=== PATIENT | female | born 1950 | race Caucasian/White ===

== ENCOUNTER → 2017-02-14 | Outpatient (CLI) | payer BC ==
[~2017-02-14] MED LIST: ATOR80TA PO; ENAL1TAB33 PO; INSHI7030 SC; METF500T PO
--- NOTE | 2017-02-14 14:12 | MAMMOGRAPHY REPORT ---
BILATERAL DIGITAL SCREENING MAMMOGRAM WITH CAD: 02/14/2017 TECHNIQUE: Current study was also evaluated with a Computer Aided Detection (CAD) system. Bilateral CC and MLO views were obtained. COMPARISON: Comparison is made to exams dated: 03/20/2012 mammogram, 02/18/2011 mammogram, and 02/13 mammogram - [facility]. BREAST COMPOSITION: The tissue of both breasts is almost entirely fatty. FINDINGS: No suspicious masses, calcifications, or areas of architectural distortion are noted in ei ther breast. There has been no significant interval change compared to prior exams. IMPRESSION: ACR BI-RADS CATEGORY 1: NEGATIVE There is no mammographic evidence of malignancy. A 1 year screening mammogram is recommended. The pa tient will receive written notification of the results. Approximately 10% of breast cancers are not detected with mammography. A negative mammographic report should not delay biopsy if a clinically suggestive mass is present. Tamia Phan M.D. ah/:02/14/2017 13:16:47 Geospatial Image Analyst: Nenita ALFONSO(R)(M), [facility] letter sent: Normal 1/2 BI-RADS Code: ACR BI-RADS Category 1: Negative
== END | disposition home or self-care (01) ==
LOC: C.MAMM 12:33
PROVIDERS: ATTEND Internal Medicine
DX: Z12.31 Encounter for screening mammogram for malignant neoplasm of breast (principal)

== ENCOUNTER 2022-05-30 11:55 | Inpatient (IN) ==
[2022-05-30] MEDS ORDERED: SODIUM CHLORIDE 0.9% 500 ML IV STA (12:23)
[2022-05-30] MEDS ORDERED: ALBUT/IPRATROP 3MG/0.5MG NEB 3 ML VIAL INH STA (12:23)
--- NOTE | 2022-05-30 12:25 | Emergency Department Note ---
Impression & Plan Acute respiratory failure with hypoxia, Pulmonary embolism with acute cor pulmonale, Diabetic ketoacidosis, Demand ischemia ED Provider Note NAME: CHARLES THOMAS AGE: 72 SEX: F : 1950 ARRIVES VIA: Ambulance INFORMANT: Patient, ED PROVIDER(S): Serjio Costa MD CHIEF COMPLAINT: Shortness of breath MEDICAL DECISION MAKING: Patient did present with profound hypoxia. The patient did have blood work completed and the patient was immediately ordered to get a CT scan as I did review the patient's chest x-ray which grossly unremarkable and I was very concerned for a PE. The patient was taken to CT where she had the CAT scan completed. I did review it myself and I was concerned about a PE and did speak with on-call radiology Dr. Patel who noted the findings and was concerned about associated right heart strain. Given this concern and the patient's significant hypoxia and heart rate I did speak with Dr. Temple with the intensive care unit as I thought the patient may need tPA. He is comfortable with this plan of care but would first recommend going over any sort of contraindications and I did discuss them with the patient who would like to proceed with the tPA. The patient did go over the CAT scan and the tPA was ordered. CAT scan was completed. I did speak with Dr. Patel with radiology I did review the CAT scan of the head did not show any obvious ICH. I did speak with pharmacy and the patient was started on the tPA. I did speak with Dr. Temple who did come and evaluate the patient at the bedside. I did speak w/ the the on-call hospitalist Dr. Davey and the patient was a dmitted to the medicine service for submassive PE s/p systemic thrombolysis. Patient was noted to have an elevated troponin of 145 but did believe this is demand related. Patient does have elevated glucose to 500. The patient did receive IV fluids. Additional glucose management deferred to inpatient team. Critical Care: I have personally spent 95 minutes of critical care time in direct management of this patient. This includes bedside care, interpretation of diagnostic studies, and testing, discussion with consultants, patient, and family members, and other require inpatient management activities. This 95 minutes is in excess of all separately billable procedures. Prior /Outside records reviewed: I did review the patient's radiation oncology notes from April 04, 2022. This was done for maintenance and monitoring surveillance Differential diagnosis: Reactive airway disease, pneumonia, pneumothorax, COPD, CHF, infections, cardiac ischemia, pulmonary embolism, musculoskeletal, gastrointestinal, as well as other pathologies. Diagnostics, as interpreted by me: ECG: Sinus tachycardia, rate of 124, normal intervals left axis deviation, no ST elevations, Q waves in lead III. Cardiac monitoring: An order was placed for continuous cardiac monitoring. The monitor shows a rate of 122 with tachycardic and regular rhythm. Patient was placed on pulse oximetry Medical decision rules: None Imaging studies: See below HPI: Patient does present due to concern for acute onset of shortness of breath beginning earlier this morning. The patient was found to be cyanotic and was placed on supplemental oxygen. When the patient presented here the patient was 78% on 3 L. The patient does not wear oxygen at home. Patient denies any chest pains but does have shortness of breath even at rest. The patient does feels that the oxygen is improving. The patient denies any fever and has not had any productive cough. No recent falls or trauma. The patient does follow with oncology but just for maintenance and surveillance as the patient is not receiving any active cancer treatment or chemotherapy. Patient denies any nausea vomiting or diarrhea. No leg swelling or calf pain no history of DVT or PE and the patient does not take any blood thinning medications. The patient states that she would have significant [place]. Patient denies any prior history of heart failure. Patient did receive 2 DuoNeb's en route. PAST MEDICAL HISTORY: See Below PAST SURGICAL HISTORY: See Below SOCIAL HISTORY: See Below HOME MEDICATIONS: See Below ALLERGIES: See Below VITALS: See Below PHYSICAL EXAMINATION: GENERAL: Moderate distress, conversational dyspnea, oxyask in place EYE EXAM: Normal conjunctiva. PERRL, no anisocoria and EOM's grossly intact w/o pain. NECK: Supple, no nuchal rigidity, no adenopathy, non-tender. No signs of meningismus. FROM of the neck with good chin to chest and neck extension. No stridor. LUNGS: Scant expiratory wheezes. Normal chest wall mechanics. HEART: Tachycardic and regular, no MRG. ABDOMEN: Abdomen soft, non-tender, normo-active bowel sounds, no masses, no rebound or guarding. BACK: No CVA TTP. SKIN: No rashes and no bruising. UPPER EXTREMITIES: Upper extremities are grossly normal. LOWER EXTREMITIES: Grossly normal, no edema. Negative Homans' sign bilaterally. NEURO EXAM: A&O x3, cranial nerves II-XII grossly intact, normal speech, moves all 4 extremities. Past Med/Surg History Medical History Acute respiratory failure with hypoxia Adult situational stress disorder Breast cancer Dx 2021 surgical intervention planned Conjunctivitis Demand ischemia Depression Diabetes mellitus type 2, uncontrolled Diabetic ketoacidosis Diabetic nephropathy with proteinuria Hyperlipidemia Hypertension Hypothyroidism Mediastinal lymphadenopathy (01/2012) Noted in 2011. Elevated ADILENE level suspicious for pulmonary sarcoidosis. Biopsy could not be completed. DM was grossly uncontrolled so steroids were avoided. Seems she's been relatively asymptomatic since then. Dr. Chowdhury repeated CT scan 2013, which revealed borderline, similiar appearing hilar LNs. Pulmonary embolism with acute cor pulmonale Solitary thyroid nodule s/p thyroidectomy 2011 Vitamin D deficiency Surgical History History of section History of cholecystectomy History of colonoscopy Diverticulosis noted. No polyps/neoplasia. No biopsies. F/U 5-10 years recommended. History of thyroidectomy (03/04/12) d/t suspicious nodule. 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 No carcinoma noted. History of tubal ligation Family History Mother Uterine cancer Leukemia Aunt Breast cancer Pancreatic cancer Father Heart disease (Reported Family History Of) Myocardial infarction Unknown Acute myocardial infarction Son Atrial fibrillation Myocardial infarction Denies family history of Ovarian cancer Prostate cancer Colorectal cancer Social History Smoking Status: Never smoker Second Hand Exposure: No; Do You Dip or Chew Tobacco: No; Tobacco Cessation Education Requested by Patient: No Hx Alcohol Use: Yes Alcohol type: wine Alcohol Intake Frequency: Monthly or Less Hx Substance Use: No Preferred Language: Pashto Communication Ability: Effective Visual Impairment: Limited Hearing Ability: Normal 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 Beliefs That Will Affect Care: None marital status: / Current Living Situation: Alone Current Living Situation Comment: lives with grandson current occupational status: retired How many Children do You have: 2 Other Information That Helps Us Care for You: No Feels Safe at Home: Yes Safety Concerns: Feels Safe At This Time Childhood Exposure to Second-Hand Smoke: Yes caffeine: Yes (half caf coffee ) during the past year weight has: remained stable Dental Care, Regularly: No Physical Activity Frequency: Does not Exercise Seatbelt Use: always Sunscreen Use: Yes Assistive Devices: None Allergies Allergies Allergy/AdvReac Type Severity Reaction Status Date / Time aloe Allergy Unknown RAISED RASH Verified 05/30/22 14:24 No Known Drug Allergies Allergy Verified 05/30/22 14:24 Home Meds Home Medications Medication Instructions Recorded Confirmed enalapril maleate 10 mg tablet 10 mg PO QAM 08/23/21 05/30/22 aspirin 81 mg tablet,delayed 81 mg PO DAILY 05/30/22 05/30/22 release Previous Rx's Medication Instructions Recorded insulin aspart U-100 100 unit/mL 15 unit (0.15 mL) subcut BID #27 mL 11/12/21 (3 mL) subcutaneous pen (Novolog FlexPen U-100 Insulin aspart) atorvastatin 80 mg tablet 80 mg PO QAM #90 tabs 12/28/21 Results & Data (ED) Vital Signs Vital Signs - 24 hr 05/30/22 12:23 05/30/22 12:23 05/30/22 12:23 Temperature 36.8 C Temperature Source Oral Pulse Rate 120 H Pulse Rate [Radial] Pulse Rate from SpO2 Sensor Pulse Rhythm [Radial] Pulse Strength [Radial] Respiratory Rate 18 Respiratory Effort / Characteristics Non-Labored Spontaneous Labored Respiratory Depth Normal Shallow Respiratory Pattern Regular Tachypnea Blood Pressure 150/73 H Blood Pressure [Left Arm] Blood Pressure Mean 98 Blood Pressure Mean [Left Arm] Blood Pressure Position [Left Arm] Pulse Oximetry 78 L 78 L Oxygen Delivery Method Nasal Cannula Nasal Cannula Nasal Cannula Oxygen Flow Rate 3 3 Sepsis Recent Fever Within 48 Hours No Sepsis New/Unexplained Change in Mental Status No Sepsis Action Taken by Nursing No Action Required Oxygen Flow Rate - Titration 7 Pulse Oximetry Post Tiitration 94 05/30/22 12:39 05/30/22 12:23 05/30/22 12:30 Temperature Temperature Source Pulse Rate 124 H 123 H Pulse Rate [Radial] 112 H Pulse Rate from SpO2 Sensor 124 H 121 H Pulse Rhythm [Radial] Regular Pulse Strength [Radial] Normal Respiratory Rate 26 H 27 H 27 H Respiratory Effort / Characteristics SOB on Exertion Respiratory Depth Shallow Respiratory Pattern Regular Blood Pressure Blood Pressure [Left Arm] 127/59 L Blood Pressure Mean Blood Pressure Mean [Left Arm] 81 Blood Pressure Position [Left Arm] Lying Pulse Oximetry 96 95 94 Oxygen Delivery Method Other Oxygen Flow Rate 7 7 7 Sepsis Recent Fever Within 48 Hours Sepsis New/Unexplained Change in Mental Status Sepsis Action Taken by Nursing Oxygen Flow Rate - Titration Pulse Oximetry Post Tiitration 05/30/22 12:40 05/30/22 13:03 05/30/22 13:04 Temperature Temperature Source Pulse Rate 123 H 122 H Pulse Rate [Radial] Pulse Rate from SpO2 Sensor 123 H Pulse Rhythm [Radial] Pulse Strength [Radial] Respiratory Rate 31 H Respiratory Effort / Characteristics Respiratory Depth Respiratory Pattern Blood Pressure 122/75 Blood Pressure [Left Arm] Blood Pressure Mean 90 Blood Pressure Mean [Left Arm] Blood Pressure Position [Left Arm] Pulse Oximetry 94 Oxygen Delivery Method Oxygen Flow Rate 7 Sepsis Recent Fever Within 48 Hours Sepsis New/Unexplained Change in Mental Status Sepsis Action Taken by Nursing Oxygen Flow Rate - Titration Pulse Oximetry Post Tiitration 05/30/22 13:04 05/30/22 13:10 05/30/22 13:15 Temperature Temperature Source Pulse Rate 120 H 120 H Pulse Rate [Radial] 119 H Pulse Rate from SpO2 Sensor 122 H 121 H Pulse Rhythm [Radial] Pulse Strength [Radial] Respiratory Rate 26 H 23 24 Respiratory Effort / Characteristics Spontaneous Respiratory Depth Respiratory Pattern Blood Pressure Blood Pressure [Left Arm] Blood Pressure Mean Blood Pressure Mean [Left Arm] Blood Pressure Position [Left Arm] Pulse Oximetry 95 93 96 Oxygen Delivery Method Oxymask Oxymask Oxygen Flow Rate 7 7 7 Sepsis Recent Fever Within 48 Hours Sepsis New/Unexplained Change in Mental Status Sepsis Action Taken by Nursing Oxygen Flow Rate - Titration Pulse Oximetry Post Tiitration 05/30/22 13:48 05/30/22 14:03 05/30/22 13:20 Temperature Temperature Source Pulse Rate 121 H Pulse Rate [Radial] 122 H 123 H Pulse Rate from SpO2 Sensor 123 H Pulse Rhythm [Radial] Pulse Strength [Radial] Respiratory Rate 18 18 31 H Respiratory Effort / Characteristics Non-Labored Spontaneous Respiratory Depth Normal Respiratory Pattern Regular Blood Pressure Blood Pressure [Left Arm] 166/84 H 156/91 H Blood Pressure Mean Blood Pressure Mean [Left Arm] 111 112 Blood Pressure Position [Left Arm] Pulse Oximetry 98 95 98 Oxygen Delivery Method Oxymask Oxymask Oxygen Flow Rate 5 5 Sepsis Recent Fever Within 48 Hours Sepsis New/Unexplained Change in Mental Status Sepsis Action Taken by Nursing Oxygen Flow Rate - Titration Pulse Oximetry Post Tiitration 05/30/22 13:34 05/30/22 13:38 05/30/22 13:38 Temperature Temperature Source Pulse Rate 125 H 127 H Pulse Rate [Radial] Pulse Rate from SpO2 Sensor Pulse Rhythm [Radial] Pulse Strength [Radial] Respiratory Rate 30 H 26 H Respiratory Effort / Characteristics Respiratory Depth Respiratory Pattern Blood Pressure 165/96 H Blood Pressure [Left Arm] Blood Pressure Mean 119 Blood Pressure Mean [Left Arm] Blood Pressure Position [Left Arm] Pulse Oximetry Oxygen Delivery Method Oxygen Flow Rate Sepsis Recent Fever Within 48 Hours Sepsis New/Unexplained Change in Mental Status Sepsis Action Taken by Nursing Oxygen Flow Rate - Titration Pulse Oximetry Post Tiitration 05/30/22 13:40 05/30/22 13:45 05/30/22 13:45 Temperature Temperature Source Pulse Rate 123 H 123 H Pulse Rate [Radial] Pulse Rate from SpO2 Sensor 123 H 123 H Pulse Rhythm [Radial] Pulse Strength [Radial] Respiratory Rate 22 31 H Respiratory Effort / Characteristics Respiratory Depth Respiratory Pattern Blood Pressure 166/84 H Blood Pressure [Left Arm] Blood Pressure Mean 111 Blood Pressure Mean [Left Arm] Blood Pressure Position [Left Arm] Pulse Oximetry 96 97 Oxygen Delivery Method Oxygen Flow Rate Sepsis Recent Fever Within 48 Hours Sepsis New/Unexplained Change in Mental Status Sepsis Action Taken by Nursing Oxygen Flow Rate - Titration Pulse Oximetry Post Tiitration 05/30/22 13:50 05/30/22 14:00 05/30/22 14:18 Temperature Temperature Source Pulse Rate 121 H 125 H Pulse Rate [Radial] 121 H Pulse Rate from SpO2 Sensor 121 H 126 H Pulse Rhythm [Radial] Pulse Strength [Radial] Respiratory Rate 34 H 28 H 18 Respiratory Effort / Characteristics Respiratory Depth Respiratory Pattern Blood Pressure 156/91 H Blood Pressure [Left Arm] 154/100 H Blood Pressure Mean 112 Blood Pressure Mean [Left Arm] 118 Blood Pressure Position [Left Arm] Pulse Oximetry 98 94 94 Oxygen Delivery Method Oxymask Oxygen Flow Rate 5 5 5 Sepsis Recent Fever Within 48 Hours Sepsis New/Unexplained Change in Mental Status Sepsis Action Taken by Nursing Oxygen Flow Rate - Titration Pulse Oximetry Post Tiitration Home Medications Current Medication List: was personally reviewed by me Laboratory Data Attestation: I reviewed the patient's lab results. 05/31/22 05:59 05/31/22 08:08 Lab Results 05/30/22 05/30/22 05/30/22 Range/Units 12:16 12:16 12:16 WBC 13.18 H (4.8-10.8) K/ul RBC 4.99 (4.20-5.40) M/uL Hgb 14.8 (12.0-16.0) g/dl Hct 45.6 (37.0-47.0) % MCV 91.4 (80.0-100.0) fL MCH 29.7 (25.0-34.0) pg MCHC 32.5 (32.0-36.0) g/dL RDW Std Deviation 42.2 (36.4-46.3) fL RDW Coeff of Millicent 12.7 (11.5-14.5) % Plt Count 208 (130-400) K/uL MPV 9.8 (9.4-12.4) fL Immature Gran % (Auto) 0.6 % Neut % (Auto) 81.9 % Lymph % (Auto) 12.2 % Charlton % (Auto) 4.7 % Eos % (Auto) 0.2 % Baso % (Auto) 0.4 % Neut # (Auto) 10.80 H (1.40-6.50) K/uL Lymph # (Auto) 1.61 (1.2-3.4) K/uL Charlton # (Auto) 0.62 H (0.11-0.59) K/uL Eos # (Auto) 0.02 (0-0.50) K/uL Baso # (Auto) 0.05 (0-0.2) K/uL Immature Gran # (Auto) 0.08 (0.01-0.20) K/uL PT 10.6 (9.0-12.0) Seconds INR 1.0 (0.9-1.1) APTT 24.7 (21.0-31.0) Seconds PTT Ratio 0.9 Sodium 138 (136-145) mmol/L Potassium 4.5 (3.5-5.1) mmol/L Chloride 105 (98-107) mmol/L Carbon Dioxide 19 L (21-32) mmol/L Anion Gap 14 H (3-11) BUN 17 (6-23) mg/dl Creatinine 1.10 (0.6-1.2) mg/dl Est Cr Clr Drug Dosing 48.0 ml/min Est GFR ( Amer) 57.7 ml/min Est GFR (Non-Af Amer) 49.8 ml/min BUN/Creatinine Ratio 15.5 (10-20) Glucose 513 H* (70-99(Fasting)) mg/dl Calcium 8.8 (8.5-10.1) mg/dl Magnesium 1.9 (1.7-2.4) mg/dl Total Bilirubin 0.5 (0.2-1.0) mg/dl AST 77 H (13-39) U/L ALT 62 H (7-52) U/L Alkaline Phosphatase 116 H (34-104) U/L Troponin I High Sens 145.9 H* (0-14) pg/ml Total Protein 6.7 (6.0-8.3) gm/dl Albumin 3.7 (3.4-5.0) gm/dl Globulin 3.0 (2.5-4.0) gm/dl Albumin/Globulin Ratio 1.2 (0.9-2) Procalcitonin (0-0.5) ng/ml Adenovirus (PCR) (NotDetected) B. pertussis DNA (PCR) (NotDetected) B.parapertussis DNA PCR (NotDetected) C. pneumoniae DNA (PCR) (NotDetected) Coronavirus OC43 (PCR) (NotDetected) Coronavirus HKU1 (PCR) (NotDetected) Coronavirus 229E (PCR) (NotDetected) SARS-CoV-2 (PCR) (NotDetected) Coronavirus NL63 (PCR) (NotDetected) Human Metapneumovir PCR (NotDetected) Influenza Type A (PCR) (NotDetected) Influenza Type B (PCR) (NotDetected) M. pneumoniae (PCR) (NotDetected) Parainfluenza 1 (PCR) (NotDetected) Parainfluenza 2 (PCR) (NotDetected) Parainfluenza 3 (PCR) (NotDetected) Parainfluenza 4 (PCR) (NotDetected) RSV (PCR) (NotDetected) Entero/Rhino (PCR) (NotDetected) 05/30/22 05/30/22 Range/Units 12:16 12:16 WBC (4.8-10.8) K/ul RBC (4.20-5.40) M/uL Hgb (12.0-16.0) g/dl Hct (37.0-47.0) % MCV (80.0-100.0) fL MCH (25.0-34.0) pg MCHC (32.0-36.0) g/dL RDW Std Deviation (36.4-46.3) fL RDW Coeff of Millicent (11.5-14.5) % Plt Count (130-400) K/uL MPV (9.4-12.4) fL Immature Gran % (Auto) % Neut % (Auto) % Lymph % (Auto) % Charlton % (Auto) % Eos % (Auto) % Baso % (Auto) % Neut # (Auto) (1.40-6.50) K/uL Lymph # (Auto) (1.2-3.4) K/uL Charlton # (Auto) (0.11-0.59) K/uL Eos # (Auto) (0-0.50) K/uL Baso # (Auto) (0-0.2) K/uL Immature Gran # (Auto) (0.01-0.20) K/uL PT (9.0-12.0) Seconds INR (0.9-1.1) APTT (21.0-31.0) Seconds PTT Ratio Sodium (136-145) mmol/L Potassium (3.5-5.1) mmol/L Chloride (98-107) mmol/L Carbon Dioxide (21-32) mmol/L Anion Gap (3-11) BUN (6-23) mg/dl Creatinine (0.6-1.2) mg/dl Est Cr Clr Drug Dosing ml/min Est GFR ( Amer) ml/min Est GFR (Non-Af Amer) ml/min BUN/Creatinine Ratio (10-20) Glucose (70-99(Fasting)) mg/dl Calcium (8.5-10.1) mg/dl Magnesium (1.7-2.4) mg/dl Total Bilirubin (0.2-1.0) mg/dl AST (13-39) U/L ALT (7-52) U/L Alkaline Phosphatase (34-104) U/L Troponin I High Sens (0-14) pg/ml Total Protein (6.0-8.3) gm/dl Albumin (3.4-5.0) gm/dl Globulin (2.5-4.0) gm/dl Albumin/Globulin Ratio (0.9-2) Procalcitonin < 0.05 (0-0.5) ng/ml Adenovirus (PCR) Not Detected (NotDetected) B. pertussis DNA (PCR) Not Detected (NotDetected) B.parapertussis DNA PCR Not Detected (NotDetected) C. pneumoniae DNA (PCR) Not Detected (NotDetected) Coronavirus OC43 (PCR) Not Detected (NotDetected) Coronavirus HKU1 (PCR) Not Detected (NotDetected) Coronavirus 229E (PCR) Not Detected (NotDetected) SARS-CoV-2 (PCR) Not Detected (NotDetected) Coronavirus NL63 (PCR) Not Detected (NotDetected) Human Metapneumovir PCR Not Detected (NotDetected) Influenza Type A (PCR) Not Detected (NotDetected) Influenza Type B (PCR) Not Detected (NotDetected) M. pneumoniae (PCR) Not Detected (NotDetected) Parainfluenza 1 (PCR) Not Detected (NotDetected) Parainfluenza 2 (PCR) Not Detected (NotDetected) Parainfluenza 3 (PCR) Not Detected (NotDetected) Parainfluenza 4 (PCR) Not Detected (NotDetected) RSV (PCR) Not Detected (NotDetected) Entero/Rhino (PCR) DETECTED A* (NotDetected) Administered Medications Heparin Sodium/Dextrose (Heparin Sodium/Dextrose) 25,000 units in 500 mls @ 19 mls/hr IV .Q24H [facility]; Protocol Stop: 06/29/22 17:59 Last Titration: 05/31/22 07:14 Dose: 950 units/hr, 19 mls/hr Documented By: LILY Co-signed By: KANDI Titration: 05/31/22 01:21 Dose: 950 units/hr, 19 mls/hr Documented By: KANDI Co-signed By: CHARLES Titration: 05/30/22 18:55 Dose: 800 units/hr, 16 mls/hr Documented By: RODGER Co-signed By: KANDI Admin: 05/30/22 18:11 Dose: 800 units/hr, 16 mls/hr Documented By: RODGER Co-signed By: KYLE Insulin Aspart (Insulin Aspart Per Unit) 0 units SC ACHS [facility]I Stop: 06/30/22 09:59 Last Admin: 05/31/22 12:20 Dose: 5 units Documented By: LILY Co-signed By: DIOR Admin: 05/31/22 10:28 Dose: 1 units Documented By: LILY Co-signed By: PDAMINI Discontinued Medications Albuterol (Albut/Ipratrop 3mg/0.5mg Neb 3 Ml Vial) 3 ml INH NOW STA Stop: 05/30/22 12:24 Last Admin: 05/30/22 13:15 Dose: 3 ml Documented By: MONET Heparin Sodium (Porcine) (Heparin Sod (Porcine) 1000 Unit/Ml) 3,000 units IV NOW ONE Stop: 05/31/22 01:16 Last Admin: 05/31/22 01:20 Dose: 3,000 units Documented By: KANDI Co-signed By: CHARLES Heparin Sodium/Dextrose (Heparin Iv Adult Wt-Based Low-Dose *No* Bolus Protocol) 1 each IV ONE ONE; Protocol Stop: 05/30/22 13:23 Last Admin: 05/31/22 14:31 Dose: Not Given Documented By: MIKE Heparin Sodium/Dextrose (Heparin Iv Adult Wt-Based Low-Dose *No* Bolus Protocol) 1 each IV Q30M [facility]; Protocol Stop: 05/30/22 17:36 Last Admin: 05/30/22 18:32 Dose: 1 each Documented By: Admin: 05/30/22 18:31 Dose: 1 each Documented By: Admin: 05/30/22 18:31 Dose: 1 each Documented By: Admin: 05/30/22 18:12 Dose: 1 each Documented By: RODGER Sodium Chloride (Nss) 500 mls @ 999 mls/hr IV .Q31M STA Stop: 05/30/22 12:53 Last Infusion: 05/30/22 13:51 Dose: 0 mls/hr Documented By: Admin: 05/30/22 13:17 Dose: 999 mls/hr Documented By: MADISON Alteplase, Recombinant 50 mg/ (EMPTY BAG) 50 mls @ 25 mls/hr IV NOW STA; Protocol Stop: 05/30/22 15:21 Last Infusion: 05/30/22 16:14 Dose: 0 mls/hr Documented By: Admin: 05/30/22 13:47 Dose: 25 mls/hr Documented By: HIRA Heparin Sodium/Dextrose (Heparin Sodium/Dextrose) 25,000 units in 500 mls @ 0.02 mls/hr IV .Q24H [facility]; Protocol Stop: 06/29/22 13:44 Last Admin: 05/31/22 14:32 Dose: Not Given Documented By: MIKE Insulin Human Regular 250 (units/ Sodium Chloride) 250 mls @ 3.2 mls/hr IV .Q24H [facility]; Protocol Stop: 06/29/22 16:14 Last Titration: 05/31/22 12:20 Dose: 0 units/hr, 0 mls/hr Documented By: CAM Co-signed By: PADMINI Titration: 05/31/22 05:05 Dose: 0 units/hr, 0 mls/hr Documented By: BPY Co-signed By: SG Titration: 05/31/22 04:10 Dose: 0 units/hr, 0 mls/hr Documented By: BPY Co-signed By: SG Titration: 05/31/22 03:07 Dose: 3.2 units/hr, 3.2 mls/hr Documented By: TG Co-signed By: ELS Titration: 05/31/22 02:27 Dose: 4 units/hr, 4 mls/hr Documented By: BPY Co-signed By: TG Titration: 05/30/22 23:05 Dose: 5 units/hr, 5 mls/hr Documented By: BPY Co-signed By: BRA Titration: 05/30/22 19:42 Dose: 8.3 units/hr, 8.3 mls/hr Documented By: BPY Co-signed By: TG Titration: 05/30/22 18:55 Dose: 8.3 units/hr, 8.3 mls/hr Documented By: RODGER Co-signed By: BPY Titration: 05/30/22 18:32 Dose: 8.3 units/hr, 8.3 mls/hr Documented By: RODGER Co-signed By: KEM Admin: 05/30/22 17:32 Dose: 8.3 units/hr, 8.3 mls/hr Documented By: RODGER Co-signed By: KEM Parenteral Electrolytes (Normosol-R) 1,000 mls @ 100 mls/hr IV .Q10H [facility]I Stop: 06/29/22 16:14 Last Infusion: 05/30/22 18:36 Dose: 0 mls/hr Documented By: Admin: 05/30/22 16:40 Dose: 100 mls/hr Documented By: RODGER Sodium Chloride (Nss 1000ml) 1,000 mls @ 100 mls/hr IV .Q10H [facility]I Stop: 06/29/22 18:14 Last Infusion: 05/31/22 03:47 Dose: 0 mls/hr Documented By: Admin: 05/30/22 18:40 Dose: 100 mls/hr Documented By: RODGER Dextrose/Sodium Chloride (D5w And 1/2nss) 1,000 mls @ 125 mls/hr IV .Q8H J[facility]I Stop: 06/29/22 22:29 Last Infusion: 05/31/22 12:20 Dose: 0 mls/hr Documented By: Admin: 05/31/22 06:10 Dose: 125 mls/hr Documented By: Infusion: 05/31/22 06:10 Dose: 125 mls/hr Documented By: Admin: 05/30/22 22:28 Dose: 125 mls/hr Documented By: KANDI Potassium Chloride (K John / Wtr) 10 meq in 100 mls @ 100 mls/hr IV Q1H [facility] Stop: 05/31/22 04:59 Last Infusion: 05/31/22 05:13 Dose: 0 mls/hr Documented By: Admin: 05/31/22 04:06 Dose: 100 mls/hr Documented By: Infusion: 05/31/22 04:06 Dose: 100 mls/hr Documented By: Admin: 05/31/22 03:18 Dose: 100 mls/hr Documented By: Infusion: 05/31/22 03:11 Dose: 100 mls/hr Documented By: Admin: 05/31/22 02:11 Dose: 100 mls/hr Documented By: BPY Magnesium Sulfate/Dextrose (Magnesium Sulfate / D5w) 1 gm in 100 mls @ 50 mls/hr IV ONE ONE Stop: 05/31/22 03:59 Last Infusion: 05/31/22 04:11 Dose: 0 mls/hr Documented By: Admin: 05/31/22 02:11 Dose: 50 mls/hr Documented By: KANDI Insulin Aspart (Insulin Aspart Per Unit) 0 units SC ACHS JERI Stop: 06/29/22 16:29 Last Admin: 05/31/22 14:30 Dose: Not Given Documented By: Admin: 05/30/22 19:47 Dose: Not Given Documented By: Admin: 05/30/22 17:17 Dose: Not Given Documented By: RODGER Insulin Glargine (Lantus Per Unit Charge) 15 units SQ NOW ONE Stop: 05/31/22 09:01 Last Admin: 05/31/22 09:38 Dose: 15 units Documented By: LILY Co-signed By: DIOR Insulin Human Regular (Novolin-R Bolus From Bag) 8 units IV ONE ONE Stop: 05/30/22 16:31 Last Admin: 05/30/22 17:33 Dose: 8 units Documented By: RODGER Co-signed By: KEM Ioversol (Optiray 320 500ml) 109 ml IV ONCE ONE Stop: 05/30/22 12:56 Last Admin: 05/30/22 12:58 Dose: 109 ml Documented By: MIKE De Jesus (Pending Order) 1 each N/A Q1H JERI Stop: 05/30/22 21:48 Last Admin: 05/31/22 14:32 Dose: Not Given Documented By: MIKE Rosascellaneous Information (Dc All Anticoagulants ) 1 each N/A NOW STA Stop: 05/30/22 13:23 Last Admin: 05/30/22 16:40 Dose: 1 each Documented By: RODGER Sodium Chloride (Sodium Chloride 0.9% 50 Ml Bag) 50 ml IV NOW STA Stop: 05/30/22 13:23 Last Admin: 05/30/22 15:40 Dose: 50 ml Documented By: HIRA Imaging Data Radiologist's Impression: Chest CTA 05/30/22 12:23 CHEST CTA for PULMONARY ARTERIES CT DOSE: 386.18 mGy.cm HISTORY: Dyspnea TECHNIQUE: Multiaxial CT images of the chest were performed following the intravenous administration of contrast to evaluate the pulmonary arteries. Maximal intensity projection images were also obtained. A dose lowering technique was utilized adhering to the principles of ALARA. COMPARISON STUDY: Chest CT 09/20/2013. FINDINGS: The left thyroid lobe is likely surgically absent. A few prominent mediastinal lymph nodes are similar in size to the prior study. Dominant AP window/left paratracheal lymph node on image 74 measures 11 mm in short axis diameter. No significant hilar lymphadenopathy. No pleural or pericardial effusions. The heart is normal in size. Normal esophagus. Moderate coronary artery calcifications are noted. Lumpectomy scar noted within the left breast with mild left breast thickening. This favors posttreatment changes. Limited views of the upper abdomen demonstrate a normal liver and spleen. There is flattening of the interventricular septum with asymmetric enlargement of the right ventricle and mass effect along the left ventricle consistent with right- sided heart strain. Extensive bilateral pulmonary emboli involving the bilateral distal main pulmonary arteries and extending into the majority of the lobar and segmental pulmonary arteries. Normal caliber thoracic aorta with no evidence for dissection. A stable 5 cm sclerotic focus within the T1 vertebral body favors a bone island. Otherwise, no suspicious lytic or blastic osseous lesions. The central airways are patent. No pneumothorax. Linear scarlike density noted wi thin the left upper lobe. Stable 3 mm nodule within the left lower lobe on image 134. Stable 3 mm nodule within the right upper lobe on image 222. A stable 4 mm nodule within the right lower lobe on image 85. These are likely benign given the long-term stability. No new or suspicious pulmonary nodules identified. There is mild bronchial wall thickening. No focal lung consolidations to suggest a pneumonia or pulmonary infarct at this time. IMPRESSION: 1. Extensive bilateral pulmonary emboli resulting in significant right-sided heart strain. 2. Prominent mediastinal lymph nodes remain stable and are likely benign given the long-term stability. 3. A few scattered subcentimeter pulmonary nodules are also stable and are therefore considered to be benign. ACT 112: Negative or not required by law. Electronically signed by: Cordell Rasheed M.D. 05/30/2022 1:14 PM Chest X-Ray 05/30/22 12:23 XR chest 1V portable CLINICAL HISTORY: Dyspnea TECHNIQUE: Single frontal radiograph of the chest was obtained. Comparison: Comparison is made to chest radiograph 12/16/2011 FINDINGS: No lines and tubes are seen. The cardiomediastinal silhouette is normal. The lungs are clear. No evidence of pleural effusion or pneumothorax. IMPRESSION: No acute abnormalities and in particular no evidence of pneumonia. ACT 112: Negative or not required by law. Electronically signed by: Teddy Poep M.D. 05/30/2022 12:[address] 05/30/22 13:[address] DOSE: 537.48 mGy.cm HISTORY: Pulmonary emboli. screener pre tPA to exclude intracranial hemorrhage or mass TECHNIQUE: Multiaxial CT images of the head were performed without the use of intravenous contrast. Automated exposure control was utilized for this study. A dose lowering technique was utilized adhering to the principles of ALARA. Comparison: None. Findings: The paranasal sinuses and mastoid air cells are clear. The calvarium and skull base are intact. Residual contrast within the brain from the recent chest CTA. This results in suboptimal evaluation for intracranial hemorrhage. However, there is no definite mass, hematoma, midline shift, acute infarct. The ventricles and sulci are within normal limits for age. Impression: No definite acute intracranial abnormality as described above. ACT 112: Negative or not required by law. Electronically signed by: Cordell Rasheed M.D. 05/30/2022 1:36 PM Abdomen Ultrasound 05/30/22 14:09 ABDOMINAL ULTRASOUND, RIGHT UPPER QUADRANT HISTORY: transaminitis. COMPARISON: None. FINDINGS: Pancreas: The pancreatic tail is obscured by overlying bowel gas. The remaining portions of the pancreas are within normal limits. An elongated lymph node adjacent to the pancreas measuring 32 x 21 x 7 mm Liver: Unremarkable. Gallbladder: The gallbladder is surgically absent. CBD: 6 mm. Right kidney: No hydronephrosis. IMPRESSION: 1. Prior cholecystectomy. 2. Normal caliber common bile duct. 3. A single mildly enlarged peripancreatic lymph node measuring 32 x 21 x 7 mm. ACT 112: Negative or not required by law. Electronically signed by: Cordell Rasheed M.D. 05/30/2022 9:01 PM Venous Doppler Study 05/30/22 14:09 BILATERAL LOWER EXTREMITY VENOUS DOPPLER HISTORY: Pulmonary emboli. Assess for DVT. COMPARISON STUDY: None. FINDINGS: No DVT within the right lower extremity. There is occlusive thrombus within the left popliteal vein, posterior tibial veins, and peroneal veins. The left anterior tibial veins appear patent. The left superficial femoral and common femoral veins are also patent. IMPRESSION: 1. No DVT within the right lower extremity. 2. Occlusive DVT within the left popliteal, posterior tibial, and peroneal veins. ACT 112: Negative or not required by law. Electronically signed by: Cordell Rasheed M.D. 05/30/2022 8:59 PM Discharge Plan Visit Data Chief Complaint: Shortness of Breath/Dyspnea Stated Complaint: SOB ED Provider: Serjio Costa Discharge Problem: Acute respiratory failure with hypoxia, Pulmonary embolism with acute cor pulm onale, Diabetic ketoacidosis, Demand ischemia Patient Disposition: Admitted As Inpatient Discharge Instructions Interventions: ED Discharge Assessment Last Done: 05/30/22 15:37 : Pulmonary embolism with acute cor pulmonale Qualifiers: Pulmonary embolism type: unspecified Chronicity: acute Qualified Code(s): I26.09 - Other pulmonary embolism with acute cor pulmonale Diabetic ketoacidosis Qualifiers: Diabetes mellitus complication detail: without coma
--- NOTE | 2022-05-30 12:46 | XRay Report ---
XR chest 1V portable CLINICAL HISTORY: Dyspnea TECHNIQUE: Single frontal radiograph of the chest was obtained. Comparison: Comparison is made to chest radiograph 12/16/2011 FINDINGS: No lines and tubes are seen. The cardiomediastinal silhouette is normal. The lungs are clear. No evid ence of pleural effusion or pneumothorax. IMPRESSION: No acute abnormalities and in particular no evidence of pneumonia. ACT 112: Negative or not required by law. Electronically signed by: Teddy Pope M.D. 05/30/2022 12:44 PM
[2022-05-30 12:47] LABS: Basophils # (auto) 0.05 K/uL (0-0.2); Basophils % (auto) 0.4 %; Eosinophils # (auto) 0.02 K/uL (0-0.50); Eosinophils % (auto) 0.2 %; Hematocrit (blood only) 45.6 % (37.0-47.0); Hemoglobin 14.8 g/dl (12.0-16.0); Immature Granulocytes # (auto) 0.08 K/uL (0.01-0.20); Immature Granulocytes % (auto) 0.6 %; Lymphocytes # (auto) 1.61 K/uL (1.2-3.4); Lymphocytes % (auto) 12.2 %; Mean Corpuscular Hemoglobin 29.7 pg (25.0-34.0); Mean Corpuscular Hgb Conc 32.5 g/dL (32.0-36.0); Mean Corpuscular Volume 91.4 fL (80.0-100.0); Mean Platelet Volume 9.8 fL (9.4-12.4); Monocytes # (auto) 0.62 K/uL (0.11-0.59); Monocytes % (auto) 4.7 %; Neutrophils % (auto) 81.9 %; Platelet Count 208 K/uL (130-400); RDW Coefficient of Variation 12.7 % (11.5-14.5); RDW Standard Deviation 42.2 fL (36.4-46.3); Red Blood Count 4.99 M/uL (4.20-5.40); White Blood Count 13.18 K/ul (4.8-10.8)
[2022-05-30] MEDS ORDERED: OPTIRAY 320 500ml IV ONE (12:55)
[2022-05-30 13:06] LABS: Albumin Globulin Ratio 1.2 (0.9-2); Albumin Level 3.7 gm/dl (3.4-5.0); BUN Creatinine Ratio 15.5 (10-20); Bilirubin,Total 0.5 mg/dl (0.2-1.0); Calcium 8.8 mg/dl (8.5-10.1); Est GFR (African American) 57.7 ml/min; Est GFR (Non-African American) 49.8 ml/min; Magnesium 1.9 mg/dl (1.7-2.4); Potassium 4.5 mmol/L (3.5-5.1); Total Protein 6.7 gm/dl (6.0-8.3)
[2022-05-30 13:12] LABS: Troponin I High Sensitivity 145.9 pg/ml (0-14)
--- NOTE | 2022-05-30 13:15 | CT Scan Report ---
CHEST CTA for PULMONARY ARTERIES CT DOSE: 386.18 mGy.cm HISTORY: Dyspnea TECHNIQUE: Multiaxial CT images of the chest were performed following the intravenous administration of contrast to evaluate the pulmonary arteries. Maximal intensity projection images were also obtaine d. A dose lowering technique was utilized adhering to the principles of ALARA. COMPARISON STUDY: Chest CT 09/20/2013. FINDINGS: The left thyroid lobe is likely surgically absent. A few prominent mediastinal lymph nodes are similar in size to the prior study. Dominant AP window/left paratracheal lymph node on image 74 m easures 11 mm in short axis diameter. No significant hilar lymphadenopathy. No pleural or pericardial effusions. The heart is normal in size. Normal esophagus. Moderate coronary artery calcifications ar e noted. Lumpectomy scar noted within the left breast with mild left breast thickening. This favors p osttreatment changes. Limited views of the upper abdomen demonstrate a normal liver and spleen. There is flattening of the interventricular septum with asymmetric enlargement of the right ventricle and mass effect along the left ventricle consistent with right-sided heart strain. Extensive bilateral pu lmonary emboli involving the bilateral distal main pulmonary arteries and extending into the majority of the lobar and segmental pulmonary arteries. Normal caliber thoracic aorta with no evidence for di ssection. A stable 5 cm sclerotic focus within the T1 vertebral body favors a bone island. Otherwise, no suspicious lytic or blastic osseous lesions. The central airways are patent. No pneumothorax. [place] ear scarlike density noted within the left upper lobe. Stable 3 mm nodule within the left lower lobe on image 134. Stable 3 mm nodule within the right upper lobe on image 222. A stable 4 mm nodule withi n the right lower lobe on image 85. These are likely benign given the long-term stability. No new or suspicious pulmonary nodules identified. There is mild bronchial wall thickening. No focal lung conso lidations to suggest a pneumonia or pulmonary infarct at this time. IMPRESSION: 1. Extensive bilateral pulmonary emboli resulting in significant right-sided heart strain. 2. Prominent mediastinal lymph nodes remain stable and are likely benign given the long-term stabilit y. 3. A few scattered subcentimeter pulmonary nodules are also stable and are therefore considered to be benign. ACT 112: Negative or not required by law. Electronically signed by: Cordell Rasheed M.D. 05/30/2022 1:14 PM
[2022-05-30 13:18] LABS: Partial Thromboplastin Ratio 0.9; Partial Thromboplastin Time 24.7 Seconds (21.0-31.0); Prothrombin Time 10.6 Seconds (9.0-12.0)
[2022-05-30] MEDS ORDERED: ALTEPLASE, RECOMBINANT 50 MG in EMPTY BAG 0 ML IV STA (13:22)
[2022-05-30] MEDS ORDERED: Heparin IV Adult Wt-Based Low-Dose *NO* Bolus Protocol IV ONE (13:22)
[2022-05-30] MEDS ORDERED: DC ALL ANTICOAGULANTS STA (13:22)
[2022-05-30] MEDS ORDERED: SODIUM CHLORIDE 0.9% 50 ML BAG IV STA (13:22)
[2022-05-30] MEDS ORDERED: PRIMARY PLUMSET, PE LINED TUBING, 113 IN, NON-DEHP (2260-0500) IV STA (13:22)
--- NOTE | 2022-05-30 13:37 | CT Scan Report ---
HEAD CT NONCONTRAST CT DOSE: 537.48 mGy.cm HISTORY: Pulmonary emboli. screener pre tPA to exclude intracranial hemorrhage or mass TECHNIQUE: Multiaxial CT images of the head were performed without the use of intravenous contrast. A utomated exposure control was utilized for this study. A dose lowering technique was utilized adheri ng to the principles of ALARA. Comparison: None. Findings: The paranasal sinuses and mastoid air cells are clear. The calvarium and skull base are int act. Residual contrast within the brain from the recent chest CTA. This results in suboptimal evaluat ion for intracranial hemorrhage. However, there is no definite mass, hematoma, midline shift, acute i nfarct. The ventricles and sulci are within normal limits for age. Impression: No definite acute intracranial abnormality as described above. ACT 112: Negative or not required by law. Electronically signed by: Cordell Rasheed M.D. 05/30/2022 1:36 PM
[2022-05-30] MEDS ORDERED: HEPARIN SODIUM/DEXTROSE 25,000 UNITS/500 ML BAG IV SCH (13:45)
[2022-05-30 13:49] LABS: Appearance Urine Clear (Clear); Bacteria Urine Automated Negative (Negative); Bilirubin Urine Negative (Negative); Blood Urine 1+ (Negative); Color Urine Yellow; Glucose Urine UA 3+ (Negative); Ketones Urine 2+ (Negative); Leukocyte Esterase Urine Negative (Negative); Nitrite Urine Negative (Negative); Protein Urine 2+ (Negative); RBC Urine Automated 0-4 /hpf (0-4); Specific Gravity Urine > 1.045 (1.000-1.030); Urobilinogen Urine Negative (Negative)
[2022-05-30 14:07] LABS: Adenovirus PCR Not Detected (NotDetected); Bordetella parapertussis PCR Not Detected (NotDetected); Bordetella pertussis PCR Not Detected (NotDetected); Chlamydia pneumoniae PCR Not Detected (NotDetected); Coronavirus 229E PCR Not Detected (NotDetected); Coronavirus CoV-2 (COVID19)PCR Not Detected (NotDetected); Coronavirus HKU1 PCR Not Detected (NotDetected); Coronavirus NL63 PCR Not Detected (NotDetected); Coronavirus OC43PCR Not Detected (NotDetected); Human Metapneumovirus PCR Not Detected (NotDetected); Influenza A PCR Not Detected (NotDetected); Influenza B PCR Not Detected (NotDetected); Mycoplasma pneumoniae PCR Not Detected (NotDetected); Parainfluenza Virus 1 PCR Not Detected (NotDetected); Parainfluenza Virus 2 PCR Not Detected (NotDetected); Parainfluenza Virus 3 PCR Not Detected (NotDetected); Parainfluenza Virus 4 PCR Not Detected (NotDetected); Respiratory Syncytial VirusPCR Not Detected (NotDetected)
[2022-05-30 14:21] LABS: Rhinovirus/Enterovirus PCR DETECTED (NotDetected)
--- NOTE | 2022-05-30 14:23 | History & Physical Report ---
Date of Service May 30, 2022 Assessment & Plan (1) Pulmonary embolism with acute cor pulmonale: Plan: Alteplase given in the ER. Will defer starting IV heparin timing to ICU usually when PTT < twice upper limit of normal. TTE (2) Diabetic ketoacidosis: Plan: Discussed with Dr Temple. NSS 500ml bolus given in ER. Planning on repeating labs prior to initiation of probable insulin IV drip but will defer ongoing management and fluids to ICU team. Recommend q4h labs until anion gap closed (3) Acute respiratory failure with hypoxia: Plan: Secondary to bilateral pulmonary embolism as above. Currently stable on 5LPM O2 oxymask on admission. Aim O2 sats > 94% (4) Demand ischemia: Plan: Serial troponins, TTE (5) Diabetes mellitus type 2, uncontrolled: Plan: Patient not sure what insulin she is taking. When prompted regarding Lantus she thinks she has this at home but not prescribed in the last year. Per last PCP note she should be taking Lantus 30 units HS and Novolog 15 units BID. Will need perinatal educator prior to discharge (6) Hypertension: Plan: Hold enalapril pending serial BP measurements to make sure stability prior to restarting. 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 Plan VTE Prophylaxis - as above Diet - NPO pending resolution of DKA Disposition - admit to ICU Admission and Anticipated Discharge Date Admission Date: May 31, 2022 History of Present Illness Chief Complaint: Shortness of breath Primary Care Provider: Miguelito Chowdhury MD Shari Iglesias is a 72-year-old female who presents to the ER with shortness of breath. Symptoms started overnight but much worse today. No chest pain. She reports feeling a generalized illness with her not feeling right, everything going at 100 mph. Sudden worsening today over a 30 minute period with worsening shortness of breath therefore called EMS. No fever or chills, cough, nasal congestion, sinus pain, headache, chest pain, abdominal pain, nausea, vomiting, diarrhea, dizziness. She denies any history of DVT or PE. She did not take her usual medications this morning. On reviewing her diabetes medications last PCP note suggests she should be taking Lantus 30 units at night but it has not been prescribed in the last year. The patient is very unsure on what she should be taking, when to take it and when she last took it. In the ER given her history of cancer and shortness of breath she underwent CT for PE showing submassive bilateral pulmonary emboli with right heart strain. On discussion with the peoplesoft analyst decision was made to give alteplase. She reports already feeling improved when seen. She was also noted to have mild diabetic ketoacidosis with bicarb 19, anion gap 14 and glucose 513. Care was discussed with the peoplesoft analyst and she will be admitted to the ICU for ongoing care. Allergies Allergy/AdvReac Type Severity Reaction Status Date / Time aloe Allergy Unknown RAISED RASH Verified 05/30/22 14:24 No Known Drug Allergies Allergy Verified 05/30/22 14:24 Home Medications Medication Instructions Recorded Confirmed Type enalapril maleate 10 mg tablet 10 mg PO QAM 08/23/21 05/30/22 History insulin aspart U-100 100 unit/mL 15 unit (0.15 mL) subcut BID #27 mL 11/12/21 05/30/22 Rx (3 mL) subcutaneous pen (Novolog FlexPen U-100 Insulin aspart) atorvastatin 80 mg tablet 80 mg PO QAM #90 tabs 12/28/21 05/30/22 Rx aspirin 81 mg tablet,delayed 81 mg PO DAILY 05/30/22 05/30/22 History release Past Med/Surg History Medical History Acute respiratory failure with hypoxia Adult situational stress disorder Breast cancer Dx 2021 surgical intervention planned Conjunctivitis Demand ischemia Depression Diabetes mellitus type 2, uncontrolled Diabetic ketoacidosis Diabetic nephropathy with proteinuria Hyperlipidemia Hypertension Hypothyroidism Mediastinal lymphadenopathy (01/2012) Noted in 2011. Elevated ADILENE level suspicious for pulmonary sarcoidosis. Biopsy could not be completed. DM was grossly uncontrolled so steroids were avoided. Seems she's been relatively asymptomatic since then. Dr. Chowdhury repeated CT scan 2013, which revealed borderline, similiar appearing hilar LNs. Pulmonary embolism with acute cor pulmonale Solitary thyroid nodule s/p thyroidectomy 2011 Vitamin D deficiency Surgical History History of section History of cholecystectomy History of colonoscopy Diverticulosis noted. No polyps/neoplasia. No biopsies. F/U 5-10 years rec ommended. History of thyroidectomy (03/04/12) d/t suspicious nodule. 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 No carcinoma noted. History of tubal ligation Family History Mother Uterine cancer Leukemia Aunt Breast cancer Pancreatic cancer Father Heart disease (Reported Family History Of) Myocardial infarction Unknown Acute myocardial infarction Son Atrial fibrillation Myocardial infarction Denies family history of Ovarian cancer Prostate cancer Colorectal cancer Social History Smoking Status: Never smoker Second Hand Exposure: No; Do You Dip or Chew Tobacco: No; Tobacco Cessation Education Requested by Patient: No Hx Alcohol Use: Yes Alcohol type: wine Alcohol Intake Frequency: Monthly or Less Hx Substance Use: No Preferred Language: [place] Islander Communication Ability: Effective Visual Impairment: Limited Hearing Ability: Normal Straight Edger Required: No Beliefs That Will Affect Care: None marital status: / Current Living Situation: Alone Current Living Situation Comment: lives with grandson current occupational status: retired How many Children do You have: 2 Other Information That Helps Us Care for You: No Feels Safe at Home: Yes Safety Concerns: Feels Safe At This Time Childhood Exposure to Second-Hand Smoke: Yes caffeine: Yes (half caf coffee ) during the past year weight has: remained stable Dental Care, Regularly: No Physical Activity Frequency: Does not Exercise Seatbelt Use: always Sunscreen Use: Yes Assistive Devices: Glasses Review of Systems Review of Systems: All systems reviewed & are unremarkable except as noted in HPI & below Physical Exam Constitutional: WD/WN, vitals as above Eyes: PERRL, conjunctivae normal, anicteric sclerae ENMT: Mouth: + dry oral mucous membranes Respiratory: normal respiratory effort, lungs clear to auscultation Cardiovascular: Rate/Rhythm: regular rhythm and + tachycardic Extremities: normal capillary refill; no calf tenderness and no pedal edema Gastrointestinal (Abdomen): normal bowel sounds, soft, nontender, no hepatosplenomegaly Musculoskeletal: no cyanosis or clubbing, extremities motor strength 5/5 Skin: no rashes, warm and dry Neurologic: moves all extremities and awake; no focal motor deficits and not confused Psychiatric: A+Ox3, euthymic affect Results & Data Results & Data ([facility]) Vital Signs (Past 12 Hours) Vital Signs Temp Pulse Pulse Resp BP BP Pulse Ox 05/30/22 14:00 125 H 28 H 156/91 H 94 05/30/22 13:50 121 H 34 H 98 05/30/22 13:45 166/84 H 05/30/22 13:45 123 H 31 H 97 05/30/22 13:40 123 H 22 96 05/30/22 13:38 165/96 H 05/30/22 13:38 127 H 26 H 05/30/22 13:34 125 H 30 H 05/30/22 13:20 121 H 31 H 98 05/30/22 14:03 123 H 18 156/91 H 95 05/30/22 13:48 122 H 18 166/84 H 98 05/30/22 13:15 119 H 24 96 05/30/22 13:10 120 H 23 93 05/30/22 13:04 120 H 26 H 95 05/30/22 13:04 122/75 05/30/22 13:03 122 H 05/30/22 12:40 123 H 31 H 94 05/30/22 12:30 123 H 27 H 94 05/30/22 12:23 124 H 27 H 95 05/30/22 12:39 112 H 26 H 127/59 L 96 05/30/22 12:23 78 L 05/30/22 12:23 05/30/22 12:23 36.8 C 120 H 18 150/73 H 78 L O2 Del Method O2 Flow Rate 05/30/22 14:00 5 05/30/22 13:50 5 05/30/22 13:45 05/30/22 13:45 05/30/22 13:40 05/30/22 13:38 05/30/22 13:38 05/30/22 13:34 05/30/22 13:20 05/30/22 14:03 Oxymask 5 05/30/22 13:48 Oxymask 5 05/30/22 13:15 Oxymask 7 05/30/22 13:10 Oxymask 7 05/30/22 13:04 7 05/30/22 13:04 05/30/22 13:03 05/30/22 12:40 7 05/30/22 12:30 7 05/30/22 12:23 7 05/30/22 12:39 Other 7 05/30/22 12:23 Nasal Cannula 3 05/30/22 12:23 Nasal Cannula 05/30/22 12:23 Nasal Cannula 3 Laboratory Results Abnormal lab results 05/30/22 05/30/22 05/30/22 Range/Units 12:16 12:16 12:16 WBC 13.18 H (4.8-10.8) K/ul Neut # (Auto) 10.80 H (1.40-6.50) K/uL [place] # (Auto) 0.62 H (0.11-0.59) K/uL Carbon Dioxide 19 L (21-32) mmol/L Anion Gap 14 H (3-11) Glucose 513 H* (70-99(Fasting)) mg/dl AST 77 H (13-39) U/L ALT 62 H (7-52) U/L Alkaline Phosphatase 116 H (34-104) U/L Troponin I High Sens 145.9 H* (0-14) pg/ml B-Natriuretic Peptide (0-100) pg/ml Ur Specific Anthony (1.000-1.030) Urine Protein (Negative) Urine Glucose (UA) (Negative) Urine Ketones (Negative) Urine Blood (Negative) U Epithel Cells (Auto) (0-5) /lpf Entero/Rhino (PCR) DETECTED A* (NotDetected) 05/30/22 05/30/22 Range/Units Unknown Unknown WBC (4.8-10.8) K/ul Neut # (Auto) (1.40-6.50) K/uL [place] # (Auto) (0.11-0.59) K/uL Carbon Dioxide (21-32) mmol/L Anion Gap (3-11) Glucose (70-99(Fasting)) mg/dl AST (13-39) U/L ALT (7-52) U/L Alkaline Phosphatase (34-104) U/L Troponin I High Sens (0-14) pg/ml B-Natriuretic Peptide 182 H (0-100) pg/ml Ur Specific Anthony > 1.045 H (1.000-1.030) Urine Protein 2+ H (Negative) Urine Glucose (UA) 3+ H (Negative) Urine Ketones 2+ H (Negative) Urine Blood 1+ H (Negative) U Epithel Cells (Auto) 10-20 H (0-5) /lpf Entero/Rhino (PCR) (NotDetected) Diagnostic Findings HEAD CT NONCONTRAST CT DOSE: 537.48 mGy.cm HISTORY: Pulmonary emboli. screener pre tPA to exclude intracranial hemorrhage or mass TECHNIQUE: Multiaxial CT images of the head were performed without the use of intravenous contrast. Automated exposure control was utilized for this study. A dose lowering technique was utilized adhering to the principles of ALARA. Comparison: None. Findings: The paranasal sinuses and mastoid air cells are clear. The calvarium and skull base are intact. Residual contrast within the brain from the recent chest CTA. This results in suboptimal evaluation for intracranial hemorrhage. However, there is no definite mass, hematoma, midline shift, acute infarct. The ventricles and sulci are within normal limits for age. Impression: No definite acute intracranial abnormality as described above. XR chest 1V portable CLINICAL HISTORY: Dyspnea TECHNIQUE: Single frontal radiograph of the chest was obtained. Comparison: Comparison is made to chest radiograph 12/16/2011 FINDINGS: No lines and tubes are seen. The cardiomediastinal silhouette is normal. The lungs are clear. No evidence of pleural effusion or pneumothorax. IMPRESSION: No acute abnormalities and in particular no evidence of pneumonia. CHEST CTA for PULMONARY ARTERIES CT DOSE: 386.18 mGy.cm HISTORY: Dyspnea TECHNIQUE: Multiaxial CT images of the chest were performed following the intravenous administration of contrast to evaluate the pulmonary arteries. Maximal intensity projection images were also obtained. A dose lowering technique was utilized adhering to the principles of ALARA. COMPARISON STUDY: Chest CT 09/20/2013. FINDINGS: The left thyroid lobe is likely surgically absent. A few prominent mediastinal lymph nodes are similar in size to the prior study. Dominant AP window/left paratracheal lymph node on image 74 measures 11 mm in short axis diameter. No significant hilar lymphadenopathy. No pleural or pericardial effusions. The heart is normal in size. Normal esophagus. Moderate coronary artery calcifications are noted. Lumpectomy scar noted within the left breast with mild left breast thickening. This favors posttreatment changes. Limited views of the upper abdomen demonstrate a normal liver and spleen. There is flattening of the interventricular septum with asymmetric enlargement of the right ventricle and mass effect along the left ventricle consistent with right- sided heart strain. Extensive bilateral pulmonary emboli involving the bilateral distal main pulmonary arteries and extending into the majority of the lobar and segmental pulmonary arteries. Normal caliber thoracic aorta with no evidence for dissection. A stable 5 cm sclerotic focus within the T1 vertebral body favors a bone island. Otherwise, no suspicious lytic or blastic osseous lesions. The central airways are patent. No pneumothorax. Linear scarlike density noted within the left upper lobe. Stable 3 mm nodule within the left lower lobe on image 134. Stable 3 mm nodule within the right upper lobe on image 222. A stable 4 mm nodule within the right lower lobe on image 85. These are likely benign given the long-term stability. No new or suspicious pulmonary nodules identified. There is mild bronchial wall thickening. No focal lung consolidation s to suggest a pneumonia or pulmonary infarct at this time. IMPRESSION: 1. Extensive bilateral pulmonary emboli resulting in significant right-sided heart strain. 2. Prominent mediastinal lymph nodes remain stable and are likely benign given the long-term stability. 3. A few scattered subcentimeter pulmonary nodules are also stable and are therefore considered to be benign. Medications Administered ER medications given: NSS 500ml bolus Duoneb 3ml Alteplase 50mg IV ECG Indication: chest pain Rate (beats per minute): 124 Rhythm: sinus tachycardia Findings: + other (Possible left atrial enlargement, possible right ventricular hypertrophy) and + PVC Comparison ECG Date: from (December 16, 2011) Change: the following changes noted (Tachycardia and right ventricular hypertrophy changes are new) Code Status & VTE Plan Code Status Full VTE Prophylaxis Plan VTE Prophylaxis will be ordered: Yes PG Care Time/CCT Total # of Minutes Spent Total Time Spent with Patient: Total time spent is greater than 50% in coordination of care (as documented) at patient's floor/unit and/or counseling patient: Coding Level of Care Code 11661 INT INP/OBS CARE 3/75MIN Diagnoses Pulmonary embolism with acute cor pulmonale I26.09 Diabetic ketoacidosis E11.10 Acute respiratory failure with hypoxia J96.01 Demand ischemia I24.8 Diabetes mellitus type 2, uncontrolled E11.65 Glycemic state: with hyperglycemia Hypertension I10 Hypertension type: essential hypertension Hyperlipidemia E78.2 Hyperlipidemia type: mixed hyperlipidemia Breast cancer C50.919 (1) Hyperlipidemia Hyperlipidemia type: mixed hyperlipidemia Qualified Code(s): E78.2 - Mixed hyperlipidemia (2) Diabetes mellitus type 2, uncontrolled Glycemic state: with hyperglycemia Qualified Code(s): E11.65 - Type 2 diabetes mellitus with hyperglycemia (3) Hypertension Hypertension type: essential hypertension Qualified Code(s): I10 - Essential (primary) hypertension
--- NOTE | 2022-05-30 14:27 | Critical Care Consultation ---
Date of Consultation May 30, 2022 Assessment & Plan (1) Pulmonary embolism with acute cor pulmonale: (2) Diabetic ketoacidosis: (3) Acute respiratory failure with hypoxia: (4) Demand ischemia: (5) Mediastinal lymphadenopathy: (6) Malignant neoplasm of lower-outer quadrant of left breast of female, estrogen receptor positive: Plan 72-year-old female with a history of insulin-dependent diabetes mellitus, stage I breast cancer status postlumpectomy and adjuvant radiation therapy, obesity, hypertension, hyperlipidemia and anxiety presenting to the hospital due to a high risk submassive pulmonary embolism. Neurologic: Alert and oriented. Anxious. Noncontrast CT head prior to systemic thrombolysis was unremarkable. Pulmonary: High risk submassive pulmonary embolism identified on CT chest with significant risk factors for further deterioration without systemic thrombolysis. PESI 163. 50 mg systemic tPA given over 2 hours with transition to heparin infusion since there is no absolute contraindication. Continue to wean O2 to maintain saturations above 95%. Monitor in the ICU closely. CT chest with findings of subcentimeter pulmonary nodules and mediastinal lymphadenopathy. May benefit from an outpatient PET scan given history of breast cancer. Will defer this to her outpatient oncologist. Cardiovascular: CT chest with findings concerning for heart strain. Troponin and BNP also elevated likely due to demand from significant pulmonary embolism. Will obtain formal echocardiogram. Trend troponins. Gastrointestinal: Mild transaminitis likely secondary to congestive hepatopathy in the context of cor pulmonale from pulmonary embolism. We will obtain an abdominal ultrasound for further evaluation. Renal: Monitor urine output closely. Patient with evidence of DKA on admission likely secondary to acute pulmonary embolism. Status post crystalloid bolus in the ER. We will follow-up labs and initiate on insulin drip depending on follow-up lab findings. Infectious disease: No signs of acute bacterial infection. Bio fire positive for rhinov irus/enterovirus. Will initiate droplet precautions. Hematologic: Continue with tPA bolus and then transition to heparin if PTT within normal range. Monitor for signs of bleeding. She has a history of stage I breast cancer which was treated with lumpectomy and radiation in 2021. Pulmonary embolism currently appears to be unprovoked, but would recommend a PET scan as an outpatient to evaluate for a more systemic process such as metastatic malignancy or an inflammatory condition in the context of enlarged mediastinal lymph nodes and a history of breast cancer. Outpatient hypercoagulable work-up could be pursued by her manager field sales/oncologist. Endocrine: Likely DKA secondary to acute stress from pulmonary embolism. Repeat BMP. Lines and tubes: Peripheral IV in place VTE prophylaxis: tPA and heparin infusion CODE STATUS: Full Family at bedside: Not available bedside Disposition: ICU Discussed with the ER physician, ER nurse and informed ICU nursing staff regarding pending admission I have personally spent 51 minutes of critical care time in the direct management of this patient. This is a life/limb threatening event. This includes time spent evaluating patient, direct bedside care, chart review, placing orders, interpretation of diagnostic studies, discussion with consultants, patient, and family members, as well as other required patient management activities. This time is exclusive of all separately billable procedures, and teaching time and separate from and in addition to any other critical care service time. Thank you for allowing us to participate in the care of this patient. History of Present Illness Reason for Consultation: High risk submassive pulmonary embolism History of Present Illness 72-year-old female who has a past medical history of insulin-dependent diabetes mellitus, hyperlipidemia, obesity, hypertension and stage I left-sided breast cancer status post lumpectomy (August 2021), sentinel lymph node biopsy and adjuvant radiation therapy who presented to the hospital via EMS due to shortness of breath and feeling generally unwell. Patient notes that her symptoms started abruptly around 9 AM and she felt unsteady on her feet. She also noticed some subtle shortness of breath. She says that she was feeling well yesterday. 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 She is able to drive. She lives alone. She denies any chest pain, but she does have some tightness in her chest. She denies any fevers, chills or night sweats. No cough. No recent travel in the past 1 to 2 months. She denies any prior history of DVT or PE. Per discussion with nursing, the patient was very cyanotic on arrival and it was difficult to obtain a pulse ox. She was placed on supplemental oxygen and was saturating 78% on 3 L. She is currently on 5 L of oxygen. I was called by the ER physician, Dr. Costa to discuss the case after her CT chest was completed. The CT chest revealed extensive bilateral pulmonary emboli with evidence of right-sided heart strain. She also had a mild troponin elevation and BNP elevation. I recommended the patient urgently get a CT of her head and if negative, then undergo systemic thrombolysis with 50 mg of tPA given over 2 hours as there were no obvious contraindications. She is currently saturating in the mid 90s on 5 L oxygen mask. Heart rate in the 120s. She received 500 cc bolus of crystalloids in the ER. Additionally her labs are significant for an elevated glucose of 513. She had a mild anion gap of 14 and a serum bicarbonate of 19. She also has mild transaminitis. Procalcitonin negative on admission. Allergies Allergy/AdvReac Type Severity Reaction Status Date / Time aloe Allergy Unknown RAISED RASH Verified 05/30/22 14:24 No Known Drug Allergies Allergy Verified 05/30/22 14:24 Home Medications Medication Instructions Recorded Confirmed Type enalapril maleate 10 mg tablet 10 mg PO QAM 08/23/21 04/03/22 History insulin aspart U-100 100 unit/mL 15 unit (0.15 mL) subcut BID #27 mL 11/12/21 04/03/22 Rx (3 mL) subcutaneous pen (Novolog FlexPen U-100 Insulin aspart) atorvastatin 80 mg tablet 80 mg PO QAM #90 tabs 12/28/21 04/03/22 Rx aspirin 81 mg tablet,delayed 81 mg PO DAILY 05/30/22 05/30/22 History release Patient History Medical History (Updated 05/30/22 @ 14:15 by Surinder Temple MD) Acute respiratory failure with hypoxia Adult situational stress disorder Breast cancer Dx 2021 surgical intervention planned Conjunctivitis Demand ischemia Depression Diabetes mellitus type 2, uncontrolled Diabetic ketoacidosis Diabetic nephropathy with proteinuria Hyperlipidemia Hypertension Hypothyroidism Mediastinal lymphadenopathy (01/2012) Noted in 2011. Elevated ADILENE level suspicious for pulmonary sarcoidosis. Biopsy could not be completed. DM was grossly uncontrolled so steroids were avoided. Seems she's been relatively asymptomatic since then. Dr. Chowdhury repeated CT scan 2013, which revealed borderline, similiar appearing hilar LNs. Pulmonary embolism with acute cor pulmonale Solitary thyroid nodule s/p thyroidectomy 2011 Vitamin D deficiency Surgical History History of section History of cholecystectomy History of colonoscopy Diverticulosis noted. No polyps/neoplasia. No biopsies. F/U 5-10 years recommended. History of thyroidectomy (03/04/12) d/t suspicious nodule. 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 No carcinoma noted. History of tubal ligation Family History Mother Uterine cancer Leukemia Aunt Breast cancer Pancreatic cancer Father Heart disease Myocardial infarction Unknown Acute myocardial infarction Son Atrial fibrillation Myocardial infarction Denies family history of Ovarian cancer Prostate cancer Colorectal cancer Social History (Updated 10/18/21 @ 08:17 by Usha Berry RN) Smoking Status: Never smoker Second Hand Exposure: No; Hx Alcohol Use: Yes Alcohol type: wine and hard liquor Alcohol Intake Frequency: Monthly or Less Hx Substance Use: No Preferred Language: Serbian Communication Ability: Effective Visual Impairment: Limited Hearing Ability: Normal Mortgage Underwriter Required: No Beliefs That Will Affect Care: None marital status: / Current Living Situation: Alone Current Living Situation Comment: lives with grandson current occupational status: retired How many Children do You have: 2 Feels Safe at Home: Yes Childhood Exposure to Second-Hand Smoke: Yes caffeine: Yes (half caf coffee ) during the past year weight has: remained stable Dental Care, Regularly: No Physical Activity Frequency: Does not Exercise Seatbelt Use: always Sunscreen Use: Yes Assistive Devices: Glasses Review of Systems Review of Systems: All systems reviewed & are unremarkable except as noted in HPI & below Physical Exam Physical Exam: Constitutional: Anxious appearing female laying in hospital bed. Dyspneic with conversation. Oxygen mask in place. Mildly obese. Eyes: Pupils are equal round and reactive to light. Conjunctivae are normal. Anicteric sclera. Ears nose, mouth and throat: Mallampati class 2. Normal posterior oropharynx. Uvula is midline. Neck: Trachea is midline. Visual inspection is normal. Respiratory: Clear to auscultation bilaterally. Tachypneic. Cardiovascular: Tachycardic. No murmurs. No edema. Gastrointestinal: Normal bowel sounds, soft, nontender and nondistended. No hepatosplenomegaly noted. Musculoskeletal: No cyanosis. Patient is able to move all extremities. Strength is 5 out of 5 in the upper and lower extremities. Skin: No rashes, warm dry and intact. Neurologic: No obvious focal neurological deficits seen. Psychiatric: Alert and oriented x3 with an anxious mood. Results & Data Results & Data ([facility]) Vital Signs (Past 12 Hours) Vital Signs Temp Pulse Pulse Resp BP BP Pulse Ox 05/30/22 13:48 122 H 18 166/84 H 98 05/30/22 13:15 119 H 24 96 05/30/22 13:10 120 H 23 93 05/30/22 13:04 120 H 26 H 95 05/30/22 13:04 122/75 05/30/22 13:03 122 H 05/30/22 12:40 123 H 31 H 94 05/30/22 12:30 123 H 27 H 94 05/30/22 12:23 124 H 27 H 95 05/30/22 12:39 112 H 26 H 127/59 L 96 05/30/22 12:23 78 L 05/30/22 12:23 05/30/22 12:23 36.8 C 120 H 18 150/73 H 78 L O2 Del Method O2 Flow Rate 05/30/22 13:48 Oxymask 5 05/30/22 13:15 Oxymask 7 05/30/22 13:10 Oxymask 7 05/30/22 13:04 7 05/30/22 13:04 05/30/22 13:03 05/30/22 12:40 7 05/30/22 12:30 7 05/30/22 12:23 7 05/30/22 12:39 Other 7 05/30/22 12:23 Nasal Cannula 3 05/30/22 12:23 Nasal Cannula 05/30/22 12:23 Nasal Cannula 3 Coding Level of Care Code Critical Care 1st 30-74 mins Diagnoses Pulmonary embolism with acute cor pulmonale I26.09 Diabetic ketoacidosis E11.10 Acute respiratory failure with hypoxia J96.01 Demand ischemia I24.8 Mediastinal lymphadenopathy R59.0 Malignant neoplasm of lower-outer quadrant of left breast of female, estrogen receptor positive C50.512; Z17.0 Time Spent (min) 51
[2022-05-30] MEDS ORDERED: PHARMACY GLYCEMIC MGMT CONSULT PRN ×3 (15:36→16:05)
[2022-05-30] MEDS ORDERED: GLUCAGON FOR INJ 1 MG VIAL SQ PRN (16:04)
[2022-05-30] MEDS ORDERED: DEXTROSE 50% 50 ML SYRINGE IV PRN (16:04)
[2022-05-30] MEDS ORDERED: GLUCOSE 40% GEL 15 GM TUBE PO PRN (16:04)
[2022-05-30] MEDS ORDERED: CARBOHYDRATES FOR HYPOGLYCEMIA PO PRN (16:04)
[2022-05-30] MEDS ORDERED: GLUCOSE 10 TAB/TUBE PO PRN (16:04)
[2022-05-30] MEDS ORDERED: STAT IV Infusion **Titration per Protocol STA (16:05)
[2022-05-30] MEDS ORDERED: INSULIN REGULAR 250 UNITS in SODIUM CHLORIDE 0.9% 247.5 ML IV SCH (16:15)
[2022-05-30] MEDS ORDERED: NORMOSOL-R 1,000 ML IV SCH (16:15)
[2022-05-30] MEDS ORDERED: INSULIN ASPART PER UNIT SC SCH (16:30)
[2022-05-30] MEDS ORDERED: ICU Protocol for HYPERglycemia SCH (16:30)
[2022-05-30] MEDS ORDERED: NovoLIN-R BOLUS FROM BAG IV ONE (16:30)
[2022-05-30] MEDS: INSULIN ASPART PER UNIT SC SCH ×2 (17:17→19:47)
--- NOTE | 2022-05-30 17:24 | XCELERA ---
[id number]
[2022-05-30 17:30] LABS: Hematocrit (blood only) 43.4 % (37.0-47.0); Hemoglobin 14.3 g/dl (12.0-16.0); Mean Corpuscular Hemoglobin 29.6 pg (25.0-34.0); Mean Corpuscular Hgb Conc 32.9 g/dL (32.0-36.0); Mean Corpuscular Volume 89.9 fL (80.0-100.0); Mean Platelet Volume 9.6 fL (9.4-12.4); Platelet Count 178 K/uL (130-400); RDW Coefficient of Variation 12.8 % (11.5-14.5); Red Blood Count 4.83 M/uL (4.20-5.40); White Blood Count 11.92 K/ul (4.8-10.8)
[2022-05-30 17:31] LABS: Partial Thromboplastin Time 27.3 Seconds (21.0-31.0)
[2022-05-30 17:34] LABS: Calcium 9.2 mg/dl (8.5-10.1); Magnesium 1.9 mg/dl (1.7-2.4); Potassium 5.3 mmol/L (3.5-5.1)
[2022-05-30 17:40] LABS: Fibrinogen 243 mg/dl (184-400)
[2022-05-30] MEDS ORDERED: *Start* Heparin IV Low Dose IV ONE (17:44)
[2022-05-30 17:49] LABS: BUN Creatinine Ratio 16.2 (10-20); Creatinine Clr Calc Pharmacy 49.9 ml/min; Est GFR (Non-African American) 52.6 ml/min; Troponin I High Sensitivity 229.4 pg/ml (0-14)
[2022-05-30] MEDS: HEPARIN SODIUM/DEXTROSE 25,000 UNITS/500 ML BAG IV SCH (18:11)
[2022-05-30] MEDS: Heparin IV Adult Wt-Based Low-Dose *NO* Bolus Protocol IV SCH ×3 (18:12→18:32)
[2022-05-30] MEDS ORDERED: SODIUM CHLORIDE 0.9% 1000ML 1,000 ML IV SCH (18:15)
[2022-05-30] MEDS ORDERED: LANTUS PER UNIT CHARGE SQ SCH (21:00)
--- NOTE | 2022-05-30 21:00 | Ultrasound Report ---
BILATERAL LOWER EXTREMITY VENOUS DOPPLER HISTORY: Pulmonary emboli. Assess for DVT. COMPARISON STUDY: None. FINDINGS: No DVT within the right lower extremity. There is occlusive thrombus within the left poplit eal vein, posterior tibial veins, and peroneal veins. The left anterior tibial veins appear patent. T he left superficial femoral and common femoral veins are also patent. IMPRESSION: 1. No DVT within the right lower extremity. 2. Occlusive DVT within the left popliteal, posterior tibial, and peroneal veins. ACT 112: Negative or not required by law. Electronically signed by: Cordell Rasheed M.D. 05/30/2022 8:59 PM
--- NOTE | 2022-05-30 21:02 | Ultrasound Report ---
ABDOMINAL ULTRASOUND, RIGHT UPPER QUADRANT HISTORY: transaminitis. COMPARISON: None. FINDINGS: Pancreas: The pancreatic tail is obscured by overlying bowel gas. The remaining portions of the pancr eas are within normal limits. An elongated lymph node adjacent to the pancreas measuring 32 x 21 x 7 mm Liver: Unremarkable. Gallbladder: The gallbladder is surgically absent. CBD: 6 mm. Right kidney: No hydronephrosis. IMPRESSION: 1. Prior cholecystectomy. 2. Normal caliber common bile duct. 3. A single mildly enlarged peripancreatic lymph node measuring 32 x 21 x 7 mm. ACT 112: Negative or not required by law. Electronically signed by: Cordell Rasheed M.D. 05/30/2022 9:01 PM
[2022-05-30] MEDS: D5W AND 1/2NSS 1,000 ML IV SCH (22:28)
[2022-05-30] MEDS ORDERED: D5W AND 1/2NSS 1,000 ML IV SCH (22:30)
[2022-05-31 00:58] LABS: Partial Thromboplastin Ratio 1.3; Partial Thromboplastin Time 36.1 Seconds (21.0-31.0)
[2022-05-31] MEDS ORDERED: HEPARIN SOD (PORCINE) 1000 UNIT/ML IV ONE (01:15)
[2022-05-31 01:16] LABS: Calcium 8.9 mg/dl (8.5-10.1); Creatinine Clr Calc Pharmacy 59.5 ml/min; Est GFR (African American) 75.5 ml/min; Est GFR (Non-African American) 65.2 ml/min; Magnesium 1.9 mg/dl (1.7-2.4); Potassium 3.5 mmol/L (3.5-5.1); Troponin I High Sensitivity 187.7 pg/ml (0-14)
[2022-05-31] MEDS ORDERED: MAGNESIUM SULFATE / D5W 1 GM/100 ML BAG IV ONE (02:00)
[2022-05-31] MEDS: POTASSIUM CHLORIDE / WTR 10 MEQ/100 ML PLCT IV SCH ×3 (02:11→04:06)
[2022-05-31] MEDS: D5W AND 1/2NSS 1,000 ML IV SCH (06:10)
[2022-05-31 06:24] LABS: Basophils # (auto) 0.03 K/uL (0-0.2); Basophils % (auto) 0.4 %; Eosinophils # (auto) 0.08 K/uL (0-0.50); Hematocrit (blood only) 40.1 % (37.0-47.0); Hemoglobin 13.4 g/dl (12.0-16.0); Immature Granulocytes # (auto) 0.03 K/uL (0.01-0.20); Immature Granulocytes % (auto) 0.4 %; Lymphocytes # (auto) 1.36 K/uL (1.2-3.4); Lymphocytes % (auto) 17.2 %; Mean Corpuscular Hemoglobin 29.4 pg (25.0-34.0); Mean Corpuscular Hgb Conc 33.4 g/dL (32.0-36.0); Mean Corpuscular Volume 87.9 fL (80.0-100.0); Mean Platelet Volume 9.6 fL (9.4-12.4); Monocytes # (auto) 0.87 K/uL (0.11-0.59); Neutrophils # (auto) 5.52 K/uL (1.40-6.50); Platelet Count 176 K/uL (130-400); RDW Coefficient of Variation 12.9 % (11.5-14.5); RDW Standard Deviation 41.1 fL (36.4-46.3); Red Blood Count 4.56 M/uL (4.20-5.40); White Blood Count 7.89 K/ul (4.8-10.8)
[2022-05-31 06:51] LABS: Albumin Level 3.3 gm/dl (3.4-5.0); Bilirubin,Total 0.4 mg/dl (0.2-1.0); Calcium 8.8 mg/dl (8.5-10.1); Magnesium 2.2 mg/dl (1.7-2.4); Potassium 3.9 mmol/L (3.5-5.1)
[2022-05-31 06:57] LABS: Albumin Globulin Ratio 1.3 (0.9-2); BUN Creatinine Ratio 16.5 (10-20); Creatinine Clr Calc Pharmacy 67.7 ml/min; Est GFR (African American) 86.1 ml/min; Est GFR (Non-African American) 74.3 ml/min; Globulin 2.6 gm/dl (2.5-4.0); Total Protein 5.9 gm/dl (6.0-8.3)
[2022-05-31 07:07] LABS: Estimated Average Glucose 272 mg/dl; Hemoglobin A1C 11.1 % (4.5-5.6)
[2022-05-31 08:46] LABS: Calcium 8.6 mg/dl (8.5-10.1); Magnesium 2.1 mg/dl (1.7-2.4); Potassium 3.9 mmol/L (3.5-5.1)
[2022-05-31 08:52] LABS: BUN Creatinine Ratio 14.3 (10-20); Creatinine Clr Calc Pharmacy 63.6 ml/min; Est GFR (African American) 79.9 ml/min
[2022-05-31] MEDS ORDERED: LANTUS PER UNIT CHARGE SQ ONE (09:00)
[2022-05-31 09:09] LABS: Partial Thromboplastin Ratio 2.1
[2022-05-31 09:26] LABS: Partial Thromboplastin Time 58.7 Seconds (21.0-31.0)
--- NOTE | 2022-05-31 10:16 | Critical Care Progress Note ---
Date of Service May 31, 2022 Assessment & Plan (1) Pulmonary embolism with acute cor pulmonale: (2) Diabetic ketoacidosis: (3) Acute respiratory failure with hypoxia: (4) Demand ischemia: (5) Mediastinal lymphadenopathy: (6) Malignant neoplasm of lower-outer quadrant of left breast of female, estrogen receptor positive: Plan 72-year-old female with a history of insulin-dependent diabetes mellitus, stage I breast cancer status postlumpectomy and adjuvant radiation therapy, obesity, hypertension, hyperlipidemia and anxiety presenting to the hospital due to a high risk submassive pulmonary embolism. Neurologic: Alert and oriented.Noncontrast CT head prior to systemic thrombolysis was unremarkable. Pulmonary: High risk submassive pulmonary embolism status post 50 mg tPA 05/30/2022. Symptoms dramatically improved. Echo with evidence of RV strain. Continue heparin for the next 1 to 2 days and then transition to DOAC. Lower extremity ultrasound with evidence of DVT. CT chest with findings of subcentimeter pulmonary nodules and mediastinal lymphadenopathy. May benefit from an outpatient PET scan given history of breast cancer. Will defer this to her outpatient oncologist. Cardiovascular: Echo confirms finding of right heart strain. Recommend repeat echo in 2 to 3 months. Patient symptoms have dramatically improved. Gastrointestinal: Mild transaminitis likely secondary to congestive hepatopathy in the context of cor pulmonale from pulmonary embolism. Abdominal ultrasound was largely unremarkable aside for an enlarged peripancreatic lymph node. Renal: No issues. Infectious disease: No signs of acute bacterial infection. Bio fire positive for rhinovirus/enterovirus. Continue droplet isolation. Hematologic: Continue heparin for next 1 to 2 days and then switch to DOAC. She has a history of stage I breast cancer which was treated with lumpectomy and radiation in 2021. Pulmonary embolism currently appears to be unprovoked, but would recommend a PET scan as an outpatient to evaluate for a more systemic process such as metastatic malignancy or an inflammatory condition in the context of enlarged mediastinal lymph nodes and a history of breast cancer. Outpatient hypercoagulable work-up could be pursued by her staff development educator/oncologist. Endocrine: DKA resolved. Appreciate ICU pharmacy input. Transition to Lantus. Start diet. Lines and tubes: Peripheral IV in place VTE prophylaxis: Heparin infusion CODE STATUS: Full Family at bedside: Not available bedside Disposition: PCU Discussed on multidisciplinary rounds. Informed the hospitalist of the patient stable for transfer to PCU. Admission and Anticipated Discharge Date Admission Date: May 30, 2022 Subjective Patient feeling much less short of breath. Denies any chest pain or tightness. Currently saturating well on room air. Appetite is good. Review of Systems Review of Systems: All systems reviewed & are unremarkable except as noted in HPI & below Physical Exam Physical Exam: Constitutional: No apparent distress. Well-nourished. Eyes: Pupils are equal round and reactive to light. Conjunctivae are normal. Anicteric sclera. Ears nose, mouth and throat: Mallampati class 2. Normal posterior oropharynx. Uvula is midline. Neck: Trachea is midline. Visual inspection is normal. Respiratory: Clear to auscultation bilaterally. No increased work of breathing. Cardiovascular: Tachycardic. No murmurs. No edema. Gastrointestinal: Normal bowel sounds, soft, nontender and nondistended. No hepatosplenomegaly noted. Musculoskeletal: No cyanosis. Patient is able to move all extremities. Strength is 5 out of 5 in the upper and lower extremities. Skin: No rashes, warm dry and intact. Neurologic: No obvious focal neurological deficits seen. Psychiatric: Alert and oriented x3 with euthymic affect. Results & Data Results & Data ([facility]) Vital Signs (Past 12 Hours) Vital Signs Temp Pulse Resp BP Pulse Ox O2 Del Method O2 Flow Rate 05/31/22 07:00 89 24 96 05/31/22 07:58 36.7 C 05/31/22 00:00 36.7 C 05/31/22 04:28 36.8 C 05/31/22 02:00 82 25 H 97 05/31/22 02:00 101/57 L 05/31/22 01:00 88 22 93 05/31/22 01:00 125/58 L 05/31/22 00:01 100 H 25 H 96 Nasal Cannula 2 05/31/22 00:01 134/66 05/31/22 00:00 98 H 26 H 95 05/30/22 23:00 93 H 21 94 2 05/30/22 23:00 96/59 L Coding Level of Care Code 56040 SUB INP/OBS CARE 3/50MIN Diagnoses Pulmonary embolism with acute cor pulmonale I26.09 Diabetic ketoacidosis E11.10 Acute respiratory failure with hypoxia J96.01 Demand ischemia I24.8 Mediastinal lymphadenopathy R59.0 Malignant neoplasm of lower-outer quadrant of left breast of female, estrogen receptor positive C50.512; Z17.0
[2022-05-31] MEDS: INSULIN ASPART PER UNIT SC SCH ×5 (10:28→20:34)
--- NOTE | 2022-05-31 11:18 | Pharmacy Report ---
Pharmacy Glycemic Short Note 2 - Date of Service May 31, 2022 - Glycemic Short BSG Results (Last 24 hours): 05/30/22 05/30/22 05/30/22 12:16 16:00 16:33 Glucose 513 H* 436 H* POC Glucose 423 H* 05/30/22 05/30/22 05/30/22 18:22 19:40 21:11 Glucose POC Glucose 328 H* 254 H 144 H 05/30/22 05/30/22 05/30/22 22:04 23:03 23:58 Glucose 170 H POC Glucose 125 H 159 H 05/31/22 05/31/22 05/31/22 00:02 01:10 02:24 Glucose POC Glucose 160 H 172 H 143 H 05/31/22 05/31/22 05/31/22 03:11 04:18 04:56 Glucose POC Glucose 138 H 102 H 100 H 05/31/22 05/31/22 05/31/22 05:59 06:07 07:32 Glucose 142 H POC Glucose 139 H 194 H 05/31/22 05/31/22 05/31/22 08:08 08:48 10:03 Glucose 196 H POC Glucose 187 H 203 H OUTPATIENT ANTIDIABETIC REGIMEN: * Novolog 15 units SQ BID HbA1C: 11.1% (05/31/22) ASSESSMENT: * Patient is a 72 year old female with history of type 2 diabetes admitted in the setting of acute submassive PE s/p TPA. Also presented in mild DKA. Initial labs: BSG-423, bicarb-19, AG-14. * Insulin infusion initiated per DKA protocol yesterday ~ 1730. BSGs within goal range this AM and DKA resolved. Diet ordered this morning. * Lantus 15 units X 1 given to assist with transitioning off the drip. Will overlap with infusion at least 2 hours prior to discontinuation. Will plan for HS Lantus scale. Novolog ACHS with overnight checks. PLAN FOR INPATIENT GLYCEMIC CONTROL: * Hold outpatient oral diabetes medications * Basal insulin * Lantus 15 units SQ X1 + HS scale (depending on BSG) * Bolus insulin * NovoLog per scale ACHS or Q6hrs while NPO * Goal Range: Low 110 mg/dL - High 140 mg/dL * Correction Factor: 25 mg/dL/unit * Nutritional / Prandial insulin per carb ratio of 1 unit per 9 grams CHO consumed
[2022-05-31] MEDS ORDERED: INSULIN ASPART PER UNIT SC SCH (11:30)
[2022-05-31 13:23] LABS: Potassium 4.4 mmol/L (3.5-5.1)
[2022-05-31 13:24] LABS: BUN Creatinine Ratio 13.1 (10-20); Calcium 8.4 mg/dl (8.5-10.1); Est GFR (African American) 65.5 ml/min; Est GFR (Non-African American) 56.5 ml/min; Magnesium 1.9 mg/dl (1.7-2.4)
--- NOTE | 2022-05-31 15:03 | Electrocardiogram Report ---
Test Reason : Blood Pressure : / mmHG Vent. Rate : 124 BPM Atrial Rate : 124 BPM P-R Int : 184 ms QRS Dur : 082 ms QT Int : 294 ms P-R-T Axes : 076 254 029 degrees QTc Int : 422 ms Poor data quality, interpretation may be adversely affected Sinus tachycardia with occasional Premature ventricular complexes Possible Left atrial enlargement Possible Right ventricular hypertrophy Incomplete right bundle branch block possible Inferior infarct (cited on or before 11-JAN-2005) Anterolateral infarct , age undetermined Abnormal ECG Confirmed by Arik Caldera ([id number]) on 05/31/2022 3:02:58 PM Referred By: REFERRED SELF Confirmed By:Chad Caldera
--- NOTE | 2022-05-31 16:01 | Hospitalist Progress Note ---
Date of Service May 31, 2022 Assessment & Plan (1) Pulmonary embolism with acute cor pulmonale: Plan: Alteplase given in the ER. Will defer starting IV heparin timing to ICU usually when PTT < twice upper limit of normal. TTE Patient improved after TPA. Patient now on heparin drip. Will transfer out of the ICU. will transition to DOAC. Patient will need to be followed with oncology as an outpatient. (2) Diabetic ketoacidosis: Plan: Discussed with Dr Temple. NSS 500ml bolus given in ER. Planning on repeating labs prior to initiation of probable insulin IV drip but will defer ongoing enriqueta gement and fluids to ICU team. Recommend q4h labs until anion gap closed Gap is closed, will stop insulin drip (3) Acute respiratory failure with hypoxia: Plan: Secondary to bilateral pulmonary embolism as above. Currently stable on 5LPM O2 oxymask on admission. Aim O2 sats > 94% Now on room air (05/31) (4) Demand ischemia: Plan: Serial troponins, TTE (5) Diabetes mellitus type 2, uncontrolled: Plan: Patient not sure what insulin she is taking. When prompted regarding Lantus she thinks she has this at home but not prescribed in the last year. Per last PCP note she should be taking Lantus 30 units HS and Novolog 15 units BID. Will need perioperative educator prior to discharge (6) Hypertension: Plan: Hold enalapril pending serial BP measurements to make sure stability prior to restarting. 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 Plan VTE Prophylaxis - as above Admission and Anticipated Discharge Date Admission Date: May 30, 2022 Subjective 72 yo female reports feeling much better today. Her breathing has improved significantly. Review of Systems Review of Systems: All systems reviewed & are unremarkable except as noted in HPI & below Physical Exam Constitutional: WD/WN, vitals as above Eyes: PERRL, conjunctivae normal, anicteric sclerae ENMT: Mouth: + dry oral mucous membranes Respiratory: normal respiratory effort, lungs clear to auscultation Cardiovascular: Rate/Rhythm: regular rate and regular rhythm Extremities: normal capillary refill; no calf tenderness and no pedal edema Gastrointestinal (Abdomen): normal bowel sounds, soft, nontender, no hepatosplenomegaly Musculoskeletal: no cyanosis or clubbing, extremities motor strength 5/5 Skin: no rashes, warm and dry Neurologic: moves all extremities and awake; no focal motor deficits and not confused Psychiatric: A+Ox3, euthymic affect Results & Data Results & Data ([facility]) Vital Signs (Past 12 Hours) Vital Signs Temp Pulse Pulse Resp BP Pulse Ox O2 Del Method 05/31/22 15:50 36.8 C 88 20 159/86 H 96 Room Air 05/31/22 12:04 87 24 98 05/31/22 11:04 89 22 97 05/31/22 10:02 92 H 21 97 05/31/22 09:02 92 H 21 95 Room Air 05/31/22 08:00 87 19 96 05/31/22 12:44 36.8 C 05/31/22 08:00 136/63 05/31/22 12:00 137/71 05/31/22 07:00 89 24 96 05/31/22 07:58 36.7 C 05/31/22 04:28 36.8 C PG Care Time/CCT Total # of Minutes Spent Total Time Spent with Patient: Total time spent is greater than 50% in coordination of care (as documented) at patient's floor/unit and/or counseling patient: Coding Level of Care Code 62778 SUB INP/OBS CARE 350MIN Diagnoses Pulmonary embolism with acute cor pulmonale I26.09 Chronicity: acute Pulmonary embolism type: unspecified Diabetic ketoacidosis E11.10 Diabetes mellitus complication detail: without coma Acute respiratory failure with hypoxia J96.01 Demand ischemia I24.8 Diabetes mellitus type 2, uncontrolled E11.65 Glycemic state: with hyperglycemia Hypertension I10 Hypertension type: essential hypertension Hyperlipidemia E78.2 Hyperlipidemia type: mixed hyperlipidemia Breast cancer C50.919 (1) Diabetic ketoacidosis Diabetes mellitus complication detail: without coma (2) Hyperlipidemia Hyperlipidemia type: mixed hyperlipidemia Qualified Code(s): E78.2 - Mixed hyperlipidemia (3) Diabetes mellitus type 2, uncontrolled Glycemic state: with hyperglycemia Qualified Code(s): E11.65 - Type 2 diabetes mellitus with hyperglycemia (4) Pulmonary embolism with acute cor pulmonale Chronicity: acute Pulmonary embolism type: unspecified Qualified Code(s): I26.09 - Other pulmonary embolism with acute cor pulmonale (5) Hypertension Hypertension type: essential hypertension Qualified Code(s): I10 - Essential (primary) hypertension
[2022-05-31] MEDS ORDERED: LANTUS PER UNIT CHARGE SQ SCH (21:00)
[2022-05-31] MEDS: HEPARIN SODIUM/DEXTROSE 25,000 UNITS/500 ML BAG IV SCH (21:41)
[2022-06-01] MEDS: INSULIN ASPART PER UNIT SC SCH ×6 (04:28→20:30)
[2022-06-01 06:24] LABS: Hematocrit (blood only) 38.5 % (37.0-47.0); Hemoglobin 12.9 g/dl (12.0-16.0); Mean Corpuscular Hemoglobin 29.5 pg (25.0-34.0); Mean Corpuscular Hgb Conc 33.5 g/dL (32.0-36.0); Mean Corpuscular Volume 88.1 fL (80.0-100.0); Mean Platelet Volume 9.7 fL (9.4-12.4); Platelet Count 193 K/uL (130-400); RDW Coefficient of Variation 12.9 % (11.5-14.5); RDW Standard Deviation 41.1 fL (36.4-46.3); Red Blood Count 4.37 M/uL (4.20-5.40); White Blood Count 5.48 K/ul (4.8-10.8)
[2022-06-01 06:38] LABS: Partial Thromboplastin Ratio 1.5; Partial Thromboplastin Time 40.5 Seconds (21.0-31.0)
[2022-06-01] MEDS: LANTUS PER UNIT CHARGE SQ SCH ×2 (08:10→20:31)
--- NOTE | 2022-06-01 10:37 | Pulmonology Progress Note ---
Date of Service June 01, 2022 Assessment & Plan (1) Pulmonary embolism with acute cor pulmonale: Chronicity: acute Pulmonary embolism type: unspecified Qualified Code(s): I26.09 - Other pulmonary embolism with acute cor pulmonale (2) Diabetic ketoacidosis: Diabetes mellitus complication detail: without coma (3) Acute respiratory failure with hypoxia: (4) Demand ischemia: (5) Mediastinal lymphadenopathy: (6) Malignant neoplasm of lower-outer quadrant of left breast of female, estrogen receptor positive: Plan 72-year-old female with a history of insulin-dependent diabetes mellitus, stage I breast cancer status postlumpectomy and adjuvant radiation therapy, obesity, hypertension, hyperlipidemia and anxiety presenting to the hospital due to a high risk submassive pulmonary embolism. Status post systemic thrombolysis with 50 mg tPA on admission 05/30/2022 due to high risk submassive pulmonary embolism. Hypoxemia has completely resolved along with tachycardia. No complications seen from tPA. Recommend transitioning to NOAC starting tomorrow. Continue heparin drip for today. Will likely need lifelong anticoagulation. Recommend follow-up with her hematology/oncology physician. Recommend outpatient PET scan given her history of breast cancer and now with DVT and PE. Also recommend outpatient hypercoagulable work-up. Recommend repeating an echo in 2 to 3 months to follow-up on cor pulmonale. No further recommendations at this time. Thank you for the consultation. Admission and Anticipated Discharge Date Admission Date: May 30, 2022 Subjective Patient seen and examined. She is doing quite well. She is oxygenating well on room air. She denies any chest pain or shortness of breath. No cough. No evidence of bleeding. Review of Systems Review of Systems: All systems reviewed & are unremarkable except as noted in HPI & below Physical Exam Physical Exam: Constitutional: No apparent distress. Well-nourished. Eyes: Pupils are equal round and reactive to light. Conjunctivae are normal. Anicteric sclera. Ears nose, mouth and throat: Mallampati class 2. Normal posterior oropharynx. Uvula is midline. Neck: Trachea is midline. Visual inspection is normal. Respiratory: Clear to auscultation bilaterally. No increased work of breathing. Cardiovascular: Tachycardic. No murmurs. No edema. Gastrointestinal: Normal bowel sounds, soft, nontender and nondistended. No h epatosplenomegaly noted. Musculoskeletal: No cyanosis. Patient is able to move all extremities. Strength is 5 out of 5 in the upper and lower extremities. Skin: No rashes, warm dry and intact. Neurologic: No obvious focal neurological deficits seen. Psychiatric: Alert and oriented x3 with euthymic affect. Results & Data Results & Data ([facility]) Vital Signs (Past 12 Hours) Vital Signs Temp Pulse Pulse Pulse Resp BP BP 06/01/22 07:31 36.7 C 70 16 129/82 06/01/22 02:47 36.6 C 82 18 136/80 05/31/22 23:58 82 Pulse Ox O2 Del Method 06/01/22 07:31 98 Room Air 06/01/22 02:47 97 Room Air 05/31/22 23:58 PG Care Time/CCT Total # of Minutes Spent Total Time Spent with Patient: Total time spent is greater than 50% in coordination of care (as documented) at patient's floor/unit and/or counseling patient: Coding Level of Care Code 09243 SUB INP/OBS CARE 2/35MIN Diagnoses Pulmonary embolism with acute cor pulmonale I26.09 Chronicity: acute Pulmonary embolism type: unspecified Diabetic ketoacidosis E11.10 Diabetes mellitus complication detail: without coma Acute respiratory failure with hypoxia J96.01 Demand ischemia I24.8 Mediastinal lymphadenopathy R59.0 Malignant neoplasm of lower-outer quadrant of left breast of female, estrogen receptor positive C50.512; Z17.0
[2022-06-01 13:46] LABS: Partial Thromboplastin Ratio 1.4; Partial Thromboplastin Time 38.2 Seconds (21.0-31.0)
[2022-06-01 20:57] LABS: Partial Thromboplastin Ratio 1.4; Partial Thromboplastin Time 37.9 Seconds (21.0-31.0)
[2022-06-01] MEDS ORDERED: HEPARIN SOD (PORCINE) 1000 UNIT/ML IV ONE (21:02)
--- NOTE | 2022-06-01 21:09 | Hospitalist Progress Note ---
Date of Service June 01, 2022 Assessment & Plan (1) Pulmonary embolism with acute cor pulmonale: Plan: Alteplase given in the ER. Will defer starting IV heparin timing to ICU usually when PTT < twice upper limit of normal. TTE Patient improved after TPA. Patient now on heparin drip. willl stop heparin drip over night. and give a DOAC. Patient will need to be followed with oncology as an outpatient. (2) Diabetic ketoacidosis: Plan: Discussed with Dr Temple. NSS 500ml bolus given in ER. Planning on repeating labs prior to initiation of probable insulin IV drip but will defer ongoing management and fluids to ICU team. Recommend q4h labs until anion gap closed Gap is closed, will stop insulin drip (3) Acute respiratory failure with hypoxia: Plan: Secondary to bilateral pulmonary embolism as above. Currently stable on 5LPM O2 oxymask on admission. Aim O2 sats > 94% Now on room air (05/31) (4) Demand ischemia: Plan: Serial troponins, TTE (5) Diabetes mellitus type 2, uncontrolled: Plan: Patient not sure what insulin she is taking. When prompted regarding Lantus she thinks she has this at home but not prescribed in the last year. Per last PCP note she should be taking Lantus 30 units HS and Novolog 15 units BID. Will need wheat buyer prior to discharge (6) Hypertension: Plan: Hold enalapril pending serial BP measurements to make sure stability prior to restarting. 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 Plan VTE Prophylaxis - as above Admission and Anticipated Discharge Date Admission Date: May 30, 2022 Subjective 72 yo female reports feeling well. She has no new complaints. Review of Systems Review of Systems: All systems reviewed & are unremarkable except as noted in HPI & below Physical Exam Constitutional: WD/WN, vitals as above Eyes: PERRL, conjunctivae normal, anicteric sclerae ENMT: Mouth: + dry oral mucous membranes Respiratory: normal respiratory effort, lungs clear to auscultation Cardiovascular: Rate/Rhythm: regular rate and regular rhythm Extremities: normal capillary refill; no calf tenderness and no pedal edema Gastrointestinal (Abdomen): normal bowel sounds, soft, nontender, no hepatosplenomegaly Musculoskeletal: no cyanosis or clubbing, extremities motor strength 5/5 Skin: no rashes, warm and dry Neurologic: moves all extremities and awake; no focal motor deficits and not confused Psychiatric: A+Ox3, euthymic affect Results & Data Results & Data ([place]) Vital Signs (Past 12 Hours) Vital Signs Temp Pulse Resp BP BP Pulse Ox O2 Del Method 06/01/22 19:33 36.7 C 86 18 145/81 H 98 Room Air 06/01/22 15:49 36.8 C 82 16 143/83 H 96 Room Air 06/01/22 11:40 36.8 C 80 16 138/82 97 Room Air PG Care Time/CCT Total # of Minutes Spent Total Time Spent with Patient: Total time spent is greater than 50% in coordination of care (as documented) at patient's floor/unit and/or counseling patient: Coding Level of Care Code 68151 SUB INP/OBS CARE 2/35MIN Diagnoses Pulmonary embolism with acute cor pulmonale I26.09 Chronicity: acute Pulmonary embolism type: unspecified Diabetic ketoacidosis E11.10 Diabetes mellitus complication detail: without coma Acute respiratory failure with hypoxia J96.01 Demand ischemia I24.8 Diabetes mellitus type 2, uncontrolled E11.65 Glycemic state: with hyperglycemia Hypertension I10 Hypertension type: essential hypertension Hyperlipidemia E78.2 Hyperlipidemia type: mixed hyperlipidemia Breast cancer C50.919 (1) Diabetic ketoacidosis Diabetes mellitus complication detail: without coma (2) Hyperlipidemia Hyperlipidemia type: mixed hyperlipidemia Qualified Code(s): E78.2 - Mixed hyperlipidemia (3) Diabetes mellitus type 2, uncontrolled Glycemic state: with hyperglycemia Qualified Code(s): E11.65 - Type 2 diabetes mellitus with hyperglycemia (4) Pulmonary embolism with acute cor pulmonale Chronicity: acute Pulmonary embolism type: unspecified Qualified Code(s): I26.09 - Other pulmonary embolism with acute cor pulmonale (5) Hypertension Hypertension type: essential hypertension Qualified Code(s): I10 - Essential (primary) hypertension
[2022-06-01] MEDS: APIXABAN 5 MG TABLET PO SCH (21:55)
[2022-06-01] MEDS: HEPARIN SODIUM/DEXTROSE 25,000 UNITS/500 ML BAG IV SCH (22:05)
[2022-06-02 06:52] LABS: Calcium 8.8 mg/dl (8.5-10.1); Magnesium 1.8 mg/dl (1.7-2.4); Potassium 4.1 mmol/L (3.5-5.1)
[2022-06-02 06:57] LABS: BUN Creatinine Ratio 20.5 (10-20); Creatinine Clr Calc Pharmacy 68.6 ml/min; Est GFR (African American) 87.4 ml/min; Est GFR (Non-African American) 75.4 ml/min; Phosphorus 3.3 mg/dl (2.5-4.9)
[2022-06-02] MEDS: INSULIN ASPART PER UNIT SC SCH ×2 (08:06→12:21)
[2022-06-02] MEDS: APIXABAN 5 MG TABLET PO SCH (08:11)
[2022-06-02] MEDS ORDERED: LANTUS PER UNIT CHARGE SQ SCH (09:00)
--- NOTE | 2022-06-02 10:40 | Pharmacy Report ---
Pharmacy Glycemic Short Note 2 - Date of Service June 02, 2022 - Glycemic Short BSG Results (Last 24 hours): 06/01/22 06/01/22 06/01/22 11:41 16:20 19:51 Glucose POC Glucose 167 H 169 H 208 H 06/02/22 06/02/22 05:31 07:05 Glucose 120 H POC Glucose 114 H OUTPATIENT ANTIDIABETIC REGIMEN: * Novolog 15 units SQ BID HbA1C: 11.1% (05/31/22) ASSESSMENT: 06/02/22 * BSGs yesterday were [phone] mg/dL. Patient received 50 units of insulin (30 units of basal and 20 units of bolus). * Fasting today is 114 mg/dL. Decrease basal by 20% as fastings trending down. * Continue Novolog as BSGs well controlled. BACKGROUND * Patient is a 72 year old female with history of type 2 diabetes admitted in the setting of acute submassive PE s/p TPA. Also presented in mild DKA. Initial labs: BSG-423, bicarb-19, AG-14. * Insulin infusion initiated per DKA protocol yesterday ~ 1730. BSGs within goal range this AM and DKA resolved. Diet ordered this morning. * Lantus 15 units X 1 given to assist with transitioning off the drip. Will overlap with infusion at least 2 hours prior to discontinuation. Will plan for HS Lantus scale. Novolog ACHS with overnight checks. PLAN FOR INPATIENT GLYCEMIC CONTROL: * Hold outpatient oral diabetes medications * Basal insulin * Lantus 12 units SQ BID * Bolus insulin * NovoLog per scale ACHS or Q6hrs while NPO * Goal Range: Low 110 mg/dL - High 140 mg/dL * Correction Factor: 25 mg/dL/unit * Nutritional / Prandial insulin per carb ratio of 1 unit per 8 grams CHO consumed
[2022-06-02 11:39] VITALS: TEMP 97.7; O2SAT 96
[2022-06-02 14:51] VITALS: BP 143/83; PULSE 82
--- NOTE | 2022-06-04 16:09 | Discharge Summary ---
Date of Service June 02, 2022 Admission HPI Per Admitting Provider Shari Iglesias is a 72-year-old female who presents to the ER with shortness of breath. Symptoms started overnight but much worse today. No chest pain. She reports feeling a generalized illness with her not feeling right, everything going at 100 mph. Sudden worsening today over a 30 minute period with worsening shortness of breath therefore called EMS. No fever or chills, cough, nasal congestion, sinus pain, headache, chest pain, abdominal pain, nausea, vomiting, diarrhea, dizziness. She denies any history of DVT or PE. She did not take her usual medications this morning. On reviewing her diabetes medications last PCP note suggests she should be taking Lantus 30 units at night but it has not been prescribed in the last year. The patient is very unsure on what she should be taking, when to take it and when she last took it. In the ER given her history of cancer and shortness of breath she underwent CT for PE showing submassive bilateral pulmonary emboli with right heart strain. On discussion with the device engineer decision was made to give alteplase. She reports already feeling improved when seen. She was also noted to have mild diabetic ketoacidosis with bicarb 19, anion gap 14 and glucose 513. Care was discussed with the device engineer and she will be admitted to the ICU for ongoing care. Principal Diagnosis Pulmonary embolism with cor pulmonale Discharge Exam Constitutional: WD/WN, vitals as above Eyes: PERRL, conjunctivae normal, anicteric sclerae ENMT: Mouth: + dry oral mucous membranes Respiratory: normal respiratory effort, lungs clear to auscultation Cardiovascular: Rate/Rhythm: regular rate and regular rhythm Extremities: normal capillary refill; no calf tenderness and no pedal edema Gastrointestinal (Abdomen): normal bowel sounds, soft, nontender, no hepatosplenomegaly Musculoskeletal: no cyanosis or clubbing, extremities motor strength 5/5 Skin: no rashes, warm and dry Neurologic: moves all extremities and awake; no focal motor deficits and not confused Psychiatric: A+Ox3, euthymic affect Discharge Data Allergies Allergy/AdvReac Type Severity Reaction Status Date / Time aloe Allergy Unknown RAISED RASH Verified 06/03/22 11:23 No Known Drug Allergies Allergy Verified 06/03/22 11:23 Consultations 05/30/22 16:04 Consult Grid Maker Routine Ordered Studies 05/30/22 12:23 CT angio chest PE protocol Stat 05/30/22 13:18 CT head/brain wo con Stat 05/30/22 14:09 US abdomen limited Stat US leg [US venous doppler LE BI] Stat Hospital Course (1) Pulmonary embolism with acute cor pulmonale: Alteplase given in the ER. Will defer starting IV heparin timing to ICU usually when PTT < twice upper limit of normal. TTE Patient improved after TPA. Patient now on heparin drip. willl stop heparin drip over night. and give a DOAC. Patient will need to be followed with oncology as an outpatient. Patient will be discharged on a DOAC. Discharge instructions noted below (2) Diabetic ketoacidosis: Discussed with Dr Temple. NSS 500ml bolus given in ER. Planning on repeating labs prior to initiation of probable insulin IV drip but will defer ongoing management and fluids to ICU team. Recommend q4h labs until anion gap closed Gap is closed, will stop insulin drip (3) Acute respiratory failure with hypoxia: Secondary to bilateral pulmonary embolism as above. Currently stable on 5LPM O2 oxymask on admission. Aim O2 sats > 94% Now on room air (05/31) (4) Demand ischemia: Serial troponins, TTE (5) Diabetes mellitus type 2, uncontrolled: Patient not sure what insulin she is taking. When prompted regarding Lantus she thinks she has this at home but not prescribed in the last year. Per last PCP note she should be taking Lantus 30 units HS and Novolog 15 units BID. Patient will need to followup with PCP after discharge. (6) Hypertension: Hold enalapril pending serial BP measurements to make sure stability prior to restarting. Reportedly did not take her medications this morning (7) Hyperlipidemia: Continue atorvastatin (8) Breast cancer: Infiltrative ductal carcinoma, grade 2 s/p mastectomy 08/2021 and radiation. Plan VTE Prophylaxis - as above Total Time Total Time Spent Total Time Spent (In Minutes): 32 Discharge Plan Discharge Items Patient Disposition: Home - Self-Care Reason For Visit: BILATERAL EXTENSIVE PULMONARY EMBOLISM Discharge Diagnosis: lateral extensive pulmonary embolism Activity: Resume your previous activity Non-emergency contact: Primary Care Provider Call non-emergency contact if: you have any medication questions Follow-up/Referrals: Miguelito Chowdhury MD [Primary Care Provider] - 06/07/22 3:00 pm (will see BREEZY Knapp) Brianna Power MD [Outside Practitioners] - 06/10/22 10:15 am Diet: Carb Count or DM1 and Heart Healthy Addtl Attending Provider Instructions: Recommend starting Eliquis.For next 6 days please take 10 mg twice a day. Then continue to 5 mg twice a day. You will likely need lifelong anticoagulation. Recommend follow-up with her hematology/oncology physician. Pending Studies at Discharge: No Stand-Alone Forms: My [facility], Smoking Cessation Medications and DC Order Prescriptions: New Eliquis 5 mg Tablet See Rx Instructions .ROUTE .COMPLEX Qty: 60 0RF Rx Instructions: Take 2 tabs by mouth twice a day for 6 days. Friday would be your last 10 mg dose. Then go to 1 tab twice a day. Continued Novolog FlexPen U-100 Insulin 100 unit/mL (3 mL) insulin pen 15 unit SQ BID MDD 40 units Qty: 27 3RF Rx Instructions: per sliding scale atorvastatin 80 mg tablet 80 mg PO QAM Qty: 90 3RF Rx Instructions: for cholesterol enalapril maleate 10 mg tablet 10 mg PO QAM aspirin 81 mg Tablet,Delayed Release (Dr/Ec) 81 mg PO DAILY Discharge Orders: Discharge Order (Routine); Ordered 06/02/22 Ordered By: Rambo Michelle/Other Patient Handouts: Managing Type 2 Diabetes, Diabetes: Sick-Day Plan Admission Data Admit Date/Time: 05/30/22 14:19 Attending Provider: Rambo Mccoy Admit Provider: Davi Davey Primary Care Provider: Miguelito Chowdhury Other Providers: Surinder Temple Other Interventions: Discharge Summary Assessment (RN) Last Done: 06/02/22 14:49 Coding Level of Care Code HOSP INP/OBS DISCH >30 MIN Diagnoses Pulmonary embolism with acute cor pulmonale I26.09 Chronicity: acute Pulmonary embolism type: unspecified Diabetic ketoacidosis E11.10 Diabetes mellitus complication detail: without coma Acute respiratory failure with hypoxia J96.01 Demand ischemia I24.8 Diabetes mellitus type 2, uncontrolled E11.65 Glycemic state: with hyperglycemia Hypertension I10 Hypertension type: essential hypertension Hyperlipidemia E78.2 Hyperlipidemia type: mixed hyperlipidemia Breast cancer C50.919
== END 2022-06-02 15:50 | disposition home or self-care (01) | DRG 175 ==
LOC: ED 11:55 → 1E 14:19 → SUATTDRO 14:19 → 1E 15:37 → 2S 05-31 14:29

== ENCOUNTER 2024-02-14 10:46 | Inpatient (IN) ==
--- OUTSIDE RECORDS SUMMARY | 2024-02-14 10:51 | External Medical Summary | Summary of Care ---
Author Name Unknown Organization [facility] Address [address] [place] [address] Phone [phone] Care Team Providers Care Ex Assistant/Program Director Name Role Phone Miguelito Chowdhury MD Primary Care Provider [phone] Reason for Visit * Reason Onset Date Comments Appointment 11/11/2023 NO SHOW 11/10 Encounter Details Date Type Department Care Team ([facility] st Contact Info) Description 11/11/2023 Telephone Hematology/Oncology, [address] [address] Janice Drew MD [address] [place] [address] Appointment (NO SHOW 11/10) Allergies Active Allergy Reactions Criticality Noted Date Comments Benzocaine Rash Medium 06/12/2021 documented as of this encounter (statuses as of 11/14/2023) Medications Medication Sig Dispensed Refills Start Date End Date Status Enalapril Maleate 10 MG Oral Tablet (Vasotec) Take 1 Tablet by mouth in the morning. Active Atorvastatin Calcium 40 MG Oral Tablet (Lipitor) Take 1 Tablet by mouth in the morning. Active Eliquis 5 MG Oral Tablet Take 1 Tablet by mouth in the morning and 1 Tablet before bedtime. 06/13/2022 Active Trulicity 0.75 MG/0.5ML Subcutaneous Solution Pen-injector INJECT 0.75MG (0.5ML) SUBCUTANEOUSLY ONCE WEEKLY 06/13/2022 Active Aspirin 81 MG Oral Tablet Delayed Release Take 1 Tablet by mouth in the morning. Active Letrozole 2.5 MG Oral Tablet (Femara)Indication s:Breast carcinoma, female, left (HCC) Take 1 Tablet by mouth in the morning. 90 Tablet 3 08/14/2022 Active documented as of this encounter (statuses as of 11/14/2023) Active Problems No known active problems documented as of this encounter (statuses as of 11/14/2023) Social History Tobacco Use Types Packs/Day Years Used Date Smoking Tobacco: Never Smokeless Tobacco: Never Alcohol Use Standard Drinks/Week Comments Yes 2 (1 standard drink = 0.6 oz pur e alcohol) occasional Utilities Answer Date Recorded Do you have trouble paying y our heating, water, or electric bill? (Adult - for ages 18 years and over) Not on file 10/21/2023 Is your family able to pay t he heat, water, or electric bill? (Household - for ages 0-17 years) Not on file 10/21/2023 Does your family have access to good internet? (Household - for ages 0-17 years) Not on file 10/21/2023 Social Connections Answer Date Recorded How often do you feel lonely or isolated from those around you? (Adult - for ages 18 years and over) Not on file 10/21/2023 Sex and Gender Information Value Date Recorded Sex Assigned at Not on file Gender Identity Not on file Sexual Orientation Not on file Job Start Date Occupation Industry Not on file Not on file Not on file documented as of this encounter Miscellaneous Notes * Telephone Encounter - Tamica Woody OSA - 11/14/2023 9:37 AM EDT Lmom X3 Letter sent * Telephone Encounter - Tamica Woody OSA - 11/13/2023 10:37 AM EDT lmom * Telephone Encounter - Tamica Woody OSA - 11/11/2023 2:48 PM EDT Spoke to sister and will tell pt to call us back * Telephone Encounter - Claribel Canela LPN - 11/11/2023 2:37 PM EDT Patient is a NO SHOW 11/[address] Drew appt. Please contact patient to reschedule missed appt documented in this encounter Plan of Treatment Health Maintenance Due Date Last Done Comments DXA Scan 1950 Lipid Panel 1949 Pneumococcal Vaccine: 65+ Ye ars (1 of 2 - PCV) 1955 Depression Screening 1961 Hepatitis C Screening 1967 DTaP,Tdap,and Td Vaccines (1 - Tdap) 1968 Cologuard 1994 Colonoscopy 1994 Colorectal Cancer Screening 1994 Fecal Occult Blood Test 1994 Sigmoidoscopy 1994 Zoster Vaccines (1 of 2) 1999 COVID-19 Vaccine (1 - 2022-2 4 season) 2023 Mammogram 07/25/2023 07/24/2022 Influenza Vaccine (FLU shot) (#1) 2024 HPV (Gardasil) Vaccine Aged Out No lo nger eligible based on patient's age to complete this topic Hepatitis B Vaccine Aged Out No longe r eligible based on patient's age to complete this topic MENINGOCOCCAL (MENACTRA/MENVEO) Aged Out No longer eligible based on patient's age to complete this topic documented as of this encounter Medical Devices Not on filedocumented as of this encounter Care Teams Ex Assistant/Program Director Relationship Specialty Start Date End Date Miguelito Chowdhury MD [address], [place] [address] PCP - General Internal Medicine 08/17/21 documented as of this encounter
--- OUTSIDE RECORDS SUMMARY | 2024-02-14 10:51 | External Medical Summary | Summary of Care ---
Author Name Unknown Organization [facility] Address [address] [place] [address] Phone [phone] Care Team Providers Care Adult Education Professional Name Role Phone Miguelito Chowdhury MD Primary Care Provider [phone] Reason for Visit * Reason Onset Date Comments Appointment 11/11/2023 NO SHOW 11/10 Encounter Details Date Type Department Care Team ([facility] st Contact Info) Description 11/11/2023 Telephone Hematology/Oncology, [address] [address] Janice Drew MD [address] [place] [address] Appointment (NO SHOW 11/10) Allergies Active Allergy Reactions Criticality Noted Date Comments Benzocaine Rash Medium 06/12/2021 documented as of this encounter (statuses as of 11/11/2023) Medications Medication Sig Dispensed Refills Start Date [...] as of this encounter (statuses as of 11/11/2023) Active Problems No known active problems documented as of this encounter (statuses as of 11/11/2023) Social History Tobacco Use Types Packs/Day Years [...] is a NO SHOW 11/[address] Viki mcneal. Please contact patient to reschedule missed appt [...] filedocumented as of this encounter Care Teams Adult Education Professional Relationship Specialty Start Date End Date Miguelito Chowdhury MD [address], [place] [address] PCP - General Internal Medicine 08/17/21 documented as of this encounter
--- OUTSIDE RECORDS SUMMARY | 2024-02-14 10:51 | External Medical Summary | Summary of Care ---
Author Name Unknown Organization [facility] Address [address] [place] [address] Phone [phone] Care Team Providers Care Soap Grinder Name Role Phone Miguelito Chowdhury MD Primary Care Provider [phone] Reason for Visit * Reason Onset Date Comments Appointment 11/11/2023 NO SHOW 11/10 Encounter Details Date Type Department Care Team ([facility] st Contact Info) Description 11/11/2023 Telephone Hematology/Oncology, [address] [address] Janice Drew MD [address] [place] [address] Appointment (NO SHOW 11/10) Allergies Active Allergy Reactions Criticality Noted Date Comments Benzocaine Rash Medium 06/12/2021 documented as of this encounter (statuses as of 11/13/2023) Medications Medication Sig Dispensed Refills Start Date [...] as of this encounter (statuses as of 11/13/2023) Active Problems No known active problems documented as of this encounter (statuses as of 11/13/2023) Social History Tobacco Use Types Packs/Day Years [...] Vaccines (1 of 2) 1999 COVID-19 Vaccine ( - 2022-2 4 season) 2023 Mammogram 07/25/2023 [...] filedocumented as of this encounter Care Teams Soap Grinder Relationship Specialty Start Date End Date Miguelito Chowdhury MD [address] [place] [address] PCP - General Internal Medicine 08/17/21 documented as of this encounter
--- OUTSIDE RECORDS SUMMARY | 2024-02-14 10:51 | External Medical Summary | Summary of Care ---
Author Name Unknown Organization [facility] Address [address] [place] [address] Phone [phone] Care Team Providers Care Web Press Operator Helper Offset Name Role Phone Miguelito Chowdhury MD Primary Care Provider Reason for Visit * Reason Onset Date Comments Appointment 11/11/2023 NO SHOW 11/10 Encounter Details Date Type Department Care Team ([facility] st Contact Info) Description 11/11/2023 Telephone Hematology/Oncology, [address] [address] Janice Drew MD [address] [place] [address] Appointment (NO SHOW 11/10) Allergies Active Allergy [...] filedocumented as of this encounter Care Teams Web Press Operator Helper Offset Relationship Specialty Start Date End Date Miguelito Chowdhury MD [address], [place] [address] PCP - General Internal Medicine 08/17/21 documented as of this encounter
--- NOTE | 2024-02-14 10:55 | Emergency Department Note ---
Impression & Plan DKA (diabetic ketoacidosis), Pulmonary embolism, Acute alteration in mental status, Hypoxia, Noncompliance with medication regimen ED Provider Note NAME: CHARLES THOMAS AGE: 73 SEX: F : 1950 ARRIVES VIA: Ambulance INFORMANT: Patient, EMS ED PROVIDER(S): Jose Stephens DO CHIEF COMPLAINT: Shortness of breath HPI: The patient is a 73-year-old female that arrived via ambulance for an evaluation of difficulty breathing. Reportedly the patient did have a fall yesterday. She states that she fell from a standing position. She did not get hurt and was able to get up on her own. She called the ambulance today not because of the fall but because she was having difficulty breathing. The patient was noted to have oxygen saturation in the 70s prior to arrival. She was placed on CPAP but did not tolerate this modality. She was also placed on a nonrebreather mask but did not tolerate this modality. The patient was placed on nasal cannula and eventually did feel better and had an oxygen saturation was acceptable. The patient denies having any chest pain or leg swelling. She denies having any back pain or neck pain. There is no reported head injury. The patient reportedly takes apixaban but it is unclear because the prehospital personnel stated that her medication bottles did not appear to be taken or where she could take these medications. Additional history was taken from the family. ROS: See above HPI for pertinent positives & negatives. A total of 10 systems reviewed and were otherwise negative. PAST MEDICAL HISTORY: See Below PAST SURGICAL HISTORY: See Below FAMILY HISTORY: See Below SOCIAL HISTORY: See Below HOME MEDICATIONS: See Below ALLERGIES: See Below VITALS: See Below PHYSICAL EXAMINATION: GENERAL: The is awake and alert. She is somewhat anxious appearing. EYES: The conjunctivae are clear. The pupils are round and reactive. EARS, NOSE, MOUTH AND THROAT: The nose is without any evidence of any deformity. Mucous membranes are. NECK: The neck is nontender and supple. RESPIRATORY: Tachypnea was noted. There was conversational dyspnea. There is no specific rales noted throughout. There was faint wheezing in the upper lung moya. CARDIOVASCULAR: Regular rate and rhythm noted there no murmurs rubs or gallops normal S1 normal S2. GASTROINTESTINAL: The abdomen is soft. Abdomen is nontender. SKIN: The skin was cool and dry. There is no significant pedal edema. NEUROLOGIC: Patient is awake and oriented to person and place. She was not oriented to time. Strength was symmetric. MEDICAL DECISION MAKING: The patient is a 73-year-old female who presented to the emergency department by ambulance for an evaluation of difficulty breathing. The patient reportedly had a fall yesterday. It is unclear if she actually hurt herself but she was experiencing difficulty breathing today. 911 was called and the patient arrived at the emergency department via ALS. The patient was tachypneic. She was also hypoxic. She was placed on supplemental oxygen. She was improved on supplemental oxygen. I discussed the patient's laboratory and radiographic studies with her and her son. Getting further history the patient appears to have had some episodes of noncompliance with her outpatient medication. I doubt she has been taking her diabetes medication or her anticoagulation. She was started on IV insulin for DKA. She was also started on IV heparin. I discussed the patient's condition with the on-call [facility] hospitalist. At their request I also discussed the case with pulmonary critical care. The patient responded well to IV fluids. She does not appear to have any specific infectious process at this time. If this changes antibiotics will be ordered. Triage Nursing notes reviewed. Prior medical records reviewed Vital Signs: reviewed and remarkable for hypoxia and hypotension. Differential diagnosis: Reactive airway disease, pneumonia, pneumothorax, COPD, CHF, infections, cardiac ischemia, pulmonary embolism, musculoskeletal, gastrointestinal, as well as other pathologies. ER treatment provided: See below Diagnostics interpreted by me: ECG: EKG was obtained in the emergency department. My interpretation is sinus tachycardia at 117 bpm. There is no acute ST segment abnormalities noted. PVCs were noted. Inferior Q waves were noted throughout. This was compared to a tracing from May 30, 2022. No changes were noted. A second EKG was obtained in the emergency department once the patient's baseline artifact improved. My interpretation is sinus tachycardia at 114 bpm. There were no PVCs noted. Nonspecific ST segment abnormalities were noted with inferior Q waves. This compares similar to the initial EKG obtained. Cardiac Monitoring: An order was placed for continuous cardiac monitoring. The monitor shows a rate of 110 bpm with sinus tachycardia. Laboratory studies: As stated above and show below. Imaging studies: See below. Radiographic imaging was reviewed by myself Consultation(s): Discussed this case with Dr. Orozco who is on-call for the [place] hospitalist group. He asked that I discussed the case with pulmonary to determine if a higher level of care would be indicated for the patient's venous thromboembolic disease. I discussed this case with Dr. Olivas who is on-call for pulmonary and critical care medicine. ED COURSE: Procedures: none Critical Care: I have personally spent greater than 40 minutes of critical care time in the direct management of this patient. This includes bedside care, interpretation of diagnostic studies, and testing, discussion with consultants, patient, and family members, and other required patient management activities. This 40 minutes is in excess of all separately billable procedures. Past Med/Surg History Problem List (Updated 02/14/24 @ 13:06 by Jose Stephens DO) Noncompliance with medication regimen (Acute) Hypoxia (Acute) Acute alteration in mental status (Acute) Pulmonary embolism (Acute) DKA (diabetic ketoacidosis) (Acute) Demand ischemia (Acute) Acute respiratory failure with hypoxia (Acute) Diabetic ketoacidosis (Acute) Pulmonary embolism with acute cor pulmonale (Acute) Malignant neoplasm of lower-outer quadrant of left breast of female, estrogen receptor positive (Chronic 08/02/21) Encounter for pre-operative examination Breast cancer Dx 2021 surgical intervention planned 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 Elevated ADILENE level suspicious for pulmonary sarcoidosis. Biopsy could not be completed. DM was grossly uncontrolled so steroids were avoided. Seems she's been relatively asymptomatic since then. Dr. Chowdhury repeated CT scan 2013, which revealed borderline, similiar appearing hilar LNs. Adult situational stress disorder (Chronic) Diabetic nephropathy with proteinuria (Chronic) Solitary thyroid nodule (Chronic) s/p thyroidectomy 2011 Vitamin D deficiency (Chronic) Diabetes mellitus type 2, uncontrolled (Chronic) Hypertension (Chronic) Hyperlipidemia (Chronic) Depression (Chronic) CKD (chronic kidney disease) stage 3, GFR 30-59 ml/min Medical History Conjunctivitis Hypothyroidism Surgical History History of tubal ligation History of cholecystectomy History of section History of thyroidectomy (03/04/12) d/t suspicious nodule. 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 No carcinoma noted. History of colonoscopy Diverticulosis noted. No polyps/neoplasia. No biopsies. F/U 5-10 years recommended. Family History Mother Uterine cancer Leukemia Aunt Breast cancer Pancreatic cancer Father Heart disease (Reported Family History Of) Myocardial infarction Unknown Acute myocardial infarction Son Atrial fibrillation Myocardial infarction Denies family history of Ovarian cancer Prostate cancer Colorectal cancer Social History Smoking Status: Never smoker Second Hand Exposure: No; Do You Dip or Chew Tobacco: No; Hx Alcohol Use: Yes Alcohol type: wine Alcohol Intake Frequency: Monthly or Less Hx Substance Use: No Preferred Language: Citizen Of [place] Communication Ability: Effective Visual Impairment: Limited Hearing Ability: Normal Panel Edge Painter Required: No Beliefs That Will Affect Care: None marital status: / Current Living Situation: Alone Current Living Situation Comment: lives with grandson current occupational status: retired How many Children do You have: 2 Feels Safe at Home: Yes Childhood Exposure to Second-Hand Smoke: Yes caffeine: Yes (half caf coffee ) during the past year weight has: remained stable Dental Care, Regularly: No Physical Activity Frequency: Does not Exercise Seatbelt Use: always Sunscreen Use: Yes Assistive Devices: None Allergies Allergies Allergy/AdvReac Type Severity Reaction Status Date / Time aloe Allergy Unknown RAISED RASH Verified 09/04/22 14:32 No Known Drug Allergies Allergy Verified 09/04/22 14:32 Home Meds Home Medications Medication Instructions Recorded Confirmed aspirin 81 mg tablet,delayed 81 mg PO DAILY 05/30/22 10/02/22 release letrozole 2.5 mg tablet 2.5 mg PO DAILY 10/02/22 10/02/22 Previous Rx's Medication Instructions Recorded apixaban 5 mg tablet (Eliquis) 5 mg PO BID #60 tabs 06/12/22 enalapril maleate 10 mg tablet 10 mg PO QAM #90 tabs 06/13/22 atorvastatin 80 mg tablet 80 mg PO QAM #90 tabs 11/21/22 Results & Data (ED) Vital Signs Vital Signs - 24 hr 02/14/24 11:03 02/14/24 11:03 02/14/24 11:11 Temperature 36.6 C Temperature Source Axillary Pulse Rate 110 H Pulse Rate [Apical] Pulse Strength [Apical] Respiratory Rate 25 H Respiratory Effort / Characteristics Spontaneous Labored Spontaneous Labored Respiratory Depth Deep Deep Respiratory Pattern Tachypnea Blood Pressure 121/77 Blood Pressure [Right Arm] Blood Pressure Mean 91 Blood Pressure Mean [Right Arm] Blood Pressure Position Sitting Blood Pressure Position [Right Arm] Pulse Oximetry 79 L 79 L Oxygen Delivery Method Room Air Room Air Room Air Oxygen Flow Rate Sepsis Recent Fever Within 48 Hours No Sepsis New/Unexplained Change in Mental Status No Sepsis Action Taken by Nursing Physician Notified Oxygen Flow Rate - Titration 5 Pulse Oximetry Post Tiitration 95 02/14/24 12:10 02/14/24 12:48 02/14/24 13:00 Temperature Temperature Source Pulse Rate 11 L Pulse Rate [Apical] 115 H 112 H Pulse Strength [Apical] Respiratory Rate 30 H 30 H Respiratory Effort / Characteristics Non-Labored Spontaneous Non-Labored Spontaneous Respiratory Depth Normal Normal Respiratory Pattern Blood Pressure Blood Pressure [Right Arm] 93/70 L 121/70 Blood Pressure Mean Blood Pressure Mean [Right Arm] 77 87 Blood Pressure Position Blood Pressure Position [Right Arm] Sitting Sitting Pulse Oximetry 98 98 Oxygen Delivery Method Nasal Cannula Nasal Cannula Oxygen Flow Rate 5 5 Sepsis Recent Fever Within 48 Hours Sepsis New/Unexplained Change in Mental Status Sepsis Action Taken by Nursing Oxygen Flow Rate - Titration Pulse Oximetry Post Tiitration 02/14/24 13:28 Temperature Temperature Source Pulse Rate Pulse Rate [Apical] 105 H Pulse Strength [Apical] Normal Respiratory Rate 25 H Respiratory Effort / Characteristics Spontaneous Respiratory Depth Normal Respiratory Pattern Regular Blood Pressure Blood Pressure [Right Arm] 144/77 H Blood Pressure Mean Blood Pressure Mean [Right Arm] 99 Blood Pressure Position Blood Pressure Position [Right Arm] Pulse Oximetry 4 L Oxygen Delivery Method Nasal Cannula Oxygen Flow Rate Sepsis Recent Fever Within 48 Hours Sepsis New/Unexplained Change in Mental Status Sepsis Action Taken by Nursing Oxygen Flow Rate - Titration Pulse Oximetry Post Tiitration Home Medications Current Medication List: was personally reviewed by me Laboratory Data Attestation: I reviewed the patient's lab results. 02/14/24 11:10 02/14/24 11:10 Lab Results 02/14/24 02/14/24 02/14/24 Range/Units 11:02 11:10 11:15 WBC 15.00 H (4.8-10.8) K/ul RBC 5.97 H (4.20-5.40) M/uL Hgb 17.2 H (12.0-16.0) g/dl POC Hgb 18.4 H (12.0-16.0) g/dl Hct 52.8 H (37.0-47.0) % POC Hct 54 H (37-47) % MCV 88.4 (80.0-100.0) fL MCH 28.8 (25.0-34.0) pg MCHC 32.6 (32.0-36.0) g/dL RDW Std Deviation 42.9 (36.4-46.3) fL RDW Coeff of Millicent 13.5 (11.5-14.5) % Plt Count 353 (130-400) K/uL MPV 9.8 (9.4-12.4) fL Immature Gran % (Auto) 0.8 % Neut % (Auto) 83.2 % Lymph % (Auto) 10.1 % [place] % (Auto) 5.4 % Eos % (Auto) 0.0 % Baso % (Auto) 0.5 % Neut # (Auto) 12.49 H (1.40-6.50) K/uL Lymph # (Auto) 1.51 (1.20-3.40) K/uL [place] # (Auto) 0.81 H (0.11-0.59) K/uL Eos # (Auto) 0.00 (0.00-0.50) K/uL Baso # (Auto) 0.07 (0.00-0.20) K/uL Immature Gran # (Auto) 0.12 (0.01-0.20) K/uL PT 10.8 (9.0-12.0) Seconds INR 1.0 (0.9-1.1) APTT 26 (21-31) Seconds PTT Ratio 1.0 D-Dimer 17013 H* (0-500) ug/L FEU VBG pH 7.07 L (7.36-7.41) VBG pCO2 39 (38-50) mmHg VBG pO2 47 mmHg VBG HCO3 11 mmol/L VBG O2 Saturation 72.9 % VBG Base Excess -18.4 mEq/L POC Sodium 139 (135-144) mmol/L Sodium 139 (136-145) mmol/L POC Potassium 4.6 (3.3-5.0) mmol/L Potassium 4.5 (3.5-5.1) mmol/L POC Chloride 107 (101-112) mmol/L Chloride 100 (98-107) mmol/L Carbon Dioxide 12 L (21-32) mmol/L POC Total CO2 12 L (24-31) mmol/L Anion Gap 27 H (3-11) POC Anion Gap 26.0 H (16-25) mmol/L POC BUN 34 H (7-18) mg/dl BUN 34 H (6-23) mg/dl Creatinine 1.33 H (0.6-1.2) mg/dl POC Creatinine 1.1 (0.6-1.3) mg/dl Est Cr Clr Drug Dosing 33.5 ml/min eGFR 41.98 BUN/Creatinine Ratio 25.6 H (10-20) Glucose 461 H* (70-99(Fasting)) mg/dl POC Glucose 381 H* (70-99) mg/dl POC Glucose (other) 443 H* (70-99) mg/dl Estimat Average Glucose mg/dl Hemoglobin A1c (4.5-5.6) % Calcium 10.1 (8.6-10.3) mg/dl POC Ioniz Calcium Sumit 1.28 (1.12-1.32) mmol/l Magnesium 1.9 (1.7-2.4) mg/dl Total Bilirubin 0.5 (0.2-1.0) mg/dl AST 15 (13-39) U/L ALT 12 (7-52) U/L Alkaline Phosphatase 111 H (34-104) U/L Troponin I High Sens 13.0 (0-14) pg/ml B-Natriuretic Peptide 45 (0-100) pg/ml Total Protein 7.5 (6.0-8.3) gm/dl Albumin 4.0 (3.4-5.0) gm/dl Globulin 3.5 (2.5-4.0) gm/dl Albumin/Globulin Ratio 1.1 (0.9-2) SARS-CoV-2 (PCR) NEGATIVE (Negative) Influenza Type A (PCR) Negative (Neg) Influenza Type B (PCR) Negative (Neg) RSV (RT-PCR) Negative (Neg) 02/14/24 02/14/24 Range/Units 12:00 13:16 WBC (4.8-10.8) K/ul RBC (4.20-5.40) M/uL Hgb (12.0-16.0) g/dl POC Hgb (12.0-16.0) g/dl Hct (37.0-47.0) % POC Hct (37-47) % MCV (80.0-100.0) fL MCH (25.0-34.0) pg MCHC (32.0-36.0) g/dL RDW Std Deviation (36.4-46.3) fL RDW Coeff of Millicent (11.5-14.5) % Plt Count (130-400) K/uL MPV (9.4-12.4) fL Immature Gran % (Auto) % Neut % (Auto) % Lymph % (Auto) % [place] % (Auto) % Eos % (Auto) % Baso % (Auto) % Neut # (Auto) (1.40-6.50) K/uL Lymph # (Auto) (1.20-3.40) K/uL [place] # (Auto) (0.11-0.59) K/uL Eos # (Auto) (0.00-0.50) K/uL Baso # (Auto) (0.00-0.20) K/uL Immature Gran # (Auto) (0.01-0.20) K/uL PT (9.0-12.0) Seconds INR (0.9-1.1) APTT (21-31) Seconds PTT Ratio D-Dimer (0-500) ug/L FEU VBG pH (7.36-7.41) VBG pCO2 (38-50) mmHg VBG pO2 mmHg VBG HCO3 mmol/L VBG O2 Saturation % VBG Base Excess mEq/L POC Sodium (135-144) mmol/L Sodium (136-145) mmol/L POC Potassium (3.3-5.0) mmol/L Potassium (3.5-5.1) mmol/L POC Chloride (101-112) mmol/L Chloride (98-107) mmol/L Carbon Dioxide (21-32) mmol/L POC Total CO2 (24-31) mmol/L Anion Gap (3-11) POC Anion Gap (16-25) mmol/L POC BUN (7-18) mg/dl BUN (6-23) mg/dl Creatinine (0.6-1.2) mg/dl POC Creatinine (0.6-1.3) mg/dl Est Cr Clr Drug Dosing ml/min eGFR BUN/Creatinine Ratio (10-20) Glucose (70-99(Fasting)) mg/dl POC Glucose 315 H* (70-99) mg/dl POC Glucose (other) (70-99) mg/dl Estimat Average Glucose 361 mg/dl Hemoglobin A1c 14.2 H (4.5-5.6) % Calcium (8.6-10.3) mg/dl POC Ioniz Calcium Sumit (1.12-1.32) mmol/l Magnesium (1.7-2.4) mg/dl Total Bilirubin (0.2-1.0) mg/dl AST (13-39) U/L ALT (7-52) U/L Alkaline Phosphatase (34-104) U/L Troponin I High Sens (0-14) pg/ml B-Natriuretic Peptide (0-100) pg/ml Total Protein (6.0-8.3) gm/dl Albumin (3.4-5.0) gm/dl Globulin (2.5-4.0) gm/dl Albumin/Globulin Ratio (0.9-2) SARS-CoV-2 (PCR) (Negative) Influenza Type A (PCR) (Neg) Influenza Type B (PCR) (Neg) RSV (RT-PCR) (Neg) Administered Medications Insulin Human Regular 250 (units/ Sodium Chloride) 250 mls @ 6.4 mls/hr IV .Q24H JERI; Protocol Stop: 03/15/24 11:44 Last Titration: 02/14/24 13:18 Dose: 6.4 unit/hr, 6.4 mls/hr Documented By: BELKYS Co-signed By: ROBERT Admin: 02/14/24 12:13 Dose: 6.4 unit/hr, 6.4 mls/hr Documented By: BELKYS Co-signed By: ROBERT Heparin Sodium/Dextrose (Heparin Sodium/Dextrose) 25,000 units in 500 mls @ 20 mls/hr IV .Q24H JERI; Protocol Stop: 03/15/24 13:14 Last Admin: 02/14/24 13:54 Dose: 1,000 units/hr, 20 mls/hr Documented By: ROBERT Co-signed By: BELKYS Discontinued Medications Heparin Sodium (Porcine) (Heparin Sod (Porcine) 1000 Unit/Ml) 5,000 units IV NOW ONE Stop: 02/14/24 13:46 Last Admin: 02/14/24 13:55 Dose: 5,000 units Documented By: ROBERT Co-signed By: BELKYS Sodium Chloride (Nss) 1,000 mls @ 999 mls/hr IV .Q1H1M ONE Stop: 02/14/24 12:37 Last Infusion: 02/14/24 13:24 Dose: Infused Documented By: Admin: 02/14/24 11:46 Dose: 999 mls/hr Documented By: BELKYS Sodium Chloride (Nss) 1,000 mls @ 999 mls/hr IV .Q1H1M ONE Stop: 02/14/24 13:57 Last Admin: 02/14/24 13:26 Dose: 999 mls/hr Documented By: BELKYS Ioversol (Optiray 320 125ml) 120 ml IV ONCE ONE Stop: 02/14/24 12:39 Last Admin: 02/14/24 12:39 Dose: 120 ml Documented By: YNES Miscellaneous (Dka Goal Range 150-250 Mg/Dl) 1 each N/A ONE ONE Stop: 02/14/24 11:37 Last Admin: 02/14/24 13:23 Dose: Not Given Documented By: BELKYS Imaging Data Attestation: I personally reviewed and interpreted this imaging study as follows: My Impression: CT the brain was obtained in the emergency department. My interpretation is no intracranial hemorrhage or mass effect, final report pending. CT of the chest was obtained in the emergency department. My interpretation is bilateral pulmonary emboli, no free air, final report pending. 1 view chest x-ray was obtained in the emergency department. My interpretation is no free air or definite infiltrate, final report below. Radiologist's Impression: Chest X-Ray 02/14/24 10:49 XR chest 1V portable HISTORY: 73 years-old Female Dyspnea COMPARISON: 05/30/2022 TECHNIQUE: AP view of the chest FINDINGS: Cardiomediastinal and hilar silhouettes are within normal limits. No pneumothorax, pleural effusion, airspace consolidation or pulmonary edema. Mild mid thoracic dextroscoliosis. Bones appear grossly intact. IMPRESSION: No acute process. ACT 112: Negative or not required by law. The above report was generated using voice recognition software. It may contain grammatical, syntax or spelling errors. Electronically signed by: Tejinder Cruz M.D. 02/14/2024 11:20 AM Abdomen/Pelvis CT 02/14/24 12:06 CT angio chest PE protocol, CT abd pelvis IV con only CT DOSE: 2478. mGy.cm HISTORY: 73 years-old Female with PE. Acute shortness of breath TECHNIQUE: Multiple CTA images of the chest were obtained after the intravenous administration of 120 ml Optiray. Coronal and sagittal MIPS were obtained from the axial data set and were submitted for review. CT abdomen and pelvis with IV contrast also obtained. All measurements were obtained according to NASCET criteria. A dose lowering technique was utilized adhering to the principles of ALARA. COMPARISON: 05/30/2022 FINDINGS: CTA: Heart is upper limits of normal in size. Moderate coronary artery calcifications. No thoracic aortic aneurysm or dissection. Large amount of bilateral pulmonary emboli, right greater than left which are most pronounced in the lower lobes with straightening of the intraventricular septum involving the lobar, segmental and subsegmental branches. CT CHEST: The left lobe of the thyroid is either atrophic or surgically absent. Portal enlarged mediastinal and hilar lymph nodes. No pneumothorax, pleural effusion or overt pulmonary edema. Tiny pulmonary nodules measuring up to approximately 4 mm which are most pronounced in the upper lung zones are likely benign. Areas of mild linear subsegmental atelectasis versus scarring. Central airways are patent. Unremarkable soft tissues. No acute fracture. Asymmetric skin thickening of the left breast with linear 2.3 cm left breast lesion on image 30 series 4, likely posttreatment related findings. CT ABDOMEN AND PELVIS: No free air. Unremarkable spleen, pancreas and adrenal glands. Cholecystectomy. Unremarkable liver with mild fatty infiltration adjacent to the falciform ligament. Patent portal vein. There are a few scattered left-sided renal sinus cysts. No hydronephrosis. Unremarkable urinary bladder. Thickening of the postmenopausal endometrium measures up to 9 mm at the fundus. 4 cm cystic lesion of the right adnexa. No bowel obstruction or bowel wall thickening. Normal appendix. Probable internal hemorrhoids. No acute fracture. IMPRESSION: 1. Extensive right greater than left age-indeterminate pulmonary emboli with evidence of right heart strain. 2. No pleural effusion or pulmonary infarct. 3. No bowel obstruction or bowel wall thickening. 4. Nonspecific thickening of the postmenopausal endometrium. Follow-up with gynecology recommended. 5. Incidental findings as above. ACT 112: Negative or not required by law. The above report was generated using voice recognition software. It may contain grammatical, syntax or spelling errors. Electronically signed by: Tejinder Cruz M.D. 02/14/2024 1:56 PM Chest CTA 02/14/24 12:06 CT angio chest PE protocol, CT abd pelvis IV con only CT DOSE: 2478. mGy.cm HISTORY: 73 years-old Female with PE. Acute shortness of breath TECHNIQUE: Multiple CTA images of the chest were obtained after the intravenous administration of 120 ml Optiray. Coronal and sagittal MIPS were obtained from the axial data set and were submitted for review. CT abdomen and pelvis with IV contrast also obtained. All measurements were obtained according to NASCET criteria. A dose lowering technique was utilized adhering to the principles of ALARA. COMPARISON: 05/30/2022 FINDINGS: CTA: Heart is upper limits of normal in size. Moderate coronary artery calcifications. No thoracic aortic aneurysm or dissection. Large amount of bilateral pulmonary emboli, right greater than left which are most pronounced in the lower lobes with straightening of the intraventricular septum involving the lobar, segmental and subsegmental branches. CT CHEST: The left lobe of the thyroid is either atrophic or surgically absent. Portal enlarged mediastinal and hilar lymph nodes. No pneumothorax, pleural effusion or overt pulmonary edema. Tiny pulmonary nodules measuring up to approximately 4 mm which are most pronounced in the upper lung zones are likely benign. Areas of mild linear subsegmental atelectasis versus scarring. Central airways are patent. Unremarkable soft tissues. No acute fracture. Asymmetric skin thickening of the left breast with linear 2.3 cm left breast lesion on image 30 series 4, likely posttreatment related findings. CT ABDOMEN AND PELVIS: No free air. Unremarkable spleen, pancreas and adrenal glands. Cholecystectomy. Unremarkable liver with mild fatty infiltration adjacent to the falciform ligament. Patent portal vein. There are a few scattered left-sided renal sinus cysts. No hydronephrosis. Unremarkable urinary bladder. Thickening of the postmenopausal endometrium measures up to 9 mm at the fundus. 4 cm cystic lesion of the right adnexa. No bowel obstruction or bowel wall thickening. Normal appendix. Probable internal hemorrhoids. No acute fracture. IMPRESSION: 1. Extensive right greater than left age-indeterminate pulmonary emboli with evidence of right heart strain. 2. No pleural effusion or pulmonary infarct. 3. No bowel obstruction or bowel wall thickening. 4. Nonspecific thickening of the postmenopausal endometrium. Follow-up with gynecology recommended. 5. Incidental findings as above. ACT 112: Negative or not required by law. The above report was generated using voice recognition software. It may contain grammatical, syntax or spelling errors. Electronically signed by: Tejinder Cruz M.D. 02/14/2024 1:[address] 02/14/24 12:06 CT head/brain wo con CLINICAL HISTORY: 73 years-old Female with ams. Acutely altered mental status TECHNIQUE: Multiple axial CT images of the head were obtained without contrast. A dose lowering technique was utilized adhering to the principles of ALARA. COMPARISON: 05/30/2022 FINDINGS: No acute intracranial hemorrhage, midline shift, intracranial mass, hydrocephalus, territorial ischemia or abnormal extra-axial collection. Involutional changes with chronic microvascular ischemic disease. The calvarium is intact. Prior bilateral lens repair. The paranasal sinuses, mastoid air cells, and middle ear cavities are clear. IMPRESSION: No acute intracranial abnormality. ACT 112: Negative or not required by law. The above report was generated using voice recognition software. It may contain grammatical, syntax or spelling errors. Electronically signed by: Tejinder Cruz M.D. 02/14/2024 1:38 PM Discharge Plan Visit Data Chief Complaint: Shortness of Breath/Dyspnea Stated Complaint: SOB, ED Provider: Jose Stephens Discharge Problem: DKA (diabetic ketoacidosis), Pulmonary embolism, Acute alteration in mental status, Hypoxia, Noncompliance with medication regimen Patient Disposition: Being Evaluated by Hospitalist Forms Stand Alone Forms: [facility] Prescriptions Prescriptions: No Action letrozole 2.5 mg tablet 2.5 mg PO DAILY enalapril maleate 10 mg tablet 10 mg PO QAM Qty: 90 1RF Rx Instructions: for blood pressure and to protect kidneys atorvastatin 80 mg tablet 80 mg PO QAM Qty: 90 3RF Rx Instructions: for cholesterol Eliquis 5 mg tablet 5 mg PO BID Qty: 60 11RF aspirin 81 mg Tablet,Delayed Release (Dr/Ec) 81 mg PO DAILY Referrals Referrals: PCP,NO [Primary Care Provider] - Discharge Problem: DKA (diabetic ketoacidosis) Qualifiers: Diabetes mellitus type: type 1 Diabetes mellitus complication detail: without coma Qualified Code(s): E10.10 - Type 1 diabetes mellitus with ketoacidosis without coma Pulmonary embolism Qualifiers: Pulmonary embolism type: unspecified Chronicity: acute Acute cor pulmonale presence: unspecified Qualified Code(s): I26.99 - Other pulmonary embolism without acute cor pulmonale
--- NOTE | 2024-02-14 11:21 | XRay Report ---
XR chest 1V portable HISTORY: 73 years-old Female Dyspnea COMPARISON: 05/30/2022 TECHNIQUE: AP view of the chest FINDINGS: Cardiomediastinal and hilar silhouettes are within normal limits. No pneumothorax, pleural effusion, airspace consolidation or pulmonary edema. Mild mid thoracic dextroscoliosis. Bones appear grossly in tact. IMPRESSION: No acute process. ACT 112: Negative or not required by law. The above report was generated using voice recognition software. It may contain grammatical, syntax o r spelling errors. Electronically signed by: Tejinder Cruz M.D. 02/14/2024 11:20 AM
[2024-02-14 11:24] LABS: Base Excess VBG -18.4 mEq/L; Basophils # (auto) 0.07 K/uL (0.00-0.20); Basophils % (auto) 0.5 %; HCO3 VBG 11 mmol/L; Hematocrit (blood only) 52.8 % (37.0-47.0); Hemoglobin 17.2 g/dl (12.0-16.0); Immature Granulocytes # (auto) 0.12 K/uL (0.01-0.20); Immature Granulocytes % (auto) 0.8 %; Lymphocytes # (auto) 1.51 K/uL (1.20-3.40); Lymphocytes % (auto) 10.1 %; Mean Corpuscular Hemoglobin 28.8 pg (25.0-34.0); Mean Corpuscular Hgb Conc 32.6 g/dL (32.0-36.0); Mean Corpuscular Volume 88.4 fL (80.0-100.0); Mean Platelet Volume 9.8 fL (9.4-12.4); Monocytes # (auto) 0.81 K/uL (0.11-0.59); Monocytes % (auto) 5.4 %; Neutrophils # (auto) 12.49 K/uL (1.40-6.50); Neutrophils % (auto) 83.2 %; Oxygen Saturation VBG 72.9 %; PCO2 VBG 39 mmHg (38-50); PO2 VBG 47 mmHg; Platelet Count 353 K/uL (130-400); RDW Coefficient of Variation 13.5 % (11.5-14.5); RDW Standard Deviation 42.9 fL (36.4-46.3); Red Blood Count 5.97 M/uL (4.20-5.40); pH VBG 7.07 (7.36-7.41)
[2024-02-14 11:28] LABS: iSTAT Creatinine 1.1 mg/dl (0.6-1.3); iSTAT Hemoglobin 18.4 g/dl (12.0-16.0); iSTAT Ionized Calcium 1.28 mmol/l (1.12-1.32); iSTAT Potassium 4.6 mmol/L (3.3-5.0)
--- NOTE | 2024-02-14 11:29 | Electrocardiogram Report ---
Test Reason : Blood Pressure : */* mmHG Vent. Rate : 117 BPM Atrial Rate : 117 BPM P-R Int : 192 ms QRS Dur : 74 ms QT Int : 306 ms P-R-T Axes : 66 -57 54 degrees QTcB Int : 426 ms Sinus tachycardia with Fusion complexes Right atrial enlargement Left axis deviation Inferior infarct (cited on or before 11-Jan-2005) When compared with ECG of 30-May-2022 12:35, Fusion complexes are now Present Premature ventricular complexes are no longer Present Questionable change in initial forces of Lateral leads ST no longer depressed in Lateral leads T wave inversion no longer evident in Anterior leads Confirmed by Jose Shea ([id number]) on 02/14/2024 11:29:47 AM Referred By: Confirmed By: Jose Shea
[2024-02-14] MEDS ORDERED: DEXTROSE 50% 50 ML SYRINGE IV PRN (11:36)
[2024-02-14] MEDS ORDERED: GLUCOSE 10 TAB/TUBE PO PRN (11:36)
[2024-02-14] MEDS ORDERED: GLUCOSE 40% GEL 15 GM TUBE PO PRN (11:36)
[2024-02-14] MEDS ORDERED: GLUCAGON FOR INJ 1 MG VIAL SQ PRN (11:36)
[2024-02-14] MEDS ORDERED: CARBOHYDRATES FOR HYPOGLYCEMIA PO PRN (11:36)
[2024-02-14] MEDS ORDERED: STAT IV Infusion **Titration per Protocol STA (11:36)
[2024-02-14] MEDS: SODIUM CHLORIDE 0.9% 1,000 ML IV ONE ×2 (11:46→13:26)
[2024-02-14 11:58] LABS: Albumin Globulin Ratio 1.1 (0.9-2); BUN Creatinine Ratio 25.6 (10-20); Bilirubin,Total 0.5 mg/dl (0.2-1.0); Calcium 10.1 mg/dl (8.6-10.3); Creatinine Clr Calc Pharmacy 33.5 ml/min; Globulin 3.5 gm/dl (2.5-4.0); Magnesium 1.9 mg/dl (1.7-2.4); Potassium 4.5 mmol/L (3.5-5.1); Total Protein 7.5 gm/dl (6.0-8.3)
[2024-02-14 12:03] LABS: Influenza A virus by PCR Negative (Neg); Influenza B virus by PCR Negative (Neg); Partial Thromboplastin Time 26 Seconds (21-31); Prothrombin Time 10.8 Seconds (9.0-12.0); RSV by PCR Negative (Neg); SARS CoV2 RNA(COVID-19) Ceph NEGATIVE (Negative)
[2024-02-14 12:07] LABS: D Dimer 13280 ug/L FEU (0-500)
[2024-02-14] MEDS: INSULIN REGULAR 250 UNITS in SODIUM CHLORIDE 0.9% 247.5 ML IV SCH (12:13)
[2024-02-14] MEDS: OPTIRAY 320 125ml IV ONE (12:39)
--- NOTE | 2024-02-14 12:52 | History & Physical Report ---
Date of Service February 14, 2024 Assessment & Plan (1) Pulmonary embolism: Plan: Acute onset of SOB and hypoxia on the morning of 02/13 D-dimer 13,280 on arrival Chest CTA revealed extensive right> left age-indeterminate pulmonary emboli with evidence of right heart strain Echocardiogram ordered, pending US Doppler lower extremities bilateral ordered, pending Patient is normally on Eliquis, however she reports she has not been taking it for "a while" Suspect secondary to medication noncompliance Given acute hypoxia, episode of hypotension, conversational dyspnea, and extent of clot burden, patient may be a tPA candidate Critical care/pulmonology consult appreciated AM CBC, BMP, Mag, Phos, VBG (2) Acute respiratory failure with hypoxia: Plan: Secondary to #1 VB./// Patient was hypoxic at 79% on RA on arrival Supplemental oxygen as needed to maintain SpO2 >94% Continuous pulse oximetry (3) DKA (diabetic ketoacidosis): Plan: A1c 14.2 on arrival Anion gap elevated at 26 Glucose 443 on arrival Again, suspect this is secondary to medication noncompliance Patient does report that she does not take her diabetic medications every day Insulin drip started in the ED BSG checks q1h while on insulin drip Strict I&O monitoring 1/2 NSS +20mEq K at 125mL/hr x 1 L Potassium supplementation started as K was below 5.1 on arrival Note: Patient's chest CTA does show evidence of right heart strain; will be judicious with fluids; will continue to monitor and avoid excess fluids where possible Follow echocardiogram (as above) Once glucose is less than 250, will switch to D5 1/2 NSS + potassium supplementation Trend BMPs, mag, Phos, and VBG every 4 hours Diabetic dietitian consult appreciated (4) Thickened endometrium: Plan: A/P CT did reveal thickening of the endometrium Given history of breast cancer, recommended gynecology follow-up upon discharge (5) Fall: Plan: PT/OT evaluations appreciated Fall precautions (6) Noncompliance with medication regimen: Plan Disposition: Admit to ICU Full code N.p.o. for now until anion gap closes, then advance to T2DM diet as tolerated VTE PPX: Heparin IV with bolus History of Present Illness Chief Complaint: SOB/dyspnea Primary Care Provider: NO PCP Shari is a pleasant 73-year-old female with PMH of HTN, HLD, T2DM, CKD, breast cancer, mediastinal lymphadenopathy, pulmonary embolism with acute cor pulmonale, and DKA. She presented via EMS on 02/13 due to worsening SOB x 3-4 days, as well as after sustaining a ground-level fall yesterday on 02/12. She denies head strike or LOC with the fall. Patient lives by herself. She reports that that she does not use a walker or cane at baseline, but occasionally uses a cane while outdoors. She did not feel dizzy or lightheaded prior to fall, and reports that her "legs gave out" under her and she fell in her living room. She denies any pain at present. No recent injuries to the legs. She has not noticed any recent leg swelling. However, she woke up this morning and felt she was very short of breath and had trouble breathing. His breathing has been worse over the course of the week. On EMS arrival, she was 76% on RA and placed on BiPAP and nonrebreather en route. On arrival, patient reports that she has not been taking her blood thinner (Eliquis) at home and has not been doing so for "a wild". She also does not take her diabetic medications every day. Patient manages her own medicine at home. She denies smoking, tobacco use, or recent alcohol use. 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 No supplemental oxygen at baseline. No CPAP at night. She reports that the SOB is both at rest and with exertion. No orthopnea. Progressive, intermittent worsening. She did not take her regular morning medication today. She does have a history of a PE with the last 1 being in 2021. Patient is hypertensive at 144/77, tachypneic at 25rpm, and tachycardic at 105bpm at time of admission; SpO2 98% on 4 L NC. ED course: NSS 1000 mL IV Heparin IV Insulin drip ROS: Patient endorses SOB at rest and with exertion, intermittent diarrhea (chronic) Patient denies fever, chills, night sweats, dizziness/lightheadedness when up and walking, headache, chest pain, chest palpitations, pleuritic CP, hemoptysis, cough, abdominal pain, N/V, changes in urinary or bowel habits, or numbness/tingling/swelling/erythema in the legs. Allergies Allergy/AdvReac Type Severity Reaction Status Date / Time aloe Allergy Unknown RAISED RASH Verified 09/04/22 14:32 No Known Drug Allergies Allergy Verified 09/04/22 14:32 Home Medications Medication Instructions Recorded Confirmed Type aspirin 81 mg tablet,delayed 81 mg PO DAILY 05/30/22 10/02/22 History release apixaban 5 mg tablet (Eliquis) 5 mg PO BID #60 tabs 06/12/22 10/02/22 Rx enalapril maleate 10 mg tablet 10 mg PO QAM #90 tabs 06/13/22 10/02/22 Rx letrozole 2.5 mg tablet 2.5 mg PO DAILY 10/02/22 10/02/22 History atorvastatin 80 mg tablet 80 mg PO QAM #90 tabs 11/21/22 Rx Past Med/Surg History Problem List (Updated 02/14/24 @ 14:27 by Cordell Hernandes PA-C) Fall Thickened endometrium Noncompliance with medication regimen (Acute) Hypoxia (Acute) Acute alteration in mental status (Acute) Pulmonary embolism (Acute) DKA (diabetic ketoacidosis) (Acute) Demand ischemia (Acute) Acute respiratory failure with hypoxia (Acute) Diabetic ketoacidosis (Acute) Pulmonary embolism with acute cor pulmonale (Acute) Malignant neoplasm of lower-outer quadrant of left breast of female, estrogen receptor positive (Chronic 08/02/21) Encounter for pre-operative examination Breast cancer Dx 2021 surgical intervention planned 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 Elevated ADILENE level suspicious for pulmonary sarcoidosis. Biopsy could not be completed. DM was grossly uncontrolled so steroids were avoided. Seems she's been relatively asymptomatic since then. Dr. Chowdhury repeated CT scan 2013, which revealed borderline, similiar appearing hilar LNs. Adult situational stress disorder (Chronic) Diabetic nephropathy with proteinuria (Chronic) Solitary thyroid nodule (Chronic) s/p thyroidectomy 2011 Vitamin D deficiency (Chronic) Diabetes mellitus type 2, uncontrolled (Chronic) Hypertension (Chronic) Hyperlipidemia (Chronic) Depression (Chronic) CKD (chronic kidney disease) stage 3, GFR 30-59 ml/min Medical History Conjunctivitis Hypothyroidism Surgical History History of tubal ligation History of cholecystectomy History of section History of thyroidectomy (03/04/12) d/t suspicious nodule. 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 No carcinoma noted. History of colonoscopy Diverticulosis noted. No polyps/neoplasia. No biopsies. F/U 5-10 years recommended. Family History Mother Uterine cancer Leukemia Aunt Breast cancer Pancreatic cancer Father Heart disease (Reported Family History Of) Myocardial infarction Unknown Acute myocardial infarction Son Atrial fibrillation Myocardial infarction Denies family history of Ovarian cancer Prostate cancer Colorectal cancer Social History Smoking Status: Never smoker Second Hand Exposure: No; Do You Dip or Chew Tobacco: No; Hx Alcohol Use: Yes Alcohol type: wine Alcohol Intake Frequency: Monthly or Less Hx Substance Use: No Preferred Language: Kazakh Communication Ability: Effective Visual Impairment: Limited Hearing Ability: Normal Long Term Care Administrator Required: No Beliefs That Will Affect Care: None marital status: / Current Living Situation: Alone Current Living Situation Comment: lives with grandson current occupational status: retired How many Children do You have: 2 Feels Safe at Home: Yes Childhood Exposure to Second-Hand Smoke: Yes caffeine: Yes (half caf coffee ) during the past year weight has: remained stable Dental Care, Regularly: No Physical Activity Frequency: Does not Exercise Seatbelt Use: always Sunscreen Use: Yes Assistive Devices: None Review of Systems Review of Systems: See HPI above Physical Exam Physical Exam: General: Mild respiratory distress; pleasant affect; patient's son at bedside; non-toxic appearing; well-nourished; cooperative; SpO2 98% on 4L NC HEENT: normocephalic, atraumatic; no scleral icterus; PERRLA; vision and hearing intact Neck: supple; no lymphadenopathy; trachea midline Skin: warm, dry without signs of tenting; no cyanosis; no rashes, bruising, lesions, or erythema noted CV: chest wall NTP; RRR; S1/S2 normal; no murmurs/rubs/gallops; pulses intact and symmetric at radial, DP, and PT Lungs: Conversational dyspnea; mild respiratory distress; symmetrical chest wall expansion; clear breath sounds across all lung moya w/o adventitious sounds; no wheezing ABD: Soft, NTP; BS present; no rebound/guarding; no distention MSK: no tics or fasciculations; no edema noted in the LEs b/l, nonerythematous Neuro: A&Ox3; normal mood and affect; fluent speech; no focal deficits; sensation intact and symmetric in the lower extremities bilaterally Results & Data Results & Data Vital Signs (Past 12 Hours) Vital Signs Temp Pulse Resp BP Pulse Ox O2 Del Method 02/14/24 12:10 11 L 02/14/24 11:11 79 L Room Air 02/14/24 11:03 Room Air 02/14/24 11:03 36.6 C 110 H 25 H 121/77 79 L Room Air Laboratory Results Abnormal lab results 02/14/24 02/14/24 02/14/24 Range/Units 11:02 11:10 11:15 WBC 15.00 H (4.8-10.8) K/ul RBC 5.97 H (4.20-5.40) M/uL Hgb 17.2 H (12.0-16.0) g/dl POC Hgb 18.4 H (12.0-16.0) g/dl Hct 52.8 H (37.0-47.0) % POC Hct 54 H (37-47) % Neut # (Auto) 12.49 H (1.40-6.50) K/uL [place] # (Auto) 0.81 H (0.11-0.59) K/uL D-Dimer 18286 H* (0-500) ug/L FEU VBG pH 7.07 L (7.36-7.41) Carbon Dioxide 12 L (21-32) mmol/L POC Total CO2 12 L (24-31) mmol/L Anion Gap 27 H (3-11) POC Anion Gap 26.0 H (16-25) mmol/L POC BUN 34 H (7-18) mg/dl BUN 34 H (6-23) mg/dl Creatinine 1.33 H (0.6-1.2) mg/dl BUN/Creatinine Ratio 25.6 H (10-20) Glucose 461 H* (70-99(Fasting)) mg/dl POC Glucose 381 H* (70-99) mg/dl POC Glucose (other) 443 H* (70-99) mg/dl Alkaline Phosphatase 111 H (34-104) U/L Diagnostic Findings Chest X-Ray 02/14/24 10:49 XR chest 1V portable HISTORY: 73 years-old Female Dyspnea COMPARISON: 05/30/2022 TECHNIQUE: AP view of the chest FINDINGS: Cardiomediastinal and hilar silhouettes are within normal limits. No pneumothorax, pleural effusion, airspace consolidation or pulmonary edema. Mild mid thoracic dextroscoliosis. Bones appear grossly intact. IMPRESSION: No acute process. ACT 112: Negative or not required by law. The above report was generated using voice recognition software. It may contain grammatical, syntax or spelling errors. Electronically signed by: Tejinder Cruz M.D. 02/14/2024 11:20 AM ECG Additional Comments: ECG revealed revealed sinus tachycardia with fusion complexes at 117 bpm; QTc 426 Code Status & VTE Plan Code Status Full code (discussed with both patient's son and attending - Dr. Orozco - at bedside) VTE Prophylaxis Plan VTE Prophylaxis will be ordered: Yes Supervising Physician Co-Signing Physician Notes I have personally seen, evaluated and examined the patient. I have also personally discussed the management of the patient with the resident physician/VON and I agree with the exam findings documented in the history and physical examination and the documented assessment and plan unless otherwise stated below. Brief Exam: In general is a 73-year-old female who is alert and oriented at the time of my examination. She is accompanied by her son, Juanpablo, at the time of my evaluation. Family patient confirms as documented above she is has not been on any home medications for quite a time. Her fall yesterday was from ground-level. She has no complaints of injury from her fall yesterday or today. HEENT: Normocephalic, atraumatic. Oral mucosa is pink and dry. Patient is noted to have conversational dyspnea 3-4 words at a time. Neck: No rigidity no adenopathy no appreciable JVD. Heart: Is regular rhythm but tachycardic in the 110s. No appreciable yanira murmur no yanira friction rub or ectopy. Lungs: Clear bilaterally anteriorly and posteriorly. Abdomen: Soft nontender positive bowel sounds no appreciable organomegaly or abdominal bruits. Extremities: Intact no appreciable edema whatsoever. Neurologically: Patient is alert and oriented she understands the need for medications. Is uncertain as to why she really quit all of her medications however this will need to be addressed prior to discharge to be sure she has the means to afford her meds and the beads to deliver her meds for herself she does live at home alone. Assessment/plan: As discussed above. Please refer to orders for further planning. Extensive conversations at the completion to myself and the ER doctor as well as communication between myself and the critical care attending. I do feel this patient has a high risk of decompensation with her current clot burden and her current right heart strain on CTA as well as her hypoxia. Critical care attending does feel the patient is appropriate for here and if she would cont inue to decompensate tPA may be recommended this will be at their discretion. We will obtain an echocardiogram to assess right heart strain further. DKA protocol. Frequent electrolytes. Please refer to orders for further planning. Condition critical. Prognosis guarded at this time. Additional assessments: Acute kidney injury. Hydrate and monitor. Will use IV fluids judiciously given her current IV fluid shortage nationally. Will reassess her electrolytes and renal function frequently use fluids ongoing as needed. PG Care Time/CCT Total # of Minutes Spent Total Time Spent with Patient: Total time spent is greater than 50% in coordination of care (as documented) at patient's floor/unit and/or counseling patient: Coding [place] [address] INT INP/OBS CARE MIN Patient Type Established History Comprehensive Exam Comprehensive Medical Decision Making High Complexity Diagnoses Pulmonary embolism I26.99 Acute cor pulmonale presence: unspecified Chronicity: acute Pulmonary embolism type: unspecified Acute respiratory failure with hypoxia J96.01 DKA (diabetic ketoacidosis) E10.10 Diabetes mellitus complication detail: without coma Diabetes mellitus type: type 1 Thickened endometrium R93.89 Fall [id number].XXXA Noncompliance with medication regimen Z91.148 (1) Pulmonary embolism Acute cor pulmonale presence: unspecified Chronicity: acute Pulmonary embolism type: unspecified Qualified Code(s): I26.99 - Other pulmonary embolism without acute cor pulmonale (3) DKA (diabetic ketoacidosis) Diabetes mellitus complication detail: without coma Diabetes mellitus type: type 1 Qualified Code(s): E10.10 - Type 1 diabetes mellitus with ketoacidosis without coma
[2024-02-14] MEDS ORDERED: HEPARIN SOD (PORCINE) 1000 UNIT/ML IV ONE (13:02)
[2024-02-14 13:04] LABS: Estimated Average Glucose 361 mg/dl; Hemoglobin A1C 14.2 % (4.5-5.6)
[2024-02-14] MEDS: DKA GOAL RANGE 150-250 mg/dl ONE (13:23)
--- NOTE | 2024-02-14 13:40 | CT Scan Report ---
CT head/brain wo con CLINICAL HISTORY: 73 years-old Female with ams. Acutely altered mental status TECHNIQUE: Multiple axial CT images of the head were obtained without contrast. A dose lowering tech nique was utilized adhering to the principles of ALARA. COMPARISON: 05/30/2022 FINDINGS: No acute intracranial hemorrhage, midline shift, intracranial mass, hydrocephalus, territorial ischem ia or abnormal extra-axial collection. Involutional changes with chronic microvascular ischemic disea se. The calvarium is intact. Prior bilateral lens repair. The paranasal sinuses, mastoid air cells, and m iddle ear cavities are clear. IMPRESSION: No acute intracranial abnormality. ACT 112: Negative or not required by law. The above report was generated using voice recognition software. It may contain grammatical, syntax o r spelling errors. Electronically signed by: Tejinder Cruz M.D. 02/14/2024 1:38 PM
--- NOTE | 2024-02-14 13:45 | Critical Care Consultation ---
Date of Consultation February 14, 2024 Assessment & Plan (1) High anion gap metabolic acidosis: (2) Noncompliance with medication regimen: (3) Pulmonary embolism: (4) DKA (diabetic ketoacidosis): (5) Acute respiratory failure with hypoxia: (6) Malignant neoplasm of lower-outer quadrant of left breast of female, estrogen receptor positive: (7) Diabetes mellitus type 2, uncontrolled: (8) Depression: (9) CKD (chronic kidney disease) stage 3, GFR 30-59 ml/min: Plan Reason Critically Ill: 73-year-old female presented to the hospital with complaints of shortness of breath Past medical history: Hypertension, dyslipidemia, breast cancer, history of pulmonary emboli in 2021, CKD, diabetes type 2 Patient was transferred to the ICU for DKA as well as pulmonary emboli. Neuro - [facility]: Negative --Forgetfulness as per the son Could be age-related Rule out dementia Patient needs stays alone, I think it would be safe for the patient to stay with somebody or at her fpc Cardiac - -- Tachycardia Multifactorial DKA with acidosis along with pulmonary emboli and hypoxia EKG 02/14/2024, 12:55 PM: Motion artifacts, sinus tachycardia, P pulmonale, left anterior fascicular block, no ST-T wave changes appreciated --Hypertension On enalapril at home --Dyslipidemia On statin Respiratory - CTA chest 02/14/2024 personally reviewed: Bilateral pulmonary emboli appreciated in the segmental and subsegmental pulmonary arteries bilateral lower lobes No right heart strain No significant mediastinal adenopathy -- Acute pulmonary emboli Patient is likely noncompliant with Eliquis, she is also on letrozole which puts her at risk for clots No right heart strain on the CTA chest Troponin negative, BNP negative Will follow into mild to intermediate low risk Did have an episode of hypotension which can be related to hypovolemia and DKA as well --Acute hypoxic respiratory failure Secondary to above Continue with O2 supplementation to keep oxygen saturation between 90-92% GI - -- Mild elevation of alk phos Continue to trend RENAL/LYTES - --Anion gap metabolic acidosis Secondary to DKA Continue with insulin drip until anion gap closes Decreasing blood glucose no more than 100 in an hour Replace potassium IV when potassium level between 3.3-5.3 BMP every 4 hours Continue with IV fluids pH 7.07 on VBG, no indication for bicarb HbA1c 14.2 -- DANA Likely secondary to dehydration from DKA Follow-up urine lites Monitor BUN/creatinine Avoid nephrotoxic medications Strict ins and outs ENDO - -- Diabetes type 2 Noncompliant HbA1c 14.2 HEME - --History of breast cancer ER positive On letrozole ID - -- Leukocytosis Likely reactive to DKA No clear source of infection looking at the CT chest as well as abdomen UA negative for bacteria and leukocyte esterase --Prophylaxis VTE: Heparin drip GI: None Lines: Peripheral Diet: N.p.o. Plan: Continue with heparin drip Trope negative, BNP negative, no right heart strain on the CTA. I do not think there is an indication for tPA right now. If the patient gets hypotensive then could be thought of Recommend 2D echo. I looked at the images when the hazardous material technician was doing the echo, does not seem to be RV strain or even on the echo Doppler bilateral lower extremities Continue management of DKA I have personally spent 53 minutes of critical care time in the direct management of this patient. This is a life/limb threatening event. This includes time spent evaluating patient, direct bedside care, chart review, placing orders, interpretation of diagnostic studies, discussion with consultants, patient, and family members, as well as other required patient management activities. This time is exclusive of all separately billable procedures, and teaching time and separate from and in addition to any other critical care service time. Please note the above document was generated using voice recognition software. It may contain grammatical, syntax or spelling errors. History of Present Illness History of Present Illness 73-year-old female presented to the hospital with complaints of shortness of breath Past medical history: Hypertension, dyslipidemia, breast cancer, history of pulmonary emboli in 2021, CKD, diabetes type 2 Patient was transferred to the ICU for DKA as well as pulmonary emboli. At the time of examination patient was saturating 98% on 4 L, I went down to 2 L. Respiratory it was high teens to low 20s She stated that she is feeling better compared to when she came to the hospital Her systolic blood pressure was in the 140s with heart rate in the high 90s to low 100s. She denied any chest pain No headache, no blurry vision No fever or chills. Patient is a poor historian I spoke with the son as well who was at bedside who stated that patient lately has been forgetting a lot of stuff and it seems that she is not compliant with medications Social history: Lifetime non-smoker Allergies Allergy/AdvReac Type Severity Reaction Status Date / Time aloe Allergy Unknown RAISED RASH Verified 09/04/22 14:32 No Known Drug Allergies Allergy Verified 09/04/22 14:32 Home Medications Medication Instructions Recorded Confirmed Type aspirin 81 mg tablet,delayed 81 mg PO DAILY 05/30/22 02/14/24 History release apixaban 5 mg tablet (Eliquis) 5 mg PO BID #60 tabs 06/12/22 02/14/24 Rx enalapril maleate 10 mg tablet 10 mg PO QAM #90 tabs 06/13/22 02/14/24 Rx letrozole 2.5 mg tablet 2.5 mg PO DAILY 10/02/22 02/14/24 History atorvastatin 80 mg tablet 80 mg PO QAM #90 tabs 11/21/22 02/14/24 Rx dulaglutide 0.75 mg/0.5 mL 0.75 mg subcut WK 02/14/24 02/14/24 History subcutaneous pen injector (Trulicity) Patient History Medical History Conjunctivitis Hypothyroidism Surgical History History of tubal ligation History of cholecystectomy History of section History of thyroidectomy (03/04/12) d/t suspicious nodule. 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 No carcinoma noted. History of colonoscopy Diverticulosis noted. No polyps/neoplasia. No biopsies. F/U 5-10 years recommended. Family History Mother Uterine cancer Leukemia Aunt Breast cancer Pancreatic cancer Father Heart disease (Reported Family History Of) Myocardial infarction Unknown Acute myocardial infarction Son Atrial fibrillation Myocardial infarction Denies family history of Ovarian cancer Prostate cancer Colorectal cancer Social History Smoking Status: Never smoker Second Hand Exposure: No; Do You Dip or Chew Tobacco: No; Hx Alcohol Use: Yes Alcohol type: wine Alcohol Intake Frequency: Monthly or Less Hx Substance Use: No Preferred Language: Martiniquais Communication Ability: Effective Visual Impairment: Limited Hearing Ability: Normal 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 Beliefs That Will Affect Care: None marital status: / Current Living Situation: Alone Current Living Situation Comment: lives with grandson current occupational status: retired How many Children do You have: 2 Feels Safe at Home: Yes Childhood Exposure to Second-Hand Smoke: Yes caffeine: Yes (half caf coffee ) during the past year weight has: remained stable Dental Care, Regularly: No Physical Activity Frequency: Does not Exercise Seatbelt Use: always Sunscreen Use: Yes Assistive Devices: None Review of Systems 2 Review of Systems: All systems reviewed & are unremarkable except as noted in HPI & below Physical Exam 2 Physical Exam: Constitutional: No acute distress HEENT: EOMI, PERRLA Respiratory system: Good air entry bilaterally, no wheeze, no rhonchi, no crackles CVS: S1-S2 positive, no murmurs or gallops Abdomen: Soft, nontender, nondistended, positive bowel sounds x4 Extremities: +2 pulses bilaterally radialis/ dorsalis pedis, no cyanosis, minimal pitting edema bilateral lower extremity Neuro: Awake alert oriented x3 Psych: Normal mood and affect G/U: No Darden Skin: no rashes, warm and dry Lymphatic: no cervical or axillary lymphadenopathy Results & Data Results & Data Vital Signs (Past 12 Hours) Vital Signs Temp Pulse Pulse Resp BP BP Pulse Ox 02/14/24 13:28 105 H 25 H 144/77 H 4 L 02/14/24 13:00 112 H 30 H 121/70 98 02/14/24 12:48 115 H 30 H 93/70 L 98 02/14/24 12:10 11 L 02/14/24 11:11 79 L 02/14/24 11:03 02/14/24 11:03 36.6 C 110 H 25 H 121/77 79 L O2 Del Method O2 Flow Rate 02/14/24 13:28 Nasal Cannula 02/14/24 13:00 Nasal Cannula 5 02/14/24 12:48 Nasal Cannula 5 02/14/24 12:10 02/14/24 11:11 Room Air 02/14/24 11:03 Room Air 02/14/24 11:03 Room Air Laboratory Results 02/14/24 11:10 02/14/24 11:10 Coding Level of Care Code 30450 CRITICAL CARE 1ST 30-74M Diagnoses High anion gap metabolic acidosis E87.29 Noncompliance with medication regimen Z91.148 Pulmonary embolism I26.99 Acute cor pulmonale presence: unspecified Chronicity: acute Pulmonary embolism type: unspecified DKA (diabetic ketoacidosis) E10.10 Diabetes mellitus complication detail: without coma Diabetes mellitus type: type 1 Acute respiratory failure with hypoxia J96.01 Malignant neoplasm of lower-outer quadrant of left breast of female, estrogen receptor positive C50.512; Z17.0 Uncontrolled type 2 diabetes mellitus with hyperglycemia E11.65 Glycemic state: with hyperglycemia Reactive depression F32.9 Depression Type: reactive depression CKD (chronic kidney disease) stage 3, GFR 30-59 ml/min N18.30 (3) Pulmonary embolism Acute cor pulmonale presence: unspecified Chronicity: acute Pulmonary embolism type: unspecified Qualified Code(s): I26.99 - Other pulmonary embolism without acute cor pulmonale (4) DKA (diabetic ketoacidosis) Diabetes mellitus complication detail: without coma Diabetes mellitus type: t ype 1 Qualified Code(s): E10.10 - Type 1 diabetes mellitus with ketoacidosis without coma (7) Diabetes mellitus type 2, uncontrolled Glycemic state: with hyperglycemia Qualified Code(s): E11.65 - Type 2 diabetes mellitus with hyperglycemia (8) Depression Depression Type: reactive depression Qualified Code(s): F32.9 - Major depressive disorder, single episode, unspecified
[2024-02-14] MEDS: HEPARIN SODIUM/DEXTROSE 25,000 UNITS/500 ML BAG IV SCH (13:54)
[2024-02-14] MEDS: HEPARIN SOD (PORCINE) 1000 UNIT/ML IV ONE (13:55)
--- NOTE | 2024-02-14 13:58 | CT Scan Report ---
CT angio chest PE protocol, CT abd pelvis IV con only CT DOSE: 2478. mGy.cm HISTORY: 73 years-old Female with PE. Acute shortness of breath TECHNIQUE: Multiple CTA images of the chest were obtained after the intravenous administration of 120 ml Optiray. Coronal and sagittal MIPS were obtained from the axial data set and were submitted for review. CT abdomen and pelvis with IV contrast also obtained. All measurements were obtained accordi ng to NASCET criteria. A dose lowering technique was utilized adhering to the principles of ALARA. COMPARISON: 05/30/2022 FINDINGS: CTA: Heart is upper limits of normal in size. Moderate coronary artery calcifications. No thoracic aortic aneurysm or dissection. Large amount of bilateral pulmonary emboli, right greater than left which are most pronounced in the lower lobes with straightening of the intraventricular septum involving the l obar, segmental and subsegmental branches. CT CHEST: The left lobe of the thyroid is either atrophic or surgically absent. Portal enlarged mediastinal and hilar lymph nodes. No pneumothorax, pleural effusion or overt pulmonary edema. Tiny pulmonary nodule s measuring up to approximately 4 mm which are most pronounced in the upper lung zones are likely jayde ign. Areas of mild linear subsegmental atelectasis versus scarring. Central airways are patent. Unrem arkable soft tissues. No acute fracture. Asymmetric skin thickening of the left breast with linear 2. 3 cm left breast lesion on image 30 series 4, likely posttreatment related findings. CT ABDOMEN AND PELVIS: No free air. Unremarkable spleen, pancreas and adrenal glands. Cholecystectomy . Unremarkable liver with mild fatty infiltration adjacent to the falciform ligament. Patent portal v ein. There are a few scattered left-sided renal sinus cysts. No hydronephrosis. Unremarkable urinary bladder. Thickening of the postmenopausal endometrium measures up to 9 mm at the fundus. 4 cm cystic lesion of the right adnexa. No bowel obstruction or bowel wall thickening. Normal appendix. Probable internal hemorrhoids. No acute fracture. IMPRESSION: 1. Extensive right greater than left age-indeterminate pulmonary emboli with evidence of right heart strain. 2. No pleural effusion or pulmonary infarct. 3. No bowel obstruction or bowel wall thickening. 4. Nonspecific thickening of the postmenopausal endometrium. Follow-up with gynecology recommended. 5. Incidental findings as above. ACT 112: Negative or not required by law. The above report was generated using voice recognition software. It may contain grammatical, syntax o r spelling errors. Electronically signed by: Tejinder Cruz M.D. 02/14/2024 1:56 PM
[2024-02-14] MEDS: INSULIN ASPART PER UNIT CHARGE SC SCH (14:01)
[2024-02-14] MEDS ORDERED: PHARMACY GLYCEMIC MGMT CONSULT PRN (14:01)
[2024-02-14] MEDS: PENDING D5 1/2NS+20mEq KCL IVF SCH (15:37)
[2024-02-14] MEDS: SODIUM CHLOR 0.45% + 20MEQ KCL 20 MEQ/1,000 ML BAG IV SCH (15:38)
[2024-02-14] MEDS: Heparin IV Adult Wt-Based Standard w/ INITIAL Bolus Protocol IV STA (15:54)
[2024-02-14] MEDS: D5W AND 1/2NSS + 20MEQ KCL 20 MEQ/1,000 ML BAG IV SCH (15:58)
[2024-02-14 16:17] LABS: BUN Creatinine Ratio 31.1 (10-20); Creatinine Clr Calc Pharmacy 43.8 ml/min; Magnesium 1.6 mg/dl (1.7-2.4); Phosphorus 2.8 mg/dl (2.5-4.9); Potassium 3.8 mmol/L (3.5-5.1)
[2024-02-14] MEDS: ICU Protocol for HYPERglycemia SCH (16:32)
--- NOTE | 2024-02-14 17:03 | Ultrasound Report ---
ULTRASOUND BILATERAL LOWER EXTREMITY VENOUS CLINICAL HISTORY: Deep venous thrombosis COMPARISON STUDY: Bilateral lower extremity venous ultrasound dated 05/30/2022. TECHNIQUE: Portable real-time, grayscale, and color Doppler sonography of the deep veins of the right and left lower extremity was performed from the inguinal crease to the calf. Compression and augment ation were utilized. FINDINGS: Right lower extremity: There is occlusive deep venous thrombosis seen in the popliteal vein. The comm on femoral and superficial femoral veins are patent and normally compressible. The greater saphenous vein and the profunda femoris vein at the junction with the common femoral vein are clear. The visual ized calf veins are patent. Left lower extremity: There is a small amount of nonocclusive chronic appearing deep venous thrombosi s identified in the mid superficial femoral vein. There is more acute appearing and occlusive deep ve nous thrombosis within the distal aspect of the superficial femoral vein extending into the popliteal vein. There is thrombus in the calf within the posterior tibial veins. The common femoral and the pr oximal superficial femoral vein are patent and normally compressible. The greater saphenous vein and the profunda femoris vein at the junction with the common femoral vein are clear. The peroneal and an terior tibial veins appear patent. IMPRESSION: 1. There is occlusive deep venous thrombosis in the right popliteal vein. 2. There is a small amount of chronic appearing thrombus within the mid to distal portions of the lef t superficial femoral vein. 3. More acute appearing and occlusive deep venous thrombosis is seen within the distal left superfici al femoral vein extending into the popliteal vein. This extends in the calf within the posterior tibi al veins. ACT 112: Negative or not required by law. Electronically signed by: Leonidas Ashraf M.D. 02/14/2024 5:00 PM
[2024-02-14] MEDS: POTASSIUM CHLORIDE 10 MEQ TABCR PO STA (18:08)
[2024-02-14] MEDS: MAGNESIUM SULFATE / D5W 1 GM/100 ML BAG IV SCH (18:08)
[2024-02-14 20:07] LABS: Appearance Urine Turbid (Clear); Bacteria Urine Automated 4+ (None Seen); Bilirubin Urine Negative (Negative); Blood Urine 1+ (Negative); Color Urine Yellow; Epithelial Cell Urine Auto >20 /hpf (0-2); Glucose Urine UA 3+ (Negative); Ketones Urine 3+ (Negative); Leukocyte Esterase Urine Negative (Negative); Nitrite Urine Negative (Negative); Protein Urine 2+ (Negative); Specific Gravity Urine > 1.045 (1.000-1.030); Urobilinogen Urine Negative (Negative); WBC Urine Automated 0-5 /hpf (0-5); pH Urine 5.5 (4.5-7.5)
[2024-02-14 20:41] LABS: Potassium Random Urine 34.1 mmol/L
[2024-02-14 20:49] LABS: Creatinine Urine Random 63.9 mg/dl
[2024-02-14 20:55] LABS: Calcium 8.7 mg/dl (8.6-10.3); Magnesium 1.8 mg/dl (1.7-2.4); Potassium 3.6 mmol/L (3.5-5.1)
[2024-02-14 21:01] LABS: BUN Creatinine Ratio 31.1 (10-20); Creatinine Clr Calc Pharmacy 50.1 ml/min; Phosphorus 1.9 mg/dl (2.5-4.9)
[2024-02-14 21:04] LABS: ANTI-Xa, UFH(UnfractionatedHep > 1.50 IU/ml (0.3-0.7)
[2024-02-15 00:04] LABS: Partial Thromboplastin Ratio 3.2
[2024-02-15 00:06] LABS: ANTI-Xa, UFH(UnfractionatedHep 1.14 IU/ml (0.3-0.7); Partial Thromboplastin Time 86 Seconds (21-31)
[2024-02-15 00:21] LABS: BUN Creatinine Ratio 33.3 (10-20); Calcium 8.5 mg/dl (8.6-10.3); Creatinine Clr Calc Pharmacy 57.8 ml/min; Magnesium 2.4 mg/dl (1.7-2.4); Phosphorus 1.6 mg/dl (2.5-4.9); Potassium 3.9 mmol/L (3.5-5.1)
[2024-02-15] MEDS ORDERED: POTASSIUM PHOS 3 MMOL/1 ML INFUSION IV STA (00:44)
[2024-02-15] MEDS: POTASSIUM PHOSPHATE 18 MMOL in SODIUM CHLORIDE 0.9% 500 ML IV ONE (01:11)
[2024-02-15 01:23] LABS: ANTI-Xa, UFH(UnfractionatedHep 0.84 IU/ml (0.3-0.7)
[2024-02-15 03:22] LABS: BUN Creatinine Ratio 30.7 (10-20); Calcium 8.4 mg/dl (8.6-10.3); Creatinine Clr Calc Pharmacy 60.1 ml/min; Magnesium 2.2 mg/dl (1.7-2.4); Phosphorus 2.4 mg/dl (2.5-4.9); Potassium 4.2 mmol/L (3.5-5.1)
[2024-02-15 03:27] LABS: ANTI-Xa, UFH(UnfractionatedHep 0.17 IU/ml (0.3-0.7)
[2024-02-15] MEDS: ONDANSETRON INJ 2 MG/ML 2 ML VIAL IV PRN (03:42)
[2024-02-15 07:38] LABS: Basophils # (auto) 0.03 K/uL (0.00-0.20); Basophils % (auto) 0.4 %; Eosinophils # (auto) 0.07 K/uL (0.00-0.50); Eosinophils % (auto) 0.8 %; Hemoglobin 13.7 g/dl (12.0-16.0); Immature Granulocytes # (auto) 0.02 K/uL (0.01-0.20); Immature Granulocytes % (auto) 0.2 %; Lymphocytes % (auto) 17.6 %; Mean Corpuscular Hemoglobin 28.5 pg (25.0-34.0); Mean Corpuscular Hgb Conc 33.4 g/dL (32.0-36.0); Mean Corpuscular Volume 85.2 fL (80.0-100.0); Mean Platelet Volume 9.6 fL (9.4-12.4); Monocytes # (auto) 0.68 K/uL (0.11-0.59); Neutrophils # (auto) 6.24 K/uL (1.40-6.50); Platelet Count 247 K/uL (130-400); RDW Coefficient of Variation 13.4 % (11.5-14.5); RDW Standard Deviation 41.6 fL (36.4-46.3); Red Blood Count 4.81 M/uL (4.20-5.40); White Blood Count 8.54 K/ul (4.8-10.8)
[2024-02-15 07:43] LABS: ANTI-Xa, UFH(UnfractionatedHep 0.42 IU/ml (0.3-0.7)
--- NOTE | 2024-02-15 07:43 | Critical Care Progress Note ---
Date of Service February 15, 2024 Assessment & Plan (1) High anion gap metabolic acidosis: (2) Noncompliance with medication regimen: (3) Pulmonary embolism: (4) DKA (diabetic ketoacidosis): (5) Acute respiratory failure with hypoxia: (6) Malignant neoplasm of lower-outer quadrant of left breast of female, estrogen receptor positive: (7) Diabetes mellitus type 2, uncontrolled: (8) Depression: (9) CKD (chronic kidney disease) stage 3, GFR 30-59 ml/min: Plan Reason Critically Ill: 73-year-old female presented to the hospital with complaints of shortness of breath Past medical history: Hypertension, dyslipidemia, breast cancer, history of pulmonary emboli in 2021, CKD, diabetes type 2 Patient was transferred to the ICU for DKA as well as pulmonary emboli. Neuro - [facility]: Negative --Forgetfulness as per the son Could be age-related Rule out dementia Patient needs stays alone, I think it would be safe for the patient to stay with somebody or at [facility] Cardiac - --S/p tachycardia Multifactorial DKA with acidosis along with pulmonary emboli and hypoxia EKG 02/14/2024, 12:55 PM: Motion artifacts, sinus tachycardia, P pulmonale, left anterior fascicular block, no ST-T wave changes appreciated --Hypertension On enalapril at home --Dyslipidemia On statin Respiratory - CTA chest 02/14/2024 personally reviewed: Bilateral pulmonary emboli appreciated in the segmental and subsegmental pulmonary arteries bilateral lower lobes No right heart strain No significant mediastinal adenopathy -- Acute pulmonary emboli Patient is likely noncompliant with Eliquis, she is also on letrozole which puts her at risk for clots No right heart strain on the CTA chest Troponin negative, BNP negative Will fall into mild to intermediate low risk Did have an episode of hypotension which can be related to hypovolemia and DKA as well --Acute hypoxic respiratory failure Secondary to above Continue with O2 supplementation to keep oxygen saturation between 90-92% --Acute DVT Bilateral lower extremity/popliteal GI - -- Mild elevation of alk phos Continue to trend RENAL/LYTES - -- S/p anion gap metabolic acidosis Secondary to DKA Continue with insulin drip until anion gap closes Decreasing blood glucose no more than 100 in an hour Replace potassium IV when potassium level between 3.3-5.3 BMP every 4 hours Continue with IV fluids pH 7.07 on VBG, no indication for bicarb HbA1c 14.2 -- DANA Likely secondary to dehydration from DKA Follow-up urine lites Monitor BUN/creatinine Avoid nephrotoxic medications Strict ins and outs ENDO - -- Diabetes type 2 Noncompliant HbA1c 14.2 HEME - --History of breast cancer ER positive On letrozole ID - -- Leukocytosis Likely reactive to DKA No clear source of infection looking at the CT chest as well as abdomen UA negative for bacteria and leukocyte esterase --Prophylaxis VTE: Heparin drip GI: None Lines: Peripheral Diet: Diabetic Plan: In/out: +3.9 L, urine output 100 mL, unfortunately patient has a pure wick and we do not have strict output Anion gap is closed Will bridge the insulin, start the patient on diabetic diet Hemodynamically stable to be downgraded to a floor Recommend PT OT as well as case management to see if patient can go to rehab. On the long run patient will need some placement as I do not think she is able to Take Care of herself alone. Case discussed with primary team Please note the above document was generated using voice recognition software. It may contain grammatical, syntax or spelling errors.Any formal questions or concerns about the content, text or information contained within the body of this dictation should be directly addressed to the provider for clarification. Admission and Anticipated Discharge Date Admission Date: February 14, 2024 Subjective Patient seen and examined at bedside. No acute distress, no adverse events overnight Her MAP was in the 70s with saturation 96% on room air Denied any chest pain, no abdominal pain. No nausea or vomiting No headache, no blurry vision No dysuria, no diarrhea Review of Systems 2 Review of Systems: All systems reviewed & are unremarkable except as noted in Subjective Physical Exam 2 Physical Exam: Constitutional: No acute distress HEENT: EOMI, PERRLA Respiratory system: Good air entry bilaterally, no wheeze, no rhonchi, no crackles CVS: S1-S2 positive, no murmurs or gallops Abdomen: Soft, nontender, nondistended, positive bowel sounds x4 Extremities: +2 pulses bilaterally radialis/ dorsalis pedis, no cyanosis, minimal pitting edema bilateral lower extremity Neuro: Awake alert oriented x3 Psych: Normal mood and affect G/U: No Darden Skin: no rashes, warm and dry Lymphatic: no cervical or axillary lymphadenopathy Results & Data Results & Data Vital Signs (Past 12 Hours) Vital Signs Temp Pulse Pulse Resp BP Pulse Ox O2 Del Method 02/15/24 01:00 88 17 119/55 L 94 Room Air 02/15/24 00:00 88 02/14/24 23:00 87 18 129/66 93 Room Air 02/14/24 22:00 92 H 22 112/59 L 92 Room Air 02/14/24 22:00 91 H 19 94 Room Air 02/14/24 21:01 89 19 119/64 94 Room Air 02/14/24 21:00 36.6 C 14 95 Room Air 02/14/24 20:00 36.6 C 86 20 92 Room Air Laboratory Results 02/15/24 07:05 Coding Level of Care Code 40717 SUB INP/OBS CARE 3/50MIN Diagnoses High anion gap metabolic acidosis E87.29 Noncompliance with medication regimen Z91.148 Pulmonary embolism I26.99 Acute cor pulmonale presence: unspecified Chronicity: acute Pulmonary embolism type: unspecified DKA (diabetic ketoacidosis) E10.10 Diabetes mellitus complication detail: without coma Diabetes mellitus type: type 1 Acute respiratory failure with hypoxia J96.01 Malignant neoplasm of lower-outer quadrant of left breast of female, estrogen receptor positive C50.512; Z17.0 Uncontrolled type 2 diabetes mellitus with hyperglycemia E11.65 Glycemic state: with hyperglycemia Reactive depression F32.9 Depression Type: reactive depression CKD (chronic kidney disease) stage 3, GFR 30-59 ml/min N18.30 (3) Pulmonary embolism Acute cor pulmonale presence: unspecified Chronicity: acute Pulmonary embolism type: unspecified Qualified Code(s): I26.99 - Other pulmonary embolism without acute cor pulmonale (4) DKA (diabetic ketoacidosis) Diabetes mellitus complication detail: without coma Diabetes mellitus type: t ype 1 Qualified Code(s): E10.10 - Type 1 diabetes mellitus with ketoacidosis without coma (7) Diabetes mellitus type 2, uncontrolled Glycemic state: with hyperglycemia Qualified Code(s): E11.65 - Type 2 diabetes mellitus with hyperglycemia (8) Depression Depression Type: reactive depression Qualified Code(s): F32.9 - Major depressive disorder, single episode, unspecified
[2024-02-15 07:53] LABS: BUN Creatinine Ratio 29.4 (10-20); Calcium 8.2 mg/dl (8.6-10.3); Creatinine Clr Calc Pharmacy 68.2 ml/min; Magnesium 2.1 mg/dl (1.7-2.4); Phosphorus 2.7 mg/dl (2.5-4.9); Potassium 4.4 mmol/L (3.5-5.1)
[2024-02-15 08:04] LABS: Partial Thromboplastin Ratio 1.4; Partial Thromboplastin Time 38 Seconds (21-31)
[2024-02-15] MEDS: ASPIRIN 81 MG ECTAB PO SCH (08:31)
[2024-02-15] MEDS: LANTUS PER UNIT CHARGE SC ONE (08:31)
--- NOTE | 2024-02-15 09:13 | Pharmacy Report ---
Pharmacy Glycemic Short Note 2 - Date of Service February 15, 2024 - Glycemic Short BSG Results (Last 24 hours): 02/14/24 02/14/24 02/14/24 11:02 11:10 11:15 Glucose 461 H* POC Glucose 381 H* POC Glucose (other) 443 H* 02/14/24 02/14/24 02/14/24 13:16 14:25 15:26 Glucose POC Glucose 315 H* 261 H 231 H POC Glucose (other) 02/14/24 02/14/24 02/14/24 15:50 16:27 17:27 Glucose 196 H POC Glucose 166 H 166 H POC Glucose (other) 02/14/24 02/14/24 02/14/24 18:26 20:00 20:30 Glucose 219 H POC Glucose 175 H 203 H POC Glucose (other) 02/14/24 02/14/24 02/15/24 22:29 23:42 00:30 Glucose 207 H POC Glucose 201 H 171 H POC Glucose (other) 02/15/24 02/15/24 02/15/24 02:34 04:33 04:39 Glucose 151 H POC Glucose 115 H 112 H POC Glucose (other) 02/15/24 02/15/24 02/15/24 04:56 05:12 05:26 Glucose POC Glucose 117 H 118 H 125 H POC Glucose (other) 02/15/24 02/15/24 02/15/24 05:45 05:59 06:23 Glucose POC Glucose 139 H 130 H 154 H POC Glucose (other) 02/15/24 02/15/24 02/15/24 07:05 07:06 08:13 Glucose 163 H POC Glucose 148 H 158 H POC Glucose (other) OUTPATIENT ANTIDIABETIC REGIMEN: * Trulicity * Patient reports non-compliance with diabetes regimen HbA1c: 14.2% (02/14/24) ASSESSMENT: * CL is a 73 year old female who was brought to ED on 02/14/24 via EMS for evaluation of difficulty breathing * Subsequently found to be in DKA and with pulmonary embolism * Labs on presentation * Anion gap 27 * Carbon dioxide 12 mmol/L * Blood glucose 461 mg/dL * SCr 1.33 mg/dL * VBG pH 7.07 * Insulin infusion/IV fluids initiated in ED and continue at this time * Anion gap is now closed on 02/14. DANA resolved. Diet is ordered and patient consumed breakfast. * Dextrose-containing IV fluids to be discontinued. * On heparin gtt for PE (containing dextrose) * Will attempt insulin gtt transition today PLAN FOR INPATIENT GLYCEMIC CONTROL: * Basal insulin * Lantus 25 units SC x 1 * Lantus 0-5-10 units SC HS (see EHR for details) * Bolus insulin (once able to transition to SC regimen) * NovoLog per scale ACHS or Q6hrs while NPO * Goal Range: Low 110 mg/dL - High 140 mg/dL * Correction Factor: 25 mg/dL/unit * Nutritional / Prandial insulin per carb ratio of 1 unit per 8 grams CHO consumed * , checks with same parameters
[2024-02-15] MEDS: INSULIN ASPART PER UNIT CHARGE SC SCH (12:05)
--- NOTE | 2024-02-15 12:08 | XCELERA ---
[id number]
--- NOTE | 2024-02-15 12:27 | Electrocardiogram Report ---
Test Reason : Blood Pressure : */* mmHG Vent. 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
[2024-02-15] MEDS ORDERED: DEXTROSE 50% 50 ML SYRINGE IV PRN (14:14)
[2024-02-15] MEDS ORDERED: PHARMACY GLYCEMIC MGMT CONSULT PRN (14:14)
[2024-02-15] MEDS ORDERED: CARBOHYDRATES FOR HYPOGLYCEMIA PO PRN (14:14)
[2024-02-15] MEDS: ALBUMIN 5% 250 ML IV ONE ×2 (14:16→15:17)
[2024-02-15] MEDS: SODIUM CHLORIDE 0.9% 500 ML IV SCH (14:19)
--- NOTE | 2024-02-15 14:24 | Hospitalist Progress Note ---
Date of Service February 15, 2024 Assessment & Plan (1) Pulmonary embolism: Plan: Acute onset of SOB and hypoxia on the morning of 02/13 D-dimer 13,280 on arrival Chest CTA revealed extensive right> left age-indeterminate pulmonary emboli with evidence of right heart strain Echocardiogram did not show any signs of RV strain. RV normal in size and function. Pulmonology on board, not a candidate for tPA US Doppler lower extremities bilateral showed bilateral acute DVT in right popliteal vein and left distal superficial femoral vein Patient is normally on Eliquis, however she reports she has not been taking it for "a while" Suspect secondary to medication noncompliance related to memory issues Continue heparin drip for now. Will switch to Eliquis as this is not Eliquis failure it is related to Eliquis noncompliance (2) DKA (diabetic ketoacidosis): Plan: A1c 14.2 on arrival Anion gap elevated at 26 Glucose 443 on arrival Again, suspect this is secondary to medication noncompliance Patient does report that she does not take her diabetic medications every day Patient was initially treated with insulin drip and IV fluids. DKA has resolved. Anion gap has closed She has been started on subcu insulin 25 units Diabetes education consulted (3) Acute respiratory failure with hypoxia: Plan: Secondary to #1 Patient was hypoxic at 79% on RA on arrival Now 96% on room air (4) Thickened endometrium: Plan: A/P CT did reveal thickening of the endometrium Given history of breast cancer, recommended gynecology follow-up upon discharge (5) Fall: Plan: PT/OT evaluations appreciated Fall precautions (6) Noncompliance with medication regimen: Plan: This is most likely related to memory issues Consult case management as she may need placement or home health Plan Transfer out of ICU Full code VTE PPX: Heparin IV Admission and Anticipated Discharge Date Admission Date: February 14, 2024 Subjective I saw the patient at 11:50 AM. She says she feels better overall. She is not short of breath at this point. She was finishing her meal tray when I walked into the room. She says that she has been missing her medications because of memory issues although she is not very up fourth and admitting that. She lives at home alone. Review of Systems Review of Systems: All systems reviewed & are unremarkable except as noted in Subjective Physical Exam Physical Exam: General: Awake, conversant Heart: S1, S2/regular rate and rhythm, no murmur rubs or gallops Lungs: Clear to auscultation bilaterally. Normal effort Abdomen: Soft/nontender/nondistended. No hepatosplenomegaly Extremities: No clubbing/cyanosis. No edema Behavior: Appropriate, cooperative Results & Data Results & Data Vital Signs (Past 12 Hours) Vital Signs Temp Pulse Resp BP Pulse Ox 02/15/24 12:10 83/51 L 02/15/24 12:09 102 H 22 96 02/15/24 12:08 102/85 02/15/24 12:06 94 H 20 93 02/15/24 12:00 106/63 02/15/24 11:45 95 H 20 94 02/15/24 11:42 101 H 23 94 02/15/24 11:21 91 H 20 92 02/15/24 11:18 90 23 92 02/15/24 11:00 92 H 19 92 02/15/24 11:00 100/52 L 02/15/24 11:00 100/52 L 02/15/24 10:27 96 H 26 H 94 02/15/24 10:00 94 H 19 96 02/15/24 10:00 112/51 L 02/15/24 10:00 112/51 L 02/15/24 10:00 112/51 L 02/15/24 09:24 99 H 22 96 02/15/24 09:12 109 H 19 95 02/15/24 09:03 102 H 25 H 94 02/15/24 09:01 91/65 L 02/15/24 09:01 91/65 L 02/15/24 08:54 104 H 26 H 93 02/15/24 08:47 108/82 02/15/24 08:47 108/82 02/15/24 08:15 90 22 95 02/15/24 08:00 111/62 02/15/24 08:00 111/62 02/15/24 08:00 111/62 02/15/24 08:00 111/62 02/15/24 08:00 89 22 95 02/15/24 08:00 36.6 C 02/15/24 08:00 99 H 02/15/24 07:00 131/72 02/15/24 07:00 94 H 21 94 Laboratory Results Abnormal lab results 1002/14/24 02/14/24 Range/Units 14:25 15:26 15:50 [place] # (Auto) (0.11-0.59) K/uL APTT (21-31) Seconds Heparin Anti-Xa, Unfract (0.3-0.7) IU/ml VBG pH 7.25 L (7.36-7.41) Sodium (136-145) mmol/L Chloride 109 H (98-107) mmol/L Carbon Dioxide 15 L (21-32) mmol/L Anion Gap 16 H (3-11) BUN 32 H (6-23) mg/dl BUN/Creatinine Ratio 31.1 H (10-20) Glucose 196 H (70-99(Fasting)) mg/dl POC Glucose 261 H 231 H (70-99) mg/dl Calcium (8.6-10.3) mg/dl Phosphorus (2.5-4.9) mg/dl Magnesium 1.6 L (1.7-2.4) mg/dl Urine Appearance (Clear) Ur Specific [place] (1.000-1.030) Urine Protein (Negative) Urine Glucose (UA) (Negative) Urine Ketones (Negative) Urine Blood (Negative) Urine RBC (Auto) (0-2) /hpf U Hyaline Cast (Auto) (0-2) /lpf U Epithel Cells (Auto) (0-2) /hpf Urine Bacteria (Auto) (None Seen) 02/14/24 02/14/24 02/14/24 Range/Units 16:27 17:27 18:26 [place] # (Auto) (0.11-0.59) K/uL APTT (21-31) Seconds Heparin Anti-Xa, Unfract (0.3-0.7) IU/ml VBG pH (7.36-7.41) Sodium (136-145) mmol/L Chloride (98-107) mmol/L Carbon Dioxide (21-32) mmol/L Anion Gap (3-11) BUN (6-23) mg/dl BUN/Creatinine Ratio (10-20) Glucose (70-99(Fasting)) mg/dl POC Glucose 166 H 166 H 175 H (70-99) mg/dl Calcium (8.6-10.3) mg/dl Phosphorus (2.5-4.9) mg/dl Magnesium (1.7-2.4) mg/dl Urine Appearance (Clear) Ur Specific [place] (1.000-1.030) Urine Protein (Negative) Urine Glucose (UA) (Negative) Urine Ketones (Negative) Urine Blood (Negative) Urine RBC (Auto) (0-2) /hpf U Hyaline Cast (Auto) (0-2) /lpf U Epithel Cells (Auto) (0-2) /hpf Urine Bacteria (Auto) (None Seen) 02/14/24 02/14/24 02/14/24 Range/Units 19:20 20:00 20:30 [place] # (Auto) (0.11-0.59) K/uL APTT (21-31) Seconds Heparin Anti-Xa, Unfract > 1.50 H* (0.3-0.7) IU/ml VBG pH 7.33 L (7.36-7.41) Sodium (136-145) mmol/L Chloride 108 H (98-107) mmol/L Carbon Dioxide 16 L (21-32) mmol/L Anion Gap 12 H (3-11) BUN 28 H (6-23) mg/dl BUN/Creatinine Ratio 31.1 H (10-20) Glucose 219 H (70-99(Fasting)) mg/dl POC Glucose 203 H (70-99) mg/dl Calcium (8.6-10.3) mg/dl Phosphorus 1.9 L (2.5-4.9) mg/dl Magnesium (1.7-2.4) mg/dl Urine Appearance Turbid A (Clear) Ur Specific [place] > 1.045 H (1.000-1.030) Urine Protein 2+ H (Negative) Urine Glucose (UA) 3+ H (Negative) Urine Ketones 3+ H (Negative) Urine Blood 1+ H (Negative) Urine RBC (Auto) 6-10 H (0-2) /hpf U Hyaline Cast (Auto) 3-5 H (0-2) /lpf U Epithel Cells (Auto) >20 H (0-2) /hpf Urine Bacteria (Auto) 4+ H (None Seen) 02/14/24 02/14/24 02/14/24 Range/Units 22:29 22:30 23:42 [place] # (Auto) (0.11-0.59) K/uL APTT 86 H* (21-31) Seconds Heparin Anti-Xa, Unfract 1.14 H* 0.84 H* (0.3-0.7) IU/ml VBG pH (7.36-7.41) Sodium (136-145) mmol/L Chloride 109 H (98-107) mmol/L Carbon Dioxide 20 L (21-32) mmol/L Anion Gap (3-11) BUN 26 H (6-23) mg/dl BUN/Creatinine Ratio 33.3 H (10-20) Glucose 207 H (70-99(Fasting)) mg/dl POC Glucose 201 H (70-99) mg/dl Calcium 8.5 L (8.6-10.3) mg/dl Phosphorus 1.6 L (2.5-4.9) mg/dl Magnesium (1.7-2.4) mg/dl Urine Appearance (Clear) Ur Specific [place] (1.000-1.030) Urine Protein (Negative) Urine Glucose (UA) (Negative) Urine Ketones (Negative) Urine Blood (Negative) Urine RBC (Auto) (0-2) /hpf U Hyaline Cast (Auto) (0-2) /lpf U Epithel Cells (Auto) (0-2) /hpf Urine Bacteria (Auto) (None Seen) 02/15/24 02/15/24 02/15/24 Range/Units 00:30 02:34 02:36 [place] # (Auto) (0.11-0.59) K/uL APTT (21-31) Seconds Heparin Anti-Xa, Unfract 0.17 L (0.3-0.7) IU/ml VBG pH (7.36-7.41) Sodium 135 L (136-145) mmol/L Chloride 110 H (98-107) mmol/L Carbon Dioxide 19 L (21-32) mmol/L Anion Gap (3-11) BUN (6-23) mg/dl BUN/Creatinine Ratio 30.7 H (10-20) Glucose 151 H (70-99(Fasting)) mg/dl POC Glucose 171 H (70-99) mg/dl Calcium 8.4 L (8.6-10.3) mg/dl Phosphorus 2.4 L (2.5-4.9) mg/dl Magnesium (1.7-2.4) mg/dl Urine Appearance (Clear) Ur Specific [place] (1.000-1.030) Urine Protein (Negative) Urine Glucose (UA) (Negative) Urine Ketones (Negative) Urine Blood (Negative) Urine RBC (Auto) (0-2) /hpf U Hyaline Cast (Auto) (0-2) /lpf U Epithel Cells (Auto) (0-2) /hpf Urine Bacteria (Auto) (None Seen) 02/15/24 02/15/24 02/15/24 Range/Units 02:37 04:33 04:39 [place] # (Auto) (0.11-0.59) K/uL APTT (21-31) Seconds Heparin Anti-Xa, Unfract (0.3-0.7) IU/ml VBG pH 7.33 L (7.36-7.41) Sodium (136-145) mmol/L Chloride (98-107) mmol/L Carbon Dioxide (21-32) mmol/L Anion Gap (3-11) BUN (6-23) mg/dl BUN/Creatinine Ratio (10-20) Glucose (70-99(Fasting)) mg/dl POC Glucose 115 H 112 H (70-99) mg/dl Calcium (8.6-10.3) mg/dl Phosphorus (2.5-4.9) mg/dl Magnesium (1.7-2.4) mg/dl Urine Appearance (Clear) Ur Specific [place] (1.000-1.030) Urine Protein (Negative) Urine Glucose (UA) (Negative) Urine Ketones (Negative) Urine Blood (Negative) Urine RBC (Auto) (0-2) /hpf U Hyaline Cast (Auto) (0-2) /lpf U Epithel Cells (Auto) (0-2) /hpf Urine Bacteria (Auto) (None Seen) 02/15/24 02/15/24 02/15/24 Range/Units 04:56 05:12 05:26 [place] # (Auto) (0.11-0.59) K/uL APTT (21-31) Seconds Heparin Anti-Xa, Unfract (0.3-0.7) IU/ml VBG pH (7.36-7.41) Sodium (136-145) mmol/L Chloride (98-107) mmol/L Carbon Dioxide (21-32) mmol/L Anion Gap (3-11) BUN (6-23) mg/dl BUN/Creatinine Ratio (10-20) Glucose (70-99(Fasting)) mg/dl POC Glucose 117 H 118 H 125 H (70-99) mg/dl Calcium (8.6-10.3) mg/dl Phosphorus (2.5-4.9) mg/dl Magnesium (1.7-2.4) mg/dl Urine Appearance (Clear) Ur Specific [place] (1.000-1.030) Urine Protein (Negative) Urine Glucose (UA) (Negative) Urine Ketones (Negative) Urine Blood (Negative) Urine RBC (Auto) (0-2) /hpf U Hyaline Cast (Auto) (0-2) /lpf U Epithel Cells (Auto) (0-2) /hpf Urine Bacteria (Auto) (None Seen) 02/15/24 02/15/24 02/15/24 Range/Units 05:45 05:59 06:23 [place] # (Auto) (0.11-0.59) K/uL APTT (21-31) Seconds Heparin Anti-Xa, Unfract (0.3-0.7) IU/ml VBG pH (7.36-7.41) Sodium (136-145) mmol/L Chloride (98-107) mmol/L Carbon Dioxide (21-32) mmol/L Anion Gap (3-11) BUN (6-23) mg/dl BUN/Creatinine Ratio (10-20) Glucose (70-99(Fasting)) mg/dl POC Glucose 139 H 130 H 154 H (70-99) mg/dl Calcium (8.6-10.3) mg/dl Phosphorus (2.5-4.9) mg/dl Magnesium (1.7-2.4) mg/dl Urine Appearance (Clear) Ur Specific [place] (1.000-1.030) Urine Protein (Negative) Urine Glucose (UA) (Negative) Urine Ketones (Negative) Urine Blood (Negative) Urine RBC (Auto) (0-2) /hpf U Hyaline Cast (Auto) (0-2) /lpf U Epithel Cells (Auto) (0-2) /hpf Urine Bacteria (Auto) (None Seen) 02/15/24 02/15/24 02/15/24 Range/Units 07:05 07:06 08:13 [place] # (Auto) 0.68 H (0.11-0.59) K/uL APTT 38 H (21-31) Seconds Heparin Anti-Xa, Unfract (0.3-0.7) IU/ml VBG pH 7.33 L (7.36-7.41) Sodium (136-145) mmol/L Chloride 110 H (98-107) mmol/L Carbon Dioxide 19 L (21-32) mmol/L Anion Gap (3-11) BUN (6-23) mg/dl BUN/Creatinine Ratio 29.4 H (10-20) Glucose 163 H (70-99(Fasting)) mg/dl POC Glucose 148 H 158 H (70-99) mg/dl Calcium 8.2 L (8.6-10.3) mg/dl Phosphorus (2.5-4.9) mg/dl Magnesium (1.7-2.4) mg/dl Urine Appearance (Clear) Ur Specific [place] (1.000-1.030) Urine Protein (Negative) Urine Glucose (UA) (Negative) Urine Ketones (Negative) Urine Blood (Negative) Urine RBC (Auto) (0-2) /hpf U Hyaline Cast (Auto) (0-2) /lpf U Epithel Cells (Auto) (0-2) /hpf Urine Bacteria (Auto) (None Seen) 02/15/24 02/15/24 02/15/24 Range/Units 09:33 10:28 11:53 [place] # (Auto) (0.11-0.59) K/uL APTT (21-31) Seconds Heparin Anti-Xa, Unfract (0.3-0.7) IU/ml VBG pH (7.36-7.41) Sodium (136-145) mmol/L Chloride (98-107) mmol/L Carbon Dioxide (21-32) mmol/L Anion Gap (3-11) BUN (6-23) mg/dl BUN/Creatinine Ratio (10-20) Glucose (70-99(Fasting)) mg/dl POC Glucose 146 H 171 H 193 H (70-99) mg/dl Calcium (8.6-10.3) mg/dl Phosphorus (2.5-4.9) mg/dl Magnesium (1.7-2.4) mg/dl Urine Appearance (Clear) Ur Specific [place] (1.000-1.030) Urine Protein (Negative) Urine Glucose (UA) (Negative) Urine Ketones (Negative) Urine Blood (Negative) Urine RBC (Auto) (0-2) /hpf U Hyaline Cast (Auto) (0-2) /lpf U Epithel Cells (Auto) (0-2) /hpf Urine Bacteria (Auto) (None Seen) Diagnostic Findings Venous Doppler Study 02/14/24 13:41 ULTRASOUND BILATERAL LOWER EXTREMITY VENOUS CLINICAL HISTORY: Deep venous thrombosis COMPARISON STUDY: Bilateral lower extremity venous ultrasound dated 05/30/2022. TECHNIQUE: Portable real-time, grayscale, and color Doppler sonography of the deep veins of the right and left lower extremity was performed from the inguinal crease to the calf. Compression and augmentation were utilized. FINDINGS: Right lower extremity: There is occlusive deep venous thrombosis seen in the popliteal vein. The common femoral and superficial femoral veins are patent and normally compressible. The greater saphenous vein and the profunda femoris vein at the junction with the common femoral vein are clear. The visualized calf veins are patent. Left lower extremity: There is a small amount of nonocclusive chronic appearing deep venous thrombosis identified in the mid superficial femoral vein. There is more acute appearing and occlusive deep venous thrombosis within the distal aspect of the superficial femoral vein extending into the popliteal vein. There is thrombus in the calf within the posterior tibial veins. The common femoral and the proximal superficial femoral vein are patent and normally compressible. The greater saphenous vein and the profunda femoris vein at the junction with the common femoral vein are clear. The peroneal and anterior tibial veins appear patent. IMPRESSION: 1. There is occlusive deep venous thrombosis in the right popliteal vein. 2. There is a small amount of chronic appearing thrombus within the mid to distal portions of the left superficial femoral vein. 3. More acute appearing and occlusive deep venous thrombosis is seen within the distal left superficial femoral vein extending into the popliteal vein. This extends in the calf within the posterior tibial veins. ACT 112: Negative or not required by law. Electronically signed by: Leonidas Ashraf M.D. 02/14/2024 5:00 PM PG Care Time/CCT Total # of Minutes Spent Total Time Spent with Patient: Total time spent is greater than 50% in coordination of care (as documented) at patient's floor/unit and/or counseling patient: Coding Level of Care Code 22619 SUB INP/OBS CARE 235MIN Diagnoses Pulmonary embolism I26.99 Acute cor pulmonale presence: unspecified Chronicity: acute Pulmonary embolism type: unspecified DKA (diabetic ketoacidosis) E10.10 Diabetes mellitus complication detail: without coma Diabetes mellitus type: type 1 Acute respiratory failure with hypoxia J96.01 Thickened endometrium R93.89 Fall [id number].XXXA Noncompliance with medication regimen Z91.148 (1) Pulmonary embolism Acute cor pulmonale presence: unspecified Chronicity: acute Pulmonary embolism type: unspecified Qualified Code(s): I26.99 - Other pulmonary embolism without acute cor pulmonale (2) DKA (diabetic ketoacidosis) Diabetes mellitus complication detail: without coma Diabetes mellitus type: type 1 Qualified Code(s): E10.10 - Type 1 diabetes mellitus with ketoacidosis without coma
[2024-02-15] MEDS: LANTUS PER UNIT CHARGE SC SCH (21:04)
[2024-02-16] MEDS: INSULIN ASPART PER UNIT CHARGE SC SCH (00:13)
[2024-02-16 04:33] LABS: Basophils # (auto) 0.03 K/uL (0.00-0.20); Basophils % (auto) 0.5 %; Eosinophils # (auto) 0.08 K/uL (0.00-0.50); Eosinophils % (auto) 1.4 %; Hematocrit (blood only) 35.2 % (37.0-47.0); Immature Granulocytes # (auto) 0.01 K/uL (0.01-0.20); Immature Granulocytes % (auto) 0.2 %; Lymphocytes # (auto) 1.42 K/uL (1.20-3.40); Lymphocytes % (auto) 25.2 %; Mean Corpuscular Hemoglobin 28.4 pg (25.0-34.0); Mean Corpuscular Hgb Conc 34.1 g/dL (32.0-36.0); Mean Corpuscular Volume 83.4 fL (80.0-100.0); Mean Platelet Volume 10.4 fL (9.4-12.4); Monocytes # (auto) 0.54 K/uL (0.11-0.59); Monocytes % (auto) 9.6 %; Neutrophils # (auto) 3.56 K/uL (1.40-6.50); Neutrophils % (auto) 63.1 %; Platelet Count 201 K/uL (130-400); RDW Coefficient of Variation 13.1 % (11.5-14.5); RDW Standard Deviation 39.5 fL (36.4-46.3); Red Blood Count 4.22 M/uL (4.20-5.40); White Blood Count 5.64 K/ul (4.8-10.8)
[2024-02-16 04:48] LABS: ANTI-Xa, UFH(UnfractionatedHep 0.53 IU/ml (0.3-0.7)
[2024-02-16] MEDS: APIXABAN 5 MG TABLET PO SCH (08:00)
[2024-02-16] MEDS: LANTUS PER UNIT CHARGE SC SCH (08:07)
[2024-02-16] MEDS ORDERED: CARBOHYDRATES FOR HYPOGLYCEMIA PO PRN (08:30)
[2024-02-16] MEDS ORDERED: GLUCOSE 40% GEL 15 GM TUBE PO PRN (08:30)
[2024-02-16] MEDS ORDERED: GLUCAGON FOR INJ 1 MG VIAL SQ PRN (08:30)
[2024-02-16] MEDS ORDERED: DEXTROSE 50% 50 ML SYRINGE IV PRN (08:30)
[2024-02-16] MEDS ORDERED: GLUCOSE 10 TAB/TUBE PO PRN (08:30)
[2024-02-16] MEDS: INFLUENZA VACC TS2024-25(65y+)/PF (IIV3) 0.5mL Syr IM ONE (09:03)
--- NOTE | 2024-02-16 12:53 | Pharmacy Report ---
Pharmacy Glycemic Short Note 2 - Date of Service February 16, 2024 - Glycemic Short BSG Results (Last 24 hours): 02/15/24 02/15/24 02/16/24 16:00 20:50 00:01 POC Glucose 144 H 180 H 164 H 02/16/24 02/16/24 02/16/24 04:06 07:09 11:08 POC Glucose 145 H 124 H 129 H OUTPATIENT ANTIDIABETIC REGIMEN: * Trulicity * Patient reports non-compliance with diabetes regimen HbA1c: 14.2% (02/14/24) ASSESSMENT: 02/15: * Shari was transition off the insulin drip yesterday. Received 30 units basal + 18 units bolus. BSGs following drip transition were [phone] mg/dL. * Fasting BSG this AM was 124 mg/dL. Will reduce basal by ~10% today. Switching to once daily basal as well. * Lunchtime BSG was controlled at 129 mg/dL. Continue with Novolog based on weight/stress of 2-3. 02/14: * CL is a 73 year old female who was brought to ED on 02/14/24 via EMS for evaluation of difficulty breathing * Subsequently found to be in DKA and with pulmonary embolism * Labs on presentation * Anion gap 27 * Carbon dioxide 12 mmol/L * Blood glucose 461 mg/dL * SCr 1.33 mg/dL * VBG pH 7.07 * Insulin infusion/IV fluids initiated in ED and continue at this time * Anion gap is now closed on 02/14. DANA resolved. Diet is ordered and patient consumed breakfast. * Dextrose-containing IV fluids to be discontinued. * On heparin gtt for PE (containing dextrose) * Will attempt insulin gtt transition today PLAN FOR INPATIENT GLYCEMIC CONTROL: * Basal insulin * Lantus 28 units SC AM * Bolus insulin * NovoLog per scale ACHS or Q6hrs while NPO * Goal Range: Low 110 mg/dL - High 140 mg/dL * Correction Factor: 25 mg/dL/unit * Nutritional / Prandial insulin per carb ratio of 1 unit per 8 grams CHO consumed
--- NOTE | 2024-02-16 12:56 | Hospitalist Progress Note ---
Date of Service February 16, 2024 Assessment & Plan (1) Pulmonary embolism: Plan: Acute onset of SOB and hypoxia on the morning of 02/13 D-dimer 13,280 on arrival Chest CTA revealed extensive right> left age-indeterminate pulmonary emboli with evidence of right heart strain Echocardiogram did not show any signs of RV strain. RV normal in size and function. Pulmonology on board, not a candidate for tPA US Doppler lower extremities bilateral showed bilateral acute DVT in right popliteal vein and left distal superficial femoral vein Patient is normally on Eliquis, however she reports she has not been taking it for "a while" Suspect secondary to medication noncompliance related to memory issues Discontinue heparin drip Switched to Eliquis as this is not Eliquis failure it is related to Eliquis noncompliance (2) DKA (diabetic ketoacidosis): Plan: A1c 14.2 on arrival Anion gap elevated at 26 Glucose 443 on arrival Again, suspect this is secondary to medication noncompliance Patient does report that she does not take her diabetic medications every day Patient was initially treated with insulin drip and IV fluids. DKA has resolved. Anion gap has closed She has been started on subcu insulin 28 units Diabetes education consulted (3) Acute respiratory failure with hypoxia: Plan: Secondary to #1 Patient was hypoxic at 79% on RA on arrival Now 96% on room air (4) Thickened endometrium: Plan: A/P CT did reveal thickening of the endometrium Given history of breast cancer, recommended gynecology follow-up upon discharge (5) Fall: Plan: PT/OT evaluations appreciated Fall precautions (6) Noncompliance with medication regimen: Plan: This is most likely related to memory issues Consult case management as she may need placement or home health or personal chcf PT/OT consult Plan Full code VTE PPX: Heparin IV Admission and Anticipated Discharge Date Admission Date: February 14, 2024 Subjective I have seen and examined the patient today at 12:20 PM. She says that she feels well today. The nurse did not raise any concerns. It is confirmed that the patient has been very forgetful and has been missing her medications that led to this hospitalization. She lives alone at home. Review of Systems Review of Systems: All systems reviewed & are unremarkable except as noted in Subjective Physical Exam Physical Exam: General: Awake, conversant Heart: S1, S2/regular rate and rhythm, no murmur rubs or gallops Lungs: Clear to auscultation bilaterally. Normal effort Abdomen: Soft/nontender/nondistended. No hepatosplenomegaly Extremities: No clubbing/cyanosis. No edema Behavior: Appropriate, cooperative Results & Data Results & Data Vital Signs (Past 12 Hours) Vital Signs Temp Pulse Pulse Resp BP BP Pulse Ox 02/16/24 09:00 91 H 24 104/57 L 95 02/16/24 07:26 86 02/16/24 07:02 37.2 C 113 H 21 124/55 L 94 02/16/24 07:00 90 20 135/65 95 02/16/24 05:00 89 22 139/69 92 02/16/24 04:00 85 25 H 132/71 94 02/16/24 03:00 77 24 136/77 93 O2 Del Method 02/16/24 09:00 Room Air 02/16/24 07:26 02/16/24 07:02 Room Air 02/16/24 07:00 Room Air 02/16/24 05:00 Room Air 02/16/24 04:00 Room Air 02/16/24 03:00 Room Air Laboratory Results Abnormal lab results 02/15/24 02/15/24 02/16/24 Range/Units 16:00 20:50 00:01 Hct (37.0-47.0) % POC Glucose 144 H 180 H 164 H (70-99) mg/dl 02/16/24 02/16/24 02/16/24 Range/Units 03:49 04:06 07:09 Hct 35.2 L (37.0-47.0) % POC Glucose 145 H 124 H (70-99) mg/dl 02/16/24 Range/Units 11:08 Hct (37.0-47.0) % POC Glucose 129 H (70-99) mg/dl PG Care Time/CCT Total # of Minutes Spent Total Time Spent with Patient: Total time spent is greater than 50% in coordination of care (as documented) at patient's floor/unit and/or counseling patient: Coding Level of Care Code 16307 SUB INP/OBS CARE 2/35MIN Diagnoses Pulmonary embolism I26.99 Acute cor pulmonale presence: unspecified Chronicity: acute Pulmonary embolism type: unspecified DKA (diabetic ketoacidosis) E10.10 Diabetes mellitus complication detail: without coma Diabetes mellitus type: type 1 Acute respiratory failure with hypoxia J96.01 Thickened endometrium R93.89 Fall [id number] Noncompliance with medication regimen Z91.148 (1) Pulmonary embolism Acute cor pulmonale presence: unspecified Chronicity: acute Pulmonary embolism type: unspecified Qualified Code(s): I26.99 - Other pulmonary embolism without acute cor pulmonale (2) DKA (diabetic ketoacidosis) Diabetes mellitus complication detail: without coma Diabetes mellitus type: type 1 Qualified Code(s): E10.10 - Type 1 diabetes mellitus with ketoacidosis without coma
[2024-02-17 04:15] LABS: Basophils # (auto) 0.01 K/uL (0.00-0.20); Basophils % (auto) 0.2 %; Eosinophils # (auto) 0.08 K/uL (0.00-0.50); Eosinophils % (auto) 1.8 %; Hematocrit (blood only) 37.2 % (37.0-47.0); Hemoglobin 12.4 g/dl (12.0-16.0); Immature Granulocytes # (auto) 0.02 K/uL (0.01-0.20); Immature Granulocytes % (auto) 0.4 %; Lymphocytes # (auto) 1.17 K/uL (1.20-3.40); Lymphocytes % (auto) 25.8 %; Mean Corpuscular Hemoglobin 28.2 pg (25.0-34.0); Mean Corpuscular Hgb Conc 33.3 g/dL (32.0-36.0); Mean Corpuscular Volume 84.7 fL (80.0-100.0); Mean Platelet Volume 9.8 fL (9.4-12.4); Monocytes # (auto) 0.45 K/uL (0.11-0.59); Monocytes % (auto) 9.9 %; Neutrophils % (auto) 61.9 %; Platelet Count 209 K/uL (130-400); RDW Coefficient of Variation 13.3 % (11.5-14.5); RDW Standard Deviation 41.1 fL (36.4-46.3); Red Blood Count 4.39 M/uL (4.20-5.40); White Blood Count 4.53 K/ul (4.8-10.8)
[2024-02-17 04:28] LABS: BUN Creatinine Ratio 32.4 (10-20); Calcium 8.2 mg/dl (8.6-10.3); Creatinine Clr Calc Pharmacy 68.1 ml/min; Magnesium 1.8 mg/dl (1.7-2.4); Phosphorus 2.6 mg/dl (2.5-4.9)
[2024-02-17 04:40] LABS: ANTI-Xa, UFH(UnfractionatedHep > 1.50 IU/ml (0.3-0.7)
--- NOTE | 2024-02-17 15:41 | Hospitalist Progress Note ---
Date of Service February 17, 2024 Assessment & Plan (1) Pulmonary embolism: Plan: Acute onset of SOB and hypoxia on the morning of 02/13 D-dimer 13,280 on arrival Chest CTA revealed extensive right> left age-indeterminate pulmonary emboli with evidence of right heart strain Echocardiogram did not show any signs of RV strain. RV normal in size and function. Pulmonology on board, not a candidate for tPA US Doppler lower extremities bilateral showed bilateral acute DVT in right popliteal vein and left distal superficial femoral vein Patient is normally on Eliquis, however she reports she has not been taking it for "a while" Suspect secondary to medication noncompliance related to memory issues Discontinued heparin drip Switched to Eliquis as this is not Eliquis failure, it is related to Eliquis noncompliance (2) DKA (diabetic ketoacidosis): Plan: A1c 14.2 on arrival Anion gap elevated at 26 Glucose 443 on arrival Again, suspect this is secondary to medication noncompliance Patient does report that she does not take her diabetic medications every day Patient was initially treated with insulin drip and IV fluids. DKA has resolved. Anion gap has closed She has been started on subcu insulin 28 units Diabetes education consulted Patient has been forgetting to take her medications (3) Acute respiratory failure with hypoxia: Plan: Secondary to #1 Patient was hypoxic at 79% on RA on arrival Now 96% on room air (4) Thickened endometrium: Plan: A/P CT did reveal thickening of the endometrium Given history of breast cancer, recommended gynecology follow-up upon discharge (5) Fall: Plan: PT/OT evaluations appreciated Fall precautions Disposition plan is to discharge to rehab. Case management on board (6) Noncompliance with medication regimen: Plan: This is most likely related to memory issues PT OT recommends rehab education managers working on it. Plan Full code VTE PPX: Eliquis Admission and Anticipated Discharge Date Admission Date: February 14, 2024 Subjective Patient was seen and examined at 11 AM. She says she feels well overall. She denies chest pain or shortness of breath. Review of Systems Review of Systems: All systems reviewed & are unremarkable except as noted in Subjective Physical Exam Physical Exam: General: Awake, conversant Heart: S1, S2/regular rate and rhythm, no murmur rubs or gallops Lungs: Clear to auscultation bilaterally. Normal effort Abdomen: Soft/nontender/nondistended. No hepatosplenomegaly Extremities: No clubbing/cyanosis. No edema Behavior: Appropriate, cooperative Results & Data Results & Data Vital Signs (Past 12 Hours) Vital Signs Temp Pulse Resp BP Pulse Ox O2 Del Method 02/17/24 09:52 140/70 02/17/24 09:00 87 20 119/74 96 Room Air 02/17/24 09:00 86 02/17/24 08:00 88 23 133/73 96 Room Air 02/17/24 07:00 79 20 130/71 95 Room Air 02/17/24 05:00 125/86 02/17/24 04:48 84 22 95 02/17/24 04:42 85 20 94 02/17/24 04:33 85 19 96 02/17/24 04:30 36.9 C 02/17/24 04:21 80 19 95 02/17/24 04:12 84 20 95 02/17/24 04:03 82 18 96 02/17/24 04:00 134/76 02/17/24 04:00 134/76 02/17/24 04:00 134/76 02/17/24 03:45 86 18 95 Laboratory Results Abnormal lab results 02/16/24 02/16/24 02/17/24 Range/Units 15:52 20:10 03:42 WBC 4.53 L (4.8-10.8) K/ul Lymph # (Auto) 1.17 L (1.20-3.40) K/uL Heparin Anti-Xa, Unfract > 1.50 H* (0.3-0.7) IU/ml Chloride 108 H (98-107) mmol/L BUN/Creatinine Ratio 32.4 H (10-20) Glucose 201 H (70-99(Fasting)) mg/dl POC Glucose 185 H 234 H (70-99) mg/dl Calcium 8.2 L (8.6-10.3) mg/dl 02/17/24 02/17/24 Range/Units 07:27 10:52 WBC (4.8-10.8) K/ul Lymph # (Auto) (1.20-3.40) K/uL Heparin Anti-Xa, Unfract (0.3-0.7) IU/ml Chloride (98-107) mmol/L BUN/Creatinine Ratio (10-20) Glucose (70-99(Fasting)) mg/dl POC Glucose 166 H 138 H (70-99) mg/dl Calcium (8.6-10.3) mg/dl PG Care Time/CCT Total # of Minutes Spent Total Time Spent with Patient: Total time spent is greater than 50% in coordination of care (as documented) at patient's floor/unit and/or counseling patient: Coding Level of Care Code 96208 SUB INP/OBS CARE 2/35MIN Diagnoses Pulmonary embolism I26.99 Acute cor pulmonale presence: unspecified Chronicity: acute Pulmonary embolism type: unspecified DKA (diabetic ketoacidosis) E10.10 Diabetes mellitus complication detail: without coma Diabetes mellitus type: type 1 Acute respiratory failure with hypoxia J96.01 Thickened endometrium R93.89 Fall [id number].XXXA Noncompliance with medication regimen Z91.148 (1) Pulmonary embolism Acute cor pulmonale presence: unspecified Chronicity: acute Pulmonary embolism type: unspecified Qualified Code(s): I26.99 - Other pulmonary embolism without acute cor pulmonale (2) DKA (diabetic ketoacidosis) Diabetes mellitus complication detail: without coma Diabetes mellitus type: type 1 Qualified Code(s): E10.10 - Type 1 diabetes mellitus with ketoacidosis without coma
[2024-02-18 04:52] LABS: BUN Creatinine Ratio 30.3 (10-20); Calcium 8.9 mg/dl (8.6-10.3); Creatinine Clr Calc Pharmacy 60.6 ml/min; Magnesium 1.7 mg/dl (1.7-2.4); Potassium 4.1 mmol/L (3.5-5.1)
--- NOTE | 2024-02-18 07:52 | Hospitalist Progress Note ---
Date of Service February 18, 2024 Assessment & Plan (1) Pulmonary embolism: Plan: Acute onset of SOB and hypoxia on the morning of 02/13 D-dimer 13,280 on arrival Chest CTA revealed extensive right> left age-indeterminate pulmonary emboli with evidence of right heart strain Echocardiogram did not show any signs of RV strain. RV normal in size and function. Pulmonology on board, not a candidate for tPA US Doppler lower extremities bilateral showed bilateral acute DVT in right popliteal vein and left distal superficial femoral vein Patient is normally on Eliquis, however she reports she has not been taking it for "a while" Suspect secondary to medication noncompliance related to memory issues Restarted Eliquis treatment (2) DKA (diabetic ketoacidosis): Plan: A1c 14.2 on arrival -> Anion gap elevated at 26, Glucose 443 on arrival suspect this is secondary to medication noncompliance due to memory issues DKA protocol with resolution of acidosis , controlled glucose and closed an ion gap subcu insulin 28 units glargine q am plus ssi Diabetes education consulted (3) Acute respiratory failure with hypoxia: Plan: Secondary to Pulmonary embolism, resolved Now 96% oxygen saturation on room air (4) Thickened endometrium: Plan: A/P CT did reveal thickening of the endometrium Given history of breast cancer, recommended gynecology follow-up upon discharge (5) Fall: Plan: PT/OT evaluations appreciated Fall precautions Disposition plan is to discharge to rehab. Case management on board (6) Noncompliance with medication regimen: Plan: This is most likely related to memory issues PT OT recommends rehab assistant general manager working on it. Plan Full code VTE PPX: Eliquis Admission and Anticipated Discharge Date Admission Date: February 14, 2024 Subjective Patient looks good has no focal complaints creator how she is going to not forget her medications in the future she says her neighbor who typically comes once a day will be supervising her medications. This is a concerning plan but case management assures me that we are about to try to pursue more supervised living setting while waiting improve her rehabilitative state Physical Exam Physical Exam: He is awake she is oriented she knows she is in the hospital cardiac exam is regular lungs are clear with decreased at the bases abdomen NABS and soft Results & Data Results & Data Vital Signs (Past 12 Hours) Vital Signs Temp Pulse Resp BP Pulse Ox 02/18/24 06:30 80 19 97 02/18/24 06:21 79 17 96 02/18/24 06:12 81 19 97 02/18/24 06:00 80 19 95 02/18/24 05:42 81 16 95 02/18/24 05:30 86 18 98 02/18/24 05:12 81 17 94 02/18/24 04:51 81 17 97 02/18/24 04:45 78 17 91 02/18/24 04:39 81 20 95 02/18/24 04:27 79 18 96 02/18/24 04:12 81 22 97 02/18/24 04:00 82 14 97 02/18/24 04:00 143/99 H 02/18/24 04:00 143/99 H 02/18/24 04:00 143/99 H 02/18/24 03:54 90 21 94 02/18/24 03:45 84 16 97 02/18/24 03:30 79 18 97 02/18/24 03:06 79 18 97 02/18/24 02:57 80 17 97 02/18/24 02:36 81 17 95 02/18/24 02:21 81 17 96 02/18/24 02:15 80 15 97 02/18/24 02:06 81 19 97 02/18/24 01:42 81 17 95 02/18/24 01:36 80 14 94 02/18/24 01:06 80 18 93 02/18/24 00:51 80 18 93 02/18/24 00:42 78 18 93 02/18/24 00:21 83 20 94 02/18/24 00:12 80 22 93 02/18/24 00:03 82 19 93 02/18/24 00:00 122/70 02/18/24 00:00 122/70 02/17/24 23:57 81 20 93 02/17/24 23:54 80 18 94 02/17/24 23:48 80 20 94 02/17/24 23:33 81 18 95 02/17/24 23:24 79 19 95 02/17/24 23:23 98.2 F 02/17/24 23:00 80 22 94 02/17/24 22:57 81 23 94 02/17/24 22:45 81 17 96 02/17/24 22:00 120/69 02/17/24 22:00 120/69 02/17/24 22:00 120/69 02/17/24 21:48 84 26 H 96 02/17/24 21:27 82 18 96 02/17/24 21:15 84 19 97 02/17/24 21:06 84 19 97 02/17/24 20:48 83 22 94 02/17/24 20:21 98.2 F 02/17/24 20:06 90 24 94 02/17/24 20:00 116/69 02/17/24 19:57 85 19 94 02/17/24 19:51 84 20 93 Laboratory Results Reviewed chemistry Reviewed [id number] glucose Reviewed magnesium transfer from pcu status all meds and orders reviewed PG Care Time/CCT Total # of Minutes Spent Total Time Spent with Patient: Total time spent is greater than 50% in coordination of care (as documented) at patient's floor/unit and/or counseling patient: Coding Level of Care Code 87184 SUB INP/OBS CARE 3/50MIN Diagnoses Pulmonary embolism I26.99 Acute cor pulmonale presence: unspecified Chronicity: acute Pulmonary embolism type: unspecified DKA (diabetic ketoacidosis) E10.10 Diabetes mellitus complication detail: without coma Diabetes mellitus type: type 1 Acute respiratory failure with hypoxia J96.01 Thickened endometrium R93.89 Fall [id number] Noncompliance with medication regimen Z91.148 (1) Pulmonary embolism Acute cor pulmonale presence: unspecified Chronicity: acute Pulmonary embolism type: unspecified Qualified Code(s): I26.99 - Other pulmonary embolism without acute cor pulmonale (2) DKA (diabetic ketoacidosis) Diabetes mellitus complication detail: without coma Diabetes mellitus type: type 1 Qualified Code(s): E10.10 - Type 1 diabetes mellitus with ketoacidosis without coma
--- NOTE | 2024-02-19 10:21 | Pharmacy Report ---
Pharmacy Glycemic Short Note 2 - Date of Service February 19, 2024 - Glycemic Short BSG Results (Last 24 hours): 02/18/24 02/18/24 02/18/24 11:13 16:39 20:46 POC Glucose 152 H 188 H 168 H 02/19/24 07:36 POC Glucose 151 H OUTPATIENT ANTIDIABETIC REGIMEN: * Trulicity * Patient reports non-compliance with diabetes regimen HbA1c: 14.2% (02/14/24) ASSESSMENT: 02/18: * Stressors stable. * AM fasting BSG reasonable. Continue same Lantus dose * Trend with elevated BSG slightly >180 mg/dL at dinner, coinciding w heaviest CHO meal for the patient, which seems to usually be lunch (last two days). Will slightly tighten CHO ratio 02/15: * Shari was transition off the insulin drip yesterday. Received 30 units basal + 18 units bolus. BSGs following drip transition were [phone] mg/dL. * Fasting BSG this AM was 124 mg/dL. Will reduce basal by ~10% today. Switching to once daily basal as well. * Lunchtime BSG was controlled at 129 mg/dL. Continue with Novolog based on weight/stress of 2-3. 02/14: * CL is a 73 year old female who was brought to ED on 02/14/24 via EMS for evaluation of difficulty breathing * Subsequently found to be in DKA and with pulmonary embolism * Labs on presentation * Anion gap 27 * Carbon dioxide 12 mmol/L * Blood glucose 461 mg/dL * SCr 1.33 mg/dL * VBG pH 7.07 * Insulin infusion/IV fluids initiated in ED and continue at this time * Anion gap is now closed on 02/14. DANA resolved. Diet is ordered and patient consumed breakfast. * Dextrose-containing IV fluids to be discontinued. * On heparin gtt for PE (containing dextrose) * Will attempt insulin gtt transition today PLAN FOR INPATIENT GLYCEMIC CONTROL: * Basal insulin * Lantus 28 units SC AM * Bolus insulin * NovoLog per scale ACHS or Q6hrs while NPO * Goal Range: Low 110 mg/dL - High 140 mg/dL * Correction Factor: 25 mg/dL/unit * Nutritional / Prandial insulin per carb ratio of 1 unit per 7 grams CHO consumed
--- NOTE | 2024-02-19 14:59 | Hospitalist Progress Note ---
Date of Service February 19, 2024 Assessment & Plan (1) Pulmonary embolism: Plan: Acute onset of SOB and hypoxia on the morning of 02/13 D-dimer 13,280 on arrival Chest CTA revealed extensive right> left age-indeterminate pulmonary emboli with evidence of right heart strain Echocardiogram did not show any signs of RV strain. RV normal in size and function. Pulmonology review, not a candidate for tPA US Doppler lower extremities bilateral showed bilateral acute DVT in right popliteal vein and left distal superficial femoral vein Patient is normally on Eliquis, however she reports she has not been taking it for "a while" Suspect secondary to medication noncompliance related to memory issues Restarted Eliquis treatment 10 bid (2) DKA (diabetic ketoacidosis): Plan: resolved A1c 14.2 on arrival -> Anion gap elevated at 26, Glucose 443 on arrival suspect this is secondary to medication noncompliance due to memory issues DKA protocol with resolution of acidosis , controlled glucose and closed anion gap subcu insulin 28 units glargine q am plus ssi Diabetes education consulted (3) Acute respiratory failure with hypoxia: Plan: Secondary to Pulmonary embolism, resolved Now 96% oxygen saturation on room air (4) Thickened endometrium: Plan: A/P CT did reveal thickening of the endometrium Given history of breast cancer, recommended gynecology follow-up upon discharge (5) Fall: Plan: PT/OT evaluations appreciated Fall precautions Disposition plan is to discharge to rehab. Case management on board (6) Noncompliance with medication regimen: Plan: This is most likely related to memory issues, may benefit from neurology follow up at [facility] PT OT recommends rehab space systems operations manager working on it. Plan Full code VTE PPX: Eliquis Admission and Anticipated Discharge Date Admission Date: February 14, 2024 Subjective Patient looks good has no focal complaints did not remember me from yesterday did eat breakfast tentative acceptance to snf 02/18 Physical Exam Physical Exam: He is awake she is oriented she knows she is in the hospital cardiac exam is regular lungs are clear with decreased at the bases abdomen NABS and soft Results & Data Results & Data Vital Signs (Past 12 Hours) Vital Signs Temp Pulse Resp BP Pulse Ox O2 Del Method 02/19/24 07:06 97.9 F 80 16 131/79 96 Room Air PG Care Time/CCT Total # of Minutes Spent Total Time Spent with Patient: Total time spent is greater than 50% in coordination of care (as documented) at patient's floor/unit and/or counseling patient: Coding Level of Care Code 23163 SUB INP/OBS CARE MIN Diagnoses Pulmonary embolism I26.99 Acute cor pulmonale presence: unspecified Chronicity: acute Pulmonary embolism type: unspecified DKA (diabetic ketoacidosis) E10.10 Diabetes mellitus complication detail: without coma Diabetes mellitus type: type 1 Acute respiratory failure with hypoxia J96.01 Thickened endometrium R93.89 Fall [id number] Noncompliance with medication regimen Z91.148 (1) Pulmonary embolism Acute cor pulmonale presence: unspecified Chronicity: acute Pulmonary embolism type: unspecified Qualified Code(s): I26.99 - Other pulmonary embolism without acute cor pulmonale (2) DKA (diabetic ketoacidosis) Diabetes mellitus complication detail: without coma Diabetes mellitus type: type 1 Qualified Code(s): E10.10 - Type 1 diabetes mellitus with ketoacidosis without coma
[2024-02-20 07:21] VITALS: BP 114/66; PULSE 78; RESP 18; TEMP 98.2; O2SAT 95
--- NOTE | 2024-02-20 12:16 | Discharge Summary ---
Date of Service February 20, 2024 Admission HPI Per Admitting Provider Shari is a pleasant 73-year-old female with PMH of HTN, HLD, T2DM, CKD, breast cancer, mediastinal lymphadenopathy, pulmonary embolism with acute cor pulmonale, and DKA. She presented via EMS on 02/13 due to worsening SOB x 3-4 days, as well as after sustaining a ground-level fall yesterday on 02/12. She denies head strike or LOC with the fall. Patient lives by herself. She reports that that she does not use a walker or cane at baseline, but occasionally uses a cane while outdoors. She did not feel dizzy or lightheaded prior to fall, and reports that her "legs gave out" under her and she fell in her living room. She denies any pain at present. No recent injuries to the legs. She has not noticed any recent leg swelling. However, she woke up this morning and felt she was very short of breath and had trouble breathing. His breathing has been worse over the course of the week. On EMS arrival, she was 76% on RA and placed on BiPAP and nonrebreather en route. On arrival, patient reports that she has not been taking her blood thinner (Eliquis) at home and has not been doing so for "a wild". She also does not take her diabetic medications every day. Patient manages her own medicine at home. She denies smoking, tobacco use, or recent alcohol use. 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 No supplemental oxygen at baseline. No CPAP at night. She reports that the SOB is both at rest and with exertion. No orthopnea. Progressive, intermittent worsening. She did not take her regular morning medication today. She does have a history of a PE with the last 1 being in 2021. Patient is hypertensive at 144/77, tachypneic at 25rpm, and tachycardic at 105bpm at time of admission; SpO2 98% on 4 L NC. ED course: NSS 1000 mL IV Heparin IV Insulin drip ROS: Patient endorses SOB at rest and with exertion, intermittent diarrhea (chronic) Patient denies fever, chills, night sweats, dizziness/lightheadedness when up and walking, headache, chest pain, chest palpitations, pleuritic CP, hemoptysis, cough, abdominal pain, N/V, changes in urinary or bowel habits, or numbness/tingling/swelling/erythema in the legs. Admission Exam Per Admitting Provider General: Mild respiratory distress; pleasant affect; patient's son at bedside; non-toxic appearing; well-nourished; cooperative; SpO2 98% on 4L NC HEENT: normocephalic, atraumatic; no scleral icterus; PERRLA; vision and hearing intact Neck: supple; no lymphadenopathy; trachea midline Skin: warm, dry without signs of tenting; no cyanosis; no rashes, bruising, lesions, or erythema noted CV: chest wall NTP; RRR; S1/S2 normal; no murmurs/rubs/gallops; pulses intact and symmetric at radial, DP, and PT Lungs: Conversational dyspnea; mild respiratory distress; symmetrical chest wall expansion; clear breath sounds across all lung moya w/o adventitious sounds; no wheezing ABD: Soft, NTP; BS present; no rebound/guarding; no distention MSK: no tics or fasciculations; no edema noted in the LEs b/l, nonerythematous Neuro: A&Ox3; normal mood and affect; fluent speech; no focal deficits; sensation intact and symmetric in the lower extremities bilaterally Principal Diagnosis Acute bilateral PE (no right ventricular strain) with acute DVT in right popliteal vein and left distal superficial femoral vein DKA Medication noncompliance due to memory issues. May benefit from neurology follow-up upon discharge. Acute hypoxic respiratory failure due to PE Thickened endometrium: Recommend gynecology follow-up upon discharge Generalized weakness Discharge Exam General: Awake, conversant Heart: S1, S2/regular rate and rhythm, no murmur rubs or gallops Lungs: Clear to auscultation bilaterally. Normal effort Abdomen: Soft/nontender/nondistended. No hepatosplenomegaly Extremities: No clubbing/cyanosis. No edema Behavior: Appropriate, cooperative Discharge Data Allergies Allergy/AdvReac Type Severity Reaction Status Date / Time aloe Allergy Unknown RAISED RASH Verified 09/04/22 14:32 No Known Drug Allergies Allergy Verified 09/04/22 14:32 Consultations 02/14/24 12:53 ED Decision to Admit Stat 02/14/24 15:06 Consult Hotel Services Supervisor Routine Ordered Studies 02/14/24 12:06 CT abd pelvis IV con only Stat CT angio chest PE protocol Stat CT head/brain wo con Stat 02/14/24 13:41 US venous doppler LE BI Routine Diabetes Follow up Diabetes Follow-up Needed for HgbA1c >9% Hospital Course (1) Pulmonary embolism: Acute onset of SOB and hypoxia on the morning of 02/13 D-dimer 13,280 on arrival Chest CTA revealed extensive right> left age-indeterminate pulmonary emboli with evidence of right heart strain Echocardiogram did not show any signs of RV strain. RV normal in size and function. Pulmonology review, not a candidate for tPA US Doppler lower extremities bilateral showed bilateral acute DVT in right popliteal vein and left distal superficial femoral vein Patient is normally on Eliquis, however she reports she has not been taking it for "a while" Suspect secondary to medication noncompliance related to memory issues Restarted Eliquis treatment 10 bid (2) DKA (diabetic ketoacidosis): resolved A1c 14.2 on arrival -> Anion gap elevated at 26, Glucose 443 on arrival suspect this is secondary to medication noncompliance due to memory issues DKA protocol with resolution of acidosis , controlled glucose and closed a nion gap subcu insulin 28 units glargine q am plus ssi Diabetes education consulted Plan to discharge on the current regimen (3) Acute respiratory failure with hypoxia: Secondary to Pulmonary embolism, resolved Now 96% oxygen saturation on room air (4) Thickened endometrium: A/P CT did reveal thickening of the endometrium Given history of breast cancer, recommended gynecology follow-up upon discharge (5) Fall: PT/OT evaluations appreciated Fall precautions Disposition plan is to discharge to rehab. Case management on board (6) Noncompliance with medication regimen: This is most likely related to memory issues, may benefit from neurology follow up at [facility] PT OT recommends rehab airport manager working on it. Plan Full code VTE PPX: Eliquis Total Time Total Time Spent Total Time Spent (In Minutes): 35 Discharge Plan Discharge Items Patient Disposition: Transfer [facility] Reason For Visit: DKA + PE Discharge Diagnosis: Acute bilateral PE (no right ventricular strain) with acute DVT in right popliteal vein and left distal superficial femoral vein DKA Medication noncompliance due to memory issues. May benefit from neurology follow-up upon discharge. Acute hypoxic respiratory failure due to PE Thickened endometrium: Recommend gynecology follow-up upon discharge Generalized weakness Activity: Resume your previous activity Non-emergency contact: Primary Care Provider Call non-emergency contact if: you have any medication questions and your symptoms worsen Follow-up/Referrals: PCP,NO [Primary Care Provider] - Diet: Carb Consistent or DM2 and Heart Healthy Addtl Attending Provider Instructions: Advised to follow-up with PCP in 1 week You may benefit from a neurology outpatient appointment to evaluate your memory issues You were found to have thickened endometrium for which she will need to see gynecology outpatient Pending Studies at Discharge: No Stand-Alone Forms: My [facility] Skilled Items Patient informed of condition?: Yes DNR: No Discharge Level of Care: Skilled Communicable Disease: No Discharge Prognosis: Stable Lines: None Urinary Catheter: No Medications and DC Order Prescriptions: New insulin glargine [Lantus U-100 Insulin] 100 unit/mL Solution 28 unit SC QAM 30 Days Qty: 8.4 0RF Continued letrozole 2.5 mg tablet 2.5 mg PO DAILY Rx Instructions: last picked up 09/05/22 atorvastatin 80 mg tablet 80 mg PO QAM Qty: 90 3RF Rx Instructions: last picked up 04/09/22 aspirin 81 mg Tablet,Delayed Release (Dr/Ec) 81 mg PO DAILY Rx Instructions: OTC unable to verify Eliquis 5 mg tablet 5 mg PO BID Qty: 60 11RF Rx Instructions: Take 2 tablets twice daily till 10/20 p.m., then switch to 1 tablet twice daily Discontinued enalapril maleate 10 mg tablet 10 mg PO QAM Qty: 90 1RF Rx Instructions: last picked up 06/13/22 for blood pressure and to protect kidneys Trulicity 0.75 mg/0.5 mL Pen Injector 0.75 mg SUBCUT WK Rx Instructions: last picked up 09/04/22 Discharge Orders: Discharge Order (Routine); Ordered 02/20/24 Ordered By: Charity Mendoza Admission Data Admit Date/Time: 02/14/24 13:56 Attending Provider: Charity Mendoza Admit Provider: Aryan Orozco Primary Care Provider: PCP,NO Other Providers: [facility]; Aryan Oroczo; Azar Olivas; [place],[facility]
== END 2024-02-20 12:35 | DRG 175 ==
LOC: ED 10:46 → 1E 13:56 → SUATTDRO 13:56 → 1E 14:42 → 3W 02-18 14:08

== ENCOUNTER 2024-12-12 21:47 | Inpatient (IN) ==
--- NOTE | 2024-12-12 22:02 | Emergency Department Note ---
History of Present Illness General Chief complaint: Swelling/Edema to Extremity Stated complaint: Edema in Legs, Weakenss Time Seen by Provider: 12/12/24 21:49 History of Present Illness This 74-year-old female with PMH of HTN, HLD, T2DM, CKD, breast cancer, mediastinal lymphadenopathy, pulmonary embolism with acute cor pulmonale presents to the ER complaining of right greater than left leg swelling with weakness for the past day. No history of heart failure. She has not missed any of her Eliquis. Patient denies chest pain, dyspnea, abdominal pain, vomiting, diarrhea. Home Medications Medication Instructions Recorded Confirmed Type aspirin 81 mg tablet,delayed 81 mg PO DAILY 05/30/22 12/12/24 History release acetaminophen 325 mg tablet 650 mg PO Q6H PRN Fever Or Pain 03/04/24 12/12/24 History (Tylenol) apixaban 5 mg tablet (Eliquis) 5 mg PO BID #60 tabs 03/05/24 12/12/24 Rx blood-glucose,supervisor display fabrication,cont #1 ea 03/05/24 12/12/24 Rx (Dexcom G7 Java Software Developer) atorvastatin 80 mg tablet 80 mg PO QAM #90 tabs 04/15/24 12/12/24 Rx pen needle, diabetic 32 gauge x #100 ea 06/01/24 12/12/24 Rx 1/4" (Comfort EZ [place]) insulin glargine 100 unit/mL (3 50 unit (0.5 mL) subcut QPM 30 10/05/24 12/12/24 Rx mL) subcutaneous pen (Lantus days #15 mL Solostar U-100 Insulin) blood-glucose sensor (Dexcom G7 #3 ea 10/06/24 12/12/24 Rx Sensor device) Allergies Allergy/AdvReac Type Severity Reaction Status Date / Time aloe Allergy Unknown RAISED RASH Verified 08/31/24 13:50 No Known Drug Allergies Allergy Verified 08/31/24 13:50 Past Med/Surg History Problem List (Updated 12/13/24 @ 01:46 by Catia Simms PA-C) Elevated LFTs (Acute) Hypomagnesemia (Acute) Weakness (Acute) DVT (deep venous thrombosis) (Acute) Memory impairment Fall Thickened endometrium Noncompliance with medication regimen (Acute) Hypoxia (Acute) Acute alteration in mental status (Acute) Pulmonary embolism with acute cor pulmonale (Acute) Malignant neoplasm of lower-outer quadrant of left breast of female, estrogen receptor positive (Chronic 08/02/21) 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 Elevated ADILENE level suspicious for pulmonary sarcoidosis. Biopsy could not be completed. DM was grossly uncontrolled so steroids were avoided. Seems she's been relatively asymptomatic since then. Dr. Chowdhury repeated CT scan 2013, which revealed borderline, similiar appearing hilar LNs. Adult situational stress disorder (Chronic) Diabetic nephropathy with proteinuria (Chronic) Solitary thyroid nodule (Chronic) s/p thyroidectomy 2011 Vitamin D deficiency (Chronic) Diabetes mellitus type 2, uncontrolled (Chronic) Hypertension (Chronic) Hyperlipidemia (Chronic) Depression (Chronic) CKD (chronic kidney disease) stage 3, GFR 30-59 ml/min Medical History (Updated 12/13/24 @ 01:46 by Catia Simms PA-C) Demand ischemia Acute respiratory failure with hypoxia High anion gap metabolic acidosis DKA (diabetic ketoacidosis) Encounter for pre-operative examination Breast cancer Dx 2021 surgical intervention planned Conjunctivitis Hypothyroidism Surgical History History of tubal ligation History of cholecystectomy History of section History of thyroidectomy (03/04/12) d/t suspicious nodule. 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 No carcinoma noted. History of colonoscopy Diverticulosis noted. No polyps/neoplasia. No biopsies. F/U 5-10 years recommended. Family History Mother Uterine cancer Leukemia Aunt Breast cancer Pancreatic cancer Father Heart disease Myocardial infarction Unknown Acute myocardial infarction Son Atrial fibrillation Myocardial infarction Denies family history of Ovarian cancer Prostate cancer Colorectal cancer Social History Smoking Status: Never smoker Second Hand Exposure: No; Do You Dip or Chew Tobacco: No; Hx Alcohol Use: Yes Alcohol type: wine and hard liquor Alcohol Intake Frequency: Monthly or Less Hx Substance Use: No Preferred Language: [place] Citizen Communication Ability: Effective Visual Impairment: Limited Hearing Ability: Normal Soccer Coach Required: No Beliefs That Will Affect Care: None marital status: / Current Living Situation: Alone current occupational status: retired How many Children do You have: 2 Feels Safe at Home: Yes Childhood Exposure to Second-Hand Smoke: Yes Diet: regular caffeine: Yes (half caf coffee ) during the past year weight has: remained stable Dental Care, Regularly: No Physical Activity Frequency: Does not Exercise Seatbelt Use: always Sunscreen Use: Yes Assistive Devices: Cane Review of Systems A total of 10 systems reviewed and were otherwise negative Physical Exam Vital Signs Vital Signs - 24 hr 12/12/24 21:49 12/12/24 21:49 12/12/24 22:02 Temperature 36.8 C Temperature Source Oral Oral Pulse Rate 117 H 102 H Pulse Rate [Right Finger] 106 H Pulse Rhythm [Right Finger] Respiratory Rate 16 16 16 Respiratory Effort / Characteristics Non-Labored Respiratory Depth Normal Normal Blood Pressure 141/76 H Blood Pressure [Right Arm] 141/76 H Blood Pressure Mean 97 Blood Pressure Mean [Right Arm] 97 Pulse Oximetry 98 100 Oxygen Delivery Method Room Air Room Air Room Air Sepsis Recent Fever Within 48 Hours No Sepsis New/Unexplained Change in Mental Status No Sepsis Action Taken by Nursing No Action Required 12/12/24 23:38 12/13/24 00:00 Temperature Temperature Source Pulse Rate Pulse Rate [Right Finger] 103 H 94 H Pulse Rhythm [Right Finger] Regular Respiratory Rate 16 16 Respiratory Effort / Characteristics Respiratory Depth Normal Normal Blood Pressure Blood Pressure [Right Arm] 137/72 138/75 Blood Pressure Mean Blood Pressure Mean [Right Arm] 93 96 Pulse Oximetry 96 97 Oxygen Delivery Method Room Air Room Air Sepsis Recent Fever Within 48 Hours Sepsis New/Unexplained Change in Mental Status Sepsis Action Taken by Nursing VITALS: Vitals are noted on the nurse's note and reviewed by myself. Vital signs stable. GENERAL: Pleasant female, in no acute distress, nondiaphoretic, well-developed well-nourished. SKIN: Capillary reflex less than 2 seconds. HEENT: Normocephalic. PERRLA. EOMI. Nares patent. Mucous membranes moist. Neck is supple without nuchal rigidity. HEART: Regular rate and rhythm LUNGS: Clear to auscultation bilaterally without wheezes, rales or rhonchi. No retractions or accessory muscle use. ABDOMEN: Positive bowel sounds x 4. Normal tympanic percussion. Soft, nontender, without masses or organomegaly. Zavala sign negative. No guarding or rebound tenderness. no CVA tenderness MUSCULOSKELETAL: No gross musculoskeletal defects. Right greater than left lower leg edema. Pedal pulses +2 equal and present bilateral NEURO: Patient was alert and oriented to person place and time. No focal neurological deficits. Course Administered Medications Discontinued Medications Magnesium Sulfate/Dextrose (Magnesium Sulfate / D5w) 1 gm in 100 mls @ 200 mls/hr IV Q30M JERI Stop: 12/12/24 23:35 Last Infusion: 12/13/24 01:11 Dose: Infused Documented By: Admin: 12/13/24 00:11 Dose: 200 mls/hr Documented By: Infusion: 12/13/24 00:10 Dose: Infused Documented By: Admin: 12/12/24 23:40 Dose: 200 mls/hr Documented By: MEKHI Ioversol (Optiray 320 125ml) 125 ml IV ONCE ONE Stop: 12/12/24 23:28 Last Admin: 12/12/24 23:27 Dose: 118 ml Documented By: PATRICIA Medical Decision Making Medical Records Attestation: I reviewed the patient's medical records. Home Medications Current Medication List: was personally reviewed by me Laboratory Data Attestation: I reviewed the patient's lab results. 12/12/24 21:58 12/12/24 21:58 Lab Results 12/12/24 Range/Units 21:58 WBC 8.32 (4.8-10.8) K/ul RBC 4.45 (4.20-5.40) M/uL Hgb 13.3 (12.0-16.0) g/dl Hct 39.0 (37.0-47.0) % MCV 87.6 (80.0-100.0) fL MCH 29.9 (25.0-34.0) pg MCHC 34.1 (32.0-36.0) g/dL RDW Std Deviation 41.6 (36.4-46.3) fL RDW Coeff of Millicent 13.0 (11.5-14.5) % Plt Count 298 (130-400) K/uL MPV 10.0 (9.4-12.4) fL Immature Gran % (Auto) 0.2 % Neut % (Auto) 76.9 % Lymph % (Auto) 12.4 % Avery % (Auto) 9.5 % Eos % (Auto) 0.8 % Baso % (Auto) 0.2 % Neut # (Auto) 6.39 (1.40-6.50) K/uL Lymph # (Auto) 1.03 L (1.20-3.40) K/uL Avery # (Auto) 0.79 H (0.11-0.59) K/uL Eos # (Auto) 0.07 (0.00-0.50) K/uL Baso # (Auto) 0.02 (0.00-0.20) K/uL Immature Gran # (Auto) 0.02 (0.01-0.20) K/uL Sodium 137 (136-145) mmol/L Potassium 3.5 (3.5-5.1) mmol/L Chloride 101 (98-107) mmol/L Carbon Dioxide 26 (21-32) mmol/L Anion Gap 10 (3-11) BUN 20 (6-23) mg/dl Creatinine 0.87 (0.6-1.2) mg/dl Est Cr Clr Drug Dosing 52.8 ml/min eGFR 69.44 BUN/Creatinine Ratio 23.0 H (10-20) Glucose 134 H (70-99(Fasting)) mg/dl Calcium 8.9 (8.6-10.3) mg/dl Magnesium 1.6 L (1.7-2.4) mg/dl Total Bilirubin 0.8 (0.2-1.0) mg/dl AST 62 H (13-39) U/L ALT 53 H (7-52) U/L Alkaline Phosphatase 107 H (34-104) U/L Troponin I High Sens 12.1 (0-14) pg/ml Total Protein 6.4 (6.0-8.3) gm/dl Albumin 3.4 (3.4-5.0) gm/dl Globulin 3.0 (2.5-4.0) gm/dl Albumin/Globulin Ratio 1.1 (0.9-2) TSH 1.611 (0.300-4.500) uIu/ml Imaging Data Attestation: I personally reviewed and interpreted this imaging study as follows: Radiologist's Impression: Venous Doppler Study 12/12/24 21:58 EXAM: US venous doppler LE CLINICAL HISTORY: Swelling, DVT. TECHNIQUE: Ultrasound examination of bilateral lower extremity veins was performed in real time and duplex. One or more of the following were performed- spectral analysis, resistive index, waveform analysis, and pulsed Doppler. COMPARISON: None. FINDINGS: The left distal femoral vein and left popliteal vein appear partially compressible on provided images however demonstrate presence of flow within it. Findings suggest nonocclusive thrombosis versus chronic thrombosis with recanalization. Normal phasic, non-pulsatile and spontaneous flow is noted in bilateral common femoral, superficial femoral (except distal left FV) and right popliteal veins. Visualized veins of both lower extremities demonstrate normal compressibility. No sonographic evidence of acute deep vein thrombosis (DVT) is detected in the visualized veins of both lower extremities. Atherosclerotic calcification is noted in bilateral posterior tibial and peroneal veins showing broken flow. Possibility of thrombosis cannot be excluded. Additional Findings: No evidence of intraluminal thrombus. IMPRESSION: 1. The left distal femoral vein and left popliteal vein appear partially compressible on provided images however demonstrate presence of flow within it. Findings suggest nonocclusive thrombosis versus chronic thrombosis with recanalization. 2. Atherosclerotic calcification is noted in bilateral posterior tibial and peroneal veins showing broken flow. Possibility of thrombosis cannot be excluded. 3. No sonographic evidence of acute DVT and the rest of the visualized veins of bilateral lower extremity. 4. Clinical correlation and follow-up is recommended. Disclaimer: DVT could be missed early in the disease when clot burden is minimal. For patients with moderate and high pretest probability of DVT and negative ultrasound, the [employer] clinical guidelines recommend testing with a D-dimer assay or repeat ultrasound in 5-7 days. If symptoms worsen, the Society of radiologists in ultrasound recommends repeating ultrasound even earlier. Electronically signed by Vasquez Alexander 12-13-2024 12:30 AM Chest X-Ray 12/12/24 21:59 Single frontal view of the chest No comparison Impression No acute pulmonary pathology. Electronically signed by Dewey Mendoza 12-12-2024 11:19 PM Abdomen/Pelvis CT 12/12/24 22:36 EXAM: CT abd pelvis IV con only CLINICAL HISTORY: B leg swelling, hx Breast CA,? mass TECHNIQUE: CT of the abdomen and pelvis was performed with and without contrast, with the following protocol: axial images with, and reconstructed coronal and sagittal images. One of the following dose reduction techniques was utilized for this exam: Automated exposure control, adjustment of the mA and/or kV according to patient size, and use of iterative reconstruction. COMPARISON: None. FINDINGS: Abdomen: Liver: Normal in size, shape, and density. No focal lesions, cysts, or masses were identified. Hepatic vasculature and biliary ducts are unremarkable. Gallbladder and Biliary System: Evidence of cholecystectomy. The common bile duct is normal in caliber without dilation. Pancreas: Pancreatic head, body, and tail are visualized and appear normal in size and density. No pancreatic masses or calcifications were noted. The pancreatic duct is not dilated. Spleen: Normal in size, shape, and density. No splenic lesions or masses were identified. Appendix: The appendix is normal in size without hao appendiceal fat stranding, and without an appendicolith. No evidence of appendiceal abscess or perforation. Kidneys and Adrenal Glands: Both kidneys are normal in size, shape, and position. A few tiny cortical cysts in both kidneys. Left renal parapelvic cysts. Mild prominence of both ureters without any calculus in the course. Cortical thickness is within normal limits. No renal calculi or hydronephrosis. Adrenal glands are unremarkable with no evidence of masses or hyperplasia. Pelvis: Urinary Bladder: Normal in contour and wall thickness. No intraluminal lesions identified. Uterus: Normal in size and contour. No masses or abnormal thickening. Ovaries: A well-defined cystic structure is identified in the right ovary measuring 39 x 27 mm. Vagina: Normal in contour and wall thickness. Cervix: No evidence of mass or abnormal thickening. Peritoneal and Retroperitoneal Structures: No free fluid or abnormal fluid collections were identified within the abdomen or pelvis. Multiple subcentimeter-sized yet prominent lymph nodes are seen along the celiac axis and in the mesentery. Atherosclerotic calcification is identified in the abdominal aorta and its branches. Small pelvic phleboliths. Bowel: Mild thickening of the fundal region of the stomach, likely due to inadequate distention. Fecal loading is identified in the colon. A few small colonic diverticula without diverticulitis. The visualized bowel loops are normal in caliber and appearance. No evidence of bowel obstruction or wall thickening. Bones and Soft Tissues: Pelvic bones and soft tissues are unremarkable. No fractures or abnormal masses were identified. Degenerative changes are seen in the visualized spine with grade 1 spondylolisthesis at L4-5, multilevel disc bulges, and reduced disc space at L5-S1. Mild fibro-atelectatic changes are seen in both lower lobes. Linear soft tissue thickening in the inner part of the left breast. IMPRESSION: A few tiny cortical cysts in both kidneys. Left renal parapelvic cysts. Mild prominence of both ureters without any calculus in the course. This could be due to an overdistended urinary bladder. However, needs clinical and lab correlation to rule out mild inflammation/infection. A well-defined cystic structure in the right ovary measuring 39 x 27 mm. No solid component is seen. Ultrasound correlation is advised. Multiple subcentimeter-sized yet prominent lymph nodes along the celiac axis and in the mesentery. Mild thickening of the fundal region of the stomach, likely due to inadequate distention. Needs clinical correlation. Electronically signed by Vasquez Alexander 12-13-2024 01:16 AM Chest CTA 12/12/24 22:36 EXAM: CT angio chest PE protocol CLINICAL HISTORY: PE TECHNIQUE: Contiguous axial images were obtained from the neck base through the upper abdomen following intravenous administration of iodinated contrast material. Angiographic images were processed, 3D MIP images were acquired for interpretation. If IV contrast material had not been administered, the likelihood of detecting abnormalities relevant to the patient's condition would have been substantially decreased. Coronal and sagittal 3-D MIPs were likewise performed and indicated to increase the sensitivity of detectin diffuse clinically relevant pathology. CT scan was performed according to ALARA (as low as reasonable achievable). COMPARISON: None. FINDINGS: Few atelectatic bands are noted involving bilateral lung bases. Adequate contrast bolus without evidence of pulmonary embolism. The central airways are patent. The lungs are clear. No pleural effusion. The heart, aorta, and pulmonary arteries are of normal size and configuration. There are no appreciable coronary artery and aortic atherosclerotic calcifications. No pericardial effusion is identified. The thyroid is unremarkable. No mediastinal, hilar, or axillary lymphadenopathy is noted. No suspicious lytic or sclerotic osseous lesions are identified. IMPRESSION: No evidence of pulmonary embolism or pulmonary disease. Few atelectatic bands are noted involving bilateral lung bases.- likely post inflammatory changes Electronically signed by Kavon Hernandez 12-13-2024 12:54 AM MDM Narrative Prior records reviewed and summarized above. Triage Nursing notes reviewed. Additional history obtained from EMS The patient's history was concerning for swelling and pain in the leg. Differential diagnosis: Etiologies such as DVT, musculoskeletal, infection, joint effusion, trauma, lymphedema, idiopathic, CHF, as well as others were entertained.. Physical examination: The physical examination revealed no signs of infection. Neurovascularly intact. ER treatment provided: An order was placed for continuous cardiac monitoring. The monitor shows a rate of 60-100 with a sinus rhythm per my interpretation. Patient was observed Magnesium was replaced Heparin for DVT On reassessment the patient felt better. Diagnostics interpreted by me: EKG ordered for weakness EKG: Poor baseline, left anterior fascicular block, no acute ST-T changes, rate of 108. Impression sinus tachycardia with a left anterior fascicular block independently interpreted by myself The labs Independently Interpreted by myself revealed no worrisome leukocytosis, elevated LFTs Low magnesium this was replaced Imaging studies: Imaging was reviewed and read by radiology Consultation: A consultation was placed with the hospitalist. The case was discussed and diagnostics were reviewed. The patient was evaluated in the ER for further treatment. This appears to be consistent with possible acute DVT despite being on Eliquis. Medicine was consulted case discussed. She will will be evaluated for admission. Patient is agreeable. By the evaluation outlined above emergent etiologies such as septic joint, trauma, CHF, as well as others were deemed relatively unlikely. The pt informed about the findings as listed above. All questions were answered and pleased with the treatment. The chart was completed utilizing [employer] Speech voice recognition software. Grammatical errors, random word insertions, pronoun errors, and incomplete sentences are an occassional consequence of this system due to software limitations, ambient noise, and hardware issues. Any formal questions or concerns about the content, text, or information contained within the body of this dictation should be directly addressed to the physician assistant quality manager for clarification. Impression & Plan DVT (deep venous thrombosis), Weakness, Hypomagnesemia, Elevated LFTs Discharge Plan Visit Data Chief Complaint: Swelling/Edema to Extremity Stated Complaint: Edema in Legs, Weakenss ED Provider: Vesta Delgadillo ED Midlevel Provider: Catia Simms Discharge Problem: DVT (deep venous thrombosis), Weakness, Hypomagnesemia, Elevated LFTs Patient Disposition: Admitted As Inpatient Condition: Good Forms Stand Alone Forms: My [facility] Prescriptions Prescriptions: No Action atorvastatin 80 mg tablet 80 mg PO QAM Qty: 90 3RF insulin glargine [Lantus Solostar U-100 Insulin] 100 unit/mL (3 mL) insulin pen 50 unit subcut QPM 30 Days Qty: 15 5RF (DME) Dexcom G7 Sensor Device See Rx Instructions .Route Qty: 3 5RF Rx Instructions: As directed, 1 month supply. Change every 10 days. acetaminophen [Tylenol] 325 mg tablet 650 mg PO Q6H PRN (Reason: Fever Or Pain) Eliquis 5 mg tablet 5 mg PO BID Qty: 60 11RF (DME) Dexcom G7 Java Software Developer Misc See Rx Instructions .Route Qty: 1 0RF Rx Instructions: As directed ([facility] pen needle, diabetic [Comfort EZ [place]] 32 gauge x 1/4" needle See Rx Instructions .Route Qty: 100 3RF Rx Instructions: once per day aspirin 81 mg Tablet,Delayed Release (Dr/Ec) 81 mg PO DAILY Referrals Referrals: Jem Farrell DO [Primary Care Provider] - Discharge Problem: DVT (deep venous thrombosis) Qualifiers: DVT location: lower extremity Affected thrombotic vein of extremity: femoral C hronicity: unspecified Laterality: left Qualified Code(s): I82.412 - Acute embolism and thrombosis of left femoral vein
[2024-12-12 22:12] LABS: Hematocrit (blood only) 39.0 % (37.0-47.0); Hemoglobin 13.3 g/dl (12.0-16.0); Immature Granulocytes # (auto) 0.02 K/uL (0.01-0.20); Immature Granulocytes % (auto) 0.2 %; Mean Corpuscular Hemoglobin 29.9 pg (25.0-34.0); Mean Corpuscular Volume 87.6 fL (80.0-100.0); Platelet Count 298 K/uL (130-400); RDW Standard Deviation 41.6 fL (36.4-46.3); Red Blood Count 4.45 M/uL (4.20-5.40); White Blood Count 8.32 K/ul (4.8-10.8)
[2024-12-12 22:32] LABS: Alanine Aminotransferase 53.0 U/L (7-52); Albumin Globulin Ratio 1.1 (0.9-2); Alkaline Phosphatase 107.0 U/L (34-104); Anion Gap 10.0 (3-11); Bilirubin,Total 0.8 mg/dl (0.2-1.0); Blood Urea Nitrogen 20.0 mg/dl (6-23); Calcium 8.9 mg/dl (8.6-10.3); Carbon Dioxide 26.0 mmol/L (21-32); Chloride 101.0 mmol/L (98-107); Creatinine Clr Calc Pharmacy 52.8 ml/min; Globulin 3.0 gm/dl (2.5-4.0); Glucose 134.0 mg/dl (70-99(Fasting)); Magnesium 1.6 mg/dl (1.7-2.4); Potassium 3.5 mmol/L (3.5-5.1); Sodium 137.0 mmol/L (136-145); Total Protein 6.4 gm/dl (6.0-8.3)
[2024-12-12 22:47] LABS: Thyroid Stimulating Hormone 1.611 uIu/ml (0.300-4.500)
--- NOTE | 2024-12-12 23:19 | XRay Report ---
Single frontal view of the chest No comparison Impression No acute pulmonary pathology. Electronically signed by Dewey Mendoza 12-12-2024 11:19 PM
[2024-12-12] MEDS: OPTIRAY 320 125ml IV ONE (23:27)
[2024-12-12] MEDS: MAGNESIUM SULFATE / D5W 1 GM/100 ML BAG IV SCH (23:40)
--- NOTE | 2024-12-13 00:30 | Ultrasound Report ---
EXAM: US venous doppler LE BI CLINICAL HISTORY: Swelling, DVT. TECHNIQUE: Ultrasound examination of bilateral lower extremity veins was performed in real time and duplex. One or more of the following were performed- spectral analysis, resistive index, waveform analysis, and pulsed Doppler. COMPARISON: None. FINDINGS: The left distal femoral vein and left popliteal vein appear partially compressible on provided images however demonstrate presence of flow within it. Findings suggest nonocclusive thrombosis versus chronic thrombosis with recanalization. Normal phasic, non-pulsatile and spontaneous flow is noted in bilateral common femoral, superficial femoral (except distal left FV) and right popliteal veins. Visualized veins of both lower extremities demonstrate normal compressibility. No sonographic evidence of acute deep vein thrombosis (DVT) is detected in the visualized veins of both lower extremities. Atherosclerotic calcification is noted in bilateral posterior tibial and peroneal veins showing broken flow. Possibility of thrombosis cannot be excluded. Additional Findings: No evidence of intraluminal thrombus. IMPRESSION: 1. The left distal femoral vein and left popliteal vein appear partially compressible on provided images however demonstrate presence of flow within it. Findings suggest nonocclusive thrombosis versus chronic thrombosis with recanalization. 2. Atherosclerotic calcification is noted in bilateral posterior tibial and peroneal veins showing broken flow. Possibility of thrombosis cannot be excluded. 3. No sonographic evidence of acute DVT and the rest of the visualized veins of bilateral lower extremity. 4. Clinical correlation and follow-up is recommended. Disclaimer: DVT could be missed early in the disease when clot burden is minimal. For patients with moderate and high pretest probability of DVT and negative ultrasound, the [employer] clinical guidelines recommend testing with a D-dimer assay or repeat ultrasound in 5-7 days. If symptoms worsen, the Society of radiologists in ultrasound recommends repeating ultrasound even earlier. Electronically signed by Vasquez Alexander 12-13-2024 12:30 AM
--- NOTE | 2024-12-13 00:55 | CT Scan Report ---
EXAM: CT angio chest PE protocol CLINICAL HISTORY: PE TECHNIQUE: Contiguous axial images were obtained from the neck base through the upper abdomen following intravenous administration of iodinated contrast material. Angiographic images were processed, 3D MIP images were acquired for interpretation. If IV contrast material had not been administered, the likelihood of detecting abnormalities relevant to the patient's condition would have been substantially decreased. Coronal and sagittal 3-D MIPs were likewise performed and indicated to increase the sensitivity of detectin diffuse clinically relevant pathology. CT scan was performed according to ALARA (as low as reasonable achievable). COMPARISON: None. FINDINGS: Few atelectatic bands are noted involving bilateral lung bases. Adequate contrast bolus without evidence of pulmonary embolism. The central airways are patent. The lungs are clear. No pleural effusion. The heart, aorta, and pulmonary arteries are of normal size and configuration. There are no appreciable coronary artery and aortic atherosclerotic calcifications. No pericardial effusion is identified. The thyroid is unremarkable. No mediastinal, hilar, or axillary lymphadenopathy is noted. No suspicious lytic or sclerotic osseous lesions are identified. IMPRESSION: No evidence of pulmonary embolism or pulmonary disease. Few atelectatic bands are noted involving bilateral lung bases.- likely post inflammatory changes Electronically signed by Kavon Hernandez 12-13-2024 12:54 AM
--- NOTE | 2024-12-13 01:17 | CT Scan Report ---
EXAM: CT abd pelvis IV con only CLINICAL HISTORY: B leg swelling, hx Breast CA,? mass TECHNIQUE: CT of the abdomen and pelvis was performed with and without contrast, with the following protocol: axial images with, and reconstructed coronal and sagittal images. One of the following dose reduction techniques was utilized for this exam: Automated exposure control, adjustment of the mA and/or kV according to patient size, and use of iterative reconstruction. COMPARISON: None. FINDINGS: Abdomen: Liver: Normal in size, shape, and density. No focal lesions, cysts, or masses were identified. Hepatic vasculature and biliary ducts are unremarkable. Gallbladder and Biliary System: Evidence of cholecystectomy. The common bile duct is normal in caliber without dilation. Pancreas: Pancreatic head, body, and tail are visualized and appear normal in size and density. No pancreatic masses or calcifications were noted. The pancreatic duct is not dilated. Spleen: Normal in size, shape, and density. No splenic lesions or masses were identified. Appendix: The appendix is normal in size without hao appendiceal fat stranding, and without an appendicolith. No evidence of appendiceal abscess or perforation. Kidneys and Adrenal Glands: Both kidneys are normal in size, shape, and position. A few tiny cortical cysts in both kidneys. Left renal parapelvic cysts. Mild prominence of both ureters without any calculus in the course. Cortical thickness is within normal limits. No renal calculi or hydronephrosis. Adrenal glands are unremarkable with no evidence of masses or hyperplasia. Pelvis: Urinary Bladder: Normal in contour and wall thickness. No intraluminal lesions identified. Uterus: Normal in size and contour. No masses or abnormal thickening. Ovaries: A well-defined cystic structure is identified in the right ovary measuring 39 x 27 mm. Vagina: Normal in contour and wall thickness. Cervix: No evidence of mass or abnormal thickening. Peritoneal and Retroperitoneal Structures: No free fluid or abnormal fluid collections were identified within the abdomen or pelvis. Multiple subcentimeter-sized yet prominent lymph nodes are seen along the celiac axis and in the mesentery. Atherosclerotic calcification is identified in the abdominal aorta and its branches. Small pelvic phleboliths. Bowel: Mild thickening of the fundal region of the stomach, likely due to inadequate distention. Fecal loading is identified in the colon. A few small colonic diverticula without diverticulitis. The visualized bowel loops are normal in caliber and appearance. No evidence of bowel obstruction or wall thickening. Bones and Soft Tissues: Pelvic bones and soft tissues are unremarkable. No fractures or abnormal masses were identified. Degenerative changes are seen in the visualized spine with grade 1 spondylolisthesis at L4-5, multilevel disc bulges, and reduced disc space at L5-S1. Mild fibro-atelectatic changes are seen in both lower lobes. Linear soft tissue thickening in the inner part of the left breast. IMPRESSION: A few tiny cortical cysts in both kidneys. Left renal parapelvic cysts. Mild prominence of both ureters without any calculus in the course. This could be due to an overdistended urinary bladder. However, needs clinical and lab correlation to rule out mild inflammation/infection. A well-defined cystic structure in the right ovary measuring 39 x 27 mm. No solid component is seen. Ultrasound correlation is advised. Multiple subcentimeter-sized yet prominent lymph nodes along the celiac axis and in the mesentery. Mild thickening of the fundal region of the stomach, likely due to inadequate distention. Needs clinical correlation. Electronically signed by Vasquez Alexander 12-13-2024 01:16 AM
[2024-12-13] MEDS ORDERED: Heparin IV Adult Wt-Based Standard *NO* INITIAL Bolus Protocol IV STA (01:39)
--- NOTE | 2024-12-13 01:45 | Emergency Department Note ---
ED Visit Note I was consulted by the Advanced Practice Provider. I personally made/approved the management plan and take responsibility for the patient management.This includes the aspects of: -History/Physical -MDM -I independently interpreted the following studies: Positive US study .
--- NOTE | 2024-12-13 02:15 | History & Physical Report ---
Date of Service December 13, 2024 Assessment & Plan (1) DVT (deep venous thrombosis): (2) Hypomagnesemia: (3) Ovarian cyst, right: (4) Hypertension: (5) Diabetes mellitus: Plan The patient is a 74-year-old female with past medical history including DVT, memory impairment, pulmonary embolism with acute cor pulmonale, malignant neoplasm of left breast, mediastinal lymphadenopathy, adult situational stress disorder, diabetic nephropathy with proteinuria, hypertension, hyperlipidemia, depression, and CKD stage III. She presents to the emergency department with 4 days of worsening swelling of right greater than left lower extremities. She has been taking Eliquis as directed. She is referred for admission due to concerns regarding failure of Eliquis, with venous Doppler showing left distal femoral vein and left popliteal vein nonocclusive thrombosis versus chronic thrombosis with recannulization. Left distal femoral vein and left popliteal vein nonocclusive thrombus versus chronic thrombus with recannulization- Patient symptomatically with worsening swelling and edema, right greater than left. Stop apixaban Placed on heparin drip per protocol Consult hematology oncology for their recommendations long-term Right ovarian cyst- As noted on CT scan Recommendation for ultrasound of pelvis for further evaluation, which is ordered. Hypomagnesemia- Magnesium 1.6 on admission To receive 2 g magnesium sulfate IV in the ED Recheck laboratories in the a.m. Diabetes mellitus- Change glargine from 50 to 30 units subcu daily Based on sliding scale insulin Hold Dexcom while inpatient Check hemoglobin A1c History of Present Illness Chief Complaint: The patient presents to the emergency department with complaint of right greater than left leg swelling and pain along with generalized weakness for the past 4 days. She reports that she has been taking Eliquis twice daily as directed. She denies recent travel or recent trauma. Primary Care Provider: Jem Farrell DO The patient is a 74-year-old female with past medical history including DVT, memory impairment, pulmonary embolism with acute cor pulmonale, malignant neoplasm of left breast, mediastinal lymphadenopathy, adult situational stress disorder, diabetic nephropathy with proteinuria, hypertension, hyperlipidemia, depression, and CKD stage III. She presents to the emergency department with 4 days of worsening swelling of right greater than left lower extremities. She has been taking Eliquis as directed. She is referred for admission due to concerns regarding failure of Eliquis, with venous Doppler showing left distal femoral vein and left popliteal vein nonocclusive thrombosis versus chronic thrombosis with recannulization. Allergies Allergy/AdvReac Type Severity Reaction Status Date / Time aloe Allergy Unknown RAISED RASH Verified 08/31/24 13:50 No Known Drug Allergies Allergy Verified 08/31/24 13:50 Home Medications Medication Instructions Recorded Confirmed Type aspirin 81 mg tablet,delayed 81 mg PO DAILY 05/30/22 12/12/24 History release acetaminophen 325 mg tablet 650 mg PO Q6H PRN Fever Or Pain 03/04/24 12/12/24 History (Tylenol) apixaban 5 mg tablet (Eliquis) 5 mg PO BID #60 tabs 03/05/24 12/12/24 Rx blood-glucose,pecan grower,cont #1 ea 03/05/24 12/12/24 Rx (Dexcom G7 Dance Teacher) atorvastatin 80 mg tablet 80 mg PO QAM #90 tabs 04/15/24 12/12/24 Rx pen needle, diabetic 32 gauge x #100 ea 06/01/24 12/12/24 Rx 1/4" (Comfort EZ Pen [place]) insulin glargine 100 unit/mL (3 50 unit (0.5 mL) subcut QPM 30 10/05/24 12/12/24 Rx mL) subcutaneous pen (Lantus days #15 mL Solostar U-100 Insulin) blood-glucose sensor (Dexcom G7 #3 ea 10/06/24 12/12/24 Rx Sensor device) Past Med/Surg History Problem List (Updated 12/13/24 @ 02:48 by Noel Cardoso MD) Diabetes mellitus Ovarian cyst, right Elevated LFTs (Acute) Hypomagnesemia (Acute) Weakness (Acute) DVT (deep venous thrombosis) (Acute) Memory impairment Fall Thickened endometrium Noncompliance with medication regimen (Acute) Hypoxia (Acute) Acute alteration in mental status (Acute) Pulmonary embolism with acute cor pulmonale (Acute) Malignant neoplasm of lower-outer quadrant of left breast of female, estrogen receptor positive (Chronic 08/02/21) 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 Elevated ADILENE level suspicious for pulmonary sarcoidosis. Biopsy could not be completed. DM was grossly uncontrolled so steroids were avoided. Seems she's been relatively asymptomatic since then. Dr. Chowdhury repeated CT scan 2013, which revealed borderline, similiar appearing hilar LNs. Adult situational stress disorder (Chronic) Diabetic nephropathy with proteinuria (Chronic) Solitary thyroid nodule (Chronic) s/p thyroidectomy 2011 Vitamin D deficiency (Chronic) Diabetes mellitus type 2, uncontrolled (Chronic) Hypertension (Chronic) Hyperlipidemia (Chronic) Depression (Chronic) CKD (chronic kidney disease) stage 3, GFR 30-59 ml/min Medical History (Updated 12/13/24 @ 02:48 by Noel Cardoso MD) Demand ischemia Acute respiratory failure with hypoxia High anion gap metabolic acidosis DKA (diabetic ketoacidosis) Encounter for pre-operative examination Breast cancer Dx 2021 surgical intervention planned Conjunctivitis Hypothyroidism Surgical History History of tubal ligation History of cholecystectomy History of section History of thyroidectomy (03/04/12) d/t suspicious nodule. 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 No carcinoma noted. History of colonoscopy Diverticulosis noted. No polyps/neoplasia. No biopsies. F/U 5-10 years recommended. Family History Mother Uterine cancer Leukemia Aunt Breast cancer Pancreatic cancer Father Heart disease Myocardial infarction Unknown Acute myocardial infarction Son Atrial fibrillation Myocardial infarction Denies family history of Ovarian cancer Prostate cancer Colorectal cancer Social History Smoking Status: Never smoker Second Hand Exposure: No; Do You Dip or Chew Tobacco: No; Hx Alcohol Use: Yes Alcohol type: wine and hard liquor Alcohol Intake Frequency: Monthly or Less Hx Substance Use: No Preferred Language: Indonesian Communication Ability: Effective Visual Impairment: Limited Hearing Ability: Normal 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 Beliefs That Will Affect Care: None marital status: / Current Living Situation: Alone current occupational status: retired How many Children do You have: 2 Feels Safe at Home: Yes Childhood Exposure to Second-Hand Smoke: Yes Diet: regular caffeine: Yes (half caf coffee ) during the past year weight has: remained stable Dental Care, Regularly: No Physical Activity Frequency: Does not Exercise Seatbelt Use: always Sunscreen Use: Yes Assistive Devices: Cane Review of Systems Review of Systems: The patient denies chest pain, palpitations, cough, sore throat, fevers, chills, sweats, nausea, vomiting, diarrhea , constipation, abdominal pain, pelvic pain, blood in urine or stool, dysuria, urinary frequency or urgency, lightheadedness, dizziness, headache, memory loss, loss of consciousness, rash, abnormal bruising or bleeding, imbalance, focal weakness, numbness or tingling in arms or legs, generalized arthralgias or myalgias, back or neck pain, or night sweats. The review of systems is otherwise negative other than for that already noted above, and at least 10 systems have been reviewed. Physical Exam Physical Exam: The patient is awake, alert and oriented 3, well developed and well nourished, normocephalic and atraumatic, lying in bed and in no acute distress. HEENT--PERRL, EOMI, mucous membranes and oropharynx normal Neck--supple. No JVD. No bruits. Thyroid normal, trachea midline, no adenopathy. Heart--normal S1 and S2. No murmurs, rubs or gallops. Lungs--clear bilaterally, no respiratory distress, no accessory muscle use. Abdomen--normal bowel sounds and soft. Nontender. Nondistended, no hernias or masses, no organomegaly. Extremities--1+ right lower extremity pretibial pitting edema. Trace left lower extremity pretibial pitting edema Dermatologic--normal skin turgor, normal color, no abnormal lymph nodes, no rash. Neurologic--cranial nerves II through XII grossly intact. Rheumatologic--normal range of motion. Psychiatric--normal affect. Results & Data Results & Data Vital Signs (Past 12 Hours) Vital Signs Temp Pulse Pulse Resp BP BP Pulse Ox 12/13/24 02:00 90 16 133/63 99 12/13/24 00:00 94 H 16 138/75 97 12/12/24 23:38 103 H 16 137/72 96 12/12/24 22:02 102 H 16 100 12/12/24 21:49 36.8 C 106 H 16 141/76 H 12/12/24 21:49 117 H 16 141/76 H 98 O2 Del Method 12/13/24 02:00 Room Air 12/13/24 00:00 Room Air 12/12/24 23:38 Room Air 12/12/24 22:02 Room Air 12/12/24 21:49 Room Air 12/12/24 21:49 Room Air Laboratory Results Laboratory Results WBC 8.32 K/ul (4.8-10.8) 12/12/24 21:58 RBC 4.45 M/uL (4.20-5.40) 12/12/24 21:58 Hgb 13.3 g/dl (12.0-16.0) 12/12/24 21:58 Hct 39.0 % (37.0-47.0) 12/12/24 21:58 MCV 87.6 fL (80.0-100.0) 12/12/24 21:58 MCH 29.9 pg (25.0-34.0) 12/12/24 21: MCHC 34.1 g/dL (32.0-36.0) 12/12/24 21:58 RDW Std Deviation 41.6 fL (36.4-46.3) 12/12/24 21:58 RDW Coeff of Millicent 13.0 % (11.5-14.5) 12/12/24 21:58 Plt Count 298 K/uL (130-400) 12/12/24 21:58 MPV 10.0 fL (9.4-12.4) 12/12/24 21:58 Immature Gran % (Auto) 0.2 % 12/12/24 21:58 Neut % (Auto) 76.9 % 12/12/24 21:58 Lymph % (Auto) 12.4 % 12/12/24 21:58 Sumner % (Auto) 9.5 % 12/12/24 21:58 Eos % (Auto) 0.8 % 12/12/24 21:58 Baso % (Auto) 0.2 % 12/12/24 21:58 Neut # (Auto) 6.39 K/uL (1.40-6.50) 12/12/24 21:58 Lymph # (Auto) 1.03 K/uL (1.20-3.40) L 12/12/24 21:58 Sumner # (Auto) 0.79 K/uL (0.11-0.59) H 12/12/24 21:58 Eos # (Auto) 0.07 K/uL (0.00-0.50) 12/12/24 21:58 Baso # (Auto) 0.02 K/uL (0.00-0.20) 12/12/24 21:58 Immature Gran # (Auto) 0.02 K/uL (0.01-0.20) 12/12/24 21:58 Sodium 137 mmol/L (136-145) 12/12/24 21:58 Potassium 3.5 mmol/L (3.5-5.1) 12/12/24 21:58 Chloride 101 mmol/L (98-107) 12/12/24 21:58 Carbon Dioxide 26 mmol/L (21-32) 12/12/24 21:58 Anion Gap 10 (3-11) 12/12/24 21:58 BUN 20 mg/dl (6-23) 12/12/24 21:58 Creatinine 0.87 mg/dl (0.6-1.2) 12/12/24 21:58 Est Cr Clr Drug Dosing 52.8 ml/min 12/12/24 21:58 eGFR 69.44 12/12/24 21:58 BUN/Creatinine Ratio 23.0 (10-20) H 12/12/24 21:58 Glucose 134 mg/dl (70-99(Fasting)) H 12/12/24 21:58 Calcium 8.9 mg/dl (8.6-10.3) 12/12/24 21:58 Magnesium 1.6 mg/dl (1.7-2.4) L 12/12/24 21:58 Total Bilirubin 0.8 mg/dl (0.2-1.0) 12/12/24 21:58 AST 62 U/L (13-39) H 12/12/24 21:58 ALT 53 U/L (7-52) H 12/12/24 21:58 Alkaline Phosphatase 107 U/L (34-104) H 12/12/24 21:58 Troponin I High Sens 12.1 pg/ml (0-14) 12/12/24 21:58 Total Protein 6.4 gm/dl (6.0-8.3) 12/12/24 21:58 Albumin 3.4 gm/dl (3.4-5.0) 12/12/24 21:58 Globulin 3.0 gm/dl (2.5-4.0) 12/12/24 21:58 Albumin/Globulin Ratio 1.1 (0.9-2) 12/12/24 21:58 TSH 1.611 uIu/ml (0.300-4.500) 12/12/24 21:58 Impressions Venous Doppler Study 12/12/24 21:58 EXAM: US venous doppler LE BI CLINICAL HISTORY: Swelling, DVT. TECHNIQUE: Ultrasound examination of bilateral lower extremity veins was performed in real time and duplex. One or more of the following were performed- spectral analysis, resistive index, waveform analysis, and pulsed Doppler. COMPARISON: None. FINDINGS: The left distal femoral vein and left popliteal vein appear partially compressible on provided images however demonstrate presence of flow within it. Findings suggest nonocclusive thrombosis versus chronic thrombosis with recanalization. Normal phasic, non-pulsatile and spontaneous flow is noted in bilateral common femoral, superficial femoral (except distal left FV) and right popliteal veins. Visualized veins of both lower extremities demonstrate normal compressibility. No sonographic evidence of acute deep vein thrombosis (DVT) is detected in the visualized veins of both lower extremities. Atherosclerotic calcification is noted in bilateral posterior tibial and peroneal veins showing broken flow. Possibility of thrombosis cannot be excluded. Additional Findings: No evidence of intraluminal thrombus. IMPRESSION: 1. The left distal femoral vein and left popliteal vein appear partially compressible on provided images however demonstrate presence of flow within it. Findings suggest nonocclusive thrombosis versus chronic thrombosis with recanalization. 2. Atherosclerotic calcification is noted in bilateral posterior tibial and peroneal veins showing broken flow. Possibility of thrombosis cannot be excluded. 3. No sonographic evidence of acute DVT and the rest of the visualized veins of bilateral lower extremity. 4. Clinical correlation and follow-up is recommended. Disclaimer: DVT could be missed early in the disease when clot burden is minimal. For patients with moderate and high pretest probability of DVT and negative ultrasound, the [place] [employer] clinical guidelines recommend testing with a D-dimer assay or repeat ultrasound in 5-7 days. If symptoms worsen, the Society of radiologists in ultrasound recommends repeating ultrasound even earlier. Electronically signed by Vasquez Alexander 12-13-2024 12:30 AM Chest X-Ray 12/12/24 21:59 Single frontal view of the chest No comparison Impression No acute pulmonary pathology. Electronically signed by Dewey Mendoza 12-12-2024 11:19 PM Abdomen/Pelvis CT 12/12/24 22:36 EXAM: CT abd pelvis IV con only CLINICAL HISTORY: B leg swelling, hx Breast CA,? mass TECHNIQUE: CT of the abdomen and pelvis was performed with and without contrast, with the following protocol: axial images with, and reconstructed coronal and sagittal images. One of the following dose reduction techniques was utilized for this exam: Automated exposure control, adjustment of the mA and/or kV according to patient size, and use of iterative reconstruction. COMPARISON: None. FINDINGS: Abdomen: Liver: Normal in size, shape, and density. No focal lesions, cysts, or masses were identified. Hepatic vasculature and biliary ducts are unremarkable. Gallbladder and Biliary System: Evidence of cholecystectomy. The common bile duct is normal in caliber without dilation. Pancreas: Pancreatic head, body, and tail are visualized and appear normal in size and density. No pancreatic masses or calcifications were noted. The pancreatic duct is not dilated. Spleen: Normal in size, shape, and density. No splenic lesions or masses were identified. Appendix: The appendix is normal in size without hao appendiceal fat stranding, and without an appendicolith. No evidence of appendiceal abscess or perforation. Kidneys and Adrenal Glands: Both kidneys are normal in size, shape, and position. A few tiny cortical cysts in both kidneys. Left renal parapelvic cysts. Mild prominence of both ureters without any calculus in the course. Cortical thickness is within normal limits. No renal calculi or hydronephrosis. Adrenal glands are unremarkable with no evidence of masses or hyperplasia. Pelvis: Urinary Bladder: Normal in contour and wall thickness. No intraluminal lesions identified. Uterus: Normal in size and contour. No masses or abnormal thickening. Ovaries: A well-defined cystic structure is identified in the right ovary measuring 39 x 27 mm. Vagina: Normal in contour and wall thickness. Cervix: No evidence of mass or abnormal thickening. Peritoneal and Retroperitoneal Structures: No free fluid or abnormal fluid collections were identified within the abdomen or pelvis. Multiple subcentimeter-sized yet prominent lymph nodes are seen along the celiac axis and in the mesentery. Atherosclerotic calcification is identified in the abdominal aorta and its branches. Small pelvic phleboliths. Bowel: Mild thickening of the fundal region of the stomach, likely due to inadequate distention. Fecal loading is identified in the colon. A few small colonic diverticula without diverticulitis. The visualized bowel loops are normal in caliber and appearance. No evidence of bowel obstruction or wall thickening. Bones and Soft Tissues: Pelvic bones and soft tissues are unremarkable. No fractures or abnormal masses were identified. Degenerative changes are seen in the visualized spine with grade 1 spondylolisthesis at L4-5, multilevel disc bulges, and reduced disc space at L5-S1. Mild fibro-atelectatic changes are seen in both lower lobes. Linear soft tissue thickening in the inner part of the left breast. IMPRESSION: A few tiny cortical cysts in both kidneys. Left renal parapelvic cysts. Mild prominence of both ureters without any calculus in the course. This could be due to an overdistended urinary bladder. However, needs clinical and lab correlation to rule out mild inflammation/infection. A well-defined cystic structure in the right ovary measuring 39 x 27 mm. No solid component is seen. Ultrasound correlation is advised. Multiple subcentimeter-sized yet prominent lymph nodes along the celiac axis and in the mesentery. Mild thickening of the fundal region of the stomach, likely due to inadequate distention. Needs clinical correlation. Electronically signed by Vasquez Alexander 12-13-2024 01:16 AM Chest CTA 12/12/24 22:36 EXAM: CT angio chest PE protocol CLINICAL HISTORY: PE TECHNIQUE: Contiguous axial images were obtained from the neck base through the upper abdomen following intravenous administration of iodinated contrast material. Angiographic images were processed, 3D MIP images were acquired for interpretation. If IV contrast material had not been administered, the likelihood of detecting abnormalities relevant to the patient's condition would have been substantially decreased. Coronal and sagittal 3-D MIPs were likewise performed and indicated to increase the sensitivity of detectin diffuse clinically relevant pathology. CT scan was performed according to ALARA (as low as reasonable achievable). COMPARISON: None. FINDINGS: Few atelectatic bands are noted involving bilateral lung bases. Adequate contrast bolus without evidence of pulmonary embolism. The central airways are patent. The lungs are clear. No pleural effusion. The heart, aorta, and pulmonary arteries are of normal size and configuration. There are no appreciable coronary artery and aortic atherosclerotic calcifications. No pericardial effusion is identified. The thyroid is unremarkable. No mediastinal, hilar, or axillary lymphadenopathy is noted. No suspicious lytic or sclerotic osseous lesions are identified. IMPRESSION: No evidence of pulmonary embolism or pulmonary disease. Few atelectatic bands are noted involving bilateral lung bases.- likely post inflammatory changes Electronically signed by Kavon Hernandez 12-13-2024 12:54 AM Code Status & VTE Plan Code Status Full code VTE Prophylaxis Plan VTE Prophylaxis will be ordered: Yes PG Care Time/CCT Total # of Minutes Spent Total Time Spent with Patient: Total time spent is greater than 50% in coordination of care (as documented) at patient's floor/unit and/or counseling patient: Coding Level of Care Code 65110 INT INP/OBS CARE 3/75MIN Diagnoses DVT (deep venous thrombosis) I82.412 Affected thrombotic vein of extremity: femoral Chronicity: unspecified DVT location: lower extremity Laterality: left Hypomagnesemia E83.42 Ovarian cyst, right N83.201 Essential hypertension I10 Hypertension type: essential hypertension Diabetes mellitus E11.9 (1) DVT (deep venous thrombosis) Affected thrombotic vein of extremity: femoral Chronicity: unspecified DVT location: lower extremity Laterality: left Qualified Code(s): I82.412 - Acute embolism and thrombosis of left femoral vein (4) Hypertension Hypertension type: essential hypertension Qualified Code(s): I10 - Essential (primary) hypertension
[2024-12-13] MEDS ORDERED: GLUCAGON FOR INJ 1 MG VIAL SQ PRN (03:34)
[2024-12-13] MEDS ORDERED: GLUCOSE 40% GEL 15 GM TUBE PO PRN (03:34)
[2024-12-13] MEDS ORDERED: GLUCOSE 10 TAB/TUBE PO PRN (03:34)
[2024-12-13] MEDS ORDERED: DEXTROSE 50% 50 ML SYRINGE IV PRN (03:34)
[2024-12-13] MEDS ORDERED: ONDANSETRON INJ 2 MG/ML 2 ML VIAL IV PRN (03:34)
[2024-12-13] MEDS: HEPARIN 25000 UNIT/500 ML D5W 25,000 UNITS/500 ML BAG IV SCH (04:10)
[2024-12-13 04:35] LABS: INR 1.0 (0.9-1.1); Partial Thromboplastin Time 28 Seconds (21-31); Prothrombin Time 10.9 Seconds (9.0-12.0)
--- NOTE | 2024-12-13 07:32 | Ultrasound Report ---
EXAM: US pelvic complete CLINICAL HISTORY: right ovarian cyst TECHNIQUE: Ultrasound examination of the pelvis was performed in real time and duplex using a trans-abdominal approach. The patient declined the transvaginal exam The vascular flow was evaluated using color flow and with a spectral pattern of the flow waveform. COMPARISON: 12/12/2024. FINDINGS: The uterus is anteverted, measuring 6.6 × 4.3 × 2.3 cm, with no evidence of uterine masses. A small cervical nabothian cyst is identified, measuring 6 × 5 × 4 mm. The endometrial stripe thickness measures 1 cm. The right ovary measures 4.0 × 4.6 × 2.7 cm with normal vascular flow and contains an anechoic cyst measuring 2.3 × 4.3 × 2.9 cm. The left ovary measures 2.6 × 1.8 × 1.1 cm with normal vascular flow and no cysts or solid masses. No adnexal masses or free fluid are seen. The urinary bladder shows no wall thickening, masses, or intraluminal stones. No pelvic free fluid is present. IMPRESSION: 1. Endometrial thickness of 1 cm, considered thickened for age ? correlation with clinical findings and further gynecologic evaluation is advised. 2. Right ovarian clear cyst, measuring 2.3 × 4.3 × 2.9 cm. 3. Small cervical nabothian cyst. 4. No significant interval change. RECOMMENDATIONS: Clinical correlation with symptoms and further evaluation as indicated. Electronically signed by Vasquez Alexander 12-13-2024 07:32 AM
[2024-12-13 07:36] LABS: Hemoglobin A1C 7.8 % (4.5-5.6)
--- NOTE | 2024-12-13 07:43 | Hospitalist Progress Note ---
Date of Service December 13, 2024 Assessment & Plan (1) DVT (deep venous thrombosis): (2) Hypomagnesemia: (3) Ovarian cyst, right: (4) Hypertension: (5) Diabetes mellitus: Plan The patient is a 74-year-old female with past medical history including DVT, memory impairment, pulmonary embolism with acute cor pulmonale, malignant neoplasm of left breast, mediastinal lymphadenopathy, adult situational stress disorder, diabetic nephropathy with proteinuria, hypertension, hyperlipidemia, depression, and CKD stage III. She presents to the emergency department with 4 days of worsening swelling of right greater than left lower extremities. She has been taking Eliquis as directed. She is referred for admission due to concerns regarding failure of Eliquis, with venous Doppler showing left distal femoral vein and left popliteal vein nonocclusive thrombosis versus chronic thrombosis with recannulization. Left distal femoral vein and left popliteal vein nonocclusive thrombus versus chronic thrombus with recannulization- Patient symptomatically with worsening swelling and edema, right greater than left. Stopped apixaban Stop heparin and start enoxaparin 1 mg/kg bid Consult hematology oncology for their recommendations long-term - if change needed could go onto warfarin Right ovarian cyst- As noted on CT scan Pelvic ultrasound reviewed - right ovarian clear cyst and small cervical nabothian cyst, unchanged. Endometrial thickness of 1 cm, thickened for age -follow up with APPOINTMENT SCHEDULER for endometrial thickening Hypomagnesemia- Magnesium 1.6 on admission 2 g magnesium sulfate IV in the ED Recheck laboratories in the a.m. - BMP, mag Diabetes mellitus- Change glargine from 50 to 30 units subcu daily basal-bolus insulin BG labile, averaging at goal A1c 7.8 Admission and Anticipated Discharge Date Admission Date: December 13, 2024 Subjective no chest pain/dyspnea noticed increase in RLE edema/swelling compared to LLE. Doesn't usually have any edema. No RLE pain Physical Exam 2 Physical Exam: Last 24h vitals reviewed GEN: no acute distress, sitting in bed HEENT: pupils equal, sclerae anicteric, moist MM RESP: normal WOB, CTAB CV: reg no mrg ABD: soft/nt/nd +BT : no abdul SKIN: warm and dry, no generalized rashes EXT: RLE is mildly larger than left at ankle, calf. Some mild bilateral woody/nonpitting edema NEURO: AOx person, place, and situation. Face symmetric, speech normal, moves 4 ext spontaneously and equally Results & Data Results & Data Vital Signs (Past 12 Hours) Vital Signs Temp Pulse Pulse Resp BP BP Pulse Ox 12/13/24 07:15 36.4 C L 72 18 126/74 95 12/13/24 06:47 36.5 C 93 H 18 108/65 97 12/13/24 03:17 98 H 12/13/24 02:55 86 16 119/70 97 12/13/24 02:00 90 16 133/63 99 12/13/24 00:00 94 H 16 138/75 97 12/12/24 23:38 103 H 16 137/72 96 12/12/24 22:02 102 H 16 100 12/12/24 21:49 36.8 C 106 H 16 141/76 H 12/12/24 21:49 117 H 16 141/76 H 98 O2 Del Method 12/13/24 07:15 Room Air 12/13/24 06:47 Room Air 12/13/24 03:17 12/13/24 02:55 Room Air 12/13/24 02:00 Room Air 12/13/24 00:00 Room Air 12/12/24 23:38 Room Air 12/12/24 22:02 Room Air 12/12/24 21:49 Room Air 12/12/24 21:49 Room Air Laboratory Results 12/12/24 21:58 12/12/24 21:58 PG Care Time/CCT Total # of Minutes Spent Total Time Spent with Patient: Total time spent is greater than 50% in coordination of care (as documented) at patient's floor/unit and/or counseling patient: Coding Level of Care Code None Diagnoses DVT (deep venous thrombosis) I82.412 Affected thrombotic vein of extremity: femoral Chronicity: unspecified DVT location: lower extremity Laterality: left Hypomagnesemia E83.42 Ovarian cyst, right N83.201 Essential hypertension I10 Hypertension type: essential hypertension Diabetes mellitus E11.9 (1) DVT (deep venous thrombosis) Affected thrombotic vein of extremity: femoral Chronicity: unspecified DVT location: lower extremity Laterality: left Qualified Code(s): I82.412 - Acute embolism and thrombosis of left femoral vein (4) Hypertension Hypertension type: essential hypertension Qualified Code(s): I10 - Essential (primary) hypertension
[2024-12-13] MEDS ORDERED: ENOXAPARIN 1 MG/KG SC SCH (07:45)
--- NOTE | 2024-12-13 08:29 | Electrocardiogram Report ---
Test Reason : Blood Pressure : */* mmHG Vent. 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
[2024-12-13] MEDS: INSULIN ASPART PER UNIT CHARGE SC SCH (08:42)
[2024-12-13] MEDS: ENOXAPARIN 80 MG/0.8 ML SYR SQ SCH (08:57)
[2024-12-13] MEDS: ASPIRIN 81 MG ECTAB PO SCH (08:57)
[2024-12-13] MEDS: ATORVASTATIN 40 MG TAB PO SCH (08:57)
[2024-12-13 14:38] LABS: Appearance Urine Clear (Clear); Bacteria Urine Automated None Seen (None Seen); Epithelial Cell Urine Auto 0-2 /hpf (0-2); Glucose Urine UA Negative (Negative)
--- NOTE | 2024-12-13 15:46 | Oncology Consultation ---
Date of Consultation December 13, 2024 Assessment & Plan (1) DVT (deep venous thrombosis): (2) Pulmonary embolism with acute cor pulmonale: Plan -Patient has Eliquis failure. Recommend transitioning to Coumadin. She can follow-up with Coumadin clinic upon discharge from hospital. History of Present Illness Reason for Consultation: Eliquis failure Attending Physician: Michell Tucker MD History of Present Illness 74-year-old female with medical history significant for PE/DVT on chronic anticoagulation with Eliquis, left breast cancer, CKD stage III who presented with lower extremity swelling. Venous Doppler revealed left distal femoral vein and left popliteal vein nonocclusive thrombosis versus chronic thrombosis with recanalization. She was placed on heparin and subsequently transitioned to Lovenox. She endorses compliance with Eliquis. Allergies Allergy/AdvReac Type Severity Reaction Status Date / Time aloe Allergy Unknown RAISED RASH Verified 08/31/24 13:50 No Known Drug Allergies Allergy Verified 08/31/24 13:50 Home Medications Medication Instructions Recorded Confirmed Type aspirin 81 mg tablet,delayed 81 mg PO DAILY 05/30/22 12/12/24 History release acetaminophen 325 mg tablet 650 mg PO Q6H PRN Fever Or Pain 03/04/24 12/12/24 History (Tylenol) apixaban 5 mg tablet (Eliquis) 5 mg PO BID #60 tabs 03/05/24 12/12/24 Rx blood-glucose,employment educational coord,cont #1 ea 03/05/24 12/12/24 Rx (Dexcom G7 Substation Maintenance Technician) atorvastatin 80 mg tablet 80 mg PO QAM #90 tabs 04/15/24 12/12/24 Rx pen needle, diabetic 32 gauge x #100 ea 06/01/24 12/12/24 Rx 1/4" (Comfort EZ Pen Haslet) insulin glargine 100 unit/mL (3 50 unit (0.5 mL) subcut QPM 30 10/05/24 12/12/24 Rx mL) subcutaneous pen (Lantus days #15 mL Solostar U-100 Insulin) blood-glucose sensor (Dexcom G7 #3 ea 10/06/24 12/12/24 Rx Sensor device) Patient History Medical History (Updated 12/13/24 @ 02:48 by Noel Cardoso MD) Demand ischemia Acute respiratory failure with hypoxia High anion gap metabolic acidosis DKA (diabetic ketoacidosis) Encounter for pre-operative examination Breast cancer Dx 2021 surgical intervention planned Conjunctivitis Hypothyroidism Surgical History History of tubal ligation History of cholecystectomy History of section History of thyroidectomy (03/04/12) d/t suspicious nodule. 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 No carcinoma noted. History of colonoscopy Diverticulosis noted. No polyps/neoplasia. No biopsies. F/U 5-10 years recommended. Family History Mother Uterine cancer Leukemia Aunt Breast cancer Pancreatic cancer Father Heart disease Myocardial infarction Unknown Acute myocardial infarction Son Atrial fibrillation Myocardial infarction Denies family history of Ovarian cancer Prostate cancer Colorectal cancer Social History Smoking Status: Never smoker Second Hand Exposure: No; Do You Dip or Chew Tobacco: No; Hx Alcohol Use: No Hx Substance Use: No Preferred Language: Georgian Communication Ability: Effective Visual Impairment: Limited Hearing Ability: Normal Rooter Operator Required: No Beliefs That Will Affect Care: None marital status: / Current Living Situation: Alone Current Living Situation Comment: Alone current occupational status: retired How many Children do You have: 2 Feels Safe at Home: Yes Childhood Exposure to Second-Hand Smoke: Yes Diet: regular caffeine: Yes (half caf coffee ) during the past year weight has: remained stable Dental Care, Regularly: No Physical Activity Frequency: Does not Exercise Seatbelt Use: always Sunscreen Use: Yes Assistive Devices: Cane and Walker Results & Data Vital Signs (Past 12 Hours) Vital Signs Temp Pulse Pulse Resp BP Pulse Ox O2 Del Method 12/13/24 15:44 36.8 C 84 18 110/65 98 Room Air 12/13/24 14:39 89 12/13/24 10:59 36.7 C 90 18 111/68 98 Room Air 12/13/24 07:47 77 12/13/24 07:15 36.4 C L 72 18 126/74 95 Room Air 12/13/24 06:47 36.5 C 93 H 18 108/65 97 Room Air (1) DVT (deep venous thrombosis) Affected thrombotic vein of extremity: femoral Chronicity: unspecified DVT location: lower extremity Laterality: left Qualified Code(s): I82.412 - Acute embolism and thrombosis of left femoral vein (2) Pulmonary embolism with acute cor pulmonale Chronicity: acute Pulmonary embolism type: unspecified Qualified Code(s): I26.09 - Other pulmonary embolism with acute cor pulmonale
[2024-12-13] MEDS: LANTUS PER UNIT CHARGE SC SCH (20:27)
[2024-12-14 06:14] LABS: Hematocrit (blood only) 34.7 % (37.0-47.0); Hemoglobin 11.6 g/dl (12.0-16.0); Mean Corpuscular Hemoglobin 29.4 pg (25.0-34.0); Mean Corpuscular Volume 88.1 fL (80.0-100.0); Platelet Count 316 K/uL (130-400); RDW Standard Deviation 42.6 fL (36.4-46.3); Red Blood Count 3.94 M/uL (4.20-5.40); White Blood Count 11.29 K/ul (4.8-10.8)
[2024-12-14 06:29] LABS: Anion Gap 7.0 (3-11); Blood Urea Nitrogen 25.0 mg/dl (6-23); Calcium 8.5 mg/dl (8.6-10.3); Carbon Dioxide 28.0 mmol/L (21-32); Chloride 105.0 mmol/L (98-107); Creatinine Clr Calc Pharmacy 45.7 ml/min; Glucose 59.0 mg/dl (70-99(Fasting)); Magnesium 2.0 mg/dl (1.7-2.4); Potassium 3.3 mmol/L (3.5-5.1); Sodium 140.0 mmol/L (136-145)
[2024-12-14] MEDS: CARBOHYDRATES FOR HYPOGLYCEMIA PO PRN (07:24)
[2024-12-14] MEDS: POTASSIUM CHLORIDE CRTAB 20 MEQ TABCR PO STA (13:19)
--- NOTE | 2024-12-14 14:13 | Hospitalist Progress Note ---
Date of Service December 14, 2024 Assessment & Plan (1) DVT (deep venous thrombosis): (2) Hypomagnesemia: (3) Ovarian cyst, right: (4) Hypertension: (5) Diabetes mellitus: (6) Hypokalemia: (7) Ambulatory dysfunction: (8) Noncompliance with medication regimen: Plan The patient is a 74-year-old female with past medical history including DVT, memory impairment, pulmonary embolism with acute cor pulmonale, malignant neoplasm of left breast, mediastinal lymphadenopathy, adult situational stress disorder, diabetic nephropathy with proteinuria, hypertension, hyperlipidemia, depression, and CKD stage III. She presents to the emergency department with 4 days of worsening swelling of right greater than left lower extremities. She has been taking Eliquis as directed. She is referred for admission due to concerns regarding failure of Eliquis, with venous Doppler showing left distal femoral vein and left popliteal vein nonocclusive thrombosis versus chronic thrombosis with recannulization. #Left distal femoral vein and left popliteal vein nonocclusive thrombus versus chronic thrombus with recannulization Patient symptomatically with worsening swelling and edema, right greater than left Stopped apixaban Stop heparin and start enoxaparin 1 mg/kg bid Hematology/oncology was consulted for long-term recommendation #Cognitive decline | memory impairment | medication noncompliance Patient's memory has been declining over the past year (per review of February 2024 admission, PCP notes, and neurology visit in August 2024) Brain MRI in September 2024 without acute findings However, suspect that, given patient was alone administering medicine, the main culprit for her DVT is medication noncompliance She is unable to name any of her medications in the room, and when asked if she is on blood thinners, she reports she is "unsure" Do not feel like the patient be able to manage warfarin independently Attempted to call patient's son on 12/14, but was unable to reach CM consult appreciated #Lower extremity weakness | ambulatory dysfunction PT/OT evaluations appreciated Fall precautions #Right ovarian cyst As noted on CT scan Pelvic ultrasound reviewed - right ovarian clear cyst and small cervical nabothian cyst, unchanged. Endometrial thickness of 1 cm, thickened for age Follow up with TRAVELING ELECTRICIAN for endometrial thickening #Diabetes mellitus Change glargine from 50 to 30 units subcu daily basal-bolus insulin BG labile, averaging at goal A1c 7.8 #Hypokalemia Mild; K 3.3 on 12/14 Potassium 20 mill equivalents p.o. x 1 Recheck a.m. K #Hypomagnesemia - resolved Disposition: Continued stay on PCU telemetry Attempted to call patient's son (Wayne) x 2 on the afternoon of 12/14 but was unable to reach; unable to leave voicemail. Admission and Anticipated Discharge Date Admission Date: December 13, 2024 Subjective Mrs. Iglesias is sitting upright in bed this afternoon in no acute distress. She does endorse a "constant" leg pain in her left leg radiating up to approximately the knee. She is unable to characterize the pain. Patient reports she has been eating and drinking well, and slept well last night. Patient reports she lives alone in a mobile home at present. She does manage her own medicine at home, but is "unsure" if she takes any blood thinners. She is also unable to name any of her current medications. Patient does endorse that she misses doses of her medication at home. When asked how many doses she has missed in the last week, she reports maybe 1 or 2, but does not seem sure. She reports that she often "loses track" of her medications. ROS: Patient endorses pain/swelling in the left leg, with intermittent numbness and tingling. Patient denies fever, chills, night sweats, chest pain, chest palpitations, pleuritic CP, SOB, cough, abdominal pain, N/V/D, burning with urination, or blood in the urine or stool. Review of Systems Review of Systems: See HPI above Physical Exam Physical Exam: General: no acute distress; pleasant affect; non-toxic appearing; frail appearing; cooperative; SpO2 97% on RA HEENT: normocephalic, atraumatic; no scleral icterus; PERRLA w/ EOMs intact; vision and hearing appear intact Neck: supple; trachea midline Skin: warm, dry without signs of tenting; no cyanosis; no rashes, bruising, lesions, or erythema noted CV: chest wall NTP; RRR; S1/S2 normal; no murmurs/rubs/gallops; pulses intact and symmetric at radial, DP, and PT Lungs: no acute respiratory distress; symmetrical chest wall expansion; clear breath sounds across all lung moya w/o adventitious sounds; no wheezing ABD: Soft, NTP; BS present; no rebound/guarding; no distention MSK: no tics or fasciculations; no edema noted in the LEs b/l, nonerythematous; patient exhibits 1/5 strength when lifting legs from the bed bilaterally; 5/5 bobj developer strength bilaterally Neuro: Alert and oriented to name, , and location, but somewhat confused on month of the year; believes it is January; normal mood and affect; however, patient has difficulty responding to questions and may be exhibiting memory deficits; fluent speech; patient for sensation is intact and symmetric in lower extremity bilaterally Results & Data Results & Data Vital Signs (Past 12 Hours) Vital Signs Temp Pulse Pulse Resp BP Pulse Ox O2 Del Method 12/14/24 11:22 36.8 C 92 H 18 111/65 97 Room Air 12/14/24 07:27 36.6 C 93 H 18 113/68 97 Room Air 12/14/24 03:44 134 H 12/14/24 03:13 36.6 C 84 18 120/73 97 Room Air PG Care Time/CCT Total # of Minutes Spent Total Time Spent with Patient: Total time spent is greater than 50% in coordination of care (as documented) at patient's floor/unit and/or counseling patient: Coding [place] [address] SUB INP/OBS CARE 3/50MIN Patient Type Established History Comprehensive Exam Comprehensive Medical Decision Making High Complexity Diagnoses DVT (deep venous thrombosis) I82.412 Affected thrombotic vein of extremity: femoral Chronicity: unspecified DVT location: lower extremity Laterality: left Hypomagnesemia E83.42 Ovarian cyst, right N83.201 Essential hypertension I10 Hypertension type: essential hypertension Diabetes mellitus E11.9 Hypokalemia E87.6 Ambulatory dysfunction R26.2 Noncompliance with medication regimen Z91.148 (1) DVT (deep venous thrombosis) Affected thrombotic vein of extremity: femoral Chronicity: unspecified DVT location: lower extremity Laterality: left Qualified Code(s): I82.412 - Acute embolism and thrombosis of left femoral vein (4) Hypertension Hypertension type: essential hypertension Qualified Code(s): I10 - Essential (primary) hypertension
[2024-12-15 06:18] LABS: Hematocrit (blood only) 30.2 % (37.0-47.0); Hemoglobin 10.3 g/dl (12.0-16.0); Immature Granulocytes # (auto) 0.02 K/uL (0.01-0.20); Immature Granulocytes % (auto) 0.3 %; Mean Corpuscular Hemoglobin 30.3 pg (25.0-34.0); Mean Corpuscular Volume 88.8 fL (80.0-100.0); Platelet Count 256 K/uL (130-400); RDW Standard Deviation 42.7 fL (36.4-46.3); Red Blood Count 3.40 M/uL (4.20-5.40); White Blood Count 6.96 K/ul (4.8-10.8)
[2024-12-15 06:31] LABS: Anion Gap 5.0 (3-11); Blood Urea Nitrogen 23.0 mg/dl (6-23); Calcium 8.3 mg/dl (8.6-10.3); Carbon Dioxide 27.0 mmol/L (21-32); Chloride 107.0 mmol/L (98-107); Creatinine Clr Calc Pharmacy 51.4 ml/min; Glucose 153.0 mg/dl (70-99(Fasting)); Potassium 3.9 mmol/L (3.5-5.1); Sodium 139.0 mmol/L (136-145)
--- NOTE | 2024-12-15 11:22 | Hospitalist Progress Note ---
Date of Service December 15, 2024 Assessment & Plan (1) DVT (deep venous thrombosis): (2) Hypomagnesemia: (3) Ovarian cyst, right: (4) Hypertension: (5) Diabetes mellitus: (6) Hypokalemia: (7) Ambulatory dysfunction: (8) Noncompliance with medication regimen: Plan The patient is a 74-year-old female with past medical history including DVT, memory impairment, pulmonary embolism with acute cor pulmonale, malignant neoplasm of left breast, mediastinal lymphadenopathy, adult situational stress disorder, diabetic nephropathy with proteinuria, hypertension, hyperlipidemia, depression, and CKD stage III. She presents to the emergency department with 4 days of worsening swelling of right greater than left lower extremities. She has been taking Eliquis as directed. She is referred for admission due to concerns regarding failure of Eliquis, with venous Doppler showing left distal femoral vein and left popliteal vein nonocclusive thrombosis versus chronic thrombosis with recannulization. #Left distal femoral vein and left popliteal vein nonocclusive thrombus versus chronic thrombus with recannulization Patient symptomatically with worsening swelling and edema, right greater than left Stopped apixaban Stop heparin and start enoxaparin 1 mg/kg bid Hematology/oncology was originally consulted for long-term recommendation, as it was suspected that patient had a failure of Eliquis However, after obtaining further history, it is more suspicious that patient is not currently taking her Eliquis as prescribed Last Eliquis Rx was July 2024 Patient reports she is "unsure" if she takes blood thinners at home, and is unable to name any of her medication As per review of PCP notes + neurology visit in August 2024, gradual cognitive/memory decline over the past year #Cognitive decline | memory impairment | medication noncompliance Suspect main culprit for her DVT is medication noncompliance in the setting of cognitive decline Do not feel like the patient would be able to manage warfarin independently Attempted to call patient's son on 12/14 + 12/15, but was unable to reach CM consult appreciated #Lower extremity weakness | ambulatory dysfunction PT/OT evaluations appreciated Previously independent, but recommending acute rehab upon discharge CM following Fall precautions #Anemia Hgb trend: 13.3 -> 11.6 -> 10.3 Clinically, patient denies melena or BRB in urine/stool No neurologic deficits appreciated exam; patient denies headache, changes in vision, or recent fall/trauma No signs of active bleeding on physical exam Hemoccult stools Trend #Right ovarian cyst As noted on CT scan Pelvic ultrasound reviewed - right ovarian clear cyst and small cervical nabothian cyst, unchanged. Endometrial thickness of 1 cm, thickened for age Follow up with MEDICAL APPARATUS MODEL MAKER for endometrial thickening #Diabetes mellitus Change glargine from 50 to 30 units subcu daily basal-bolus insulin BG labile, averaging at goal A1c 7.8 #Hypokalemia -resolved #Hypomagnesemia - resolved Disposition: Continued stay on PCU telemetry Attempted to call patient's son Lul) x 2 on the afternoon of 12/14 but was unable to reach. Attempted to call patient's son again on 12/15, but was unable to reach; left brief message requesting callback. Admission and Anticipated Discharge Date Admission Date: December 13, 2024 Supervising Physician Co-Signing Physician Notes Attending Attestation - Chart reviewed, care plan d/w ELIEL Hernandes. I agree w/ the erickson components of his documentation. I do not believe patient had Eliquis failure. It appears she had NOT taken Eliquis since August 2024 (pharmacy records show her last refill of Eliquis was 07/24/24). Can utilize lovenox SC for now (1mg/kg BID). Perhaps using Xarelto may be better than Eliquis (once daily dosing vs BID dosing). But, again, I am not suspicious this was Eliquis failure. Mr Hernandes to inquire with pt & her family if it is possible she had her Eliquis f illed somewhere else beyond August 2024. Davi Mccall MD Subjective Mrs. Iglesias reports she feels marginally better today when compared to yesterday. She reports no pain in her legs this morning. No numbness or tingling going down the legs. However, she does report that she had difficulty sleeping last night. When asked how she gets her medications at home, she reports she is unsure. When asked if she picks them up from [facility], she nods and reports that she does believe her son picks them up from [place]. She does not believe she gets any medications to her mail order. Patient denies history of melena, GI bleeds, or stomach ulcers. Today, patient does exhibit to be a poor historian somewhat yesterday. She seems unsure about her answers certain questions. She is unsure if she has pillboxes at home. She is unsure if she takes a blood thinner. Patient does not know what the month is today, and reports that the season is "spring". ROS: Patient denies fever, chills, night sweats, chest pain, chest palpitations, SOB, pleuritic CP, abdominal pain, N/V/D, pain in the legs, melena, or blood in the urine or stool. Review of Systems Review of Systems: See HPI above Physical Exam Physical Exam: General: no acute distress; sitting upright in her chair at bedside; pleasant affect; non-toxic appearing; frail appearing; cooperative; SpO2 97% on RA HEENT: normocephalic, atraumatic; no scleral icterus; PERRLA w/ EOMs intact; vision and hearing appear intact; patient demonstrates ability to smile, frown, and lift eyebrows without unilateral deficits Neck: supple; trachea midline Skin: warm, dry without signs of tenting; no cyanosis; no rashes, bruising, lesions, or erythema noted CV: chest wall NTP; RRR; S1/S2 normal; no murmurs/rubs/gallops; pulses intact and symmetric at radial, DP, and PT Lungs: no acute respiratory distress; symmetrical chest wall expansion; clear breath sounds across all lung moya w/o adventitious sounds; no wheezing ABD: Soft, NTP; BS present; no rebound/guarding; no distention MSK: no tics or fasciculations; no edema noted in the LEs b/l, nonerythematous; patient exhibits 1/5 strength when lifting legs from the bed bilaterally; 5/5 chiropractic doctor strength bilaterally; 5/5 strength when kicking legs up against resistance while sitting in a chair Neuro: Alert and oriented to name, , and location, but somewhat confused regarding the month/season of the year; normal mood and affect; however, patient has difficulty responding to questions and exhibits clear memory deficits; she i s unsure about many, things, such as whether she has a pillbox at home, or whether she takes a blood thinner; fluent speech; patient for sensation is intact and symmetric in lower extremity bilaterally Results & Data Results & Data Vital Signs (Past 12 Hours) Vital Signs Temp Pulse Pulse Resp BP Pulse Ox O2 Del Method 12/15/24 08:15 36.8 C 86 18 106/65 97 Room Air 12/15/24 02:25 37.6 C H 88 18 137/79 97 Room Air 12/14/24 23:37 99 H PG Care Time/CCT Total # of Minutes Spent Total Time Spent with Patient: Total time spent is greater than 50% in coordination of care (as documented) at patient's floor/unit and/or counseling patient: Coding [place] [address] SUB INP/OBS CARE 3/50MIN Patient Type Established Medical Decision Making High Complexity Diagnoses DVT (deep venous thrombosis) I82.412 Affected thrombotic vein of extremity: femoral Chronicity: unspecified DVT location: lower extremity Laterality: left Hypomagnesemia E83.42 Ovarian cyst, right N83.201 Essential hypertension I10 Hypertension type: essential hypertension Diabetes mellitus E11.9 Hypokalemia E87.6 Ambulatory dysfunction R26.2 Noncompliance with medication regimen Z91.148 (1) DVT (deep venous thrombosis) Affected thrombotic vein of extremity: femoral Chronicity: unspecified DVT location: lower extremity Laterality: left Qualified Code(s): I82.412 - Acute embolism and thrombosis of left femoral vein (4) Hypertension Hypertension type: essential hypertension Qualified Code(s): I10 - Essential (primary) hypertension
[2024-12-16] MEDS: ACETAMINOPHEN 325 MG TAB PO PRN (05:48)
[2024-12-16 06:23] LABS: Hematocrit (blood only) 31.3 % (37.0-47.0); Hemoglobin 10.2 g/dl (12.0-16.0); Immature Granulocytes # (auto) 0.04 K/uL (0.01-0.20); Immature Granulocytes % (auto) 0.6 %; Mean Corpuscular Hemoglobin 29.0 pg (25.0-34.0); Mean Corpuscular Volume 88.9 fL (80.0-100.0); Platelet Count 260 K/uL (130-400); RDW Standard Deviation 43.4 fL (36.4-46.3); Red Blood Count 3.52 M/uL (4.20-5.40); White Blood Count 6.79 K/ul (4.8-10.8)
[2024-12-16 06:38] LABS: Anion Gap 4.0 (3-11); Blood Urea Nitrogen 23.0 mg/dl (6-23); Calcium 8.4 mg/dl (8.6-10.3); Carbon Dioxide 27.0 mmol/L (21-32); Chloride 108.0 mmol/L (98-107); Creatinine Clr Calc Pharmacy 59.7 ml/min; Glucose 97.0 mg/dl (70-99(Fasting)); Potassium 4.1 mmol/L (3.5-5.1); Sodium 139.0 mmol/L (136-145)
--- NOTE | 2024-12-16 17:59 | Hospitalist Progress Note ---
Date of Service December 16, 2024 Assessment & Plan (1) DVT (deep venous thrombosis): (2) Hypomagnesemia: (3) Ovarian cyst, right: (4) Hypertension: (5) Diabetes mellitus: (6) Hypokalemia: (7) Ambulatory dysfunction: (8) Noncompliance with medication regimen: Plan The patient is a 74-year-old female with past medical history including DVT, memory impairment, pulmonary embolism with acute cor pulmonale, malignant neoplasm of left breast, mediastinal lymphadenopathy, adult situational stress disorder, diabetic nephropathy with proteinuria, hypertension, hyperlipidemia, depression, and CKD stage III. She presents to the emergency department with 4 days of worsening swelling of right greater than left lower extremities. She has been taking Eliquis as directed. She is referred for admission due to concerns regarding failure of Eliquis, with venous Doppler showing left distal femoral vein and left popliteal vein nonocclusive thrombosis versus chronic thrombosis with recannulization. #Left distal femoral vein and left popliteal vein nonocclusive thrombus versus chronic thrombus with recannulization Patient symptomatically with worsening swelling and edema, right greater than left Stopped apixaban Stop heparin and start enoxaparin 1 mg/kg bid Hematology/oncology was originally consulted for long-term recommendation, as it was suspected that patient had a failure of Eliquis However, after obtaining further history, it is more suspicious that patient is not currently taking her Eliquis as prescribed Last Eliquis Rx was July 2024 Patient reports she is "unsure" if she takes blood thinners at home, and is unable to name any of her medication As per review of PCP notes + neurology visit in August 2024, gradual cognitive/memory decline over the past year #Cognitive decline | memory impairment | medication noncompliance Suspect main culprit for her DVT is medication noncompliance in the setting of cognitive decline Do not feel like the patient would be able to manage warfarin independently Attempted to call patient's son on 12/14 - 12/16, but have been unable to reach CM consult appreciated Per review of CM note on 12/16: "[[facility]] -okay to accept patient as daughter and grandson's contact"; insurance Auth pending #Lower extremity weakness | ambulatory dysfunction PT/OT evaluations appreciated Previously independent, but recommending acute rehab upon discharge CM following Fall precautions #Anemia Hgb trend: 13.3 -> 11.6 -> 10.3 -> 10.2 Clinically, patient denies melena or BRB in urine/stool No neurologic deficits appreciated exam; patient denies headache, changes in vision, or recent fall/trauma No signs of active bleeding on physical exam Hemoccult stools Trend #Right ovarian cyst As noted on CT scan Pelvic ultrasound reviewed - right ovarian clear cyst and small cervical nabothian cyst, unchanged. Endometrial thickness of 1 cm, thickened for age Follow up with HOUSE PAINTER for endometrial thickening #Diabetes mellitus Change glargine from 50 to 30 units subcu daily basal-bolus insulin BG labile, averaging at goal A1c 7.8 #Hypokalemia -resolved #Hypomagnesemia - resolved Disposition: Downgraded from PCU telemetry to MedSurg on 12/16 as patient is medically stable for discharge at this time Attempted to call patient's son (Wayne) x 2 on the afternoon of 12/14 but was unable to reach. Attempted to call patient's son again on 12/15, but was unable to reach; left brief message requesting callback. Attempted to call patient's son on 12/16 using new phone number provided by ([phone]) and was unable to reach; left brief message requesting callback. Admission and Anticipated Discharge Date Admission Date: December 13, 2024 Supervising Physician Co-Signing Physician Notes Attending Attestation - Chart reviewed, care plan d/w ELIEL Hernandes. I agree w/ the erickson components of his documentation. Pt with LLE DVT. I do not believe patient had Eliquis failure. It appears she had NOT taken Eliquis since August 2024 (pharmacy records show her last refill of Eliquis was 07/24/24). Currently on therapeutic lovenox; can switch to Eliquis any time. Davi Mccall MD Subjective Mrs. Iglesias is sitting upright in her chair watching TV this morning. She has no new complaints at this time. She does report that she has an intermittent 4 out of 10 pain in her left leg at times; this is located between the ankle and the knee. Patient reports she slept well, and has been eating and drinking well. She is unsure if she has been seen by physical therapy today. When asked if she has her cell phone present to ask for her son's number, she reports that she is unsure if she has her cell phone with her. She denies any numbness or tingling going down her legs. ROS: Patient endorses intermittent left lower extremity pain. Patient denies fevers, chills, night sweats, headaches, changes in vision, chest pain, chest palpitations, SOB, cough, abdominal pain, N/V/D, changes in urinary/bowel habits, or numbness or tingling going down the legs. Review of Systems Review of Systems: See HPI above Physical Exam Physical Exam: General: no acute distress; sitting upright in her chair at bedside; pleasant affect; non-toxic appearing; frail appearing; cooperative; SpO2 97% on RA HEENT: normocephalic, atraumatic; no scleral icterus; PERRLA w/ EOMs intact; vision and hearing appear intact; patient demonstrates ability to smile, frown, and lift eyebrows without unilateral deficits Neck: supple; trachea midline Skin: warm, dry without signs of tenting; no cyanosis; no rashes, bruising, lesions, or erythema noted CV: chest wall NTP; RRR; S1/S2 normal; no murmurs/rubs/gallops; pulses intact and symmetric at radial, DP, and PT Lungs: no acute respiratory distress; symmetrical chest wall expansion; clear breath sounds across all lung moya w/o adventitious sounds; no wheezing ABD: Soft, NTP; BS present; no rebound/guarding; no distention MSK: no tics or fasciculations; no edema noted in the LEs b/l, nonerythematous; patient exhibits 1/5 strength when lifting legs from the bed bilaterally; 5/5 roll up guider operator strength bilaterally; 5/5 strength when kicking legs up against resistance while sitting in a chair Neuro: Alert and oriented to name, , and location, month or season; today she thinks it is "February"; difficulty responding to questions and exhibits clear memory deficits; fluent speech; patient for sensation is intact and symmetric in lower extremity bilaterally Results & Data Results & Data Vital Signs (Past 12 Hours) Vital Signs Temp Pulse Pulse Resp BP Pulse Ox O2 Del Method 12/16/24 17:33 79 12/16/24 15:43 36.8 C 84 17 129/73 97 Room Air 12/16/24 11:31 36.5 C 89 17 98/65 L 97 Room Air 12/16/24 09:41 Room Air 12/16/24 08:16 36.7 C 83 17 111/67 98 Room Air 12/16/24 07:43 86 PG Care Time/CCT Total # of Minutes Spent Total Time Spent with Patient: Total time spent is greater than 50% in coordination of care (as documented) at patient's floor/unit and/or counseling patient: C[place] [address] SUB INP/OBS CARE 05/29MIN Patient Type Established Medical Decision Making Low Complexity Diagnoses DVT (deep venous thrombosis) I82.412 Affected thrombotic vein of extremity: femoral Chronicity: unspecified DVT location: lower extremity Laterality: left Hypomagnesemia E83.42 Ovarian cyst, right N83.201 Essential hypertension I10 Hypertension type: essential hypertension Diabetes mellitus E11.9 Hypokalemia E87.6 Ambulatory dysfunction R26.2 Noncompliance with medication regimen Z91.148 (1) DVT (deep venous thrombosis) Affected thrombotic vein of extremity: femoral Chronicity: unspecified DVT location: lower extremity Laterality: left Qualified Code(s): I82.412 - Acute embolism and thrombosis of left femoral vein (4) Hypertension Hypertension type: essential hypertension Qualified Code(s): I10 - Essential (primary) hypertension
--- NOTE | 2024-12-16 18:43 | Communication Note ---
Was able to touch base with patient's son (Wayne) on the phone on the evening of 12/16. Provide updates regarding hospitalization. Patient reports that he and his manage the patient's medications at home. The patient does live alone, and even when son asks if she took her medications, the patient reports that she does not remember. Son does admit that she will occasionally miss some of her doses (perhaps once per week). He reports that he gets all of the medications through [employer]; nothing by mail order. Updated son regarding rehab upon discharge, and son is in agreement that she would benefit from rehab upon discharge; he reports that she went to [facility] during her last rehab visit, but is open to [facility]. Date of Service: December 16, 2024
--- NOTE | 2024-12-17 15:15 | Hospitalist Progress Note ---
Date of Service December 17, 2024 Assessment & Plan (1) DVT (deep venous thrombosis): (2) Noncompliance with medication regimen: (3) Ambulatory dysfunction: (4) Ovarian cyst, right: (5) Hypertension: (6) Diabetes mellitus: (7) Pressure ulcer of sacral region, stage 3: Plan The patient is a 74-year-old female with past medical history including DVT, memory impairment, pulmonary embolism with acute cor pulmonale, malignant neoplasm of left breast, mediastinal lymphadenopathy, adult situational stress disorder, diabetic nephropathy with proteinuria, hypertension, hyperlipidemia, depression, and CKD stage III. She presents to the emergency department with 4 days of worsening swelling of right greater than left lower extremities. She has been taking Eliquis as directed. She is referred for admission due to concerns regarding failure of Eliquis, with venous Doppler showing left distal femoral vein and left popliteal vein nonocclusive thrombosis versus chronic thrombosis with recannulization. #Left distal femoral vein and left popliteal vein nonocclusive thrombus versus chronic thrombus with recannulization Patient symptomatically with worsening swelling and edema, right greater than left Stopped apixaban Stop heparin and start enoxaparin 1 mg/kg bid Hematology/oncology was originally consulted for long-term recommendation, as it was suspected that patient had a failure of Eliquis However, after obtaining further history, it is more suspicious that patient is not currently taking her Eliquis as prescribed Last Eliquis Rx was July 2024 Patient reports she is "unsure" if she takes blood thinners at home, and is unable to name any of her medication As per review of PCP notes + neurology visit in August 2024, gradual cognitive/memory decline over the past year #Cognitive decline | memory impairment | medication noncompliance Suspect main culprit for her DVT is medication noncompliance in the setting of cognitive decline Do not feel like the patient would be able to manage warfarin independently CM consult appreciated #Lower extremity weakness | ambulatory dysfunction PT/OT evaluations appreciated Previously independent, but recommending acute rehab upon discharge CM following Fall precautions Peer to peer conducted on 12/17: Patient's insurance denied SNF placement for the following reasons: "requiring a contact-guard" and "living alone" were not required reasons for SNF placement; recommended long-term care facility. Spoke to patient's phone on the evening of 12/17. Provided update regarding insurance denial for SNF. Informed son that, given the fact that patient lives alone, exhibits a shuffling gait, and only able to walk 50 feet, she would be a high fall risk at home. At this point, the most likely situation would be home with home health. Patient send would like to take the night to consider appeal process. Did inform the son that, given there is no medical POA paperwork in place, patient will need to come into the hospital and do the appeal with his mother present. #Anemia Hgb trend: 13.3 -> 11.6 -> 10.3 -> 10.2 Clinically, patient denies melena or BRB in urine/stool No neurologic deficits appreciated exam; patient denies headache, changes in vision, or recent fall/trauma No signs of active bleeding on physical exam Hemoccult stools Trend #Right ovarian cyst As noted on CT scan Pelvic ultrasound reviewed - right ovarian clear cyst and small cervical nabothian cyst, unchanged. Endometrial thickness of 1 cm, thickened for age Follow up with PHOTOGRAPH ENLARGER for endometrial thickening #Diabetes mellitus Change glargine from 50 to 30 units subcu daily basal-bolus insulin BG labile, averaging at goal A1c 7.8 #Stage III pressure ulcer of the sacral region Wound care nurse consult appreciated Daily wound care while inpatient #Hypokalemia -resolved #Hypomagnesemia - resolved Disposition: Continued stay on MedSurg; peer to peer denied for SNF placement on 12/17 for the reasons cited above. Will attempt to touch base with son again on 12/18 to discuss plan moving forward (home with home health versus SNF appeal) Admission and Anticipated Discharge Date Admission Date: December 13, 2024 Supervising Physician Co-Signing Physician Notes Attending Attestation - Chart reviewed, care plan d/w ELIEL Hernandes. I agree w/ the erickson components of his documentation. Davi Mccall MD Subjective Mrs. Iglesias is resting peacefully in bed this morning. She has no new complaints at this time. She reports she has been sleeping throughout most of the day, and feels well. She did have some pain in her left leg when she got up to go to the bathroom, but she has no left lower leg pain at rest. She is eating and drinking well. Overall, she is fairly asymptomatic. ROS: Patient endorses LLE pain with walking. Patient denies fevers, chills, night sweats, chest pain, chest palpitations, SOB, pleuritic CP, cough, abdominal pain, N/V/D, numbness tingling in the legs, or changes in urinary / bowel habits. Review of Systems Review of Systems: See HPI above Physical Exam Physical Exam: General: no acute distress; resting peacefully in bed; pleasant affect; non- toxic appearing; frail appearing; cooperative; SpO2 97% on RA HEENT: normocephalic, atraumatic; no scleral icterus; PERRLA w/ EOMs intact; vision and hearing appear intact; patient demonstrates ability to smile, frown, and lift eyebrows without unilateral deficits Neck: supple; trachea midline Skin: warm, dry without signs of tenting; no cyanosis; no rashes, bruising, lesions, or erythema noted CV: chest wall NTP; RRR; S1/S2 normal; no murmurs/rubs/gallops; pulses intact and symmetric at radial, DP, and PT Lungs: no acute respiratory distress; symmetrical chest wall expansion; clear breath sounds across all lung moya w/o adventitious sounds; no wheezing ABD: Soft, NTP; BS present; no rebound/guarding; no distention MSK: no tics or fasciculations; no edema noted in the LEs b/l, nonerythematous Neuro: Alert and oriented to name, , and location; not month or season; difficulty responding to questions and exhibits clear memory deficits; fluent speech; patient for sensation is intact and symmetric in lower extremity bilaterally Results & Data Results & Data Vital Signs (Past 12 Hours) Vital Signs Temp Pulse Resp BP Pulse Ox O2 Del Method 12/17/24 11:44 36.5 C 84 14 108/65 97 Room Air 12/17/24 07:26 36.7 C 90 14 119/71 97 Room Air PG Care Time/CCT Total # of Minutes Spent Total Time Spent with Patient: Total time spent is greater than 50% in coordination of care (as documented) at patient's floor/unit and/or counseling patient: Coding [place] [id number] SUB INP/OBS CARE 3/50MIN Patient Type Established Medical Decision Making High Complexity Diagnoses DVT (deep venous thrombosis) I82.412 Affected thrombotic vein of extremity: femoral Chronicity: unspecified DVT location: lower extremity Laterality: left Noncompliance with medication regimen Z91.148 Ambulatory dysfunction R26.2 Ovarian cyst, right N83.201 Essential hypertension I10 Hypertension type: essential hypertension Diabetes mellitus E11.9 Pressure ulcer of sacral region, stage 3 L89.153 (1) DVT (deep venous thrombosis) Affected thrombotic vein of extremity: femoral Chronicity: unspecified DVT l ocation: lower extremity Laterality: left Qualified Code(s): I82.412 - Acute embolism and thrombosis of left femoral vein (5) Hypertension Hypertension type: essential hypertension Qualified Code(s): I10 - Essential (primary) hypertension
[2024-12-18 07:47] LABS: Hematocrit (blood only) 31.8 % (37.0-47.0); Hemoglobin 10.3 g/dl (12.0-16.0); Mean Corpuscular Hemoglobin 29.3 pg (25.0-34.0); Mean Corpuscular Volume 90.3 fL (80.0-100.0); Platelet Count 292 K/uL (130-400); RDW Standard Deviation 43.1 fL (36.4-46.3); Red Blood Count 3.52 M/uL (4.20-5.40); White Blood Count 6.13 K/ul (4.8-10.8)
[2024-12-18 08:37] LABS: Anion Gap 4.0 (3-11); Blood Urea Nitrogen 20.0 mg/dl (6-23); Calcium 8.6 mg/dl (8.6-10.3); Carbon Dioxide 29.0 mmol/L (21-32); Chloride 106.0 mmol/L (98-107); Creatinine Clr Calc Pharmacy 59.1 ml/min; Glucose 136.0 mg/dl (70-99(Fasting)); Potassium 4.3 mmol/L (3.5-5.1); Sodium 139.0 mmol/L (136-145)
--- NOTE | 2024-12-18 14:06 | Hospitalist Progress Note ---
Date of Service December 18, 2024 Assessment & Plan (1) DVT (deep venous thrombosis): (2) Noncompliance with medication regimen: (3) Ambulatory dysfunction: (4) Ovarian cyst, right: (5) Hypertension: (6) Diabetes mellitus: (7) Pressure ulcer of sacral region, stage 3: Plan The patient is a 74-year-old female with past medical history including DVT, memory impairment, pulmonary embolism with acute cor pulmonale, malignant neoplasm of left breast, mediastinal lymphadenopathy, adult situational stress disorder, diabetic nephropathy with proteinuria, hypertension, hyperlipidemia, depression, and CKD stage III. She presents to the emergency department with 4 days of worsening swelling of right greater than left lower extremities. She has been taking Eliquis as directed. She is referred for admission due to concerns regarding failure of Eliquis, with venous Doppler showing left distal femoral vein and left popliteal vein nonocclusive thrombosis versus chronic thrombosis with recannulization. #Left distal femoral vein and left popliteal vein nonocclusive thrombus versus chronic thrombus with recannulization Patient symptomatically with worsening swelling and edema, right greater than left Stopped apixaban Continue enoxaparin 1 mg/kg bid Hematology/oncology was originally consulted for long-term recommendation, as it was suspected that patient had a failure of Eliquis However, after obtaining further history, it is more suspicious that patient is not currently taking her Eliquis as prescribed Last Eliquis Rx was July 2024 Patient reports she is "unsure" if she takes blood thinners at home, and is unable to name any of her medication As per review of PCP notes + neurology visit in August 2024, gradual cognitive/memory decline over the past year Will plan to resume patient on Eliquis #Cognitive decline | memory impairment | medication noncompliance Suspect main culprit for her DVT is medication noncompliance in the setting of cognitive decline Do not feel like the patient would be able to manage warfarin independently CM consult appreciated #Lower extremity weakness | ambulatory dysfunction PT/OT evaluations appreciated Previously independent, but recommending acute rehab upon discharge CM following Fall precautions Peer to peer denied on 12/17 Son/primary all source intelligence currently debating appeal #Anemia Hgb trend stable around ~10.3 Clinically, patient denies melena or BRB in urine/stool No neurologic deficits appreciated exam; patient denies headache, changes in vision, or recent fall/trauma No signs of active bleeding on physical exam Hemoccult stools Trend #Right ovarian cyst As noted on CT scan Pelvic ultrasound reviewed - right ovarian clear cyst and small cervical nabothian cyst, unchanged. Endometrial thickness of 1 cm, thickened for age Follow up with BREWING DIRECTOR for endometrial thickening #Diabetes mellitus Change glargine from 50 to 30 units subcu daily basal-bolus insulin BG labile, averaging at goal A1c 7.8 #Stage III pressure ulcer of the sacral region Wound care nurse consult appreciated Daily wound care while inpatient #Hypokalemia -resolved #Hypomagnesemia - resolved Disposition: Continued stay on MedSurg; peer to peer denied for SNF placement on 12/17 for the reasons cited above. Patient's son/primary all source intelligence is currently debating home with home health versus appealing SNF insurance Auth. He has been informed that, given there is no formal paperwork for a medical power of employment attorney, he would need to come into the hospital to p.o. the case with his mother present Admission and Anticipated Discharge Date Admission Date: December 13, 2024 Supervising Physician Co-Signing Physician Notes Attending Attestation - Chart reviewed, care plan d/w ELIEL Hernandes. I agree w/ the erickson components of his documentation. Davi Mccall MD Subjective Mrs. Iglesias is resting peacefully in bed this morning. She has no new complaints. She is pleasantly confused. She has been eating and sleeping well, and reports she is able to get up and walk to the bathroom without feeling off balance. She also reports that her left leg feels better this morning. She is still not oriented to month of the year or season. She still exhibits some confusion when answering questions. ROS: Patient denies fever, chills, night sweats, chest pain, SOB, cough, abdominal pain, N/V/D, changes in urinary or bowel habits, or left leg pain / swelling. VSS Review of Systems Review of Systems: See HPI above Physical Exam Physical Exam: General: no acute distress; resting peacefully in bed; pleasant affect; non- toxic appearing; frail appearing; cooperative; SpO2 96% on RA HEENT: normocephalic, atraumatic; no scleral icterus; PERRLA; vision and hearing intact Neck: supple; trachea midline Skin: warm, dry without signs of tenting; no cyanosis; no rashes, bruising, lesions, or erythema noted CV: chest wall NTP; RRR; S1/S2 normal; no murmurs/rubs/gallops; pulses intact and symmetric at radial, DP, and PT Lungs: no acute respiratory distress; symmetrical chest wall expansion; clear breath sounds across all lung moya w/o adventitious sounds; no wheezing ABD: Soft, NTP; BS present; no rebound/guarding; no distention Back: Upper spine NTP; lower spine NTP; sacral wound dressings in place (last changed on 12/17) MSK: no tics or fasciculations; no edema noted in the LEs b/l, nonerythematous Neuro: Alert and oriented to name, , and location; not month or season; clear memory deficits; fluent speech; sensation intact and symmetric in the lower extremities bilateral assessed via light touch Results & Data Results & Data Vital Signs (Past 12 Hours) Vital Signs Temp Pulse Resp BP Pulse Ox O2 Del Method 12/18/24 07:28 36.6 C 81 16 114/68 96 Room Air PG Care Time/CCT Total # of Minutes Spent Total Time Spent with Patient: Total time spent is greater than 50% in coordination of care (as documented) at patient's floor/unit and/or counseling patient: Coding [place] [id number] SUB INP/OBS CARE 05/29MIN Patient Type Established Medical Decision Making Low Complexity Diagnoses DVT (deep venous thrombosis) I82.412 Affected thrombotic vein of extremity: femoral Chronicity: unspecified DVT location: lower extremity Laterality: left Noncompliance with medication regimen Z91.148 Ambulatory dysfunction R26.2 Ovarian cyst, right N83.201 Essential hypertension I10 Hypertension type: essential hypertension Diabetes mellitus E11.9 Pressure ulcer of sacral region, stage 3 L89.153 (1) DVT (deep venous thrombosis) Affected thrombotic vein of extremity: femoral Chronicity: unspecified DVT location: lower extremity Laterality: left Qualified Code(s): I82.412 - Acute embolism and thrombosis of left femoral vein (5) Hypertension Hypertension type: essential hypertension Qualified Code(s): I10 - Essential (primary) hypertension
--- NOTE | 2024-12-19 13:18 | Hospitalist Progress Note ---
Date of Service December 19, 2024 Assessment & Plan (1) DVT (deep venous thrombosis): (2) Noncompliance with medication regimen: (3) Ambulatory dysfunction: (4) Ovarian cyst, right: (5) Hypertension: (6) Diabetes mellitus: (7) Pressure ulcer of sacral region, stage 3: Plan The patient is a 74-year-old female with past medical history including DVT, memory impairment, pulmonary embolism with acute cor pulmonale, malignant neoplasm of left breast, mediastinal lymphadenopathy, adult situational stress disorder, diabetic nephropathy with proteinuria, hypertension, hyperlipidemia, depression, and CKD stage III. She presents to the emergency department with 4 days of worsening swelling of right greater than left lower extremities. She has been taking Eliquis as directed. She is referred for admission due to concerns regarding failure of Eliquis, with venous Doppler showing left distal femoral vein and left popliteal vein nonocclusive thrombosis versus chronic thrombosis with recannulization. #Left distal femoral vein and left popliteal vein nonocclusive thrombus versus chronic thrombus with recannulization Patient symptomatically with worsening swelling and edema, right greater than left Transition from enoxaparin 1 mg/kg bid -> Eliquis 10mg p.o. BID on 12/19 Hematology/oncology was originally consulted for long-term recommendation, as it was suspected that patient had a failure of Eliquis However, after obtaining further history, it is more suspicious that patient is not currently taking her Eliquis as prescribed Last Eliquis Rx was July 2024 Patient reports she is "unsure" if she takes blood thinners at home, and is unable to name any of her medication As per review of PCP notes + neurology visit in August 2024, gradual cognitive/memory decline over the past year #Cognitive decline | memory impairment | medication noncompliance Suspect main culprit for her DVT is medication noncompliance in the setting of cognitive decline Do not feel like the patient would be able to manage warfarin independently CM consult appreciated #Lower extremity weakness | ambulatory dysfunction PT/OT evaluations appreciated Previously independent, but recommending acute rehab upon discharge CM following Fall precautions Peer to peer denied for SNF on 12/17 Patient lives alone and is currently a high fall risk Son/primary central lab technician currently debating appeal CM called Son on 12/18 requesting callback Attempted to call Son on 12/19, but was unable to reach; left brief voicemail requesting callback #Anemia Hgb trend stable around ~10.3 Clinically, patient denies melena or BRB in urine/stool No neurologic deficits appreciated exam; patient denies headache, changes in vision, or recent fall/trauma No signs of active bleeding on physical exam Hemoccult stools Trend #Right ovarian cyst As noted on CT scan Pelvic ultrasound reviewed - right ovarian clear cyst and small cervical nabothian cyst, unchanged. Endometrial thickness of 1 cm, thickened for age Follow up with COUNSELING DIRECTOR for endometrial thickening #Diabetes mellitus Change glargine from 50 to 30 units subcu daily basal-bolus insulin BG labile, averaging at goal A1c 7.8 #Stage III pressure ulcer of the sacral region Wound care nurse consult appreciated Daily wound care while inpatient #Hypokalemia -resolved #Hypomagnesemia - resolved Disposition: Continued stay on MedSurg; peer to peer denied for SNF placement on 12/17 Patient's son/primary central lab technician (Wayne) is currently debating home with home health versus appealing SNF insurance authorization denial. He has been informed that, given there is no formal paperwork for a medical power of slitting machine feeder, he would need to come into the hospital to p.o. the case with his mother present. Attempted to call son on 12/19, but could not reach. Admission and Anticipated Discharge Date Admission Date: December 13, 2024 Supervising Physician Co-Signing Physician Notes Attending Attestation - Chart reviewed, care plan d/w ELIEL Hernandes. I agree w/ the erickson components of his documentation. Davi Mccall MD Subjective Mrs. Iglesias is sitting upright in her chair watching TV this afternoon. She reports she slept "so-so" last night. She is also having worse pain in her left leg today which she rates a 6 out of 10. She reports it is worse with standing and walking. When asked how she feels on her feet, she reports she "does not feel comfortable by her [herself]". She endorses feeling unsteady/off-balance ROS: Patient endorses feeling unsteady on her feet, and left lower extremity pain. Patient denies fever, chills, night sweats, chest pain, SOB, cough, abdominal pain, N/V/D, or changes in urinary bowel habits. Review of Systems Review of Systems: See HPI above Physical Exam Physical Exam: General: no acute distress; resting peacefully in bed; pleasant affect; non- toxic appearing; frail appearing; cooperative; SpO2 96% on RA HEENT: normocephalic, atraumatic; no scleral icterus; PERRLA; vision and hearing intact Neck: supple; trachea midline Skin: warm, dry without signs of tenting; no cyanosis; no rashes, bruising, lesions, or erythema noted CV: chest wall NTP; RRR; S1/S2 normal; no murmurs/rubs/gallops; pulses intact and symmetric at radial, DP, and PT Lungs: no acute respiratory distress; symmetrical chest wall expansion; clear breath sounds across all lung moya w/o adventitious sounds; no wheezing ABD: Soft, NTP; BS present; no rebound/guarding; no distention Back: Upper spine NTP; lower spine NTP; sacral wound dressings in place (last changed on 12/17) MSK: no tics or fasciculations; no edema noted in the LEs b/l, nonerythematous Neuro: Alert and oriented to name, , and location; not month or season; clear memory deficits; fluent speech; sensation intact and symmetric in the lower extremities bilateral assessed via light touch Results & Data Results & Data Vital Signs (Past 12 Hours) Vital Signs Temp Pulse Resp BP Pulse Ox O2 Del Method 12/19/24 09:19 Room Air 12/19/24 07:30 36.4 C L 87 16 119/59 L 98 Room Air PG Care Time/CCT Total # of Minutes Spent Total Time Spent with Patient: Total time spent is greater than 50% in coordination of care (as documented) at patient's floor/unit and/or counseling patient: Coding [place] [address] SUB INP/OBS CARE 05/29MIN Patient Type Established Medical Decision Making Low Complexity Diagnoses DVT (deep venous thrombosis) I82.412 Affected thrombotic vein of extremity: femoral Chronicity: unspecified DVT location: lower extremity Laterality: left Noncompliance with medication regimen Z91.148 Ambulatory dysfunction R26.2 Ovarian cyst, right N83.201 Essential hypertension I10 Hypertension type: essential hypertension Diabetes mellitus E11.9 Pressure ulcer of sacral region, stage 3 L89.153 (1) DVT (deep venous thrombosis) Affected thrombotic vein of extremity: femoral Chronicity: unspecified DVT location: lower extremity Laterality: left Qualified Code(s): I82.412 - Acute embolism and thrombosis of left femoral vein (5) Hypertension Hypertension type: essential hypertension Qualified Code(s): I10 - Essential (primary) hypertension
[2024-12-19] MEDS: APIXABAN 5 MG TABLET PO SCH (20:22)
[2024-12-20 07:37] LABS: Hematocrit (blood only) 32.6 % (37.0-47.0); Hemoglobin 10.5 g/dl (12.0-16.0); Mean Corpuscular Hemoglobin 29.0 pg (25.0-34.0); Mean Corpuscular Volume 90.1 fL (80.0-100.0); Platelet Count 298 K/uL (130-400); RDW Standard Deviation 43.2 fL (36.4-46.3); Red Blood Count 3.62 M/uL (4.20-5.40); White Blood Count 7.59 K/ul (4.8-10.8)
--- NOTE | 2024-12-20 14:27 | Hospitalist Progress Note ---
"Date of Service December 20, 2024 Assessment & Plan (1) DVT (deep venous thrombosis): (2) Noncompliance with medication regimen: (3) Ambulatory dysfunction: (4) Ovarian cyst, right: (5) Hypertension: (6) Diabetes mellitus: (7) Pressure ulcer of sacral region, stage 3: Plan The patient is a 74-year-old female with past medical history including DVT, memory impairment, pulmonary embolism with acute cor pulmonale, malignant neoplasm of left breast, mediastinal lymphadenopathy, adult situational stress disorder, diabetic nephropathy with proteinuria, hypertension, hyperlipidemia, depression, and CKD stage III. She presents to the emergency department with 4 days of worsening swelling of right greater than left lower extremities. She is referred for admission due to concerns regarding failure of Eliquis, with venous Doppler showing left distal femoral vein and left popliteal vein nonocclusive thrombosis versus chronic thrombosis with recannulization. #Left distal femoral vein and left popliteal vein nonocclusive thrombus versus chronic thrombus with recannulization Patient symptomatically with worsening swelling and edema, right greater than left Hematology/oncology was originally consulted for long-term recommendation, as it was suspected that patient had a failure of Eliquis, However, after obtaining further history, patient is not taking her Eliquis as prescribed - Last Eliquis Rx was July 2024 Transition from enoxaparin 1 mg/kg bid -> Eliquis 10mg p.o. BID on 12/19 #Cognitive decline | memory impairment | medication noncompliance Suspect main culprit for her DVT is medication noncompliance in the setting of cognitive decline Recommend ambulatory CM consult at discharge #Lower extremity weakness | ambulatory dysfunction PT/OT rec rehab, SNF initally declined, but had further functional decline. Resubmitting for auth 12/20 high fall risk #Anemia Hgb trend stable around ~10.3 - No signs of active bleeding on physical exam TSH WNL check b12, folate and iron studies #Right ovarian cyst As noted on CT scan. Pelvic ultrasound - right ovarian clear cyst and small cervical nabothian cyst, unchanged. Endometrial thickness of 1 cm, thickened for age Follow up with DRAW OFF WORKER for endometrial thickening #Diabetes mellitus Change glargine from 50 to 30 units subcu daily basal-bolus insulin A1c 7.8 #Stage III pressure ulcer of the sacral region Pressure ulcer of right sacral region, stage 3, POA Pressure ulcer of left sacral region, stage 3, POA Pressure ulcer of left ischium stage 3, POA Wound care nurse consult appreciated Daily wound care while inpatient #Hypokalemia -resolved #Hypomagnesemia - resolved Disposition: Continued stay on MedSurg;awaiting safe discharge plan DVT proh: ELiquis Follow ups at discharge: DRAW OFF WORKER, Ambulatory CM Attempted to call son on 12/19, but could not reach. Admission and Anticipated Discharge Date Admission Date: December 13, 2024 Supervising Physician Co-Signing Physician Notes Attending Attestation - Chart reviewed, care plan d/w ELIEL Jensen. I agree w/ the erickson components of her documentation. Davi Mccall MD Subjective patient seen lying in bed - does not recall talking to her son about where she is going to go after hospital discharge pain is controlled Review of Systems Review of Systems: All systems reviewed & are unremarkable except as noted in Subjective Physical Exam Physical Exam: General: NAD, VS as above Resp: normal respiratory effort, lungs clear to auscultation CV: RRR, no murmur, Abd: normal bowel sounds, non tender, no hepatosplenomegaly Extremities: Moves all extremities, no calf tenderness Results & Data Results & Data Vital Signs (Past 12 Hours) Vital Signs Temp Pulse Resp BP Pulse Ox O2 Del Method 12/20/24 07:06 97.7 F 81 16 136/76 97 Room Air Laboratory Results cbc reviewed PG Care Time/CCT Total # of Minutes Spent Total Time Spent with Patient: Total time spent is greater than 50% in coordination of care (as documented) at patient's floor/unit and/or counseling patient: Coding Level of Care Code 71472 SUB INP/OBS CARE 2/35MIN Diagnoses DVT (deep venous thrombosis) I82.412 Affected thrombotic vein of extremity: femoral Chronicity: unspecified DVT location: lower extremity Laterality: left Noncompliance with medication regimen Z91.148 Ambulatory dysfunction R26.2 Ovarian cyst, right N83.201 Essential hypertension I10 Hypertension type: essential hypertension Diabetes mellitus E11.9 Pressure ulcer of sacral region, stage 3 L89.153 (1) DVT (deep venous thrombosis) Affected thrombotic vein of extremity: femoral Chronicity: unspecified DVT location: lower extremity Laterality: left Qualified Code(s): I82.412 - Acute embolism and thrombosis of left femoral vein (5) Hypertension Hypertension type: essential hypertension Qualified Code(s): I10 - Essential (primary) hypertension"
[2024-12-21 07:44] LABS: Iron 25.0 mcg/dl (35-150); Total Iron Binding Cap Calc 272.0 mcg/dl (250-450); Transferrin 194.0 mg/dl (200-360); Transferrin (FE) Percent Satur 9.0 % (15-50)
[2024-12-21 07:57] LABS: Folate (Folic Acid),Ser orPlas 9.81 ng/ml (>5.38)
[2024-12-21 07:58] LABS: Vitamin B12 443.0 pg/ml (180-914)
[2024-12-21 08:27] LABS: Ferritin 492.2 ng/ml (8-388)
--- NOTE | 2024-12-21 12:22 | Hospitalist Progress Note ---
"Date of Service December 21, 2024 Assessment & Plan (1) DVT (deep venous thrombosis): (2) Noncompliance with medication regimen: (3) Ambulatory dysfunction: (4) Ovarian cyst, right: (5) Hypertension: (6) Diabetes mellitus: (7) Pressure ulcer of sacral region, stage 3: Plan The patient is a 74-year-old female with past medical history including DVT, memory impairment, pulmonary embolism with acute cor pulmonale, malignant neoplasm of left breast, mediastinal lymphadenopathy, adult situational stress disorder, diabetic nephropathy with proteinuria, hypertension, hyperlipidemia, depression, and CKD stage III. She presents to the emergency department with 4 days of worsening swelling of right greater than left lower extremities. She is referred for admission due to concerns regarding failure of Eliquis, with venous Doppler showing left distal femoral vein and left popliteal vein nonocclusive thrombosis versus chronic thrombosis with recannulization. #Left distal femoral vein and left popliteal vein nonocclusive thrombus versus chronic thrombus with recannulization Patient symptomatically with worsening swelling and edema, right greater than left Hematology/oncology was originally consulted for long-term recommendation, as it was suspected that patient had a failure of Eliquis, However, after obtaining further history, patient is not taking her Eliquis as prescribed - Last Eliquis Rx was July 2024 Transition from enoxaparin 1 mg/kg bid -> Eliquis 10mg p.o. BID on 12/19 #Cognitive decline | memory impairment | medication noncompliance Suspect main culprit for her DVT is medication noncompliance in the setting of cognitive decline Recommend ambulatory CM consult at discharge #Lower extremity weakness | ambulatory dysfunction PT/OT rec rehab, SNF initally declined, but had further functional decline. Resubmitting for auth 12/21 #Anemia Hgb trend stable around ~10.3 - No signs of active bleeding on physical exam TSH WNL B12 and folate WNL. iron studies consistent with iron deficiency anemia, elevated ferritin is likely an acute phase reactant for DVTwill give 1 dose of IV Venofer #Right ovarian cyst As noted on CT scan. Pelvic ultrasound - right ovarian clear cyst and small cervical nabothian cyst, unchanged. Endometrial thickness of 1 cm, thickened for age Follow up with DOUGH BRAKE MACHINE OPERATOR for endometrial thickening #Diabetes mellitus mild elevations in BSG's, increase glargine from 30 to 35 units daily basal-bolus insulin A1c 7.8 #Stage III pressure ulcer of the sacral region Pressure ulcer of right sacral region, stage 3, POA Pressure ulcer of left sacral region, stage 3, POA Pressure ulcer of left ischium stage 3, POA Wound care nurse consult appreciated Daily wound care while inpatient #Hypokalemia -resolved #Hypomagnesemia - resolved Disposition: Continued stay on MedSurg;awaiting safe discharge plan DVT proh: Eliquis Follow ups at discharge: DOUGH BRAKE MACHINE OPERATOR, Ambulatory CM Attempted to call son on 12/19, but could not reach. Admission and Anticipated Discharge Date Admission Date: December 13, 2024 Supervising Physician Co-Signing Physician Notes Attending Attestation - Chart reviewed, care plan d/w ELIEL Jensen. I agree w/ the erickson components of her documentation. Davi Mccall MD Subjective patient seen sitting up in the chair. No acute complaints. Denies pain. Review of Systems Review of Systems: All systems reviewed & are unremarkable except as noted in Subjective Physical Exam Physical Exam: General: NAD, vitals as above, sitting Up in the chair Pulm: breathing unlabored CV: well perfused extremities: moves all extremities Results & Data Results & Data Vital Signs (Past 12 Hours) Vital Signs Temp Pulse Resp BP Pulse Ox O2 Del Method 12/21/24 07:45 Room Air 12/21/24 07:26 98.4 F 84 20 118/68 97 Room Air Laboratory Results ferritin and iron studies reveiwed b12 and folate reviewed PG Care Time/CCT Total # of Minutes Spent Total Time Spent with Patient: Total time spent is greater than 50% in coordination of care (as documented) at patient's floor/unit and/or counseling patient: Coding Level of Care Code 28419 SUB INP/OBS CARE 2MIN Diagnoses DVT (deep venous thrombosis) I82.412 Affected thrombotic vein of extremity: femoral Chronicity: unspecified DVT location: lower extremity Laterality: left Noncompliance with medication regimen Z91.148 Ambulatory dysfunction R26.2 Ovarian cyst, right N83.201 Essential hypertension I10 Hypertension type: essential hypertension Diabetes mellitus E11.9 Pressure ulcer of sacral region, stage 3 L89.153 (1) DVT (deep venous thrombosis) Affected thrombotic vein of extremity: femoral Chronicity: unspecified DVT location: lower extremity Laterality: left Qualified Code(s): I82.412 - Acute embolism and thrombosis of left femoral vein (5) Hypertension Hypertension type: essential hypertension Qualified Code(s): I10 - Essential (primary) hypertension"
[2024-12-21] MEDS: IRON SUCROSE 300 MG in SODIUM CHLORIDE 0.9% 250 ML IV ONE (13:07)
[2024-12-21] MEDS: LANTUS PER UNIT CHARGE SC SCH (21:05)
[2024-12-21 23:49] VITALS: RESP 16
--- NOTE | 2024-12-22 09:17 | Discharge Summary ---
Discharge Summary Date of Service December 22, 2024 Principal Dx & Hospital Course #1 = Principal Diagnosis (1) DVT (deep venous thrombosis): (2) Noncompliance with medication regimen: (3) Ambulatory dysfunction: (4) Ovarian cyst, right: (5) Hypertension: (6) Diabetes mellitus: (7) Pressure ulcer of sacral region, stage 3: Plan #Left distal femoral vein and left popliteal vein nonocclusive thrombus versus chronic thrombus with recannulization The patient is a 74-year-old female with past medical history including DVT, memory impairment, pulmonary embolism with acute cor pulmonale, malignant neoplasm of left breast, mediastinal lymphadenopathy, adult situational stress disorder, diabetic nephropathy with proteinuria, hypertension, hyperlipidemia, depression, and CKD stage III. She presents to the emergency department with 4 days of worsening swelling of right greater than left lower extremities. Venous Doppler showing left distal femoral vein and left popliteal vein nonocclusive thrombosis versus chronic thrombosis with recannulization. Initally there was a concern that this was an Eliquis failure, however she was not taking Eliquis as prescribed, last picked up from the pharmacy 07/2024. Was on lovenox, but transition to Eliquis 10mg BID 12/19 x 7 days, then transition to 5mg BID indefinitely. Ambulatory case management referral placed - consider pill packs, or HH to help fill pill box #Cognitive decline | memory impairment | medication noncompliance Suspect main culprit for her DVT is medication noncompliance in the setting of cognitive decline #Lower extremity weakness | ambulatory dysfunction - to [facility] for SNF today #Anemia- Hgb trend stable around ~10.3 - No signs of active bleeding. TSH/B12/folate WNL. iron studies consistent with iron deficiency anemia, elevated ferritin is likely an acute phase reactant for DVTgiven 1 dose of IV Venofer #Right ovarian cyst As noted on CT scan. Pelvic ultrasound - right ovarian clear cyst and small cervical nabothian cyst, unchanged. Endometrial thickness of 1 cm, thickened for age Follow up with ROUTE DELIVERY MANAGER for endometrial thickening #Diabetes mellitus- A1c 7.8, lantus 50 units home dose, was receiving 35 units here #Stage III pressure ulcer of the sacral region Pressure ulcer of right sacral region, stage 3, POA Pressure ulcer of left sacral region, stage 3, POA Pressure ulcer of left ischium stage 3, POA Daily wound care #Hypokalemia -resolved #Hypomagnesemia - resolved Disposition: discharge to SNF today Follow ups at discharge: ROUTE DELIVERY MANAGER, Ambulatory CM Notes For Next Care Provider need master technician follow up eliquis compliance is important! Admission HPI Per Admitting Provider The patient is a 74-year-old female with past medical history including DVT, memory impairment, pulmonary embolism with acute cor pulmonale, malignant neoplasm of left breast, mediastinal lymphadenopathy, adult situational stress disorder, diabetic nephropathy with proteinuria, hypertension, hyperlipidemia, depression, and CKD stage III. She presents to the emergency department with 4 days of worsening swelling of right greater than left lower extremities. She has been taking Eliquis as directed. She is referred for admission due to concerns regarding failure of Eliquis, with venous Doppler showing left distal femoral vein and left popliteal vein nonocclusive thrombosis versus chronic thrombosis with recannulization. Discharge Exam General: NAD, vitals as above, lying in bed, expresses no needs Pulm: breathing unlabored CV: well perfused extremities: moves all extremities Discharge Plan Discharge Items Patient Disposition: [facility] Reason For Visit: DVT, FAILURE OF APIXABAN Discharge Diagnosis: DVT Condition on Discharge: Good Activity: As commented below Activity Comment: Work with therapy to get stronger Bathing: No limitations Non-emergency contact: Primary Care Provider Call non-emergency contact if: you have any medication questions, your symptoms worsen and your temperature is above 101 Follow-up/Referrals: Jem Farrell DO [Primary Care Provider] - ( follow-up after discharge from rehab) Diet: Carb Consistent or DM2 and Heart Healthy Addtl Attending Provider Instructions: Ms. Iglesias, You were hospitalized after having swelling of your leg - found to be a blood clot. This likely happened from not taking your Eliquis consistently. It is very important that you take this every day to prevent further clot - untreated blood clots can lead to stroke. Your hemoglobin count (blood count) was found to be low, called anemia. This is likely from iron deficiency - you were given one dose of IV iron. Continue daily wound care. Your CT scan and pelvic US showed a cyst and endometrial thickening - recommend follow up with gynecology. You will be going to [facility] for rehab, after that it is very important you have help to make sure you are taking your pills correctly. For [facility]: 10mg BID eliquis x6 more doses then transiton back to 5mg BID need master technician follow up Pending Studies at Discharge: No Stand-Alone Forms: My [facility] Skilled Items Patient informed of condition?: Yes DNR: No Discharge Level of Care: Skilled Communicable Disease: No Discharge Prognosis: Stable Lines: None Urinary Catheter: No Medications and DC Order Prescriptions: New Eliquis 5 mg Tablet 10 mg PO BID 3 Days Qty: 12 0RF Continued atorvastatin 80 mg tablet 80 mg PO QAM Qty: 90 3RF insulin glargine [Lantus Solostar U-100 Insulin] 100 unit/mL (3 mL) insulin pen 50 unit subcut QPM 30 Days Qty: 15 5RF (DME) Dexcom G7 Sensor Device See Rx Instructions .Route Qty: 3 5RF Rx Instructions: As directed, 1 month supply. Change every 10 days. acetaminophen [Tylenol] 325 mg tablet 650 mg PO Q6H PRN (Reason: Fever Or Pain) (DME) Dexcom G7 Hvac Service Tech Misc See Rx Instructions .Route Qty: 1 0RF Rx Instructions: As directed (DME) pen needle, diabetic [Comfort EZ Pen Colby] 32 gauge x 1/4" needle See Rx Instructions .Route Qty: 100 3RF Rx Instructions: once per day aspirin 81 mg Tablet,Delayed Release (Dr/Ec) 81 mg PO DAILY Held Eliquis 5 mg tablet 5 mg PO BID Qty: 60 11RF Hold Instructions: Provider's Order - hold until completing 10mg dose Discharge Orders: Discharge Order (Routine); Ordered 12/22/24 Ordered By: Mckenna Michelle/Other Patient Handouts: Managing Type 2 Diabetes Admission Data Admit Date/Time: 12/13/24 02:13 Attending Provider: Michell Tucker Admit Provider: Noel Cardoso Primary Care Provider: Jem Farrell Other Providers: Dominick Mayberry [facility]; Noel Cardoso; Trev Landry; [facility] Stay Data Consultations 12/13/24 01:31 ED Decision to Admit Stat 12/13/24 03:34 Consult Hematology Routine 12/22/24 09:15 Consult Case Management Ambulatory ONCE Diagnostic Imagining Performed Venous Doppler Study 12/12/24 21:58 EXAM: US venous doppler LE BI CLINICAL HISTORY: Swelling, DVT. TECHNIQUE: Ultrasound examination of bilateral lower extremity veins was performed in real time and duplex. One or more of the following were performed- spectral analysis, resistive index, waveform analysis, and pulsed Doppler. COMPARISON: None. FINDINGS: The left distal femoral vein and left popliteal vein appear partially compressible on provided images however demonstrate presence of flow within it. Findings suggest nonocclusive thrombosis versus chronic thrombosis with recanalization. Normal phasic, non-pulsatile and spontaneous flow is noted in bilateral common femoral, superficial femoral (except distal left FV) and right popliteal veins. Visualized veins of both lower extremities demonstrate normal compressibility. No sonographic evidence of acute deep vein thrombosis (DVT) is detected in the visualized veins of both lower extremities. Atherosclerotic calcification is noted in bilateral posterior tibial and peroneal veins showing broken flow. Possibility of thrombosis cannot be excluded. Additional Findings: No evidence of intraluminal thrombus. IMPRESSION: 1. The left distal femoral vein and left popliteal vein appear partially compressible on provided images however demonstrate presence of flow within it. Findings suggest nonocclusive thrombosis versus chronic thrombosis with recanalization. 2. Atherosclerotic calcification is noted in bilateral posterior tibial and peroneal veins showing broken flow. Possibility of thrombosis cannot be excluded. 3. No sonographic evidence of acute DVT and the rest of the visualized veins of bilateral lower extremity. 4. Clinical correlation and follow-up is recommended. Disclaimer: DVT could be missed early in the disease when clot burden is minimal. For patients with moderate and high pretest probability of DVT and negative ultrasound, the [employer] clinical guidelines recommend testing with a D-dimer assay or repeat ultrasound in 5-7 days. If symptoms worsen, the Society of radiologists in ultrasound recommends repeating ultrasound even earlier. Electronically signed by Vasquez Alexander 12-13-2024 12:30 AM Chest X-Ray 12/12/24 21:59 Single frontal view of the chest No comparison Impression No acute pulmonary pathology. Electronically signed by Dewey Mendoza 12-12-2024 11:19 PM Abdomen/Pelvis CT 12/12/24 22:36 EXAM: CT abd pelvis IV con only CLINICAL HISTORY: B leg swelling, hx Breast CA,? mass TECHNIQUE: CT of the abdomen and pelvis was performed with and without contrast, with the following protocol: axial images with, and reconstructed coronal and sagittal images. One of the following dose reduction techniques was utilized for this exam: Automated exposure control, adjustment of the mA and/or kV according to patient size, and use of iterative reconstruction. COMPARISON: None. FINDINGS: Abdomen: Liver: Normal in size, shape, and density. No focal lesions, cysts, or masses were identified. Hepatic vasculature and biliary ducts are unremarkable. Gallbladder and Biliary System: Evidence of cholecystectomy. The common bile duct is normal in caliber without dilation. Pancreas: Pancreatic head, body, and tail are visualized and appear normal in size and density. No pancreatic masses or calcifications were noted. The pancreatic duct is not dilated. Spleen: Normal in size, shape, and density. No splenic lesions or masses were identified. Appendix: The appendix is normal in size without hao appendiceal fat stranding, and without an appendicolith. No evidence of appendiceal abscess or perforation. Kidneys and Adrenal Glands: Both kidneys are normal in size, shape, and position. A few tiny cortical cysts in both kidneys. Left renal parapelvic cysts. Mild prominence of both ureters without any calculus in the course. Cortical thickness is within normal limits. No renal calculi or hydronephrosis. Adrenal glands are unremarkable with no evidence of masses or hyperplasia. Pelvis: Urinary Bladder: Normal in contour and wall thickness. No intraluminal lesions identified. Uterus: Normal in size and contour. No masses or abnormal thickening. Ovaries: A well-defined cystic structure is identified in the right ovary measuring 39 x 27 mm. Vagina: Normal in contour and wall thickness. Cervix: No evidence of mass or abnormal thickening. Peritoneal and Retroperitoneal Structures: No free fluid or abnormal fluid collections were identified within the abdomen or pelvis. Multiple subcentimeter-sized yet prominent lymph nodes are seen along the celiac axis and in the mesentery. Atherosclerotic calcification is identified in the abdominal aorta and its branches. Small pelvic phleboliths. Bowel: Mild thickening of the fundal region of the stomach, likely due to inadequate distention. Fecal loading is identified in the colon. A few small colonic diverticula without diverticulitis. The visualized bowel loops are normal in caliber and appearance. No evidence of bowel obstruction or wall thickening. Bones and Soft Tissues: Pelvic bones and soft tissues are unremarkable. No fractures or abnormal masses were identified. Degenerative changes are seen in the visualized spine with grade 1 spondylolisthesis at L4-5, multilevel disc bulges, and reduced disc space at L5-S1. Mild fibro-atelectatic changes are seen in both lower lobes. Linear soft tissue thickening in the inner part of the left breast. IMPRESSION: A few tiny cortical cysts in both kidneys. Left renal parapelvic cysts. Mild prominence of both ureters without any calculus in the course. This could be due to an overdistended urinary bladder. However, needs clinical and lab correlation to rule out mild inflammation/infection. A well-defined cystic structure in the right ovary measuring 39 x 27 mm. No solid component is seen. Ultrasound correlation is advised. Multiple subcentimeter-sized yet prominent lymph nodes along the celiac axis and in the mesentery. Mild thickening of the fundal region of the stomach, likely due to inadequate distention. Needs clinical correlation. Electronically signed by Vasquez Alexander 12-13-2024 01:16 AM Chest CTA 12/12/24 22:36 EXAM: CT angio chest PE protocol CLINICAL HISTORY: PE TECHNIQUE: Contiguous axial images were obtained from the neck base through the upper abdomen following intravenous administration of iodinated contrast material. Angiographic images were processed, 3D MIP images were acquired for interpretation. If IV contrast material had not been administered, the likelihood of detecting abnormalities relevant to the patient's condition would have been substantially decreased. Coronal and sagittal 3-D MIPs were likewise performed and indicated to increase the sensitivity of detectin diffuse clinically relevant pathology. CT scan was performed according to ALARA (as low as reasonable achievable). COMPARISON: None. FINDINGS: Few atelectatic bands are noted involving bilateral lung bases. Adequate contrast bolus without evidence of pulmonary embolism. The central airways are patent. The lungs are clear. No pleural effusion. The heart, aorta, and pulmonary arteries are of normal size and configuration. There are no appreciable coronary artery and aortic atherosclerotic calcifications. No pericardial effusion is identified. The thyroid is unremarkable. No mediastinal, hilar, or axillary lymphadenopathy is noted. No suspicious lytic or sclerotic osseous lesions are identified. IMPRESSION: No evidence of pulmonary embolism or pulmonary disease. Few atelectatic bands are noted involving bilateral lung bases.- likely post inflammatory changes Electronically signed by Kavon Hernandez 12-13-2024 12:54 AM Pelvis Ultrasound 12/13/24 03:34 EXAM: US pelvic complete CLINICAL HISTORY: right ovarian cyst TECHNIQUE: Ultrasound examination of the pelvis was performed in real time and duplex using a trans-abdominal approach. The patient declined the transvaginal exam The vascular flow was evaluated using color flow and with a spectral pattern of the flow waveform. COMPARISON: 12/12/2024. FINDINGS: The uterus is anteverted, measuring 6.6 × 4.3 × 2.3 cm, with no evidence of uterine masses. A small cervical nabothian cyst is identified, measuring 6 × 5 × 4 mm. The endometrial stripe thickness measures 1 cm. The right ovary measures 4.0 × 4.6 × 2.7 cm with normal vascular flow and contains an anechoic cyst measuring 2.3 × 4.3 × 2.9 cm. The left ovary measures 2.6 × 1.8 × 1.1 cm with normal vascular flow and no cysts or solid masses. No adnexal masses or free fluid are seen. The urinary bladder shows no wall thickening, masses, or intraluminal stones. No pelvic free fluid is present. IMPRESSION: 1. Endometrial thickness of 1 cm, considered thickened for age ? correlation with clinical findings and further gynecologic evaluation is advised. 2. Right ovarian clear cyst, measuring 2.3 × 4.3 × 2.9 cm. 3. Small cervical nabothian cyst. 4. No significant interval change. RECOMMENDATIONS: Clinical correlation with symptoms and further evaluation as indicated. Electronically signed by Vasquez Alexander 12-13-2024 07:32 AM Pending Results Patient Have Any Pending Studies at Discharge: No Discharge Instructions Given to Patient (Per Discharging Provider) Ms. Iglesias, Heath were hospitalized after having swelling of your leg - found to be a blood clot. This likely happened from not taking your Eliquis consistently. It is very important that you take this every day to prevent further clot - untreated blood clots can lead to stroke. Your hemoglobin count (blood count) was found to be low, called anemia. This is likely from iron deficiency - you were given one dose of IV iron. Continue daily wound care. Your CT scan and pelvic US showed a cyst and endometrial thickening - recommend follow up with gynecology. You will be going to [facility] for rehab, after that it is very important you have help to make sure you are taking your pills correctly. For [facility]: 10mg BID eliquis x6 more doses then transiton back to 5mg BID need master technician follow up Total Time Total Time Spent Total Time Spent (In Minutes): Time spent day of discharge 33 minutes including direct patient care, medication reconciliation, documentation, review of labs and images, and coordination of care. Coding Level of Care Code 57988 INP/OBS DISCH >30 MIN Diagnoses DVT (deep venous thrombosis) I82.412 Affected thrombotic vein of extremity: femoral Chronicity: unspecified DVT location: lower extremity Laterality: left Noncompliance with medication regimen Z91.148 Ambulatory dysfunction R26.2 Ovarian cyst, right N83.201 Essential hypertension I10 Hypertension type: essential hypertension Diabetes mellitus E11.9 Pressure ulcer of sacral region, stage 3 L89.153
[2024-12-22 11:08] VITALS: BP 110/63; PULSE 99; TEMP 97.9; O2SAT 97
== END 2024-12-22 11:28 | DRG 299 ==
LOC: ED 21:47 → SUATTDRO 12-13 02:13 → 4W 12-13 02:13 → 3N 12-16 21:39
DX: L89.323 Pressure ulcer of left buttock, stage 3; E78.5 Hyperlipidemia, unspecified; E11.22 Type 2 diabetes mellitus with diabetic chronic kidney disease; F32.A Depression, unspecified; I12.9 Hypertensive chronic kidney disease with stage 1 through stage 4 chronic kidney disease, or unspecified chronic kidney disease; L89.153 Pressure ulcer of sacral region, stage 3; Z86.711 Personal history of pulmonary embolism; T45.7X6A Underdosing of anticoagulant antagonist, vitamin K and other coagulants, initial encounter; N18.30 Chronic kidney disease, stage 3 unspecified; E83.42 Hypomagnesemia; Z85.3 Personal history of malignant neoplasm of breast; N83.201 Unspecified ovarian cyst, right side; Z91.048 Other nonmedicinal substance allergy status; Z79.01 Long term (current) use of anticoagulants; E87.6 Hypokalemia; I82.412 Acute embolism and thrombosis of left femoral vein; Z79.4 Long term (current) use of insulin; G31.84 Mild cognitive impairment of uncertain or unknown etiology; Z91.148 Patient's other noncompliance with medication regimen for other reason; Z79.82 Long term (current) use of aspirin; Z79.899 Other long term (current) drug therapy; I82.432 Acute embolism and thrombosis of left popliteal vein; D64.9 Anemia, unspecified

== ENCOUNTER 2025-04-08 16:24 | Inpatient (IN) ==
--- NOTE | 2025-04-08 16:32 | Emergency Department Note ---
Impression & Plan DANA (acute kidney injury), Leukocytosis, Anemia, Hyperglycemia ED Provider Note NAME: CHARLES THOMAS AGE: 75 SEX: F : 1950 ARRIVES VIA: Ambulance INFORMANT: Patient ED PROVIDER(S): Dewey Miller DO CHIEF COMPLAINT: Swelling of the legs, nausea vomiting HPI: Patient is a 75-year-old female with a past medical history of altered mental status, low mag, diabetes and CKD who presents to the ER for increased swelling in her bilateral lower extremities from [facility]. They also note that she has been having some nausea and intermittent vomiting. Patient denies any headache or change in vision. No chest pain but notes that she has had some shortness of breath off and on for some time. Denies any belly pain, nausea, vomiting, or diarrhea. No dysuria, urgency, or frequency. No other exacerbating or remitting factors. Per EMS who provides additional history she has had significant increase in swelling in her bilateral lower extremities. ADDITIONAL HISTORY OBTAINED: Per HPI Chronic Medical/Social Conditions Affecting Care: Per HPI PAST MEDICAL HISTORY:See Below PAST SURGICAL HISTORY:See Below FAMILY HISTORY:See Below SOCIAL HISTORY:See Below HOME MEDICATIONS:See Below ALLERGIES:See Below VITALS:See Below PHYSICAL EXAMINATION: GENERAL: Sitting up in bed, alert, well appearing, well nourished, no distress, non-toxic EYE EXAM: normal conjunctiva. OROPHARYNX: no exudate, no erythema, lips, buccal mucosa, and tongue normal and mucous membranes are moist NECK: supple, no nuchal rigidity, no adenopathy, non-tender LUNGS: Clear to auscultation. Normal chest wall mechanics HEART: no murmurs, S1 normal and S2 normal ABDOMEN: abdomen soft, non-tender, normo-active bowel sounds, no masses, no rebound or guarding. RECTAL: hem neg brown stool UPPER EXTREMITIES: upper extremities are grossly normal. LOWER EXTREMITIES: Pitting edema to the bilateral lower extremities left greater than right NEURO EXAM: Oriented to person place but not year, cranial nerves II-XII grossly intact, normal speech, no gross weakness of arms, no gross weakness of legs. MEDICAL DECISION MAKING: Patient is a 75-year-old female who presents ER for above-stated complaint. IV was established blood work was obtained. Labs show leukocytosis of 18,000. Anemia at 9 down from nearly 11 or 12. BMP with a creatinine of 1.9 slightly up from baseline of 0.6. Glucose was mildly up at 340. No gap to suggest DKA. Troponin was normal. Lipase was normal. Legs have pitting edema bilaterally. Gave judicious fluids. Patient was covered with IV Rocephin for broad-spectrum coverage due to leukocytosis. Patient is demented and gives no history. CT abdomen pelvis was negative. Chest x-ray clean. Discussed case with the hospitalist for further evaluation management treatment. Did perform a rectal which was heme-negative brown stool. Consults/Care Managements Discussions: Per [facility] Triage Nursing notes reviewed. Limited review of prior medical records performed Vital Signs: reviewed and remarkable for no significant abnormalities Differential diagnosis: Differential diagnoses includes but is not limited to pneumonia, bronchitis, COPD/Asthma exacerbation, pneumothorax, pulmonary embolism, congestive heart failure, acute coronary syndrome ER treatment provided: See below Diagnostics interpreted by me include EKG and cardiac monitoring as listed below: -Cardiac Monitoring: An order was placed for continuous cardiac monitoring. The monitor shows a rate of 100 with sinus rhythm. -ECG: Sinus tachycardia rate of 111 Left axis No PVCs QTc 481 -Laboratory studies:Interpreted by me as stated above in MDM and shown below. Imaging studies: Xrays: As interpreted by me: Portable AP upright 1 view of the chest shows no focal infiltrate CTs show: CT abdomen pelvis shows no acute pathology Ultrasound shows no DVT Procedures:none Critical Care: None Past Med/Surg History Problem List (Updated 04/08/25 @ 19:49 by Dewey Miller DO) Hyperglycemia (Acute) Anemia (Acute) Leukocytosis (Acute) DANA (acute kidney injury) (Acute) Nausea & vomiting SIRS (systemic inflammatory response syndrome) Anemia DANA (acute kidney injury) Abnormal urinalysis Lower extremity cellulitis Lower extremity edema Pedal edema (Acute) Hyperglycemia (Acute) Ambulatory dysfunction (Acute) Weakness (Acute) Ovarian cyst, right Elevated LFTs (Acute) Hypomagnesemia (Acute) Weakness (Acute) Memory impairment Fall Thickened endometrium Hypoxia (Acute) Acute alteration in mental status (Acute) Pulmonary embolism with acute cor pulmonale (Acute) Malignant neoplasm of lower-outer quadrant of left breast of female, estrogen receptor positive (Chronic 08/02/21) 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 Elevated ADILENE level suspicious for pulmonary sarcoidosis. Biopsy could not be completed. DM was grossly uncontrolled so steroids were avoided. Seems she's been relatively asymptomatic since then. Dr. Chowdhury repeated CT scan 2013, which revealed borderline, similiar appearing hilar LNs. Adult situational stress disorder (Chronic) Diabetic nephropathy with proteinuria (Chronic) Solitary thyroid nodule (Chronic) s/p thyroidectomy 2011 Vitamin D deficiency (Chronic) Diabetes mellitus type 2, uncontrolled (Chronic) Hyperlipidemia (Chronic) Depression (Chronic) CKD (chronic kidney disease) stage 3, GFR 30-59 ml/min Medical History Pressure ulcer of sacral region, stage 3 Diabetes mellitus DVT (deep venous thrombosis) Noncompliance with medication regimen Hypertension Demand ischemia Acute respiratory failure with hypoxia High anion gap metabolic acidosis DKA (diabetic ketoacidosis) Encounter for pre-operative examination Breast cancer Dx 2021 surgical intervention planned Conjunctivitis Hypothyroidism Surgical History History of tubal ligation History of cholecystectomy History of section History of thyroidectomy (03/04/12) d/t suspicious nodule. 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 No carcinoma noted. History of colonoscopy Diverticulosis noted. No polyps/neoplasia. No biopsies. F/U 5-10 years recommended. Family History Mother Uterine cancer Leukemia Aunt Breast cancer Pancreatic cancer Father Heart disease (Reported Family History Of) Myocardial infarction Unknown Acute myocardial infarction Son Atrial fibrillation Myocardial infarction Denies family history of Ovarian cancer Prostate cancer Colorectal cancer Social History Smoking Status: Never smoker Second Hand Exposure: No; Do You Dip or Chew Tobacco: No; Hx Alcohol Use: Yes Alcohol type: hard liquor Alcohol Intake Frequency: Monthly or Less Hx Substance Use: No Preferred Language: Danish Communication Ability: Impaired Visual Impairment: Limited Hearing Ability: Normal 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 Beliefs That Will Affect Care: None marital status: / Current Living Situation: Alone Current Living Situation Comment: Alone current occupational status: retired How many Children do You have: 2 Feels Safe at Home: Yes Childhood Exposure to Second-Hand Smoke: Yes Diet: regular caffeine: Yes (half caf coffee ) during the past year weight has: remained stable Dental Care, Regularly: No Physical Activity Frequency: Does not Exercise Seatbelt Use: always Sunscreen Use: Yes Assistive Devices: Walker and Wheelchair Allergies Allergies Allergy/AdvReac Type Severity Reaction Status Date / Time aloe Allergy Unknown RAISED RASH Verified 08/31/24 13:50 No Known Drug Allergies Allergy Verified 08/31/24 13:50 Home Meds Home Medications Medication Instructions Recorded Confirmed aspirin 81 mg tablet,delayed 81 mg PO DAILY 05/30/22 04/08/25 release acetaminophen 325 mg tablet 650 mg PO Q6H PRN Fever Or Pain 03/04/24 04/08/25 (Tylenol) bisacodyl 10 mg rectal suppository 10 mg VA DAILY PRN Constipation 03/10/25 04/08/25 docusate sodium 100 mg capsule 100 mg PO DAILY PRN Constipation 03/10/25 04/08/25 insulin glargine 100 unit/mL (3 10 unit subcut QAM 03/10/25 04/08/25 mL) subcutaneous pen (Lantus Solostar U-100 Insulin) insulin glargine 100 unit/mL (3 35 unit subcut HS 03/10/25 04/08/25 mL) subcutaneous pen (Lantus Solostar U-100 Insulin) polyethylene glycol 3350 17 17 g PO DAILY PRN Constipation 03/10/25 04/08/25 gram/dose oral powder (Miralax) Head And Shoulders 1 applic topical .FRI & Friday04/08/25 04/08/25 menthol 0.44 %-zinc oxide 20.6 % 1 applic topical BID 04/08/25 04/08/25 topical ointment (Calmoseptine) Previous Rx's Medication Instructions Recorded apixaban 5 mg tablet (Eliquis) 5 mg PO BID #60 tabs 03/05/24 blood-glucose,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 consultant,cont #1 ea 03/05/24 (Dexcom G7 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 Plant Operator) atorvastatin 80 mg tablet 80 mg PO QAM #90 tabs 04/15/24 pen needle, diabetic 32 gauge x #100 ea 06/01/24 1/" (Comfort EZ Pen Beverly) blood-glucose sensor (Dexcom G7 #3 ea 10/06/24 Sensor device) furosemide 20 mg tablet 40 mg (2 x 20 mg) PO DAILY #60 tabs 03/12/25 Results & Data (ED) Vital Signs Vital Signs - 24 hr 04/08/25 16:40 04/08/25 16:44 04/08/25 18:00 Temperature 36.5 C Temperature Source Oral Pulse Rate 107 H Pulse Rate from SpO2 Sensor Respiratory Rate 22 Respiratory Effort / Characteristics Non-Labored Spontaneous Respiratory Depth Normal Blood Pressure 130/77 127/67 Blood Pressure Mean 94 103 Blood Pressure Position Lying Pulse Oximetry 95 97 Oxygen Delivery Method Room Air Room Air Sepsis Recent Fever Within 48 Hours No Sepsis New/Unexplained Change in Mental Status N/A Sepsis Action Taken by Nursing Physician Notified 04/08/25 18:03 04/08/25 18:03 04/08/25 18:30 Temperature Temperature Source Pulse Rate 106 H 104 H Pulse Rate from SpO2 Sensor 106 H Respiratory Rate 19 Respiratory Effort / Characteristics Respiratory Depth Blood Pressure 125/64 Blood Pressure Mean 101 Blood Pressure Position Pulse Oximetry 97 Oxygen Delivery Method Room Air Sepsis Recent Fever Within 48 Hours Sepsis New/Unexplained Change in Mental Status Sepsis Action Taken by Nursing 04/08/25 18:30 Temperature Temperature Source Pulse Rate 108 H Pulse Rate from SpO2 Sensor 108 H Respiratory Rate 18 Respiratory Effort / Characteristics Respiratory Depth Blood Pressure Blood Pressure Mean Blood Pressure Position Pulse Oximetry 97 Oxygen Delivery Method Sepsis Recent Fever Within 48 Hours Sepsis New/Unexplained Change in Mental Status Sepsis Action Taken by Nursing Laboratory Data 04/08/25 16:38 04/08/25 16:38 Lab Results 04/08/25 04/08/25 04/08/25 Range/Units 16:38 17:00 17:05 WBC 18.83 H (4.8-10.8) K/ul RBC 2.94 L (4.20-5.40) M/uL Hgb 8.8 L (12.0-16.0) g/dL POC Hgb 7.8 L (12.0-16.0) g/dl Hct 25.3 L (37.0-47.0) % POC Hct 23 L (37-47) % MCV 86.1 (80.0-100.0) fL MCH 29.9 (25.0-34.0) pg MCHC 34.8 (32.0-36.0) g/dL RDW Std Deviation 39.1 (36.4-46.3) fL RDW Coeff of Millicent 12.6 (11.5-14.5) % Plt Count 429 H (130-400) K/uL MPV 9.7 (9.4-12.4) fL Immature Gran % (Auto) 0.8 % Neut % (Auto) 84.9 % Lymph % (Auto) 5.3 % [place] % (Auto) 8.9 % Eos % (Auto) 0.0 % Baso % (Auto) 0.1 % Neut # (Auto) 15.99 H (1.40-6.50) K/uL Lymph # (Auto) 0.99 L (1.20-3.40) K/uL [place] # (Auto) 1.68 H (0.11-0.59) K/uL Eos # (Auto) 0.00 (0.00-0.50) K/uL Baso # (Auto) 0.02 (0.00-0.20) K/uL Immature Gran # (Auto) 0.15 (0.01-0.20) K/uL POC Sodium 134 L (135-144) mmol/L Sodium 135 L (136-145) mmol/L POC Potassium 4.6 (3.3-5.0) mmol/L Potassium 4.7 (3.5-5.1) mmol/L POC Chloride 98 L (101-112) mmol/L Chloride 98 (98-107) mmol/L Carbon Dioxide 22 (21-32) mmol/L POC Total CO2 21 L (24-31) mmol/L Anion Gap 15 H (3-11) POC Anion Gap 20.0 (16-25) mmol/L POC BUN 49 H (7-18) mg/dl BUN 52 H (6-23) mg/dl Creatinine 1.94 H (0.6-1.2) mg/dl POC Creatinine 2.2 H (0.6-1.3) mg/dl Est Cr Clr Drug Dosing 26.6 ml/min eGFR 26.36 BUN/Creatinine Ratio 26.8 H (10-20) Glucose 352 H* (70-99(Fasting)) mg/dl POC Glucose (70-99) mg/dl POC Glucose (other) 305 H (70-99) mg/dl Calcium 8.8 (8.6-10.3) mg/dl POC Ioniz Calcium Sumit 1.11 L (1.12-1.32) mmol/l Total Bilirubin 1.0 (0.2-1.0) mg/dl AST 18 (13-39) U/L ALT 19 (7-52) U/L Alkaline Phosphatase 92 (34-104) U/L Troponin I High Sens 8.8 (0-14) pg/ml B-Natriuretic Peptide 23 (0-100) pg/ml Total Protein 6.8 (6.0-8.3) gm/dl Albumin 3.6 (3.4-5.0) gm/dl Globulin 3.2 (2.5-4.0) gm/dl Albumin/Globulin Ratio 1.1 (0.9-2) Lipase 24 (11-82) U/L Urine Color Yellow Urine Appearance Clear (Clear) Urine pH 5.5 (4.5-7.5) Ur Specific [place] 1.015 (1.000-1.030) Urine Protein 1+ H (Negative) Urine Glucose (UA) 1+ H (Negative) Urine Ketones Negative (Negative) Urine Blood Negative (Negative) Urine Nitrite Negative (Negative) Urine Bilirubin Negative (Negative) Urine Urobilinogen Negative (Negative) Ur Leukocyte Esterase Negative (Negative) Urine RBC 0-2 (0-2) /hpf Urine WBC 0-5 (0-5) /hpf Ur Epithelial Cells 0-2 (0-2) /hpf Urine Bacteria None Seen (None Seen) Urine Comment 04/08/25 Range/Units 19:12 WBC (4.8-10.8) K/ul RBC (4.20-5.40) M/uL Hgb (12.0-16.0) g/dL POC Hgb (12.0-16.0) g/dl Hct (37.0-47.0) % POC Hct (37-47) % MCV (80.0-100.0) fL MCH (25.0-34.0) pg MCHC (32.0-36.0) g/dL RDW Std Deviation (36.4-46.3) fL RDW Coeff of Millicent (11.5-14.5) % Plt Count (130-400) K/uL MPV (9.4-12.4) fL Immature Gran % (Auto) % Neut % (Auto) % Lymph % (Auto) % [place] % (Auto) % Eos % (Auto) % Baso % (Auto) % Neut # (Auto) (1.40-6.50) K/uL Lymph # (Auto) (1.20-3.40) K/uL [place] # (Auto) (0.11-0.59) K/uL Eos # (Auto) (0.00-0.50) K/uL Baso # (Auto) (0.00-0.20) K/uL Immature Gran # (Auto) (0.01-0.20) K/uL POC Sodium (135-144) mmol/L Sodium (136-145) mmol/L POC Potassium (3.3-5.0) mmol/L Potassium (3.5-5.1) mmol/L POC Chloride (101-112) mmol/L Chloride (98-107) mmol/L Carbon Dioxide (21-32) mmol/L POC Total CO2 (24-31) mmol/L Anion Gap (3-11) POC Anion Gap (16-25) mmol/L POC BUN (7-18) mg/dl BUN (6-23) mg/dl Creatinine (0.6-1.2) mg/dl POC Creatinine (0.6-1.3) mg/dl Est Cr Clr Drug Dosing ml/min eGFR BUN/Creatinine Ratio (10-20) Glucose (70-99(Fasting)) mg/dl POC Glucose 342 H* (70-99) mg/dl POC Glucose (other) (70-99) mg/dl Calcium (8.6-10.3) mg/dl POC Ioniz Calcium Sumit (1.12-1.32) mmol/l Total Bilirubin (0.2-1.0) mg/dl AST (13-39) U/L ALT (7-52) U/L Alkaline Phosphatase (34-104) U/L Troponin I High Sens (0-14) pg/ml B-Natriuretic Peptide (0-100) pg/ml Total Protein (6.0-8.3) gm/dl Albumin (3.4-5.0) gm/dl Globulin (2.5-4.0) gm/dl Albumin/Globulin Ratio (0.9-2) Lipase (11-82) U/L Urine Color Urine Appearance (Clear) Urine pH (4.5-7.5) Ur Specific [place] (1.000-1.030) Urine Protein (Negative) Urine Glucose (UA) (Negative) Urine Ketones (Negative) Urine Blood (Negative) Urine Nitrite (Negative) Urine Bilirubin (Negative) Urine Urobilinogen (Negative) Ur Leukocyte Esterase (Negative) Urine RBC (0-2) /hpf Urine WBC (0-5) /hpf Ur Epithelial Cells (0-2) /hpf Urine Bacteria (None Seen) Urine Comment Administered Medications Discontinued Medications Ceftriaxone Sodium (Rocephin) 2,000 mg in 50 mls @ 100 mls/hr IV NOW STA Stop: 04/08/25 18:52 Last Infusion: 04/08/25 19:03 Dose: Infused Documented By: abl Admin: 04/08/25 18:32 Dose: 100 mls/hr Documented By: TNK Sodium Chloride (Nss) 500 mls @ 999 mls/hr IV .Q31M ONE Stop: 04/08/25 19:16 Last Admin: 04/08/25 19:05 Dose: 999 mls/hr Documented By: abl Imaging Data Radiologist's Impression: Chest X-Ray 04/08/25 16:29 Chest radiograph, one view History: Chest pain Comparison: None Findings: Single AP view of the chest performed. No focal consolidation or pleural effusion. No pneumothorax. The cardiomediastinal silhouette is within normal limits. Normal pulmonary vascularity. No evidence for lymphadenopathy. No visualized bony or soft tissue abnormality. Impression: Normal chest radiograph Electronically signed by Arik Canela 04-08-2025 5:17 PM Venous Doppler Study 04/08/25 16:30 Clinical History: Pain and swelling Technique: Venous ultrasound evaluation was performed utilizing grayscale, color Doppler and wave form evaluation. Images were also obtained with and without compression Findings: The right common femoral, superficial femoral, popliteal, and visualized calf veins demonstrate normal anechoic lumens with full compressibility. Normal flow is seen on color Doppler images. Expected waveforms were produced with augmentation maneuvers Impression: No evidence of right leg deep venous thrombosis Electronically signed by Matt Rosado 04-08-2025 6:13 PM Abdomen/Pelvis CT 04/08/25 17:11 Technique: Axial computed tomography images were obtained of the abdomen and pelvis without intravenous contrast. Comparison is made to the prior CT dated 12/12/2024 Findings: The liver is overall of normal size, attenuation, and contour with no sign of cirrhosis or significant fatty infiltration. No definite liver mass lesion is seen on this noncontrast study. The gallbladder has been removed. No bile duct dilatation is noted. The spleen is of normal size. No focal splenic lesion is evident. The pancreas appears normal with no sign of acute or chronic pancreatitis and no mass lesion noted. The pancreatic duct is of normal caliber. The adrenal glands appear unremarkable. There is a 2 mm left renal calculus. No right renal or proximal ureteral calculi are seen. There is no hydronephrosis or perinephric stranding. No definite renal mass lesion is identified. There is a 1.4 cm left renal peripelvic cyst The aorta is of normal caliber. No abdominal adenopathy is seen. The stomach appears normal. There is no sign of small bowel obstruction. There is constipation. There is mild diverticulosis without evidence of diverticulitis. There is no sign of appendicitis. No free intraperitoneal fluid or air is identified. No distal ureteral or bladder calculi are seen. No obvious bladder mass lesion is evident. The iliac arteries are of normal caliber. No pelvic adenopathy is noted. There is a 4 cm right ovarian cyst The lungs bases appear clear. Lumbar degenerative disc disease is seen. No fracture is identified. No focal osseous lesion is seen Impression: 1. 4 cm right ovarian cyst, indeterminate in nature in this postmenopausal patient. A pelvic ultrasound is recommended for further evaluation 2. Small left renal calculus and left renal peripelvic cyst 3. Mild diverticulosis without evidence of diverticulitis ACT 112: Positive. There are findings on this exam that require communication between the performing entity and the patient following Patient Test Result Information Act ([place] ACT 112) guidelines. Electronically signed by Matt Rosado 04-08-2025 5:41 PM Discharge Plan Visit Data Chief Complaint: Edema To Extremity Stated Complaint: LEG EDEMA ED Provider: Dewey Miller Discharge Problem: DANA (acute kidney injury), Leukocytosis, Anemia, Hyperglycemia Condition: Fair Forms Stand Alone Forms: My [employer] Prescriptions Prescriptions: No Action atorvastatin 80 mg tablet 80 mg PO QAM Qty: 90 3RF (DME) Dexcom G7 Sensor Device See Rx Instructions .Route Qty: 3 5RF Rx Instructions: As directed, 1 month supply. Change every 10 days. 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 [facility] See Rx Instructions .Route Qty: 1 0RF Rx Instructions: As directed (DME) pen needle, diabetic [Comfort EZ Pen Beverly] 32 gauge x 1/4" needle See Rx Instructions .Route Qty: 100 3RF Rx Instructions: once per day aspirin 81 mg Tablet,Delayed Release (Dr/Ec) 81 mg PO DAILY bisacodyl 10 mg Suppository 10 mg VA DAILY PRN (Reason: Constipation) docusate sodium 100 mg Capsule 100 mg PO DAILY PRN (Reason: Constipation) polyethylene glycol 3350 [Miralax] 17 gram/dose Powder 17 g PO DAILY PRN (Reason: Constipation) insulin glargine [Lantus Solostar U-100 Insulin] 100 unit/mL (3 mL) Insulin Pen 35 unit SUBCUT HS insulin glargine [Lantus Solostar U-100 Insulin] 100 unit/mL (3 mL) insulin pen 10 unit subcut QAM furosemide 20 mg Tablet 40 mg PO DAILY Qty: 60 0RF menthol-zinc oxide [Calmoseptine] 0.44-20.6 % Ointment 1 applic TOPICAL BID Rx Instructions: 0800, 2100 Head And Shoulders 1 applic topical .FRI & FRIDAY Referrals Referrals: Cam Murillo [Primary Care Provider] - Discharge Problem: Leukocytosis Qualifiers: Leukocytosis type: unspecified Qualified Code(s): D72.829 - Elevated white blood cell count, unspecified Anemia Qualifiers: Anemia type: unspecified type Qualified Code(s): D64.9 - Anemia, unspecified
[2025-04-08 16:59] LABS: Hematocrit (blood only) 25.3 % (37.0-47.0); Hemoglobin 8.8 g/dL (12.0-16.0); Immature Granulocytes # (auto) 0.15 K/uL (0.01-0.20); Immature Granulocytes % (auto) 0.8 %; Mean Corpuscular Hemoglobin 29.9 pg (25.0-34.0); Mean Corpuscular Volume 86.1 fL (80.0-100.0); Platelet Count 429 K/uL (130-400); RDW Standard Deviation 39.1 fL (36.4-46.3); Red Blood Count 2.94 M/uL (4.20-5.40); White Blood Count 18.83 K/ul (4.8-10.8)
--- NOTE | 2025-04-08 17:17 | XRay Report ---
Chest radiograph, one view History: Chest pain Comparison: None Findings: Single AP view of the chest performed. No focal consolidation or pleural effusion. No pneumothorax. The cardiomediastinal silhouette is within normal limits. Normal pulmonary vascularity. No evidence for lymphadenopathy. No visualized bony or soft tissue abnormality. Impression: Normal chest radiograph Electronically signed by Arik Canela 04-08-2025 5:17 PM
[2025-04-08 17:24] LABS: Alanine Aminotransferase 19.0 U/L (7-52); Albumin Globulin Ratio 1.1 (0.9-2); Albumin Level 3.6 gm/dl (3.4-5.0); Alkaline Phosphatase 92.0 U/L (34-104); Anion Gap 15.0 (3-11); Bilirubin,Total 1.0 mg/dl (0.2-1.0); Blood Urea Nitrogen 52.0 mg/dl (6-23); Calcium 8.8 mg/dl (8.6-10.3); Carbon Dioxide 22.0 mmol/L (21-32); Chloride 98.0 mmol/L (98-107); Creatinine Clr Calc Pharmacy 26.6 ml/min; Globulin 3.2 gm/dl (2.5-4.0); Glucose 352.0 mg/dl (70-99(Fasting)); Lipase 24.0 U/L (11-82); Potassium 4.7 mmol/L (3.5-5.1); Sodium 135.0 mmol/L (136-145); Total Protein 6.8 gm/dl (6.0-8.3)
--- NOTE | 2025-04-08 17:41 | CT Scan Report ---
Technique: Axial computed tomography images were obtained of the abdomen and pelvis without intravenous contrast. Comparison is made to the prior CT dated 12/12/2024 Findings: The liver is overall of normal size, attenuation, and contour with no sign of cirrhosis or significant fatty infiltration. No definite liver mass lesion is seen on this noncontrast study. The gallbladder has been removed. No bile duct dilatation is noted. The spleen is of normal size. No focal splenic lesion is evident. The pancreas appears normal with no sign of acute or chronic pancreatitis and no mass lesion noted. The pancreatic duct is of normal caliber. The adrenal glands appear unremarkable. There is a 2 mm left renal calculus. No right renal or proximal ureteral calculi are seen. There is no hydronephrosis or perinephric stranding. No definite renal mass lesion is identified. There is a 1.4 cm left renal peripelvic cyst The aorta is of normal caliber. No abdominal adenopathy is seen. The stomach appears normal. There is no sign of small bowel obstruction. There is constipation. There is mild diverticulosis without evidence of diverticulitis. There is no sign of appendicitis. No free intraperitoneal fluid or air is identified. No distal ureteral or bladder calculi are seen. No obvious bladder mass lesion is evident. The iliac arteries are of normal caliber. No pelvic adenopathy is noted. There is a 4 cm right ovarian cyst The lungs bases appear clear. Lumbar degenerative disc disease is seen. No fracture is identified. No focal osseous lesion is seen Impression: 1. 4 cm right ovarian cyst, indeterminate in nature in this postmenopausal patient. A pelvic ultrasound is recommended for further evaluation 2. Small left renal calculus and left renal peripelvic cyst 3. Mild diverticulosis without evidence of diverticulitis ACT 112: Positive. There are findings on this exam that require communication between the performing entity and the patient following Patient Test Result Information Act ([place] ACT 112) guidelines. Electronically signed by Matt Rosado 04-08-2025 5:41 PM
[2025-04-08 17:46] LABS: Appearance Urine Clear (Clear); Glucose Urine UA 1+ (Negative)
[2025-04-08 17:54] LABS: Epithelial Cell Urine 0-2 /hpf (0-2)
--- NOTE | 2025-04-08 18:13 | Ultrasound Report ---
Clinical History: Pain and swelling Technique: Venous ultrasound evaluation was performed utilizing grayscale, color Doppler and wave form evaluation. Images were also obtained with and without compression Findings: The right common femoral, superficial femoral, popliteal, and visualized calf veins demonstrate normal anechoic lumens with full compressibility. Normal flow is seen on color Doppler images. Expected waveforms were produced with augmentation maneuvers Impression: No evidence of right leg deep venous thrombosis Electronically signed by Matt Rosado 04-08-2025 6:13 PM
[2025-04-08] MEDS: cefTRIAXone SODIUM 2,000 MG/50 ML BAG IV STA (18:32)
--- NOTE | 2025-04-08 18:55 | History & Physical Report ---
Date of Service April 08, 2025 Assessment & Plan (1) Nausea & vomiting: (2) DANA (acute kidney injury): (3) Anemia: (4) Diabetes mellitus type 2, uncontrolled: (5) SIRS (systemic inflammatory response syndrome): Plan Pt is a 75y/o female with a PMHx significant for DVT/PE on Eliquis, T2DM w/ nephropathy CKD stage 3, HLD, Hypothyroidism, Vitamin D deficiency, Memory impairment, Depression, and Hx of breast CA who presented to the ED via EMS from her [facility] living with reports of nausea and dry heaving, increased swelling in her legs with pain in the ankles, elevated blood sugars in the 300s for the last week, suspected recurrent UTI, and dyspnea on exertion. The karine ent has cognitive impairment and is unable to give much of the history. She does deny abdominal pain and does not think that she has had any bloody stools but she does not know for sure. Denies headache or chest pains or shortness of breath. I called her son and he was unaware that she was even in the hospital or had been having any problems. On arrival, she was tachycardic in the low 100s with a normal blood pressure, normal pulse ox, and she was afebrile. She had a significant leukocytosis at 18 and her platelets were elevated in the 400s, her hemoglobin was down to 8.8 from twelve 1 month prior, and she had an DANA with creatinine of 1.9 up from baseline of 0.6 her blood sugar was 352 on arrival. There was no report of GI bleeding from anywhere. Her UA was negative for infection. A CT abdomen/pelvis only showed a 4 cm right ovarian cyst but nothing acute. RLE venous Doppler negative, and CXR negative. She will be admitted for nausea/vomiting, hyperglycemia with dehydration and DANA, new onset anemia and SIRS without source of infection. #Nausea/vomiting-unclear cause of her nausea and vomiting. CT abdomen/pelvis without obstruction or acute issues. Could be viral gastroenteritis. - Admit to medical unit with telemetry - Antiemetics and IV fluids to be given - Clear liquids diet only for now and advance as tolerated - Check respiratory nasal BioFire - Follow CBC, BMP, magnesium and keep electrolytes replete #Leukocytosis/anemia-WBC count elevated 18, hemoglobin at 8.9 which is a drop from last month when it was 12.0. Normocytic. Previously with history of iron deficiency anemia. She is on Eliquis. There is no obvious bleeding from anywhere. Leukocytosis could be reactive to nausea/vomiting. No obvious source of infection. Stool was brown and Hemoccult negative on rectal exam as per ED physician - Hemoccult stools - Check iron studies, B12, folate in the a.m. - Hold home Eliquis and aspirin until bleeding ruled out - Follow CBC in the a.m. - Check procalcitonin, CRP, BioFire - Monitor for fevers or signs of infection otherwise #DANA on CKD stage 3 -creatinine elevated at 1.9 on admission up from baseline of 0.6. She has been having nausea and dry heaves and is hyperglycemic in the 300s for the last week likely causing dehydration. Her Lasix dose was increased on discharge 1 month prior to 40 mg daily for increased leg swelling. - Giving IV fluids - Follow BMP in the a.m. - Treating hyperglycemia - Hold home Lasix #T2DM with hyperglycemia-blood sugar on arrival elevated in the 350 range. Recent HgbA1c was 8.1% last admission. Received IV fluids - Give regular IV insulin 8 units x 1 now and follow glucose - Continue Lantus 35 units at night and 10 units in the morning - Add NovoLog supplemental insulin with meals - Clear liquids diet only for now until nausea improves #Lower extremity edema-likely venous insufficiency - Hold home Lasix for DANA #HLD - no acute concerns - Holding home ASA for anemia -Continue Atorvastatin # History of DVT/PE on Eliquis-with acute DVT noted in 12/2024 and was noted to be noncompliant with Eliquis at that time. Doppler of the right lower extremity negative on admission here. With new anemia in the last month, concern for occult bleeding - Hold home Eliquis for now - SCDs for DVT prevention #Memory Impairment/Depression - no acute concerns - Continue supportive care, lives in personal-senior living #Ovarian cyst-has been seen in the past and does not seem to be growing - Follow-up with [facility] as an outpatient if desired for pelvic ultrasound DVT prophylaxis-SCDs given possible bleeding Disposition-admit to medical floor with telemetry. Discussed her care with her son on the phone on the day of admission. History of Present Illness Chief Complaint: Nausea/vomiting Primary Care Provider: Cam Marie Pt is a 75y/o female with a PMHx significant for DVT/PE on Eliquis, T2DM w/ nephropathy CKD stage 3, HLD, Hypothyroidism, Vitamin D deficiency, Memory impairment, Depression, and Hx of breast CA who presented to the ED via EMS from her personal[facility]senior living with reports of nausea and dry heaving, increased swelling in her legs with pain in the ankles, elevated blood sugars in the 300s for the last week, suspected recurrent UTI, and dyspnea on exertion. The patient has cognitive impairment and is unable to give much of the history. She does deny abdominal pain and does not think that she has had any bloody stools but she does not know for sure. Denies headache or chest pains or shortness of breath. I called her son and he was unaware that she was even in the hospital or had been having any problems. On arrival, she was tachycardic in the low 100s with a normal blood pressure, normal pulse ox, and she was afebrile. She had a significant leukocytosis at 18 and her platelets were elevated in the 400s, her hemoglobin was down to 8.8 from twelve 1 month prior, and she had an DANA with creatinine of 1.9 up from baseline of 0.6 her blood sugar was 352 on arrival. There was no report of GI bleeding from anywhere. Her UA was negative for infection. A CT abdomen/pelvis only showed a 4 cm right ovarian cyst but nothing acute. RLE venous Doppler negative, and CXR negative. She will be admitted for nausea/vomiting, hyperglycemia with dehydration and DANA, new onset anemia and SIRS without source of infection. Allergies Allergy/AdvReac Type Severity Reaction Status Date / Time aloe Allergy Unknown RAISED RASH Verified 08/31/24 13:50 No Known Drug Allergies Allergy Verified 08/31/24 13:50 Home Medications Medication Instructions Recorded Confirmed Type aspirin 81 mg tablet,delayed 81 mg PO DAILY 05/30/22 04/08/25 History release acetaminophen 325 mg tablet 650 mg PO Q6H PRN Fever Or Pain 03/04/24 04/08/25 History (Tylenol) apixaban 5 mg tablet (Eliquis) 5 mg PO BID #60 tabs 03/05/24 04/08/25 Rx blood-glucose,crew attendant,cont #1 ea 03/05/24 12/12/24 Rx (Dexcom G7 Product Builder) atorvastatin 80 mg tablet 80 mg PO QAM #90 tabs 04/15/24 04/08/25 Rx pen needle, diabetic 32 gauge x #100 ea 06/01/24 12/12/24 Rx 1/4" (Comfort EZ [employer]) blood-glucose sensor (Dexcom G7 #3 ea 10/06/24 12/12/24 Rx Sensor device) bisacodyl 10 mg rectal suppository 10 mg TN DAILY PRN Constipation 03/10/25 04/08/25 History docusate sodium 100 mg capsule 100 mg PO DAILY PRN Constipation 03/10/25 04/08/25 History insulin glargine 100 unit/mL (3 10 unit subcut QAM 03/10/25 04/08/25 History mL) subcutaneous pen (Lantus Solostar U-100 Insulin) insulin glargine 100 unit/mL (3 35 unit subcut HS 03/10/25 04/08/25 History mL) subcutaneous pen (Lantus Solostar U-100 Insulin) polyethylene glycol 3350 17 17 g PO DAILY PRN Constipation 03/10/25 04/08/25 History gram/dose oral powder (Miralax) furosemide 20 mg tablet 40 mg (2 x 20 mg) PO DAILY #60 tabs 03/12/25 04/08/25 Rx Head And Shoulders 1 applic topical .FRI & Friday04/08/25 04/08/25 History menthol 0.44 %-zinc oxide 20.6 % 1 applic topical BID 04/08/25 04/08/25 History topical ointment (Calmoseptine) Past Med/Surg History Problem List (Updated 04/08/25 @ 19:49 by Dewey Miller DO) Hyperglycemia (Acute) Anemia (Acute) Leukocytosis (Acute) DANA (acute kidney injury) (Acute) Nausea & vomiting SIRS (systemic inflammatory response syndrome) Anemia DANA (acute kidney injury) Abnormal urinalysis Lower extremity cellulitis Lower extremity edema Pedal edema (Acute) Hyperglycemia (Acute) Ambulatory dysfunction (Acute) Weakness (Acute) Ovarian cyst, right Elevated LFTs (Acute) Hypomagnesemia (Acute) Weakness (Acute) Memory impairment Fall Thickened endometrium Hypoxia (Acute) Acute alteration in mental status (Acute) Pulmonary embolism with acute cor pulmonale (Acute) Malignant neoplasm of lower-outer quadrant of left breast of female, estrogen receptor positive (Chronic 08/02/21) 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 Elevated ADILENE level suspicious for pulmonary sarcoidosis. Biopsy could not be completed. DM was grossly uncontrolled so steroids were avoided. Seems she's been relatively asymptomatic since then. Dr. Chowdhury repeated CT scan 2013, which revealed borderline, similiar appearing hilar LNs. Adult situational stress disorder (Chronic) Diabetic nephropathy with proteinuria (Chronic) Solitary thyroid nodule (Chronic) s/p thyroidectomy 2011 Vitamin D deficiency (Chronic) Diabetes mellitus type 2, uncontrolled (Chronic) Hyperlipidemia (Chronic) Depression (Chronic) CKD (chronic kidney disease) stage 3, GFR 30-59 ml/min Medical History Pressure ulcer of sacral region, stage 3 Diabetes mellitus DVT (deep venous thrombosis) Noncompliance with medication regimen Hypertension Demand ischemia Acute respiratory failure with hypoxia High anion gap metabolic acidosis DKA (diabetic ketoacidosis) Encounter for pre-operative examination Breast cancer Dx 2021 surgical intervention planned Conjunctivitis Hypothyroidism Surgical History History of tubal ligation History of cholecystectomy History of section History of thyroidectomy (03/04/12) d/t suspicious nodule. 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 No carcinoma noted. History of colonoscopy Diverticulosis noted. No polyps/neoplasia. No biopsies. F/U 5-10 years recommended. Family History Mother Uterine cancer Leukemia Aunt Breast cancer Pancreatic cancer Father Heart disease (Reported Family History Of) Myocardial infarction Unknown Acute myocardial infarction Son Atrial fibrillation Myocardial infarction Denies family history of Ovarian cancer Prostate cancer Colorectal cancer Social History Smoking Status: Never smoker Second Hand Exposure: No; Do You Dip or Chew Tobacco: No; Hx Alcohol Use: Yes Alcohol type: hard liquor Alcohol Intake Frequency: Monthly or Less Hx Substance Use: No Preferred Language: Belarusian Communication Ability: Impaired Visual Impairment: Limited Hearing Ability: Normal Director Of Infection Control Required: No Beliefs That Will Affect Care: None marital status: / Current Living Situation: Alone Current Living Situation Comment: Alone current occupational status: retired How many Children do You have: 2 Feels Safe at Home: Yes Childhood Exposure to Second-Hand Smoke: Yes Diet: regular caffeine: Yes (half caf coffee ) during the past year weight has: remained stable Dental Care, Regularly: No Physical Activity Frequency: Does not Exercise Seatbelt Use: always Sunscreen Use: Yes Assistive Devices: Walker and Wheelchair Review of Systems Review of Systems: All systems reviewed & are unremarkable except as noted in HPI & below Physical Exam Constitutional: WD/WN, vitals as above Eyes: PERRL, conjunctivae normal, anicteric sclerae ENMT: Mouth: + dry oral mucous membranes Neck: trachea midline, no thyromegaly Respiratory: normal respiratory effort, lungs clear to auscultation Cardiovascular: Rate/Rhythm: regular rate and regular rhythm Extremities: + edema (2+ pitting edema of the legs to the thighs bilaterally) Chest (Breasts): Chest: normal inspection of chest Gastrointestinal (Abdomen): normal bowel sounds, soft, nontender, no hepatosplenomegaly Musculoskeletal: Extremities: extremities normal to inspection; no cyanosis and no clubbing Skin: Chronic venous stasis changes of legs bilaterally with mild erythema bilaterally, dry skin Neurologic: moves all extremities and awake; no focal motor deficits Psychiatric: Orientation: alert, oriented to person and oriented to place ("Hospital") Results & Data Results & Data Vital Signs (Past 12 Hours) Vital Signs Temp Pulse Resp BP Pulse Ox O2 Del Method 04/08/25 18:30 108 H 18 97 04/08/25 18:30 125/64 04/08/25 18:03 104 H 19 97 Room Air 04/08/25 18:03 106 H 04/08/25 18:00 127/67 04/08/25 16:44 97 Room Air 04/08/25 16:40 36.5 C 107 H 22 130/77 95 Room Air Laboratory Results As per HPI Diagnostic Findings Chest X-Ray 04/08/25 16:29 Chest radiograph, one view History: Chest pain Comparison: None Findings: Single AP view of the chest performed. No focal consolidation or pleural effusion. No pneumothorax. The cardiomediastinal silhouette is within normal limits. Normal pulmonary vascularity. No evidence for lymphadenopathy. No visualized bony or soft tissue abnormality. Impression: Normal chest radiograph Electronically signed by Arik Canela 04-08-2025 5:17 PM Venous Doppler Study 04/08/25 16:30 Clinical History: Pain and swelling Technique: Venous ultrasound evaluation was performed utilizing grayscale, color Doppler and wave form evaluation. Images were also obtained with and without compression Findings: The right common femoral, superficial femoral, popliteal, and visualized calf veins demonstrate normal anechoic lumens with full compressibility. Normal flow is seen on color Doppler images. Expected waveforms were produced with augmentation maneuvers Impression: No evidence of right leg deep venous thrombosis Electronically signed by Matt Rosado 04-08-2025 6:13 PM Abdomen/Pelvis CT 04/08/25 17:11 Technique: Axial computed tomography images were obtained of the abdomen and pelvis without intravenous contrast. Comparison is made to the prior CT dated 12/12/2024 Findings: The liver is overall of normal size, attenuation, and contour with no sign of cirrhosis or significant fatty infiltration. No definite liver mass lesion is seen on this noncontrast study. The gallbladder has been removed. No bile duct dilatation is noted. The spleen is of normal size. No focal splenic lesion is evident. The pancreas appears normal with no sign of acute or chronic pancreatitis and no mass lesion noted. The pancreatic duct is of normal caliber. The adrenal glands appear unremarkable. There is a 2 mm left renal calculus. No right renal or proximal ureteral calculi are seen. There is no hydronephrosis or perinephric stranding. No definite renal mass lesion is identified. There is a 1.4 cm left renal peripelvic cyst The aorta is of normal caliber. No abdominal adenopathy is seen. The stomach appears normal. There is no sign of small bowel obstruction. There is constipation. There is mild diverticulosis without evidence of diverticulitis. There is no sign of appendicitis. No free intraperitoneal fluid or air is identified. No distal ureteral or bladder calculi are seen. No obvious bladder mass lesion is evident. The iliac arteries are of normal caliber. No pelvic adenopathy is noted. There is a 4 cm right ovarian cyst The lungs bases appear clear. Lumbar degenerative disc disease is seen. No fracture is identified. No focal osseous lesion is seen Impression: 1. 4 cm right ovarian cyst, indeterminate in nature in this postmenopausal patient. A pelvic ultrasound is recommended for further evaluation 2. Small left renal calculus and left renal peripelvic cyst 3. Mild diverticulosis without evidence of diverticulitis ACT 112: Positive. There are findings on this exam that require communication between the performing entity and the patient following Patient Test Result Information Act ([place] ACT 112) guidelines. Electronically signed by Matt Rosado 04-08-2025 5:41 PM Code Status & VTE Plan Code Status Full code VTE Prophylaxis Plan VTE Prophylaxis will be ordered: Yes PG Care Time/CCT Total # of Minutes Spent Total Time Spent with Patient: Total time spent is greater than 50% in coordination of care (as documented) at patient's floor/unit and/or counseling patient: Coding Level of Care Code 36575 INT INP/OBS CARE 3/75MIN Diagnoses Nausea & vomiting R11.2 DANA (acute kidney injury) N17.9 Anemia D64.9 Uncontrolled type 2 diabetes mellitus with hyperglycemia E11.65 Glycemic state: with hyperglycemia SIRS (systemic inflammatory response syndrome) R65.10 (4) Diabetes mellitus type 2, uncontrolled Glycemic state: with hyperglycemia Qualified Code(s): E11.65 - Type 2 diabetes mellitus with hyperglycemia
[2025-04-08] MEDS: SODIUM CHLORIDE 0.9% 500 ML IV ONE (19:05)
[2025-04-08] MEDS: NovoLIN-R INSULIN PER UNIT CHARGE IV STA (20:01)
[2025-04-08 21:09] LABS: Chlamydia pneumoniae PCR Not Detected (NotDetected); Coronavirus 229E PCR Not Detected (NotDetected); Coronavirus CoV-2 (COVID19)PCR Not Detected (NotDetected); Coronavirus HKU1 PCR Not Detected (NotDetected); Coronavirus NL63 PCR Not Detected (NotDetected); Coronavirus OC43PCR Not Detected (NotDetected); Human Metapneumovirus PCR Not Detected (NotDetected); Parainfluenza Virus 1 PCR Not Detected (NotDetected); Parainfluenza Virus 2 PCR Not Detected (NotDetected); Parainfluenza Virus 3 PCR Not Detected (NotDetected); Parainfluenza Virus 4 PCR Not Detected (NotDetected); Respiratory Syncytial VirusPCR Not Detected (NotDetected); Rhinovirus/Enterovirus PCR Not Detected (NotDetected)
[2025-04-08] MEDS: LACTATED RINGER'S 1,000 ML IV ONE (22:59)
[2025-04-09] MEDS ORDERED: DEXTROSE 50% 50 ML SYRINGE IV PRN (01:06)
[2025-04-09] MEDS ORDERED: GLUCOSE 40% GEL 15 GM TUBE PO PRN (01:06)
[2025-04-09] MEDS ORDERED: GLUCOSE 10 TAB/TUBE PO PRN (01:06)
[2025-04-09] MEDS ORDERED: GLUCAGON FOR INJ 1 MG VIAL SQ PRN (01:06)
[2025-04-09] MEDS ORDERED: CARBOHYDRATES FOR HYPOGLYCEMIA PO PRN (01:06)
[2025-04-09] MEDS: LANTUS PER UNIT CHARGE SQ SCH ×2 (01:48→09:24)
[2025-04-09] MEDS: INSULIN ASPART PER UNIT CHARGE SC SCH ×2 (01:48→11:54)
[2025-04-09] MEDS: LACTATED RINGER'S 1,000 ML IV SCH (01:49)
--- NOTE | 2025-04-09 07:49 | Hospitalist Progress Note ---
Date of Service April 09, 2025 Assessment & Plan (1) Acute blood loss anemia: (2) Hypotension: (3) Nausea & vomiting: (4) DANA (acute kidney injury): (5) Diabetes mellitus type 2, uncontrolled: (6) SIRS (systemic inflammatory response syndrome): Plan Pt is a 75y/o female with a PMHx significant for DVT/PE on Eliquis, T2DM w/ nephropathy CKD stage 3, HLD, Hypothyroidism, Vitamin D deficiency, Memory impairment, Depression, and Hx of breast CA who presented to the ED via EMS from her personal-nursing home with reports of nausea and dry heaving, increased swelling in her legs with pain in the ankles, elevated blood sugars in the 300s for the last week, suspected recurrent UTI, and dyspnea on exertion. The patient has cognitive impairment and is unable to give much of the history. She does deny abdominal pain and does not think that she has had any bloody stools but she does not know for sure. Denies headache or chest pains or shortness of breath. I called her son and he was unaware that she was even in the hospital or had been having any problems. On arrival, she was tachycardic in the low 100s with a normal blood pressure, normal pulse ox, and she was afebrile. She had a significant leukocytosis at 18 and her platelets were elevated in the 400s, her hemoglobin was down to 8.8 from twelve 1 month prior, and she had an DANA with creatinine of 1.9 up from baseline of 0.6 her blood sugar was 352 on arrival. There was no report of GI bleeding from anywhere. Her UA was negative for infection. A CT abdomen/pelvis only showed a 4 cm right ovarian cyst but nothing acute. RLE venous Doppler negative, and CXR negative. #Acute blood loss anemia Hgb was 12.0 one month [employer] On arrival it was 8.8, then dropped to 6.6 ~12 hours later Patient became hypotensive at 86/46 overnight as well as tachycardic around 110 bpm Patient assessed first in the morning and appeared pale/lethargic on clinical exam 2 large-bore IV needles ordered 2 units PBC transfused Transferred to PCU While there may be a component of IVF dilution (from 500 mL NSS bolus + 80 mL an hour LR overnight), I do not suspect that would cause a 2.2 drop over a 12-hour period Stool was brown and Hemoccult negative on rectal exam as per ED physician However, at this time, it is unclear where specifically she is losing blood from; no significant hematomas, bruising, or active bleed appreciated on clinical exam A/P CTA ordered to assess for retroperitoneal bleed ? Esophageal bleed from vomiting GI consult appreciated Hemoccult all stools Eliquis and aspirin remain on hold #Nausea/vomiting-unclear cause of her nausea and vomiting. Suspected viral gastroenteritis IV antiemetics and fluids PRN Respiratory BioFire WNL Replete electrolytes as needed #Leukocytosis WBC count elevated at 18 arrival, but downtrending to 13. Leukocytosis could be reactive to nausea/vomiting. No obvious source of infection. Given patient's worsening symptoms, hypotension, and tachycardia we will cover empirically with Zosyn 4.5 g IV q8h x 48h Elevated procalcitonin, downtrending Elevated CRP, downtrending Monitor for fevers or signs of infection otherwise #DANA on CKD stage 3 (improving) Creatinine elevated at 1.9 on admission (baseline 0.6) She has been having nausea and dry heaves and is hyperglycemic in the 300s for the last week likely causing dehydration. Her Lasix dose was increased on discharge 1 month prior to 40 mg daily for increased leg swelling. Treating hyperglycemia Hold home Lasix #T2DM with hyperglycemia-Recent HgbA1c was 8.1% last admission. Received IV fluids Continue Lantus 35 units at night and 10 units in the morning Add NovoLog supplemental insulin with meals #Lower extremity edema-likely venous insufficiency Hold home Lasix for DANA #HLD - no acute concerns Holding home ASA for anemia Continue Atorvastatin # History of DVT/PE on Eliquis-with acute DVT noted in 12/2024 and was noted to be noncompliant with Eliquis at that time. Doppler of the right lower extremity negative on admission here. With new anemia in the last month, concern for occult bleeding Hold home Eliquis for now SCDs for DVT prevention #Memory Impairment/Depression - no acute concerns Continue supportive care, lives in personal-nursing home #Ovarian cyst-has been seen in the past and does not seem to be growing Follow-up with [facility] as an outpatient if desired for pelvic ultrasound Disposition - Upgraded from [facility] telemetry to PCU Attempted to call patient's son (Wayne) on 04/09, but was unable to reach. Left brief voicemail requesting callback. Admission and Anticipated Discharge Date Admission Date: April 08, 2025 Supervising Physician Co-Signing Physician Notes Attending Attestation - Chart reviewed, care plan d/w ELIEL Hernandes. I agree w/ the erickson components of his documentation. Davi Mccall MD Subjective Mrs. Iglesias is not doing well this morning. She is a poor historian at baseline due to cognitive decline/memory impairment; however, she reports she feels incredibly weak and "unwell" at this time. Her nausea has improved since arrival, but she was having nausea and vomiting when she first got here. No sick contacts to her knowledge. She is unsure of her last BM. She is unsure if she has had any blood in her stool or melena. She does not believe she has ever had a blood transfusion in the past. Additionally she does not believe she has ever had a history of gastric ulcers or GI bleeds. ROS: Patient endorses nausea, generalized fatigue, and feeling "unwell" Patient is unsure of melena. Patient denies fever, chills, night sweats, chest pain, chest palpitations, SOB, abdominal pain at rest, vomiting, or bright red blood in stool. Review of Systems Review of Systems: See HPI above Physical Exam Physical Exam: General: no acute distress; non-toxic appearing; cooperative; frail-appearing; SpO2 99% on RA HEENT: normocephalic, atraumatic; PERRLA; vision and hearing intact Neck: supple; trachea midline Skin: Pallor appreciated; dry without signs of tenting; no cyanosis; no rashes, lesions or erythema noted; superficial bruising/hematoma noted on the left forearm CV: chest wall NTP; RRR; S1/S2 normal; no murmurs/rubs/gallops; pulses intact and symmetric at radial, DP, and PT Lungs: no acute respiratory distress; however, patient exhibits conversational dyspnea; symmetrical chest wall expansion; clear breath sounds across all lung moya w/o adventitious sounds; no wheezing ABD: Soft, RLQ is TTP; no rashes or bruising appreciated the abdomen flanks bilaterally; BS present; no rebound/guarding; no distention MSK: no tics or fasciculations; no edema noted in the LEs b/l, nonerythematous Neuro: A&Ox3; normal mood and affect; fluent speech; sensation intact and symmetric in the LEs b/l Results & Data Results & Data Vital Signs (Past 12 Hours) Vital Signs Temp Pulse Pulse Pulse Resp BP Pulse Ox 04/09/25 07:17 108 H 04/09/25 05:46 106 H 16 99/56 L 99 04/09/25 04:40 37.1 C 108 H 20 86/48 L 96 04/09/25 03:25 04/09/25 03:17 36.6 C 109 H 18 106/62 97 04/09/25 00:23 109 H 04/08/25 23:53 112/54 L 04/08/25 22:16 112/63 04/08/25 22:04 102/56 L 04/08/25 22:04 81/47 L 04/08/25 22:00 79/41 L 04/08/25 21:54 107 H 04/08/25 20:11 107 H 18 130/75 96 O2 Del Method 04/09/25 07:17 04/09/25 05:46 Room Air 04/09/25 04:40 Room Air 04/09/25 03:25 Room Air 04/09/25 03:17 Room Air 04/09/25 00:23 04/08/25 23:53 04/08/25 22:16 04/08/25 22:04 04/08/25 22:04 04/08/25 22:00 04/08/25 21:54 04/08/25 20:11 Room Air PG Care Time/CCT Total # of Minutes Spent Total Time Spent with Patient: Total time spent is greater than 50% in coordination of care (as documented) at patient's floor/unit and/or counseling patient: Coding [place] [address] SUB INP/OBS CARE 3/50MIN Patient Type Established Medical Decision Making High Complexity Diagnoses Acute blood loss anemia D62 Hypotension I95.9 Nausea & vomiting R11.2 DANA (acute kidney injury) N17.9 Uncontrolled type 2 diabetes mellitus with hyperglycemia E11.65 Glycemic state: with hyperglycemia SIRS (systemic inflammatory response syndrome) R65.10 (5) Diabetes mellitus type 2, uncontrolled Glycemic state: with hyperglycemia Qualified Code(s): E11.65 - Type 2 diabetes mellitus with hyperglycemia
[2025-04-09 08:03] LABS: Hematocrit (blood only) 19.1 % (37.0-47.0); Hemoglobin 6.6 g/dL (12.0-16.0); Mean Corpuscular Hemoglobin 29.9 pg (25.0-34.0); Mean Corpuscular Volume 86.4 fL (80.0-100.0); Platelet Count 330 K/uL (130-400); RDW Standard Deviation 39.2 fL (36.4-46.3); Red Blood Count 2.21 M/uL (4.20-5.40); White Blood Count 13.74 K/ul (4.8-10.8)
[2025-04-09 08:21] LABS: Immature Granulocytes # (auto) 0.08 K/uL (0.01-0.20); Immature Granulocytes % (auto) 0.6 %; RBC Morphology Unremarkable
[2025-04-09 08:23] LABS: Anion Gap 8.0 (3-11); Blood Urea Nitrogen 55.0 mg/dl (6-23); Calcium 8.0 mg/dl (8.6-10.3); Carbon Dioxide 26.0 mmol/L (21-32); Chloride 102.0 mmol/L (98-107); Creatinine Clr Calc Pharmacy 33.1 ml/min; Glucose 98.0 mg/dl (70-99(Fasting)); Iron 59.0 mcg/dl (35-150); Magnesium 1.8 mg/dl (1.7-2.4); Potassium 3.4 mmol/L (3.5-5.1); Sodium 136.0 mmol/L (136-145); Total Iron Binding Cap Calc 193.0 mcg/dl (250-450); Transferrin 138.0 mg/dl (200-360); Transferrin (FE) Percent Satur 31.0 % (15-50)
[2025-04-09 08:34] LABS: Folate (Folic Acid),Ser orPlas 12.49 ng/ml (>5.38)
[2025-04-09 08:35] LABS: Vitamin B12 433.0 pg/ml (180-914)
[2025-04-09] MEDS ORDERED: SODIUM CHLORIDE 0.9% 100 ML IV PRN ×2 (08:44→09:20)
[2025-04-09 08:50] LABS: Ferritin 587.4 ng/ml (8-388)
[2025-04-09] MEDS: PANTOprazole 40 MG/10 ML SYR IV ONE (09:09)
[2025-04-09] MEDS: ATORVASTATIN 40 MG TAB PO SCH (09:10)
[2025-04-09] MEDS: ONDANSETRON INJ 2 MG/ML 2 ML VIAL IV PRN (09:21)
[2025-04-09] MEDS ORDERED: Nursing to Pharmacy Communication SCH (09:30)
--- NOTE | 2025-04-09 10:31 | Gastrointestinal Consultation ---
Date of Consultation April 09, 2025 Assessment & Plan (1) Anemia: Pleasant lady with more of an acute anemia. She has had a drop in h/h from hgb of 12 in early march to 6.6 today. This is without evidence of visible GI bleeding and occult GI blood loss. She does not show evidence of an iron defic iency type anemia. She is certainly not showing signs of emergent GI blood loss so I don't plan emergent endoscopy. This can change if she starts passing blood visibly. Luminal GI bleeding manifests itself either in stools as melena or hematochezia or with hematemesis or both, especially of this magnitude. Not all anemia is of a GI source so I would consider other causes. She may end up neede d endoscopy and/or colonoscopy but I don't think it needs to be done emergently. Agree with CTA and if it shows evidence of active luminal bleeding within reach of a GI scope then we can proceed with evaluation. History of Present Illness Reason for Consultation: anemia Attending Physician: Davi Mccall MD History of Present Illness 75 year old female admitted to the hospital with nausea (and vomiting) although she tells me she wasn't vomiting but was nauseated. She was found to have hemoglobin of 8.8 which is down from 12 in March. Over night it fell to 6.6. In ER her stool was noted to be brown and hemoccult negative. Nurse reports patient had a bowel movement this morning at 8 (hgb 6.6 collected at 7:19) that was pasty and brown, not dark. Patient denies frequent bowel movements before being in the hospital. She admittedly is unaware if she has had blood in her stools. She has had a colonoscopy in the past but says it was a long time ago and she is not sure who did it. She denies abdominal pain and she states she feels pretty fair now. She is on antiplatelet drugs for DVT and PE. Patient has had some episodes of hypotension while in the hospital. She denies taking NSAIDs. She knows she is in the hospital but doesn't know where for sure. She admits she isn't certain what year it is. Allergies Allergy/AdvReac Type Severity Reaction Status Date / Time aloe Allergy Unknown RAISED RASH Verified 08/31/24 13:50 No Known Drug Allergies Allergy Verified 08/31/24 13:50 Home Medications Medication Instructions Recorded Confirmed Type aspirin 81 mg tablet,delayed 81 mg PO DAILY 05/30/22 04/08/25 History release acetaminophen 325 mg tablet 650 mg PO Q6H PRN Fever Or Pain 03/04/24 04/08/25 History (Tylenol) apixaban 5 mg tablet (Eliquis) 5 mg PO BID #60 tabs 03/05/24 04/08/25 Rx blood-glucose,sea foam kiss maker,cont #1 ea 03/05/24 12/12/24 Rx (Dexcom G7 Mining Manager) atorvastatin 80 mg tablet 80 mg PO QAM #90 tabs 04/15/24 04/08/25 Rx pen needle, diabetic 32 gauge x #100 ea 06/01/24 12/12/24 Rx 1/4" (Comfort EZ Pen [place]) blood-glucose sensor (Dexcom G7 #3 ea 10/06/24 12/12/24 Rx Sensor device) bisacodyl 10 mg rectal suppository 10 mg [place] DAILY PRN Constipation 03/10/25 04/08/25 History docusate sodium 100 mg capsule 100 mg PO DAILY PRN Constipation 03/10/25 04/08/25 History insulin glargine 100 unit/mL (3 10 unit subcut QAM 03/10/25 04/08/25 History mL) subcutaneous pen (Lantus Solostar U-100 Insulin) insulin glargine 100 unit/mL (3 35 unit subcut HS 03/10/25 04/08/25 History mL) subcutaneous pen (Lantus Solostar U-100 Insulin) polyethylene glycol 3350 17 17 g PO DAILY PRN Constipation 03/10/25 04/08/25 History gram/dose oral powder (Miralax) furosemide 20 mg tablet 40 mg (2 x 20 mg) PO DAILY #60 tabs 03/12/25 04/08/25 Rx Head And Shoulders 1 applic topical .FRI & Friday04/08/25 04/08/25 History menthol 0.44 %-zinc oxide 20.6 % 1 applic topical BID 04/08/25 04/08/25 History topical ointment (Calmoseptine) Patient History Medical History Pressure ulcer of sacral region, stage 3 Diabetes mellitus DVT (deep venous thrombosis) Noncompliance with medication regimen Hypertension Demand ischemia Acute respiratory failure with hypoxia High anion gap metabolic acidosis DKA (diabetic ketoacidosis) Encounter for pre-operative examination Breast cancer Dx 2021 surgical intervention planned Conjunctivitis Hypothyroidism Surgical History History of tubal ligation History of cholecystectomy History of section History of thyroidectomy (03/04/12) d/t suspicious nodule. 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 No carcinoma noted. History of colonoscopy Diverticulosis noted. No polyps/neoplasia. No biopsies. F/U 5-10 years recommended. Family History Mother Uterine cancer Leukemia Aunt Breast cancer Pancreatic cancer Father Heart disease (Reported Family History Of) Myocardial infarction Unknown Acute myocardial infarction Son Atrial fibrillation Myocardial infarction Denies family history of Ovarian cancer Prostate cancer Colorectal cancer Social History Smoking Status: Never smoker Second Hand Exposure: No; Do You Dip or Chew Tobacco: No; Hx Alcohol Use: Yes Alcohol type: hard liquor Alcohol Intake Frequency: Monthly or Less Hx Substance Use: No Preferred Language: Estonian Communication Ability: Effective Visual Impairment: Limited Hearing Ability: Normal Counselor Education Professor Required: No Beliefs That Will Affect Care: None marital status: / Current Living Situation: Personal Care Facility Current Living Situation Comment: [facility] current occupational status: retired How many Children do You have: 2 Feels Safe at Home: Yes Safety Concerns: Feels Safe At This Time Childhood Exposure to Second-Hand Smoke: Yes Diet: regular caffeine: Yes (half caf coffee ) during the past year weight has: remained stable Dental Care, Regularly: No Physical Activity Frequency: Does not Exercise Seatbelt Use: always Sunscreen Use: Yes Assistive Devices: Wheelchair Physical Exam Physical Exam: Pleasant, pale female in no distress Constitutional: WD/WN, vitals as above Neck: trachea midline, no thyromegaly Respiratory: normal respiratory effort, lungs clear to auscultation Cardiovascular: RRR, no murmur, no edema Gastrointestinal (Abdomen): normal bowel sounds, soft, nontender, no hepatosplenomegaly Results & Data Vital Signs (Past 12 Hours) Vital Signs Temp Pulse Pulse Pulse Resp BP Pulse Ox 04/09/25 07:50 36.8 C 105 H 17 95/55 L 98 04/09/25 07:17 108 H 04/09/25 05:46 106 H 16 99/56 L 99 04/09/25 04:40 37.1 C 108 H 20 86/48 L 96 04/09/25 03:25 04/09/25 03:17 36.6 C 109 H 18 106/62 97 04/09/25 00:23 109 H 04/08/25 23:53 112/54 L O2 Del Method 04/09/25 07:50 Room Air 04/09/25 07:17 04/09/25 05:46 Room Air 04/09/25 04:40 Room Air 04/09/25 03:25 Room Air 04/09/25 03:17 Room Air 04/09/25 00:23 04/08/25 23:53 Laboratory Results 04/09/25 04/09/25 04/09/25 Range/Units 07:56 07:19 01:31 WBC 13.74 H (4.8-10.8) K/ul RBC 2.21 L (4.20-5.40) M/uL Hgb 6.6 L* (12.0-16.0) g/dL POC Hgb (12.0-16.0) g/dl Hct 19.1 L* (37.0-47.0) % POC Hct (37-47) % MCV 86.4 (80.0-100.0) fL MCH 29.9 (25.0-34.0) pg MCHC 34.6 (32.0-36.0) g/dL RDW Std Deviation 39.2 (36.4-46.3) fL RDW Coeff of Millicent 12.6 (11.5-14.5) % Plt Count 330 (130-400) K/uL MPV 9.4 (9.4-12.4) fL Immature Gran % (Auto) 0.6 % Neut % (Auto) 80.2 % Lymph % (Auto) 8.4 % Door % (Auto) 10.6 % Eos % (Auto) 0.1 % Baso % (Auto) 0.1 % Neut # (Auto) 11.03 H (1.40-6.50) K/uL Lymph # (Auto) 1.16 L (1.20-3.40) K/uL Door # (Auto) 1.45 H (0.11-0.59) K/uL Eos # (Auto) 0.01 (0.00-0.50) K/uL Baso # (Auto) 0.01 (0.00-0.20) K/uL Immature Gran # (Auto) 0.08 (0.01-0.20) K/uL RBC Morphology Unremarkable POC Sodium (135-144) mmol/L Sodium 136 (136-145) mmol/L POC Potassium (3.3-5.0) mmol/L Potassium 3.4 L D (3.5-5.1) mmol/L POC Chloride (101-112) mmol/L Chloride 102 (98-107) mmol/L Carbon Dioxide 26 (21-32) mmol/L POC Total CO2 (24-31) mmol/L Anion Gap 8 (3-11) POC Anion Gap (16-25) mmol/L POC BUN (7-18) mg/dl BUN 55 H (6-23) mg/dl Creatinine 1.56 H D (0.6-1.2) mg/dl POC Creatinine (0.6-1.3) mg/dl Est Cr Clr Drug Dosing 33.1 ml/min eGFR 34.24 BUN/Creatinine Ratio 35.3 H (10-20) Glucose 98 (70-99(Fasting)) mg/dl POC Glucose 113 H 221 H (70-99) mg/dl POC Glucose (other) (70-99) mg/dl Calcium 8.0 L (8.6-10.3) mg/dl POC Ioniz Calcium Sumit (1.12-1.32) mmol/l Magnesium 1.8 (1.7-2.4) mg/dl Iron 59 (35-150) mcg/dl TIBC 193 L (250-450) mcg/dl Transferrin 138 L (200-360) mg/dl Transferrin % Sat 31 (15-50) % Ferritin 587.4 H (8-388) ng/ml Total Bilirubin (0.2-1.0) mg/dl AST (13-39) U/L ALT (7-52) U/L Alkaline Phosphatase (34-104) U/L Troponin I High Sens (0-14) pg/ml C-Reactive Protein 11.05 H (0-0.5) mg/dl B-Natriuretic Peptide (0-100) pg/ml Total Protein (6.0-8.3) gm/dl Albumin (3.4-5.0) gm/dl Globulin (2.5-4.0) gm/dl Albumin/Globulin Ratio (0.9-2) Lipase (11-82) U/L Vitamin B12 433 (180-914) pg/ml Folate 12.49 (>5.38) ng/ml Procalcitonin 0.95 H (0-0.5) ng/ml Urine Color Urine Appearance (Clear) Urine pH (4.5-7.5) Ur Specific [place] (1.000-1.030) Urine Protein (Negative) Urine Glucose (UA) (Negative) Urine Ketones (Negative) Urine Blood (Negative) Urine Nitrite (Negative) Urine Bilirubin (Negative) Urine Urobilinogen (Negative) Ur Leukocyte Esterase (Negative) Urine RBC (0-2) /hpf Urine WBC (0-5) /hpf Ur Epithelial Cells (0-2) /hpf Urine Bacteria (None Seen) Urine Comment Nasal Screen MRSA (PCR) (Negative) Adenovirus (PCR) (NotDetected) B. pertussis DNA (PCR) (NotDetected) B.parapertussis DNA PCR (NotDetected) C. pneumoniae DNA (PCR) (NotDetected) Coronavirus OC43 (PCR) (NotDetected) Coronavirus HKU1 (PCR) (NotDetected) Coronavirus 229E (PCR) (NotDetected) SARS-CoV-2 (PCR) (NotDetected) Coronavirus NL63 (PCR) (NotDetected) Human Metapneumovir PCR (NotDetected) Influenza Type A (PCR) (NotDetected) Influenza Type B (PCR) (NotDetected) M. pneumoniae (PCR) (NotDetected) Parainfluenza 1 (PCR) (NotDetected) Parainfluenza 2 (PCR) (NotDetected) Parainfluenza 3 (PCR) (NotDetected) Parainfluenza 4 (PCR) (NotDetected) RSV (PCR) (NotDetected) Entero/Rhino (PCR) (NotDetected) Blood Type Antibody Screen Crossmatch 04/08/25 04/08/25 04/08/25 Range/Units 21:14 20:28 19:38 WBC (4.8-10.8) K/ul RBC (4.20-5.40) M/uL Hgb (12.0-16.0) g/dL POC Hgb (12.0-16.0) g/dl Hct (37.0-47.0) % POC Hct (37-47) % MCV (80.0-100.0) fL MCH (25.0-34.0) pg MCHC (32.0-36.0) g/dL RDW Std Deviation (36.4-46.3) fL RDW Coeff of Millicent (11.5-14.5) % Plt Count (130-400) K/uL MPV (9.4-12.4) fL Immature Gran % (Auto) % Neut % (Auto) % Lymph % (Auto) % Door % (Auto) % Eos % (Auto) % Baso % (Auto) % Neut # (Auto) (1.40-6.50) K/uL Lymph # (Auto) (1.20-3.40) K/uL Door # (Auto) (0.11-0.59) K/uL Eos # (Auto) (0.00-0.50) K/uL Baso # (Auto) (0.00-0.20) K/uL Immature Gran # (Auto) (0.01-0.20) K/uL RBC Morphology POC Sodium (135-144) mmol/L Sodium (136-145) mmol/L POC Potassium (3.3-5.0) mmol/L Potassium (3.5-5.1) mmol/L POC Chloride (101-112) mmol/L Chloride (98-107) mmol/L Carbon Dioxide (21-32) mmol/L POC Total CO2 (24-31) mmol/L Anion Gap (3-11) POC Anion Gap (16-25) mmol/L POC BUN (7-18) mg/dl BUN (6-23) mg/dl Creatinine (0.6-1.2) mg/dl POC Creatinine (0.6-1.3) mg/dl Est Cr Clr Drug Dosing ml/min eGFR BUN/Creatinine Ratio (10-20) Glucose (70-99(Fasting)) mg/dl POC Glucose 268 H (70-99) mg/dl POC Glucose (other) (70-99) mg/dl Calcium (8.6-10.3) mg/dl POC Ioniz Calcium Sumit (1.12-1.32) mmol/l Magnesium (1.7-2.4) mg/dl Iron (35-150) mcg/dl TIBC (250-450) mcg/dl Transferrin (200-360) mg/dl Transferrin % Sat (15-50) % Ferritin (8-388) ng/ml Total Bilirubin (0.2-1.0) mg/dl AST (13-39) U/L ALT (7-52) U/L Alkaline Phosphatase (34-104) U/L Troponin I High Sens (0-14) pg/ml C-Reactive Protein (0-0.5) mg/dl B-Natriuretic Peptide (0-100) pg/ml Total Protein (6.0-8.3) gm/dl Albumin (3.4-5.0) gm/dl Globulin (2.5-4.0) gm/dl Albumin/Globulin Ratio (0.9-2) Lipase (11-82) U/L Vitamin B12 (180-914) pg/ml Folate (>5.38) ng/ml Procalcitonin (0-0.5) ng/ml Urine Color Urine Appearance (Clear) Urine pH (4.5-7.5) Ur Specific [place] (1.000-1.030) Urine Protein (Negative) Urine Glucose (UA) (Negative) Urine Ketones (Negative) Urine Blood (Negative) Urine Nitrite (Negative) Urine Bilirubin (Negative) Urine Urobilinogen (Negative) Ur Leukocyte Esterase (Negative) Urine RBC (0-2) /hpf Urine WBC (0-5) /hpf Ur Epithelial Cells (0-2) /hpf Urine Bacteria (None Seen) Urine Comment Nasal Screen MRSA (PCR) Positive A (Negative) Adenovirus (PCR) Not Detected (NotDetected) B. pertussis DNA (PCR) Not Detected (NotDetected) B.parapertussis DNA PCR Not Detected (NotDetected) C. pneumoniae DNA (PCR) Not Detected (NotDetected) Coronavirus OC43 (PCR) Not Detected (NotDetected) Coronavirus HKU1 (PCR) Not Detected (NotDetected) Coronavirus 229E (PCR) Not Detected (NotDetected) SARS-CoV-2 (PCR) Not Detected (NotDetected) Coronavirus NL63 (PCR) Not Detected (NotDetected) Human Metapneumovir PCR Not Detected (NotDetected) Influenza Type A (PCR) Not Detected (NotDetected) Influenza Type B (PCR) Not Detected (NotDetected) M. pneumoniae (PCR) Not Detected (NotDetected) Parainfluenza 1 (PCR) Not Detected (NotDetected) Parainfluenza 2 (PCR) Not Detected (NotDetected) Parainfluenza 3 (PCR) Not Detected (NotDetected) Parainfluenza 4 (PCR) Not Detected (NotDetected) RSV (PCR) Not Detected (NotDetected) Entero/Rhino (PCR) Not Detected (NotDetected) Blood Type A Positive Antibody Screen NEGATIVE Crossmatch See Detail 04/08/25 04/08/25 04/08/25 Range/Units 19:12 17:05 17:00 WBC (4.8-10.8) K/ul RBC (4.20-5.40) M/uL Hgb (12.0-16.0) g/dL POC Hgb 7.8 L (12.0-16.0) g/dl Hct (37.0-47.0) % POC Hct 23 L (37-47) % MCV (80.0-100.0) fL MCH (25.0-34.0) pg MCHC (32.0-36.0) g/dL RDW Std Deviation (36.4-46.3) fL RDW Coeff of Millicent (11.5-14.5) % Plt Count (130-400) K/uL MPV (9.4-12.4) fL Immature Gran % (Auto) % Neut % (Auto) % Lymph % (Auto) % Door % (Auto) % Eos % (Auto) % Baso % (Auto) % Neut # (Auto) (1.40-6.50) K/uL Lymph # (Auto) (1.20-3.40) K/uL Door # (Auto) (0.11-0.59) K/uL Eos # (Auto) (0.00-0.50) K/uL Baso # (Auto) (0.00-0.20) K/uL Immature Gran # (Auto) (0.01-0.20) K/uL RBC Morphology POC Sodium 134 L (135-144) mmol/L Sodium (136-145) mmol/L POC Potassium 4.6 (3.3-5.0) mmol/L Potassium (3.5-5.1) mmol/L POC Chloride 98 L (101-112) mmol/L Chloride (98-107) mmol/L Carbon Dioxide (21-32) mmol/L POC Total CO2 21 L (24-31) mmol/L Anion Gap (3-11) POC Anion Gap 20.0 (16-25) mmol/L POC BUN 49 H (7-18) mg/dl BUN (6-23) mg/dl Creatinine (0.6-1.2) mg/dl POC Creatinine 2.2 H (0.6-1.3) mg/dl Est Cr Clr Drug Dosing ml/min eGFR BUN/Creatinine Ratio (10-20) Glucose (70-99(Fasting)) mg/dl POC Glucose 342 H* (70-99) mg/dl POC Glucose (other) 305 H (70-99) mg/dl Calcium (8.6-10.3) mg/dl POC Ioniz Calcium Sumit 1.11 L (1.12-1.32) mmol/l Magnesium (1.7-2.4) mg/dl Iron (35-150) mcg/dl TIBC (250-450) mcg/dl Transferrin (200-360) mg/dl Transferrin % Sat (15-50) % Ferritin (8-388) ng/ml Total Bilirubin (0.2-1.0) mg/dl AST (13-39) U/L ALT (7-52) U/L Alkaline Phosphatase (34-104) U/L Troponin I High Sens (0-14) pg/ml C-Reactive Protein (0-0.5) mg/dl B-Natriuretic Peptide (0-100) pg/ml Total Protein (6.0-8.3) gm/dl Albumin (3.4-5.0) gm/dl Globulin (2.5-4.0) gm/dl Albumin/Globulin Ratio (0.9-2) Lipase (11-82) U/L Vitamin B12 (180-914) pg/ml Folate (>5.38) ng/ml Procalcitonin (0-0.5) ng/ml Urine Color Yellow Urine Appearance Clear (Clear) Urine pH 5.5 (4.5-7.5) Ur Specific [place] 1.015 (1.000-1.030) Urine Protein 1+ H (Negative) Urine Glucose (UA) 1+ H (Negative) Urine Ketones Negative (Negative) Urine Blood Negative (Negative) Urine Nitrite Negative (Negative) Urine Bilirubin Negative (Negative) Urine Urobilinogen Negative (Negative) Ur Leukocyte Esterase Negative (Negative) Urine RBC 0-2 (0-2) /hpf Urine WBC 0-5 (0-5) /hpf Ur Epithelial Cells 0-2 (0-2) /hpf Urine Bacteria None Seen (None Seen) Urine Comment Nasal Screen MRSA (PCR) (Negative) Adenovirus (PCR) (NotDetected) B. pertussis DNA (PCR) (NotDetected) B.parapertussis DNA PCR (NotDetected) C. pneumoniae DNA (PCR) (NotDetected) Coronavirus OC43 (PCR) (NotDetected) Coronavirus HKU1 (PCR) (NotDetected) Coronavirus 229E (PCR) (NotDetected) SARS-CoV-2 (PCR) (NotDetected) Coronavirus NL63 (PCR) (NotDetected) Human Metapneumovir PCR (NotDetected) Influenza Type A (PCR) (NotDetected) Influenza Type B (PCR) (NotDetected) M. pneumoniae (PCR) (NotDetected) Parainfluenza 1 (PCR) (NotDetected) Parainfluenza 2 (PCR) (NotDetected) Parainfluenza 3 (PCR) (NotDetected) Parainfluenza 4 (PCR) (NotDetected) RSV (PCR) (NotDetected) Entero/Rhino (PCR) (NotDetected) Blood Type Antibody Screen Crossmatch 12/05/25 Range/Units 16:38 WBC 18.83 H (4.8-10.8) K/ul RBC 2.94 L (4.20-5.40) M/uL Hgb 8.8 L (12.0-16.0) g/dL POC Hgb (12.0-16.0) g/dl Hct 25.3 L (37.0-47.0) % POC Hct (37-47) % MCV 86.1 (80.0-100.0) fL MCH 29.9 (25.0-34.0) pg MCHC 34.8 (32.0-36.0) g/dL RDW Std Deviation 39.1 (36.4-46.3) fL RDW Coeff of Millicent 12.6 (11.5-14.5) % Plt Count 429 H (130-400) K/uL MPV 9.7 (9.4-12.4) fL Immature Gran % (Auto) 0.8 % Neut % (Auto) 84.9 % Lymph % (Auto) 5.3 % Door % (Auto) 8.9 % Eos % (Auto) 0.0 % Baso % (Auto) 0.1 % Neut # (Auto) 15.99 H (1.40-6.50) K/uL Lymph # (Auto) 0.99 L (1.20-3.40) K/uL Door # (Auto) 1.68 H (0.11-0.59) K/uL Eos # (Auto) 0.00 (0.00-0.50) K/uL Baso # (Auto) 0.02 (0.00-0.20) K/uL Immature Gran # (Auto) 0.15 (0.01-0.20) K/uL RBC Morphology POC Sodium (135-144) mmol/L Sodium 135 L (136-145) mmol/L POC Potassium (3.3-5.0) mmol/L Potassium 4.7 (3.5-5.1) mmol/L POC Chloride (101-112) mmol/L Chloride 98 (98-107) mmol/L Carbon Dioxide 22 (21-32) mmol/L POC Total CO2 (24-31) mmol/L Anion Gap 15 H (3-11) POC Anion Gap (16-25) mmol/L POC BUN (7-18) mg/dl BUN 52 H (6-23) mg/dl Creatinine 1.94 H (0.6-1.2) mg/dl POC Creatinine (0.6-1.3) mg/dl Est Cr Clr Drug Dosing 26.6 ml/min eGFR 26.36 BUN/Creatinine Ratio 26.8 H (10-20) Glucose 352 H* (70-99(Fasting)) mg/dl POC Glucose (70-99) mg/dl POC Glucose (other) (70-99) mg/dl Calcium 8.8 (8.6-10.3) mg/dl POC Ioniz Calcium Sumit (1.12-1.32) mmol/l Magnesium (1.7-2.4) mg/dl Iron (35-150) mcg/dl TIBC (250-450) mcg/dl Transferrin (200-360) mg/dl Transferrin % Sat (15-50) % Ferritin (8-388) ng/ml Total Bilirubin 1.0 (0.2-1.0) mg/dl AST 18 (13-39) U/L ALT 19 (7-52) U/L Alkaline Phosphatase 92 (34-104) U/L Troponin I High Sens 8.8 (0-14) pg/ml C-Reactive Protein 14.46 H (0-0.5) mg/dl B-Natriuretic Peptide 23 (0-100) pg/ml Total Protein 6.8 (6.0-8.3) gm/dl Albumin 3.6 (3.4-5.0) gm/dl Globulin 3.2 (2.5-4.0) gm/dl Albumin/Globulin Ratio 1.1 (0.9-2) Lipase 24 (11-82) U/L Vitamin B12 (180-914) pg/ml Folate (>5.38) ng/ml Procalcitonin 1.20 H (0-0.5) ng/ml Urine Color Urine Appearance (Clear) Urine pH (4.5-7.5) Ur Specific [place] (1.000-1.030) Urine Protein (Negative) Urine Glucose (UA) (Negative) Urine Ketones (Negative) Urine Blood (Negative) Urine Nitrite (Negative) Urine Bilirubin (Negative) Urine Urobilinogen (Negative) Ur Leukocyte Esterase (Negative) Urine RBC (0-2) /hpf Urine WBC (0-5) /hpf Ur Epithelial Cells (0-2) /hpf Urine Bacteria (None Seen) Urine Comment Nasal Screen MRSA (PCR) (Negative) Adenovirus (PCR) (NotDetected) B. pertussis DNA (PCR) (NotDetected) B.parapertussis DNA PCR (NotDetected) C. pneumoniae DNA (PCR) (NotDetected) Coronavirus OC43 (PCR) (NotDetected) Coronavirus HKU1 (PCR) (NotDetected) Coronavirus 229E (PCR) (NotDetected) SARS-CoV-2 (PCR) (NotDetected) Coronavirus NL63 (PCR) (NotDetected) Human Metapneumovir PCR (NotDetected) Influenza Type A (PCR) (NotDetected) Influenza Type B (PCR) (NotDetected) M. pneumoniae (PCR) (NotDetected) Parainfluenza 1 (PCR) (NotDetected) Parainfluenza 2 (PCR) (NotDetected) Parainfluenza 3 (PCR) (NotDetected) Parainfluenza 4 (PCR) (NotDetected) RSV (PCR) (NotDetected) Entero/Rhino (PCR) (NotDetected) Blood Type Antibody Screen Crossmatch Diagnostic Findings Chest X-Ray 04/08/25 16:29 Chest radiograph, one view History: Chest pain Comparison: None Findings: Single AP view of the chest performed. No focal consolidation or pleural effusion. No pneumothorax. The cardiomediastinal silhouette is within normal limits. Normal pulmonary vascularity. No evidence for lymphadenopathy. No visualized bony or soft tissue abnormality. Impression: Normal chest radiograph Electronically signed by Arik Canela 04-08-2025 5:17 PM Venous Doppler Study 04/08/25 16:30 Clinical History: Pain and swelling Technique: Venous ultrasound evaluation was performed utilizing grayscale, color Doppler and wave form evaluation. Images were also obtained with and without compression Findings: The right common femoral, superficial femoral, popliteal, and visualized calf veins demonstrate normal anechoic lumens with full compressibility. Normal flow is seen on color Doppler images. Expected waveforms were produced with augmentation maneuvers Impression: No evidence of right leg deep venous thrombosis Electronically signed by Matt Rosado 04-08-2025 6:13 PM Abdomen/Pelvis CT 04/08/25 17:11 Technique: Axial computed tomography images were obtained of the abdomen and pelvis without intravenous contrast. Comparison is made to the prior CT dated 12/12/2024 Findings: The liver is overall of normal size, attenuation, and contour with no sign of cirrhosis or significant fatty infiltration. No definite liver mass lesion is seen on this noncontrast study. The gallbladder has been removed. No bile duct dilatation is noted. The spleen is of normal size. No focal splenic lesion is evident. The pancreas appears normal with no sign of acute or chronic pancreatitis and no mass lesion noted. The pancreatic duct is of normal caliber. The adrenal glands appear unremarkable. There is a 2 mm left renal calculus. No right renal or proximal ureteral calculi are seen. There is no hydronephrosis or perinephric stranding. No definite renal mass lesion is identified. There is a 1.4 cm left renal peripelvic cyst The aorta is of normal caliber. No abdominal adenopathy is seen. The stomach appears normal. There is no sign of small bowel obstruction. There is constipation. There is mild diverticulosis without evidence of diverticulitis. There is no sign of appendicitis. No free intraperitoneal fluid or air is identified. No distal ureteral or bladder calculi are seen. No obvious bladder mass lesion is evident. The iliac arteries are of normal caliber. No pelvic adenopathy is noted. There is a 4 cm right ovarian cyst The lungs bases appear clear. Lumbar degenerative disc disease is seen. No fracture is identified. No focal osseous lesion is seen Impression: 1. 4 cm right ovarian cyst, indeterminate in nature in this postmenopausal patient. A pelvic ultrasound is recommended for further evaluation 2. Small left renal calculus and left renal peripelvic cyst 3. Mild diverticulosis without evidence of diverticulitis ACT 112: Positive. There are findings on this exam that require communication between the performing entity and the patient following Patient Test Result Information Act ([place] ACT 112) guidelines. Electronically signed by Matt Rosado 04-08-2025 5:41 PM (1) Anemia Anemia type: unspecified type Qualified Code(s): D64.9 - Anemia, unspecified
[2025-04-09] MEDS: OPTIRAY 320 125ml IV ONE (11:07)
--- NOTE | 2025-04-09 12:03 | CT Scan Report ---
CT angio abdomen pelvis w con CLINICAL HISTORY: 75 years-old Female with Active bleed; r/o retroperitoneal bleed acute generaliz ed abdominal pain. COMPARISON STUDY: CT abdomen and pelvis 12 09/26/2004 11:00 PM,, 12/12/2024, 02/14/2024. TECHNIQUE: Following the IV administration of 120 cc of Optiray, CT angiogram of the abdomen and pelv is was performed from the lung bases the proximal femora. Images are reviewed in the axial, sagittal, and coronal planes. 3-D MIPS images are created and assessed. All measurements were obtained accordi ng to NASCET criteria. IV contrast was administered without complication. A dose lowering technique was utilized adhering to the principles of ALARA. CT DOSE: 1258.59 mGy.cm FINDINGS: CTA: Moderate atherosclerosis without abdominal aortic aneurysm or dissection. There is patency of th e iliac and imaged femoral arteries. The celiac trunk, superior and inferior mesenteric arteries are patent. High-grade stenosis within the proximal left renal artery on image 97 series 3 secondary to a therosclerosis. The right renal artery is widely patent. No active extravasation or acute retroperito adelso hematoma identified. CT ABDOMEN/PELVIS: No pneumatosis or pneumoperitoneum. Mild nonspecific distal esophageal wall thicke kel may represent a mild esophagitis. Unremarkable spleen, pancreas, liver and adrenal glands. Kesha cystectomy. There are a few scattered left-sided renal sinus cysts. Punctate nonobstructing left dolores l calculus. No hydronephrosis. Distended urinary bladder. 4 cm cystic lesion of the right adnexum is unchanged from 02/14/2024. No bowel obstruction. Moderate fecal retention in the rectum with mild rec guido wall thickening and trace perirectal stranding/free pelvic fluid. Normal appendix. No acute fract ure identified. Nonspecific asymmetric subcutaneous and deep tissue edema of the upper right thigh wi th mild prominence of the adductor musculature. No intramuscular hematoma identified on this exam. IMPRESSION: 1. No acute retroperitoneal hemorrhage or active extravasation identified on this study. 2. Constipation with findings suggestive of a mild stercoral proctitis. 3. Renal arterial stenosis with high-grade narrowing at the proximal left renal artery secondary to a therosclerosis. 4. Asymmetric subcutaneous and deep tissue edema of the right upper thigh is a nonspecific finding an d should be correlated clinically. No discrete intramural hematoma identified on this exam. 5. Additional findings as above. ACT 112: Negative or not required by law. The above report was generated using voice recognition software. It may contain grammatical, syntax o r spelling errors. Electronically signed by: Tejinder Cruz M.D. 04/09/2025 12:01 PM
--- NOTE | 2025-04-09 14:27 | Electrocardiogram Report ---
Test Reason : Blood Pressure : */* mmHG Vent. Rate : 111 BPM Atrial Rate : 111 BPM P-R Int : 184 ms QRS Dur : 82 ms QT Int : 354 ms P-R-T Axes : 78 -45 63 degrees QTcB Int : 481 ms Sinus tachycardia Left anterior fascicular block Cannot rule out Inferior [place] (cited on or before 11-Jan-2005) Abnormal ECG When compared with ECG of 10-Mar-2025 09:31, CA interval has decreased Confirmed by Caity Barnes (Negro) on 04/09/2025 2:27:27 PM Referred By: [facility] Confirmed By: Caity Barnes
[2025-04-09 18:05] LABS: Base Excess VBG -1.5 mEq/L; HCO3 VBG 24 mmol/L; Oxygen Saturation VBG < 60.0 %; PCO2 VBG 41 mmHg (38-50); PO2 VBG 30 mmHg; pH VBG 7.37 (7.36-7.41)
[2025-04-09] MEDS: 4.5GM X1 IV STA (18:44)
[2025-04-09] MEDS: ACETAMINOPHEN 325 MG TAB PO PRN (20:47)
[2025-04-09] MEDS: PANTOprazole 40 MG/10 ML SYR IV SCH (20:47)
[2025-04-09] MEDS: PIPERACILLIN/TAZOBACTAM 4.5 GM/100 ML BAG IV SCH (23:35)
[2025-04-10 02:38] LABS: Hematocrit (blood only) 24.9 % (37.0-47.0); Hemoglobin 8.8 g/dL (12.0-16.0)
[2025-04-10] MEDS: NYSTATIN POWDER 15GM BTL EXT PRN (05:06)
--- NOTE | 2025-04-10 05:35 | Communication Note ---
Date of Service: April 10, 2025 S/O: Was called to bedside by patient's nurse, who was concerned about some of the bruising and pain the patient was observed to have. Patient was noted to have significant pedal edema bilaterally on exam. But, whereas the right ankle was not noted to have any bony tenderness, the left ankle was noted to have tenderness of the posterior medial and lateral malleolus, in addition to midfoot pain of the l. ankle. Due to uncertainty about the patients ambulatory capability, she was not asked to walk to evaluate whether she could bear weight. A/P: Left ankle X-ray (3 V) was ordered, results still pending.
--- NOTE | 2025-04-10 05:40 | XRay Report ---
EXAM: XR ankle LT min 3V routine CLINICAL HISTORY: posterior malleolar, midfoot tenderness,swelling TECHNIQUE: X-ray images of the left ankle were obtained in anteroposterior (AP), lateral, and mortise projections. COMPARISON: No prior studies available for comparison. FINDINGS: Bone Structure: Subtle cortical elevation of the posterior malleolus. An underlying subtle fracture or lesion cannot be entirely excluded; further evaluation by CT/MRI is suggested as clinically indicated. Joint Spaces: Mild osteoarthritic changes of the ankle are noted, with marginal osteophytes and subchondral sclerosis. Soft Tissues: Soft tissues appear normal and unremarkable. No soft tissue swelling, calcifications, or foreign bodies are noted. IMPRESSION: 1. Subtle cortical elevation of the posterior malleolus. An underlying subtle fracture or lesion cannot be entirely excluded; further evaluation by CT/MRI is suggested as clinically indicated. 2. Left ankle degenerative changes are noted. Disclaimer: A subtle bone abnormality or fracture may not be readily apparent on X-rays, thus clinical correlation and further imaging including follow-up CT, MRI, or follow-up X-rays are advised as needed. Electronically signed by Vasquez Alexander 04-10-2025 05:39 AM
[2025-04-10] MEDS ORDERED: Nursing to Pharmacy Communication SCH (06:00)
[2025-04-10 06:53] LABS: Hematocrit (blood only) 27.0 % (37.0-47.0); Hemoglobin 9.1 g/dL (12.0-16.0); Immature Granulocytes # (auto) 0.06 K/uL (0.01-0.20); Immature Granulocytes % (auto) 0.6 %; Mean Corpuscular Hemoglobin 29.3 pg (25.0-34.0); Mean Corpuscular Volume 86.8 fL (80.0-100.0); Platelet Count 304 K/uL (130-400); RDW Standard Deviation 42.6 fL (36.4-46.3); Red Blood Count 3.11 M/uL (4.20-5.40); White Blood Count 10.90 K/ul (4.8-10.8)
[2025-04-10 07:38] LABS: Anion Gap 8.0 (3-11); Blood Urea Nitrogen 44.0 mg/dl (6-23); Calcium 8.0 mg/dl (8.6-10.3); Carbon Dioxide 26.0 mmol/L (21-32); Chloride 105.0 mmol/L (98-107); Creatinine Clr Calc Pharmacy 42.7 ml/min; Potassium 3.3 mmol/L (3.5-5.1); Sodium 139.0 mmol/L (136-145)
--- NOTE | 2025-04-10 08:38 | Hospitalist Progress Note ---
Date of Service April 10, 2025 Assessment & Plan (1) Acute blood loss anemia: (2) Hypotension: (3) Nausea & vomiting: (4) DANA (acute kidney injury): (5) Diabetes mellitus type 2, uncontrolled: (6) SIRS (systemic inflammatory response syndrome): Plan Pt is a 75y/o female with a PMHx significant for DVT/PE on Eliquis, T2DM w/ nephropathy CKD stage 3, HLD, Hypothyroidism, Vitamin D deficiency, Memory impairment, Depression, and Hx of breast CA who presented to the ED via EMS from her personal-assisted with reports of nausea and dry heaving, increased swelling in her legs with pain in the ankles, elevated blood sugars in the 300s for the last week, suspected recurrent UTI, and dyspnea on exertion. The patient has cognitive impairment and is unable to give much of the history. She does deny abdominal pain and does not think that she has had any bloody stools but she does not know for sure. Denies headache or chest pains or shortness of breath. I called her son and he was unaware that she was even in the hospital or had been having any problems. On arrival, she was tachycardic in the low 100s with a normal blood pressure, normal pulse ox, and she was afebrile. She had a significant leukocytosis at 18 and her platelets were elevated in the 400s, her hemoglobin was down to 8.8 from twelve 1 month prior, and she had an DANA with creatinine of 1.9 up from baseline of 0.6 her blood sugar was 352 on arrival. There was no report of GI bleeding from anywhere. Her UA was negative for infection. A CT abdomen/pelvis only showed a 4 cm right ovarian cyst but nothing acute. RLE venous Doppler negative, and CXR negative. #Acute blood loss anemia (improving) Hgb was 12.0 one month [employer] On arrival it was 8.8, then dropped to 6.6 ~12 hours later Patient became hypotensive at 86/46, as well as tachycardic around 110 bpm Pale/lethargic on clinical exam S/p 2 units PRBCs transfusion Hemoccult stool negative A/P CTA ordered did not reveal evidence of retroperitoneal bleed At this time, it remains unclear where specifically she lost blood from, but she appears to be clinically improving following transfusion; no significant hematomas, bruising, or active bleed appreciated on clinical exam Will continue to closely monitor H&H levels ? Esophageal bleed from vomiting Eliquis and aspirin remain on hold #Nausea/vomiting-unclear cause of her nausea and vomiting. Suspected viral gastroenteritis IV antiemetics and fluids PRN Respiratory BioFire WNL Replete electrolytes as needed #Leukocytosis WBC count elevated at 18 arrival, downtrending. Leukocytosis could be reactive to nausea/vomiting. No obvious source of infection. Given patient's medical frailty and poor vitals on arrival, she was covered empirically with Zosyn 4.5 g IV q8h x 24h BCx resulted with NGTD on 04/10 Zosyn discontinued Monitor for fevers or signs of infection otherwise #DANA on CKD stage 3 (improving) Creatinine elevated at 1.9 on admission (baseline 0.6) She has been having nausea and dry heaves and is hyperglycemic in the 300s for the last week likely causing dehydration. Her Lasix dose was increased on discharge 1 month prior to 40 mg daily for increased leg swelling. Hold home Lasix #T2DM with hyperglycemia-Recent HgbA1c was 8.1% last admission. Received IV fluids Continue Lantus 35 units at night and 10 units in the morning Add NovoLog supplemental insulin with meals #Lower extremity edema-likely venous insufficiency Hold home Lasix for DANA #HLD - no acute concerns Holding home ASA for anemia Continue Atorvastatin # History of DVT/PE on Eliquis-with acute DVT noted in 12/2024 and was noted to be noncompliant with Eliquis at that time. Doppler of the right lower extremity negative on admission here. With new anemia in the last month, concern for occult bleeding Hold home Eliquis for now SCDs for DVT prevention #Memory Impairment/Depression - no acute concerns Continue supportive care, lives in personal-assisted #Ovarian cyst-has been seen in the past and does not seem to be growing Follow-up with [facility] TECHN[facility] as an outpatient if desired for pelvic ultrasound Disposition -continued stay on PCU telemetry Attempted to call patient's son (Wayne) on 04/09, but was unable to reach. Left brief voicemail requesting callback. Admission and Anticipated Discharge Date Admission Date: April 08, 2025 Supervising Physician Co-Signing Physician Notes Attending Attestation - Chart reviewed, care plan d/w ELIEL Hernandes. I agree w/ the erickson components of his documentation. Davi Mccall MD Subjective Mrs. Iglesias is doing somewhat better today. She remains a poor historian. She slept "so-so", and reports she is feeling nauseous this morning, but no vomiting. She denies any pain in her left ankle at this time. She is unsure if she has had any recent falls at home. She is unsure if she is having any stomach pain. Difficult to obtain underlying ROS given patient's baseline cognitive status; however, Patient endorses mild abdominal discomfort and nausea. Patient denies fevers overnight, throat pain, chest pain, SOB, diarrhea, or change in urinary/bowel habits. Review of Systems Review of Systems: See HPI above Physical Exam Physical Exam: General: no acute distress; non-toxic appearing; cooperative; frail-appearing; SpO2 99% on RA HEENT: normocephalic, atraumatic; PERRLA; vision and hearing intact Neck: supple; trachea midline Skin: Warm, dry without signs of tenting; no cyanosis; no rashes, lesions or erythema noted; superficial bruising/hematoma noted on the left forearm CV: chest wall NTP; RRR; S1/S2 normal; no murmurs/rubs/gallops; pulses intact and symmetric at radial, DP, and PT Lungs: no acute respiratory distress; however, patient exhibits conversational dyspnea; symmetrical chest wall expansion; clear breath sounds across all lung moya w/o adventitious sounds; no wheezing ABD: Soft, RLQ is TTP; no rashes or bruising appreciated the abdomen flanks bilaterally; BS present; no rebound/guarding; no distention Back: Upper and lower spine NTP; no signs of active bleeding, bruising, or erythema MSK: no tics or fasciculations; no edema noted in the LEs b/l, nonerythematous Neuro: A&Ox3; normal mood and affect; fluent speech; sensation intact and symmetric in the LEs b/l Results & Data Results & Data Vital Signs (Past 12 Hours) Vital Signs Temp Pulse Resp BP Pulse Ox O2 Del Method 04/10/25 07:37 36.5 C 101 H 18 125/63 93 Room Air PG Care Time/CCT Total # of Minutes Spent Total Time Spent with Patient: Total time spent is greater than 50% in coordination of care (as documented) at patient's floor/unit and/or counseling patient: Coding [place] [address] SUB INP/OBS CARE 3/50MIN Patient Type Established Medical Decision Making High Complexity Diagnoses Acute blood loss anemia D62 Hypotension I95.9 Nausea & vomiting R11.2 DANA (acute kidney injury) N17.9 Uncontrolled type 2 diabetes mellitus with hyperglycemia E11.65 Glycemic state: with hyperglycemia SIRS (systemic inflammatory response syndrome) R65.10 (5) Diabetes mellitus type 2, uncontrolled Glycemic state: with hyperglycemia Qualified Code(s): E11.65 - Type 2 diabetes mellitus with hyperglycemia
[2025-04-10] MEDS: INSULIN ASPART PER UNIT CHARGE SC SCH (08:41)
--- NOTE | 2025-04-10 08:50 | Gastroenterology Progress Note ---
Date of Service April 10, 2025 Assessment & Plan (1) Anemia: Plan: She is not having any evidence of a GI bleed. If we check "all stools" for hemoccult one will be positive statistically and decision will need to be made as to how to deal with that. However at this time she is not having GI bleeding so I plan no evaluation at this time. Please reconsult if conditions change Admission and Anticipated Discharge Date Admission Date: April 08, 2025 Subjective H/H corrected nicely after blood. Feels good. No bleeding, had brown stool this morning. CTA negative for bleeding Physical Exam Physical Exam: She looks well Constitutional: WD/WN, vitals as above Results & Data Vital Signs (Past 12 Hours) Vital Signs Temp Pulse Resp BP Pulse Ox O2 Del Method 04/10/25 07:37 36.5 C 101 H 18 125/63 93 Room Air (1) Anemia Anemia type: unspecified type Qualified Code(s): D64.9 - Anemia, unspecified
[2025-04-10] MEDS: POTASSIUM CHLORIDE / WTR 10 MEQ/100 ML PLCT IV SCH (13:50)
[2025-04-10] MEDS: POTASSIUM CHLORIDE CRTAB 20 MEQ TABCR PO STA (14:16)
[2025-04-11 09:35] LABS: Hematocrit (blood only) 27.2 % (37.0-47.0); Hemoglobin 9.4 g/dL (12.0-16.0); Mean Corpuscular Hemoglobin 29.7 pg (25.0-34.0); Mean Corpuscular Volume 85.8 fL (80.0-100.0); Platelet Count 371 K/uL (130-400); RDW Standard Deviation 41.6 fL (36.4-46.3); Red Blood Count 3.17 M/uL (4.20-5.40); White Blood Count 11.44 K/ul (4.8-10.8)
[2025-04-11 09:51] LABS: Anion Gap 8.0 (3-11); Blood Urea Nitrogen 29.0 mg/dl (6-23); Calcium 8.0 mg/dl (8.6-10.3); Carbon Dioxide 24.0 mmol/L (21-32); Chloride 104.0 mmol/L (98-107); Creatinine Clr Calc Pharmacy 53.5 ml/min; Glucose 145.0 mg/dl (70-99(Fasting)); Potassium 3.5 mmol/L (3.5-5.1); Sodium 136.0 mmol/L (136-145)
--- NOTE | 2025-04-11 12:54 | Hospitalist Progress Note ---
"Date of Service April 11, 2025 Assessment & Plan (1) Acute blood loss anemia: (2) Hypotension: (3) Nausea & vomiting: (4) DANA (acute kidney injury): (5) Diabetes mellitus type 2, uncontrolled: (6) SIRS (systemic inflammatory response syndrome): Plan Pt is a 75y/o female with a PMHx significant for DVT/PE on Eliquis, T2DM w/ nephropathy CKD stage 3, HLD, Hypothyroidism, Vitamin D deficiency, Memory impairment, Depression, and Hx of breast CA who presented to the ED via EMS from her personal-retirement with reports of nausea and dry heaving, increased swelling in her legs with pain in the ankles, elevated blood sugars in the 300s for the last week, and dyspnea on exertion. The patient has cognitive impairment and is unable to give much of the history. Call to son, he was unaware that she was even in the hospital or had been having any problems. On arrival she had a significant leukocytosis at 18 and her platelets were elevated in the 400s, her hemoglobin was down to 8.8 from twelve 1 month prior, and she had an DANA with creatinine of 1.9 up from baseline of 0.6 her blood sugar was 352 on arrival. There was no report of GI bleeding from anywhere. Her UA was negative for infection. A CT abdomen/pelvis only showed a 4 cm right ovarian cyst but nothing acute. RLE venous Doppler negative, and CXR negative. #Acute blood loss anemia - source unclear, Hgb was 12.0 one month [employer] and on arrival 8.8. Dropped to 6.6 and was given 2 units PRBCS. Hemeoccult negative, no large skin bruises, no evidence of retroperitoneal bleeding on CT. GI consulted - do not feel like this is a GI bleed, hemoccult all stools not necessary Eliquis and aspirin remain on hold #Nausea/vomiting | Leukocytosis - unclear cause. Suspected viral gastroenteritis, possible elevation in leukocytosis from nausea vomiting. Respiratory biofire negative. UA negative. Did received empiric Zosyn x 24 hours, since discontinued. Blood cultures: No growth at 48 hours has remained afebrile #DANA on CKD stage 3 - Creatinine elevated at 1.9 on admission (baseline 0.6). likely secondary to nausea/vomiting and increased Lasix dose Cr has normalized. Appetite has improved, continue advancing diet Hold home Lasix #T2DM with hyperglycemia-Recent HgbA1c was 8.1% last admission. Continue Lantus 35 units at night and 10 units in the morning Add NovoLog supplemental insulin with meals BSG well controlled here #Lower extremity edema-likely venous insufficiency With DANA after recent increase to lasix dosage. Given worsening - will give one time dose of IV lasix and see if improves - monitoring kidney function Supportive care - elevation and rhiannon naik #HLD - Continue Atorvastatin # History of DVT/PE on Eliquis-with acute DVT noted in 12/2024 and was noted to be noncompliant with Eliquis at that time. Doppler of the right lower extremity negative on admission here. With new anemia in the last month, concern for occult bleeding Hold home Eliquis for now SCDs for DVT prevention #Memory Impairment/Depression - Continue supportive care, lives in personal-retirement #Ovarian cyst-has been seen in the past and does not seem to be growing Follow-up with [facility] as an outpatient if desired for pelvic ultrasound Disposition -continued stay, trending labs, advancing diet DVT proh: SCDs and rhainnon naik sister updated at bedside 04/11 Admission and Anticipated Discharge Date Admission Date: April 08, 2025 Supervising Physician Co-Signing Physician Notes Attending Attestation - Chart reviewed, care plan d/w ELIEL Jensen. I agree w/ the erickson components of her documentation. Davi Mccall MD Subjective Patient seen sitting up in bed, just finishing lunch. Denies any abdominal pain nausea or vomiting from eating. She is unsure why she is in the hospital, which is her baseline poor historian status from her underlying cognitive issues. She has not noted any bruising. She does not recall if she has fallen at her facility. Telemetry sinus rhythm in the 90 Review of Systems Review of Systems: All systems reviewed & are unremarkable except as noted in Subjective Physical Exam Physical Exam: General: NAD, VS as above Resp: normal respiratory effort, lungs clear to auscultation CV: RRR, no murmur, Abd: normal bowel sounds, non tender, soft Extremities: Moves all extremities, 3+ pitting edema to bilateral lower extremities Neuro: A&O x2, Skin: visualize entirety of patient's skin, no bruising anywhere to explain drop in hemoglobin Results & Data Results & Data Vital Signs (Past 12 Hours) Vital Signs Temp Pulse Resp BP Pulse Ox O2 Del Method 04/11/25 10:49 98.1 F 90 18 125/68 97 Room Air 04/11/25 07:22 98.2 F 92 H 18 137/66 98 Room Air 04/11/25 03:13 98.4 F 91 H 16 133/65 Laboratory Results CBC and chemistry reviewed PG Care Time/CCT Total # of Minutes Spent Total Time Spent with Patient: Total time spent is greater than 50% in coordination of care (as documented) at patient's floor/unit and/or counseling patient: Coding Level of Care Code 39800 SUB INP/OBS CARE 2/35MIN Diagnoses Acute blood loss anemia D62 Hypotension I95.9 Nausea & vomiting R11.2 DANA (acute kidney injury) N17.9 Uncontrolled type 2 diabetes mellitus with hyperglycemia E11.65 Glycemic state: with hyperglycemia SIRS (systemic inflammatory response syndrome) R65.10 (5) Diabetes mellitus type 2, uncontrolled Glycemic state: with hyperglycemia Qualified Code(s): E11.65 - Type 2 diabetes mellitus with hyperglycemia"
[2025-04-11] MEDS: FUROSEMIDE 40 MG/4 ML VIAL IV ONE (16:34)
[2025-04-12 06:26] LABS: Hematocrit (blood only) 25.8 % (37.0-47.0); Hemoglobin 8.8 g/dL (12.0-16.0); Mean Corpuscular Hemoglobin 29.5 pg (25.0-34.0); Mean Corpuscular Volume 86.6 fL (80.0-100.0); Platelet Count 348 K/uL (130-400); RDW Standard Deviation 41.1 fL (36.4-46.3); Red Blood Count 2.98 M/uL (4.20-5.40); White Blood Count 9.11 K/ul (4.8-10.8)
[2025-04-12 07:04] LABS: Anion Gap 6.0 (3-11); Blood Urea Nitrogen 24.0 mg/dl (6-23); Calcium 7.8 mg/dl (8.6-10.3); Carbon Dioxide 29.0 mmol/L (21-32); Chloride 105.0 mmol/L (98-107); Creatinine Clr Calc Pharmacy 54.3 ml/min; Glucose 73.0 mg/dl (70-99(Fasting)); Potassium 3.4 mmol/L (3.5-5.1); Sodium 140.0 mmol/L (136-145)
[2025-04-12] MEDS: POLYETHYLENE (MIRALAX) 17 GM PACK PO PRN (08:21)
--- NOTE | 2025-04-12 09:36 | Hospitalist Progress Note ---
"Date of Service April 12, 2025 Assessment & Plan (1) Acute blood loss anemia: (2) Hypotension: (3) Nausea & vomiting: (4) DANA (acute kidney injury): (5) Diabetes mellitus type 2, uncontrolled: (6) SIRS (systemic inflammatory response syndrome): Plan Pt is a 75y/o female with a PMHx significant for DVT/PE on Eliquis, T2DM w/ nephropathy CKD stage 3, HLD, Hypothyroidism, Vitamin D deficiency, Memory impairment, Depression, and Hx of breast CA who presented to the ED via EMS from her personal-half-way with reports of nausea and dry heaving, increased swelling in her legs with pain in the ankles, elevated blood sugars in the 300s for the last week, and dyspnea on exertion. The patient has cognitive impairment and is unable to give much of the history. Call to son, he was unaware that she was even in the hospital or had been having any problems. On arrival she had a significant leukocytosis at 18 and her platelets were elevated in the 400s, her hemoglobin was down to 8.8 from twelve 1 month prior, and she had an DANA with creatinine of 1.9 up from baseline of 0.6 her blood sugar was 352 on arrival. There was no report of GI bleeding from anywhere. Her UA was negative for infection. A CT abdomen/pelvis only showed a 4 cm right ovarian cyst but nothing acute. RLE venous Doppler negative, and CXR negative. #Acute blood loss anemia - source unclear, but GI losses suspected, eleavated BUN on arrival. 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 Dropped to 6.6 and was given 2 units PRBCS. Hemeoccult negative, no large skin bruises, no evidence of retroperitoneal bleeding on CT. GI consulted - do not feel like this is a GI bleed, hemoccult all stools not necessary Eliquis and aspirin remain on hold slight drop in HGB today 9.4 --> 8.8, all stools documented as brown. Will recheck in AM #Nausea/vomiting | Leukocytosis - unclear cause. Suspected viral gastroenteritis, possible elevation in leukocytosis from nausea vomiting. Respiratory biofire negative. UA negative. Did received empiric Zosyn x 24 hours, since discontinued. Blood cultures: No growth at 48 hours Has remained afebrile #DANA on CKD stage 3 - Creatinine elevated at 1.9 on admission (baseline 0.6). likely secondary to nausea/vomiting and increased Lasix dose Cr has normalized, despite IV lasix, will give additional dose today for leg swelling and then plan to transition back to PO if Cr remains normal AM BMP #T2DM with hyperglycemia-Recent HgbA1c was 8.1% last admission. Continue Lantus 35 units at night and 10 units in the morning Add NovoLog supplemental insulin with meals BSG well controlled here #Lower extremity edema-likely venous insufficiency Lasix given 04/11 with great urine output and legs much improved, will give additional dose today and then plan for transition pack to PO. Potassium replaced PO Supportive care - elevation and rhiannon maddiee #HLD - Continue Atorvastatin # History of DVT/PE on Eliquis-with acute DVT noted in 12/2024 and was noted to be noncompliant with Eliquis at that time. Doppler of the right lower extremity negative on admission here. With new anemia in the last month, concern for occult bleeding Hold home Eliquis for now SCDs for DVT prevention #Memory Impairment/Depression - Continue supportive care, lives in personal-half-way #Ovarian cyst-has been seen in the past and does not seem to be growing Follow-up with ARMORED CABLE MACHINE OPERATOR as an outpatient if desired for pelvic ultrasound Disposition -continued stay, trending labs, IV lasix today, stable for downgrade to medical DVT proh: SCDs and rhiannon perkinse sister updated at bedside 04/11 LM for son 04/12 Admission and Anticipated Discharge Date Admission Date: April 08, 2025 Supervising Physician Co-Signing Physician Notes Attending Attestation - Chart reviewed, care plan d/w ELIEL Jensen. I agree w/ the erickson components of her documentation. Davi Mccall MD Subjective Patient seen sitting up in bed, complaining of the sun being in her eyes. No issues with diet advancement, denies abdominal pain nausea or vomiting. Still reporting leg pain denies CP or SOB Tele SR 80s Review of Systems Review of Systems: All systems reviewed & are unremarkable except as noted in Subjective Physical Exam Physical Exam: General: NAD, VS as above Resp: normal respiratory effort, lungs clear to auscultation CV: RRR, no murmur, Abd: normal bowel sounds, non tender, soft Extremities: Moves all extremities, SCDs and Teds in place to LE - edema much improved from yesterday, 1+ pitting edema to LE now Neuro: A&O x2, Results & Data Results & Data Vital Signs (Past 12 Hours) Vital Signs Temp Pulse Pulse Resp BP Pulse Ox O2 Del Method 04/12/25 07:29 98.1 F 87 18 117/62 97 Room Air 04/12/25 05:19 98.1 F 82 16 107/58 L 97 Room Air 04/11/25 23:37 98.4 F 96 H 18 126/61 96 Room Air 04/11/25 22:00 85 Laboratory Results cbc and chemistry reviewed PG Care Time/CCT Total # of Minutes Spent Total Time Spent with Patient: Total time spent is greater than 50% in coordination of care (as documented) at patient's floor/unit and/or counseling patient: Coding Level of Care Code 62555 SUB INP/OBS CARE 3/50MIN Diagnoses Acute blood loss anemia D62 Hypotension I95.9 Nausea & vomiting R11.2 DANA (acute kidney injury) N17.9 Uncontrolled type 2 diabetes mellitus with hyperglycemia E11.65 Glycemic state: with hyperglycemia SIRS (systemic inflammatory response syndrome) R65.10 (5) Diabetes mellitus type 2, uncontrolled Glycemic state: with hyperglycemia Qualified Code(s): E11.65 - Type 2 diabetes mellitus with hyperglycemia"
[2025-04-12] MEDS: FUROSEMIDE 40 MG/4 ML VIAL IV ONE (09:42)
[2025-04-12] MEDS: POTASSIUM CHLORIDE CRTAB 20 MEQ TABCR PO STA (09:43)
[2025-04-12] MEDS ORDERED: ACETAMINOPHEN 1,000 MG/100 ML VIAL IV PRN (21:43)
[2025-04-12] MEDS: MAGNESIUM SULFATE / D5W 1 GM/100 ML BAG IV SCH (22:25)
[2025-04-12] MEDS: PROCHLORPERAZINE 10 MG in SYRINGE 8 ML IV ONE (22:26)
[2025-04-13 07:12] LABS: Hematocrit (blood only) 25.7 % (37.0-47.0); Hemoglobin 8.8 g/dL (12.0-16.0); Mean Corpuscular Hemoglobin 29.9 pg (25.0-34.0); Mean Corpuscular Volume 87.4 fL (80.0-100.0); Platelet Count 355 K/uL (130-400); RDW Standard Deviation 40.8 fL (36.4-46.3); Red Blood Count 2.94 M/uL (4.20-5.40); White Blood Count 9.36 K/ul (4.8-10.8)
[2025-04-13] MEDS ORDERED: INFLUENZA VACC TS2025-26(65y+)/PF (IIV3) 0.5mL Syr IM ONE (07:49)
[2025-04-13 07:50] LABS: Anion Gap 6.0 (3-11); Blood Urea Nitrogen 28.0 mg/dl (6-23); Calcium 7.7 mg/dl (8.6-10.3); Carbon Dioxide 28.0 mmol/L (21-32); Chloride 103.0 mmol/L (98-107); Creatinine Clr Calc Pharmacy 44.6 ml/min; Glucose 200.0 mg/dl (70-99(Fasting)); Potassium 3.7 mmol/L (3.5-5.1); Sodium 137.0 mmol/L (136-145)
[2025-04-13] MEDS: CALCIUM CARBONATE 1,250 MG/5 ML UDC PO SCH (09:27)
[2025-04-13] MEDS: FUROSEMIDE 20 MG TAB PO SCH (09:27)
--- NOTE | 2025-04-13 11:39 | Hospitalist Progress Note ---
"Date of Service April 13, 2025 Assessment & Plan (1) Acute blood loss anemia: (2) Hypotension: (3) Nausea & vomiting: (4) DANA (acute kidney injury): (5) Diabetes mellitus type 2, uncontrolled: (6) SIRS (systemic inflammatory response syndrome): Plan Pt is a 75y/o female with a PMHx significant for DVT/PE on Eliquis, T2DM w/ nephropathy CKD stage 3, HLD, Hypothyroidism, Vitamin D deficiency, Memory impairment, Depression, and Hx of breast CA who presented to the ED via EMS from her personal-[facility] with reports of nausea and dry heaving, increased swelling in her legs with pain in the ankles, elevated blood sugars in the 300s for the last week, and dyspnea on exertion. The patient has cognitive impairment and is unable to give much of the history. Call to son, he was unaware that she was even in the hospital or had been having any problems. On arrival she had a significant leukocytosis at 18 and her platelets were elevated in the 400s, her hemoglobin was down to 8.8 from twelve 1 month prior, and she had an DANA with creatinine of 1.9 up from baseline of 0.6 her blood sugar was 352 on arrival. There was no report of GI bleeding from anywhere. Her UA was negative for infection. A CT abdomen/pelvis only showed a 4 cm right ovarian cyst but nothing acute. RLE venous Doppler negative, and CXR negative. #Acute blood loss anemia - source unclear, but GI losses suspected, eleavated BUN on arrival. 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 Dropped to 6.6 and was given 2 units PRBCS. Hemoccult negative, no large skin bruises, no evidence of retroperitoneal bleeding on CT. GI consulted - do not feel like this is a GI bleed, hemoccult all stools not necessary Eliquis and aspirin remain on hold - Aspirin seems to be for primary prevention with HLD. Will d/c aspirin. Plan to resume reduce dose Eliquis in 1-2 weeks if h gb remains stable. PT/OT - rec rehab, CM following Hgb remains stable. #Nausea/vomiting | Leukocytosis - unclear cause, now much improved. Suspected viral gastroenteritis, possible elevation in leukocytosis from nausea vomiting. Respiratory biofire negative. UA negative. Did received empiric Zosyn x 24 hours, since discontinued. Blood cultures: No growth at 48 hours Has remained afebrile #DANA on CKD stage 3 - Creatinine elevated at 1.9 on admission (baseline 0.6). likely secondary to nausea/vomiting and increased Lasix dose Cr has normalized - appropriate PO intake Did have retention earlier in the stay with abdul placed, attempt trial of void today AM BMP #T2DM with hyperglycemia-Recent HgbA1c was 8.1% last admission. Continue Lantus 35 units at night and 10 units in the morning BSG elevation with meals, tighten SSI CF 20, CR 12 #Lower extremity edema-likely venous insufficiency IV Lasix given 04/11 & 04/12 with great urine output and legs much improved, will transition back to 20mg PO daily Supportive care - elevation and rhiannon hose #HLD - Continue Atorvastatin # History of DVT/PE on Eliquis-with acute DVT noted in 12/2024 and was noted to be noncompliant with Eliquis at that time. Doppler of the right lower extremity negative on admission here. With new anemia in the last month, concern for occult bleeding Hold home Eliquis for now SCDs for DVT prevention #Memory Impairment/Depression - Continue supportive care, lives in personal-chcf #Ovarian cyst-has been seen in the past and does not seem to be growing Follow-up with HAMMERER HELPER as an outpatient if desired for pelvic ultrasound Disposition -continued stay, awaiting PT/OT DVT proh: SCDs and rhiannon naik sister updated at bedside 04/11 LM for son 04/12 Admission and Anticipated Discharge Date Admission Date: April 08, 2025 Supervising Physician Co-Signing Physician Notes I did not see or examine the patient. I verified all erickson points and agree with Mckenna Jensen PA-C with the following exceptions and/or additions: None Subjective Patient seen lying in bed - reports feeling more fatigued today. No other acute complaints but does report pain with leg palpation Physical Exam Physical Exam: General: NAD, vitals as above, lying in bed, appears tired Pulm: breathing unlabored CV: well perfused Extremities: Moves all extremities, SCDs and Teds in place to LE - edema much improved, 1+ pitting edema to LE mainly in the feet, tender to palpation Results & Data Results & Data Vital Signs (Past 12 Hours) Vital Signs Temp Pulse Resp BP Pulse Ox O2 Del Method 04/13/25 07:24 98.1 F 90 18 130/68 98 Room Air Laboratory Results bmp reviewed PG Care Time/CCT Total # of Minutes Spent Total Time Spent with Patient: Total time spent is greater than 50% in coordination of care (as documented) at patient's floor/unit and/or counseling patient: Coding Level of Care Code 77466 SUB INP/OBS CARE 2/35MIN Diagnoses Acute blood loss anemia D62 Hypotension I95.9 Nausea & vomiting R11.2 DANA (acute kidney injury) N17.9 Uncontrolled type 2 diabetes mellitus with hyperglycemia E11.65 Glycemic state: with hyperglycemia SIRS (systemic inflammatory response syndrome) R65.10 (5) Diabetes mellitus type 2, uncontrolled Glycemic state: with hyperglycemia Qualified Code(s): E11.65 - Type 2 diabetes mellitus with hyperglycemia"
[2025-04-14 08:07] LABS: Anion Gap 6.0 (3-11); Blood Urea Nitrogen 25.0 mg/dl (6-23); Calcium 8.1 mg/dl (8.6-10.3); Carbon Dioxide 29.0 mmol/L (21-32); Chloride 103.0 mmol/L (98-107); Creatinine Clr Calc Pharmacy 56.0 ml/min; Glucose 113.0 mg/dl (70-99(Fasting)); Potassium 3.5 mmol/L (3.5-5.1); Sodium 138.0 mmol/L (136-145)
--- NOTE | 2025-04-14 11:20 | Hospitalist Progress Note ---
"Date of Service April 14, 2025 Assessment & Plan (1) Acute blood loss anemia: (2) Hypotension: (3) Nausea & vomiting: (4) DANA (acute kidney injury): (5) Diabetes mellitus type 2, uncontrolled: (6) SIRS (systemic inflammatory response syndrome): Plan Pt is a 75y/o female with a PMHx significant for DVT/PE on Eliquis, T2DM w/ nephropathy CKD stage 3, HLD, Hypothyroidism, Vitamin D deficiency, Memory impairment, Depression, and Hx of breast CA who presented to the ED via EMS from her personal-group home with reports of nausea and dry heaving, increased swelling in her legs with pain in the ankles, elevated blood sugars in the 300s for the last week, and dyspnea on exertion. The patient has cognitive impairment and is unable to give much of the history. Call to son, he was unaware that she was even in the hospital or had been having any problems. On arrival she had a significant leukocytosis at 18 and her platelets were elevated in the 400s, her hemoglobin was down to 8.8 from twelve 1 month prior, and she had an DANA with creatinine of 1.9 up from baseline of 0.6 her blood sugar was 352 on arrival. There was no report of GI bleeding from anywhere. Her UA was negative for infection. A CT abdomen/pelvis only showed a 4 cm right ovarian cyst but nothing acute. RLE venous Doppler negative, and CXR negative. #Acute blood loss anemia - source unclear, but GI losses suspected, eleavated BUN on arrival. 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 Dropped to 6.6 and was given 2 units PRBCS. Hemoccult negative, no large skin bruises, no evidence of retroperitoneal bleeding on CT. GI consulted - do not feel like this is a GI bleed, hemoccult all stools not necessary Eliquis and aspirin remain on hold - Aspirin seems to be for primary prevention with HLD. Will d/c aspirin. Plan to resume reduce dose Eliquis in 1-2 weeks if h gb remains stable. PT/OT - rec rehab, CM following #Nausea/vomiting | Leukocytosis - unclear cause, now much improved. Suspected viral gastroenteritis, possible elevation in leukocytosis from nausea vomiting. Respiratory biofire negative. UA negative. Did received empiric Zosyn x 24 hours, since discontinued. Blood cultures: negative, finalized. Has remained afebrile #DANA on CKD stage 3 - Creatinine elevated at 1.9 on admission (baseline 0.6). likely secondary to nausea/vomiting and increased Lasix dose Cr has normalized - appropriate PO intake Did have retention earlier in the stay with abdul placed, attempt trial of void 04/13, requiring straight cath. Abdul replaced 04/14 and flomax initated. Rec urology follow up on discharge #T2DM with hyperglycemia-Recent HgbA1c was 8.1% last admission. Continue Lantus 35 units at night and 10 units in the morning BSG elevation with meals, tighten SSI CF 20, CR 12 Continues to complain of leg pain - described as nerve pain, initate 100mg gabapentin HS #Lower extremity edema-likely venous insufficiency IV Lasix given 04/11 & 04/12 with great urine output and legs much improved, will transition back to 20mg PO daily Supportive care - elevation and rhiannon hose #HLD - Continue Atorvastatin # History of DVT/PE on Eliquis-with acute DVT noted in 12/2024 and was noted to be noncompliant with Eliquis at that time. Doppler of the right lower extremity negative on admission here. With new anemia in the last month, concern for occult bleeding Hold home Eliquis for now SCDs for DVT prevention #Memory Impairment/Depression - Continue supportive care, lives in personal-group home #Ovarian cyst-has been seen in the past and does not seem to be growing Follow-up with TERRITORY SALES MANAGER [employer] as an outpatient if desired for pelvic ultrasound Disposition -continued stay, awaiting safe discharge dispo DVT proh: SCDs and rhiannon hose Follow up on discharge: urology for voiding trial sister updated at bedside 04/11 LM for son 04/12 Admission and Anticipated Discharge Date Admission Date: April 08, 2025 Supervising Physician Co-Signing Physician Notes I did not see or examine the patient. I verified all erickson points and agree with Mckenna Jensen PA-C with the following exceptions and/or additions: None Subjective Continues to complain of leg pain - upon more question describes as nerve pain. She reports is does interrupt her sleep reports appetite is fair Review of Systems Review of Systems: All systems reviewed & are unremarkable except as noted in Subjective Physical Exam Physical Exam: General: NAD, vitals as above, sitting up in bed Pulm: breathing unlabored CV: well perfused Extremities: Moves all extremities,edema much improved, trace edema to LE mainly in the feet, tender to palpation Results & Data Results & Data Vital Signs (Past 12 Hours) Vital Signs Temp Pulse Resp BP Pulse Ox O2 Del Method 04/14/25 07:58 98.4 F 87 20 132/68 96 Room Air 04/13/25 23:20 98.7 F 93 H 19 132/67 97 Room Air Laboratory Results bmp reviewed blood cultures reviewed PG Care Time/CCT Total # of Minutes Spent Total Time Spent with Patient: Total time spent is greater than 50% in coordination of care (as documented) at patient's floor/unit and/or counseling patient: Coding Level of Care Code 75886 SUB INP/OBS CARE 2/35MIN Diagnoses Acute blood loss anemia D62 Hypotension I95.9 Nausea & vomiting R11.2 DANA (acute kidney injury) N17.9 Uncontrolled type 2 diabetes mellitus with hyperglycemia E11.65 Glycemic state: with hyperglycemia SIRS (systemic inflammatory response syndrome) R65.10 (5) Diabetes mellitus type 2, uncontrolled Glycemic state: with hyperglycemia Qualified Code(s): E11.65 - Type 2 diabetes mellitus with hyperglycemia"
[2025-04-14] MEDS: TAMSULOSIN HCL 0.4 MG CAP PO SCH (12:45)
[2025-04-14] MEDS: GABAPENTIN 100 MG CAP PO SCH (20:08)
[2025-04-15] MEDS ORDERED: PHARMACY GLYCEMIC MGMT CONSULT PRN (16:17)
--- NOTE | 2025-04-15 16:26 | Hospitalist Progress Note ---
"Date of Service April 15, 2025 Assessment & Plan (1) Acute blood loss anemia: (2) Hypotension: (3) Nausea & vomiting: (4) DANA (acute kidney injury): (5) Diabetes mellitus type 2, uncontrolled: (6) SIRS (systemic inflammatory response syndrome): (7) Urine retention: Plan Pt is a 75y/o female with a PMHx significant for DVT/PE on Eliquis, T2DM w/ nephropathy CKD stage 3, HLD, Hypothyroidism, Vitamin D deficiency, Memory impairment, Depression, and Hx of breast CA who presented to the ED via EMS from her personal-detention with reports of nausea and dry heaving, increased swelling in her legs with pain in the ankles, elevated blood sugars in the 300s for the last week, and dyspnea on exertion. The patient has cognitive impairment and is unable to give much of the history. Call to son, he was unaware that she was even in the hospital or had been having any problems. On arrival she had a significant leukocytosis at 18 and her platelets were elevated in the 400s, her hemoglobin was down to 8.8 from twelve 1 month prior, and she had an DANA with creatinine of 1.9 up from baseline of 0.6 her blood sugar was 352 on arrival. There was no report of GI bleeding from anywhere. Her UA was negative for infection. A CT abdomen/pelvis only showed a 4 cm right ovarian cyst but nothing acute. RLE venous Doppler negative, and CXR negative. #Acute blood loss anemia - source unclear, but GI losses suspected, eleavated BUN on arrival. 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 Dropped to 6.6 and was given 2 units PRBCS. Hemoccult negative, no large skin bruises, no evidence of retroperitoneal bleeding on CT. GI consulted - do not feel like this is a GI bleed, Hemoccult all stools not necessary Eliquis and aspirin remain on hold - Aspirin seems to be for primary prevention with HLD. Will d/c aspirin. Plan to resume reduce dose Eliquis in 1-2 weeks if hgb remains stable. PT/OT - rec rehab, CM following #Nausea/vomiting | Leukocytosis - unclear cause, now much improved. Suspected viral gastroenteritis, possible elevation in leukocytosis from nausea vomiting. Respiratory biofire negative. UA negative. Did received empiric Zosyn x 24 hours, since discontinued. Blood cultures: negative, finalized. Has remained afebrile #DANA on CKD stage 3 | urine retention - Creatinine elevated at 1.9 on admission (baseline 0.6). likely secondary to nausea/vomiting and increased Lasix dose Cr has normalized - appropriate PO intake Did have retention earlier in the stay with abdul placed, attempt trial of void 04/13, requiring straight cath. Abdul replaced 04/14 and flomax initiated. Rec urology follow up on discharge #T2DM with hyperglycemia-Recent HgbA1c was 8.1% last admission. Hypoglycemic in the morning Consult pharmacy for glycemic control but will try to even our her insulin Continue Lantus 25 units at night and 20 units in the morning BSG elevation with meals, tighten SSI CF 20, CR 8 Continues to complain of leg pain - described as nerve pain, initiate 100mg gabapentin HS #Lower extremity edema-likely venous insufficiency IV Lasix given 04/11 & 04/12 with great urine output and legs much improved, will transition back to 20mg PO daily Supportive care - elevation and rhiannon naik #HLD - Continue Atorvastatin # History of DVT/PE on Eliquis-with acute DVT noted in 12/2024 and was noted to be noncompliant with Eliquis at that time. Doppler of the right lower extremity negative on admission here. With new anemia in the last month, concern for occult bleeding Hold home Eliquis for now SCDs for DVT prevention #Memory Impairment/Depression - Continue supportive care, lives in personal-detention #Ovarian cyst-has been seen in the past and does not seem to be growing Follow-up with TURBINE SUBASSEMBLER as an outpatient if desired for pelvic ultrasound Disposition -continued stay, awaiting safe discharge dispo DVT proh: SCDs and rhiannon naik Follow up on discharge: urology for voiding trial Admission and Anticipated Discharge Date Admission Date: April 08, 2025 Subjective No acute concerns or questions from the patient Physical Exam Respiratory: normal respiratory effort, lungs clear to auscultation Cardiovascular: Rate/Rhythm: regular rate and regular rhythm Heart Sounds: + murmur (2/6 systolic murmur) Extremities: no pedal edema Gastrointestinal (Abdomen): normal bowel sounds, soft, nontender, no hepatosplenomegaly Results & Data Results & Data Vital Signs (Past 12 Hours) Vital Signs Temp Pulse Resp BP Pulse Ox O2 Del Method 04/15/25 14:57 37.0 C 84 16 121/67 97 Room Air 04/15/25 07:01 37.1 C 94 H 17 127/69 96 Room Air PG Care Time/CCT Total # of Minutes Spent Total Time Spent with Patient: Total time spent is greater than 50% in coordination of care (as documented) at patient's floor/unit and/or counseling patient: Coding Level of Care Code 00564 SUB INP/OBS CARE 2/35MIN Diagnoses Acute blood loss anemia D62 Hypotension I95.9 Nausea & vomiting R11.2 DANA (acute kidney injury) N17.9 Uncontrolled type 2 diabetes mellitus with hyperglycemia E11.65 Glycemic state: with hyperglycemia SIRS (systemic inflammatory response syndrome) R65.10 Urine retention R33.9 (5) Diabetes mellitus type 2, uncontrolled Glycemic state: with hyperglycemia Qualified Code(s): E11.65 - Type 2 diabetes mellitus with hyperglycemia"
[2025-04-15] MEDS ORDERED: LANTUS PER UNIT CHARGE SQ SCH (21:00)
[2025-04-15] MEDS: LANTUS PER UNIT CHARGE SQ SCH (21:52)
[2025-04-16] MEDS: LANTUS PER UNIT CHARGE SQ SCH (08:34)
[2025-04-16] MEDS ORDERED: LANTUS PER UNIT CHARGE SQ SCH (09:00)
--- NOTE | 2025-04-16 09:58 | Hospitalist Progress Note ---
Date of Service April 16, 2025 Assessment & Plan (1) Acute blood loss anemia: Plan: source unclear, but GI losses suspected, eleavated BUN on arrival. 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 Dropped to 6.6 and was given 2 units PRBCS. Hemoccult negative, no large skin bruises, no evidence of retroperitoneal bleeding on CT. GI consulted - do not feel like this is a GI bleed, Hemoccult all stools not necessary Eliquis and aspirin remain on hold - Aspirin seems to be for primary prevention with HLD. Will d/c aspirin. Plan to resume reduce dose Eliquis in 1-2 weeks if hgb remains stable. PT/OT - rec rehab, CM following [facility]waiting placement possibly to [facility] (2) Hypotension: (3) Nausea & vomiting: Plan: Unclear cause, now much improved. Suspected viral gastroenteritis, possible elevation in leukocytosis from nausea vomiting. Respiratory biofire negative. UA negative. Did received empiric Zosyn x 24 hours, since discontinued. Blood cultures: negative, finalized. Has remained afebrile (4) DANA (acute kidney injury): Plan: Creatinine elevated at 1.9 on admission (baseline 0.6). likely secondary to nausea/vomiting and increased Lasix dose Cr has normalized - appropriate PO intake Did have retention earlier in the stay with abdul placed, attempt trial of void 04/13, requiring straight cath. Abdul replaced 04/14 and flomax initiated. Rec urology follow up on discharge (5) Diabetes mellitus type 2, uncontrolled: Plan: Consult pharmacy for glycemic control but will try to even our her insulin Continue Lantus 25 units at night and 20 units in the morning BSG elevation with meals, tighten SSI CF 20, CR 8 Plan Pt is a 75y/o female with a PMHx significant for DVT/PE on Eliquis, T2DM w/ nephropathy CKD stage 3, HLD, Hypothyroidism, Vitamin D deficiency, Memory imp airment, Depression, and Hx of breast CA who presented to the ED via EMS from her [facility] with reports of nausea and dry heaving, increased swelling in her legs with pain in the ankles, elevated blood sugars in the 300s for the last week, and dyspnea on exertion. The patient has cognitive impairment and is unable to give much of the history. Call to son, he was unaware that she was even in the hospital or had been having any problems. On arrival she had a significant leukocytosis at 18 and her platelets were elevated in the 400s, her hemoglobin was down to 8.8 from twelve 1 month prior, and she had an DANA with creatinine of 1.9 up from baseline of 0.6 her blood sugar was 352 on arrival. There was no report of GI bleeding from anywhere. Her UA was negative for infection. A CT abdomen/pelvis only showed a 4 cm right ovarian cyst but nothing acute. RLE venous Doppler negative, and CXR negative. Disposition -continued stay, awaiting safe discharge dispo DVT proh: SCDs and rhiannon naik Follow up on discharge: urology for voiding trial Admission and Anticipated Discharge Date Admission Date: April 08, 2025 Subjective No events overnight. Pt resting comfortably in bed. Review of Systems Review of Systems: CONST: Negative for fever, body aches and chills. HENT: Negative for neck pain/stiffness, headache, congestion, sore throat, swelling. EYES: Negative for discharge/pain or vision changes. RESP: Negative for cough/hemoptysis and shortness of breath. CV: Negative chest pain, difficulty breathing, palpitations. ABD: Negative pain, nausea, vomiting. : Negative increase frequency, dysuria, blood in urine or stool. MUSC: Negative for muscle aches, edema. SKIN: Negative rash, lesions/sores. NEURO: Negative headache, dizziness, weakness. Physical Exam Physical Exam: GENERAL APPEARANCE NAD, activity normal for age, well developed/ well nourished, no cyanosis, pallor, or diaphoresis. EYES lids/conjunctiva normal. EARS/NOSE/THROAT Mucous membranes moist, nares normal, lips/teeth normal uvula midline without oral pharyngeal erythema, exudate or swelling TMs normal bilaterally. No lymphangitis/lymphedema. HEAD/NECK normocephalic atraumatic, no facial trauma, neck is supple. RESPIRATORY respiratory effort normal, speaks in full sentences, no tripod position, no accessory muscle use. Lungs clear to auscultation without rhonchi, wheezes, rales CARDIAC Regular rate and rhythm, no edema. ABDOMINAL Soft, ND/NT. No evidence of fluid wave. No pulsatile masses on exam, rebound tenderness, Zavala sign or pain over Mcburney's point. MUSCLES/EXTREMITIES No abnormal range of motion, no swelling. SKIN Warm, pink and dry. No rashes, dermatoses, petechiae or lesions. NEUROLOGICAL Speech is clear and appropriate. Normal level of consciousness. Gait and coordination are normal. 5/5 strength in all extremities. PSYCH Normal mood and affect. Judgement/competence is appropriate Results & Data Results & Data Vital Signs (Past 12 Hours) Vital Signs Temp Pulse Resp BP Pulse Ox O2 Del Method 04/16/25 07:07 36.5 C 88 18 116/61 99 Room Air PG Care Time/CCT Total # of Minutes Spent Total Time Spent with Patient: Total time spent is greater than 50% in coordination of care (as documented) at patient's floor/unit and/or counseling patient: Coding Level of Care Code 35416 SUB INP/OBS CARE 2/35MIN Diagnoses Acute blood loss anemia D62 Hypotension I95.9 Nausea & vomiting R11.2 DANA (acute kidney injury) N17.9 Uncontrolled type 2 diabetes mellitus with hyperglycemia E11.65 Glycemic state: with hyperglycemia (5) Diabetes mellitus type 2, uncontrolled Glycemic state: with hyperglycemia Qualified Code(s): E11.65 - Type 2 diabetes mellitus with hyperglycemia
--- NOTE | 2025-04-16 14:57 | Pharmacy Report ---
Pharmacy Glycemic Short Note 2 - Date of Service April 16, 2025 - Glycemic Short BSG Results (Last 24 hours): 04/15/25 04/15/25 04/16/25 16:06 20:17 08:04 POC Glucose 225 H 234 H 193 H 04/16/25 11:53 POC Glucose 283 H OUTPATIENT ANTIDIABETIC REGIMEN: * Lantus 10 units SQ Q AM and 35 units Q PM HbA1c 8.1% on 03/11/25 ASSESSMENT: * Shari is 75 year old female who was admitted 04/08 with nausea and vomiting, DANA, and BSGs in the 300s x 1 week. Provider was managing insulin until last evening when pharmacy was consulted for glycemic management. * Over the last few days, BSGs have been ranging from 81-306mg/dL. AM Lantus was increased and bolus insulin regimen was tightened today by the provider. Will continue this regimen without change for now. PLAN FOR INPATIENT GLYCEMIC CONTROL: * Basal insulin * Lantus 25 units SQ QAM and 20 units SQ QPM * Bolus insulin * NovoLog per scale ACHS or Q6hrs while NPO * Goal Range: Low 110 mg/dL - High 140 mg/dL * Correction Factor: 20 mg/dL/unit * Nutritional / Prandial insulin per carb ratio of 1 unit per 8 grams CHO consumed
--- NOTE | 2025-04-17 09:58 | Hospitalist Progress Note ---
Date of Service April 17, 2025 Assessment & Plan (1) Acute blood loss anemia: Plan: source unclear, but GI losses suspected, eleavated BUN on arrival. 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 Dropped to 6.6 and was given 2 units PRBCS. Hemoccult negative, no large skin bruises, no evidence of retroperitoneal bleeding on CT. GI consulted - do not feel like this is a GI bleed, Hemoccult all stools not necessary Eliquis and aspirin remain on hold - Aspirin seems to be for primary prevention with HLD. Will d/c aspirin. Plan to resume reduce dose Eliquis in 1-2 weeks if hgb remains stable. PT/OT - rec rehab, CM following Awaiting placement possibly to [facility] (2) Hypotension: (3) Nausea & vomiting: Plan: Unclear cause, now much improved. Suspected viral gastroenteritis, possible elevation in leukocytosis from nausea vomiting. Respiratory biofire negative. UA negative. Did received empiric Zosyn x 24 hours, since discontinued. Blood cultures: negative, finalized. Has remained afebrile (4) DANA (acute kidney injury): Plan: Creatinine elevated at 1.9 on admission (baseline 0.6). likely secondary to nausea/vomiting and increased Lasix dose Cr has normalized - appropriate PO intake Did have retention earlier in the stay with abdul placed, attempt trial of void 04/13, requiring straight cath. Abdul replaced 04/14 and flomax initiated. Rec urology follow up on discharge (5) Diabetes mellitus type 2, uncontrolled: Plan: Consult pharmacy for glycemic control but will try to even our her insulin Continue Lantus 25 units at night and 20 units in the morning BSG elevation with meals, tighten SSI CF 20, CR 8 Plan Pt is a 75y/o female with a PMHx significant for DVT/PE on Eliquis, T2DM w/ nephropathy CKD stage 3, HLD, Hypothyroidism, Vitamin D deficiency, Memory imp airment, Depression, and Hx of breast CA who presented to the ED via EMS from her [facility] with reports of nausea and dry heaving, increased swelling in her legs with pain in the ankles, elevated blood sugars in the 300s for the last week, and dyspnea on exertion. The patient has cognitive impairment and is unable to give much of the history. Call to son, he was unaware that she was even in the hospital or had been having any problems. On arrival she had a significant leukocytosis at 18 and her platelets were elevated in the 400s, her hemoglobin was down to 8.8 from twelve 1 month prior, and she had an DANA with creatinine of 1.9 up from baseline of 0.6 her blood sugar was 352 on arrival. There was no report of GI bleeding from anywhere. Her UA was negative for infection. A CT abdomen/pelvis only showed a 4 cm right ovarian cyst but nothing acute. RLE venous Doppler negative, and CXR negative. Disposition -continued stay, awaiting safe discharge dispo DVT proh: SCDs and rhiannon naik Follow up on discharge: urology for voiding trial Admission and Anticipated Discharge Date Admission Date: April 08, 2025 Subjective No events overnight. Pt resting comfortably in bed. Review of Systems Review of Systems: CONST: Negative for fever, body aches and chills. HENT: Negative for neck pain/stiffness, headache, congestion, sore throat, swelling. EYES: Negative for discharge/pain or vision changes. RESP: Negative for cough/hemoptysis and shortness of breath. CV: Negative chest pain, difficulty breathing, palpitations. ABD: Negative pain, nausea, vomiting. : Negative increase frequency, dysuria, blood in urine or stool. MUSC: Negative for muscle aches, edema. SKIN: Negative rash, lesions/sores. NEURO: Negative headache, dizziness, weakness. Physical Exam Physical Exam: GENERAL APPEARANCE NAD, activity normal for age, well developed/ well nourished, no cyanosis, pallor, or diaphoresis. EYES lids/conjunctiva normal. EARS/NOSE/THROAT Mucous membranes moist, nares normal, lips/teeth normal uvula midline without oral pharyngeal erythema, exudate or swelling TMs normal bilaterally. No lymphangitis/lymphedema. HEAD/NECK normocephalic atraumatic, no facial trauma, neck is supple. RESPIRATORY respiratory effort normal, speaks in full sentences, no tripod position, no accessory muscle use. Lungs clear to auscultation without rhonchi, wheezes, rales CARDIAC Regular rate and rhythm, no edema. ABDOMINAL Soft, ND/NT. No evidence of fluid wave. No pulsatile masses on exam, rebound tenderness, Zavala sign or pain over Mcburney's point. MUSCLES/EXTREMITIES No abnormal range of motion, no swelling. SKIN Warm, pink and dry. No rashes, dermatoses, petechiae or lesions. NEUROLOGICAL Speech is clear and appropriate. Normal level of consciousness. Gait and coordination are normal. 5/5 strength in all extremities. PSYCH Normal mood and affect. Judgement/competence is appropriate Results & Data Results & Data Vital Signs (Past 12 Hours) Vital Signs Temp Pulse Resp BP Pulse Ox O2 Del Method 04/17/25 07:10 37.1 C 87 16 133/70 97 Room Air 04/16/25 22:36 37.3 C 90 16 124/67 95 Room Air PG Care Time/CCT Total # of Minutes Spent Total Time Spent with Patient: Total time spent is greater than 50% in coordination of care (as documented) at patient's floor/unit and/or counseling patient: Coding Level of Care Code 22227 SUB INP/OBS CARE 2/35MIN Diagnoses Acute blood loss anemia D62 Hypotension I95.9 Nausea & vomiting R11.2 DANA (acute kidney injury) N17.9 Uncontrolled type 2 diabetes mellitus with hyperglycemia E11.65 Glycemic state: with hyperglycemia (5) Diabetes mellitus type 2, uncontrolled Glycemic state: with hyperglycemia Qualified Code(s): E11.65 - Type 2 diabetes mellitus with hyperglycemia
[2025-04-17] MEDS: LANTUS PER UNIT CHARGE SQ SCH (21:04)
[2025-04-18 12:16] LABS: Hematocrit (blood only) 26.8 % (37.0-47.0); Hemoglobin 8.8 g/dL (12.0-16.0); Mean Corpuscular Hemoglobin 29.6 pg (25.0-34.0); Mean Corpuscular Volume 90.2 fL (80.0-100.0); Platelet Count 400 K/uL (130-400); RDW Standard Deviation 43.1 fL (36.4-46.3); Red Blood Count 2.97 M/uL (4.20-5.40); White Blood Count 9.06 K/ul (4.8-10.8)
[2025-04-18 12:32] LABS: Anion Gap 6.0 (3-11); Blood Urea Nitrogen 34.0 mg/dl (6-23); Calcium 8.3 mg/dl (8.6-10.3); Carbon Dioxide 27.0 mmol/L (21-32); Chloride 104.0 mmol/L (98-107); Creatinine Clr Calc Pharmacy 61.3 ml/min; Glucose 226.0 mg/dl (70-99(Fasting)); Potassium 4.2 mmol/L (3.5-5.1); Sodium 137.0 mmol/L (136-145)
--- NOTE | 2025-04-18 14:12 | Pharmacy Report ---
Pharmacy Glycemic Short Note 2 - Date of Service April 18, 2025 - Glycemic Short BSG Results (Last 24 hours): 04/17/25 04/17/25 04/18/25 16:54 20:15 07:58 Glucose POC Glucose 169 H 173 H 155 H 04/18/25 04/18/25 11:39 11:44 Glucose 226 H POC Glucose 229 H OUTPATIENT ANTIDIABETIC REGIMEN: * Lantus 10 units SQ Q AM and 35 units Q PM HbA1c 8.1% on 03/11/25 ASSESSMENT: 04/18 * BSGs 261-482-850-173 mg/dL yesterday with 95 total units of insulin, 50 of which were basal * Fasting this AM 155 mg/[id number]-[id number]-ljmbpkhz 25 units BID of lantus * Carb ratio tightened yesterday with improvement in prandial BSGs, will continue same for now. 04/16 * Shari is 75 year old female who was admitted 04/08 with nausea and vomiting, DANA, and BSGs in the 300s x 1 week. Provider was managing insulin until last evening when pharmacy was consulted for glycemic management. * Over the last few days, BSGs have been ranging from 81-306mg/dL. AM Lantus was increased and bolus insulin regimen was tightened today by the provider. Will continue this regimen without change for now. PLAN FOR INPATIENT GLYCEMIC CONTROL: * Basal insulin * Lantus 25 units SQ QAM and 25 units SQ QPM * Bolus insulin * NovoLog per scale ACHS or Q6hrs while NPO * Goal Range: Low 110 mg/dL - High 140 mg/dL * Correction Factor: 20 mg/dL/unit * Nutritional / Prandial insulin per carb ratio of 1 unit per 4grams CHO consumed
--- NOTE | 2025-04-18 19:42 | Hospitalist Progress Note ---
"Date of Service April 18, 2025 Assessment & Plan (1) Acute blood loss anemia: (2) Hypotension: (3) Nausea & vomiting: (4) DANA (acute kidney injury): (5) Diabetes mellitus type 2, uncontrolled: (6) SIRS (systemic inflammatory response syndrome): Plan Pt is a 75y/o female with a PMHx significant for DVT/PE on Eliquis, T2DM w/ nephropathy CKD stage 3, HLD, Hypothyroidism, Vitamin D deficiency, Memory impairment, Depression, and Hx of breast CA who presented to the ED via EMS from her [facility] with reports of nausea and dry heaving, increased swelling in her legs with pain in the ankles, elevated blood sugars in the 300s for the last week, and dyspnea on exertion. The patient has cognitive impairment and is unable to give much of the history. Call to son, he was unaware that she was even in the hospital or had been having any problems. On arrival she had a significant leukocytosis at 18 and her platelets were elevated in the 400s, her hemoglobin was down to 8.8 from twelve 1 month prior, and she had an DANA with creatinine of 1.9 up from baseline of 0.6 her blood sugar was 352 on arrival. There was no report of GI bleeding from anywhere. Her UA was negative for infection. A CT abdomen/pelvis only showed a 4 cm right ovarian cyst but nothing acute. RLE venous Doppler negative, and CXR negative. #Acute blood loss anemia - source unclear, but GI losses suspected, eleavated BUN on arrival. 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 Dropped to 6.6 and was given 2 units PRBCS. Hemoccult negative, no large skin bruises, no evidence of retroperitoneal bleeding on CT. GI consulted - do not feel like this is a GI bleed, Hemoccult all stools not necessary Eliquis and aspirin remain on hold - Aspirin seems to be for primary prevention with HLD. Will d/c aspirin. Plan to resume reduce dose Eliquis in 1-2 weeks if h gb remains stable. PT/OT - rec rehab, CM following #Nausea/vomiting | Leukocytosis - unclear cause, now much improved. Suspected viral gastroenteritis, possible elevation in leukocytosis from nausea vomiting. Respiratory biofire negative. UA negative. Did received empiric Zosyn x 24 hours, since discontinued. Blood cultures: negative, finalized. Has remained afebrile #DANA on CKD stage 3 | urine retention - Creatinine elevated at 1.9 on admission (baseline 0.6). likely secondary to nausea/vomiting and increased Lasix dose Cr has normalized - appropriate PO intake Did have retention earlier in the stay with abdul placed, attempt trial of void 04/13, requiring straight cath. Abdul replaced 04/14 and flomax initiated. Rec urology follow up on discharge #T2DM with hyperglycemia-Recent HgbA1c was 8.1% last admission. Consult pharmacy for glycemic control Continues to complain of leg pain - described as nerve pain, started 100mg gabapentin HS #Lower extremity edema-likely venous insufficiency IV Lasix given 04/11 & 04/12 with great urine output and legs much improved, will transition back to 20mg PO daily Supportive care - elevation and rhiannon hose #HLD - Continue Atorvastatin # History of DVT/PE on Eliquis-with acute DVT noted in 12/2024 and was noted to be noncompliant with Eliquis at that time. Doppler of the right lower extremity negative on admission here. With new anemia in the last month, concern for occult bleeding Hold home Eliquis for now SCDs for DVT prevention #Memory Impairment/Depression - Continue supportive care, lives in personal-[facility] #Ovarian cyst-has been seen in the past and does not seem to be growing Follow-up with [facility] as an outpatient if desired for pelvic ultrasound Disposition -medically stable for discharge DVT proh: SCDs and rhiannon hose Follow up on discharge: urology for voiding trial Admission and Anticipated Discharge Date Admission Date: April 08, 2025 Subjective No acute concerns or complaints from patient. No melena, nausea,, vomiting or ab dominal pain Physical Exam Respiratory: normal respiratory effort, lungs clear to auscultation Cardiovascular: Rate/Rhythm: regular rate and regular rhythm Heart Sounds: + murmur (2/6 systolic murmur) Extremities: no pedal edema Gastrointestinal (Abdomen): normal bowel sounds, soft, nontender, no hepatosplenomegaly Results & Data Results & Data Vital Signs (Past 12 Hours) Vital Signs Temp Pulse Resp BP Pulse Ox O2 Del Method 04/18/25 15:01 36.2 C L 84 16 124/67 98 Room Air 04/18/25 07:50 Room Air PG Care Time/CCT Total # of Minutes Spent Total Time Spent with Patient: Total time spent is greater than 50% in coordination of care (as documented) at patient's floor/unit and/or counseling patient: Coding Level of Care Code 58411 SUB INP/OBS CARE 05/29MIN Diagnoses Acute blood loss anemia D62 Hypotension I95.9 Nausea & vomiting R11.2 DANA (acute kidney injury) N17.9 Uncontrolled type 2 diabetes mellitus with hyperglycemia E11.65 Glycemic state: with hyperglycemia SIRS (systemic inflammatory response syndrome) R65.10 (5) Diabetes mellitus type 2, uncontrolled Glycemic state: with hyperglycemia Qualified Code(s): E11.65 - Type 2 diabetes mellitus with hyperglycemia"
--- NOTE | 2025-04-19 11:40 | Ultrasound Report ---
LEFT LOWER EXTREMITY VENOUS DOPPLER HISTORY: Acute pain and swelling of the left lower leg left leg swelling and pain COMPARISON STUDY: Ultrasound study 03/10/2025 and 12/12/2024. FINDINGS: Nonocclusive thrombus in the popliteal, posterior tibial, peroneal and anterior tibial vein s again noted compatible with chronic thrombi. These findings are similar to prior studies. No defini te acute occlusive deep or superficial venous thrombosis identified. IMPRESSION: 1. No definite acute occlusive DVT identified. 2. Chronic nonocclusive DVT redemonstrated. ACT 112: Negative or not required by law. Electronically signed by: Tejinder Cruz M.D. 04/19/2025 11:37 AM
--- NOTE | 2025-04-19 20:32 | Hospitalist Progress Note ---
"Date of Service April 19, 2025 Assessment & Plan (1) Acute blood loss anemia: (2) Hypotension: (3) Nausea & vomiting: (4) DANA (acute kidney injury): (5) Diabetes mellitus type 2, uncontrolled: (6) SIRS (systemic inflammatory response syndrome): Plan Pt is a 75y/o female with a PMHx significant for DVT/PE on Eliquis, T2DM w/ nephropathy CKD stage 3, HLD, Hypothyroidism, Vitamin D deficiency, Memory impairment, Depression, and Hx of breast CA who presented to the ED via EMS from her personal-long-term with reports of nausea and dry heaving, increased swelling in her legs with pain in the ankles, elevated blood sugars in the 300s for the last week, and dyspnea on exertion. The patient has cognitive impairment and is unable to give much of the history. Call to son, he was unaware that she was even in the hospital or had been having any problems. On arrival she had a significant leukocytosis at 18 and her platelets were elevated in the 400s, her hemoglobin was down to 8.8 from twelve 1 month prior, and she had an DANA with creatinine of 1.9 up from baseline of 0.6 her blood sugar was 352 on arrival. There was no report of GI bleeding from anywhere. Her UA was negative for infection. A CT abdomen/pelvis only showed a 4 cm right ovarian cyst but nothing acute. RLE venous Doppler negative, and CXR negative. #Acute blood loss anemia - source unclear, but GI losses suspected, elevated BUN on arrival. Hgb was 12.0 one month [employer] and on arrival 8.8. Dropped to 6.6 and was given 2 units PRBCS. Hemoccult negative, no large skin bruises, no evidence of retroperitoneal bleeding on CT. GI consulted - do not feel like this is a GI bleed, Hemoccult all stools not necessary Eliquis and aspirin remain on hold - Aspirin seems to be for primary prevention with HLD. Will d/c aspirin. Restart prophylaxis dose Eliquis 04/18. PT/OT - rec rehab, CM following #Nausea/vomiting | Leukocytosis - unclear cause, now much improved. Suspected viral gastroenteritis, possible elevation in leukocytosis from nausea vomiting. Respiratory biofire negative. UA negative. Did received empiric Zosyn x 24 hours, since discontinued. Blood cultures: negative, finalized. Has remained afebrile #DANA on CKD stage 3 | urine retention - Creatinine elevated at 1.9 on admission (baseline 0.6). likely secondary to nausea/vomiting and increased Lasix dose Cr has normalized - appropriate PO intake Did have retention earlier in the stay with abdul placed, attempt trial of void 04/13, requiring straight cath. Abdul replaced 04/14 and flomax initiated. Rec urology follow up on discharge #T2DM with hyperglycemia-Recent HgbA1c was 8.1% last admission. Consult pharmacy for glycemic control Continues to complain of leg pain - described as nerve pain, started 100mg gabapentin HS #Lower extremity edema-likely venous insufficiency IV Lasix given 04/11 & 04/12 with great urine output and legs much improved, will transition back to 20mg PO daily Supportive care - elevation and rhiannon naik US venous doppler left - chronic DVT, will restart Eliquis #HLD - Continue Atorvastatin # History of DVT/PE on Eliquis-with acute DVT noted in 12/2024 and was noted to be noncompliant with Eliquis at that time. Doppler of the right lower extremity negative on admission here. With new anemia in the last month, concern for occult bleeding Hold home Eliquis for now SCDs for DVT prevention #Memory Impairment/Depression - Continue supportive care, lives in personal-long-term #Ovarian cyst-has been seen in the past and does not seem to be growing Follow-up with [facility] as an outpatient if desired for pelvic ultrasound VTE Prophylaxis - Eliquis Disposition - medically stable for discharge, awaiting insurance authroization Follow up on discharge: urology for voiding trial Admission and Anticipated Discharge Date Admission Date: April 08, 2025 Subjective No acute concerns or questions. No recurrence of melena. Requesting help to go to the bathroom when seen. Physical Exam Gastrointestinal (Abdomen): normal bowel sounds, soft, nontender, no hepatosplenomegaly Results & Data Results & Data Vital Signs (Past 12 Hours) Vital Signs Temp Pulse Resp BP Pulse Ox O2 Del Method 04/19/25 15:26 36.9 C 92 H 18 113/67 98 Room Air 04/19/25 10:35 Room Air PG Care Time/CCT Total # of Minutes Spent Total Time Spent with Patient: Total time spent is greater than 50% in coordination of care (as documented) at patient's floor/unit and/or counseling patient: Coding Level of Care Code 99812 SUB INP/OBS CARE Diagnoses Acute blood loss anemia D62 Hypotension I95.9 Nausea & vomiting R11.2 DANA (acute kidney injury) N17.9 Uncontrolled type 2 diabetes mellitus with hyperglycemia E11.65 Glycemic state: with hyperglycemia SIRS (systemic inflammatory response syndrome) R65.10 (5) Diabetes mellitus type 2, uncontrolled Glycemic state: with hyperglycemia Qualified Code(s): E11.65 - Type 2 diabetes mellitus with hyperglycemia"
[2025-04-19] MEDS: APIXABAN 2.5 MG TAB PO SCH (20:58)
--- NOTE | 2025-04-20 14:33 | CT Scan Report ---
LEFT ANKLE CT WITHOUT CONTRAST CLINICAL HISTORY: lateral malleolar pain/swelling/trauma; fracture? COMPARISON STUDY: Left ankle radiographs April 10, 2025. TECHNIQUE: Axial images of the left ankle were obtained without IV contrast. Sagittal and coronal ref ormats were viewed. A dose lowering technique was utilized adhering to the principles of ALARA. FINDINGS: There is slight widening of the lateral ankle mortise. This may be positional. Alignment of the left ankle is otherwise anatomic. There is an acute nondisplaced fracture of the left fibular ti p showing sagittal reformatted image 67 of 79. There is also a 6 mm age indeterminate avulsion fractu re of the fibular tip. No additional fractures within the left ankle are identified. Distal left tibi a is intact. Talar dome is intact. There is no acute calcaneal fracture. Irregularity of the anterior process of the calcaneus is likely chronic. Lateral ankle soft tissue swelling is present. There is no soft tissue gas. No areas of bony erosion are identified. IMPRESSION: 1. Acute nondisplaced fibular tip fracture. 2. Small 6 mm age indeterminate avulsion fracture of the fibular tip. 3. No acute distal left tibial fracture. 4. Slight widening of the lateral ankle mortise. This may be positional. 5. Lateral ankle soft tissue swelling. ACT 112: Negative or not required by law. Electronically signed by: Vincent Ivey M.D. 04/20/2025 2:32 PM
--- NOTE | 2025-04-20 20:47 | Hospitalist Progress Note ---
Date of Service April 20, 2025 Assessment & Plan (1) Fracture of distal fibula: (2) Acute blood loss anemia: (3) Hypotension: (4) Nausea & vomiting: (5) DANA (acute kidney injury): (6) Diabetes mellitus type 2, uncontrolled: (7) SIRS (systemic inflammatory response syndrome): (8) Urine retention: Plan 75yo female with h/o DVT/PE on Eliquis, T2DM w/ nephropathy, CKD stage 2, Hyperlipidemia, Hypothyroidism, Vitamin D deficiency, Memory impairment/dementia, Depression, and prior breast CA who presented from her personal-retirement with nausea/dry heaving, increased swelling in her legs with pain in the ankles, elevated blood sugars in the 300s, and dyspnea on exertion. At admission had leukocytosis of 18. Hemoglobin was down to 8.8 from 12 (one month prior). Also with evidence of DANA with creatinine of 1.9 - increase from baseline of 0.6. #left distal fibula fracture - -exam with focal swelling, ecchymoses, and pain over the lateral malleolus of left ankle -CT left ankle with distal fibula fracture. -consulted Dr Escobedo from [facility] [place] Ortho -WBAT in a walking boot? will wait for their opinion -check 25-OH vit D level am -suspect she had had a fall in the days leading up to this admission (but details uncertain) #Acute blood loss anemia - -presumed GI bleeding but never had endoscopic eval -CTA a/p did not show any acute bleeding nor any retroperitoneal bleeding -lowest Hb was 6.6 ---> s/p 2 units PRBCs -stool surprisingly heme negative despite suspected GI source for her anemia -B12/folate wnl -Fe studies noted -no evidence of hemolysis at any time -recheck CBC tomorrow for stability -of note - earlier in the stay Eliquis & asa had been placed on hold due to concern the acute blood loss anemia was from GI losses -Eliquis resumed at 2.5mg BID on 04/18 and since then no signs of any bleeding #Nausea/vomiting with Leukocytosis at admission - -resolved -full infectious work-up was negative -respiratory BioFire, blood cx's, u/a, CT a/p - no source of any infection found #DANA on CKD stage 3 - -creatinine elevated at 1.9 on admission with baseline 0.6 -creatinine normalized with supportive care, stopping lasix, etc. -did have urinary retention earlier in the stay s/p abdul placement -abdul d/c and trial of void - 04/13 -required straight cath unfortunately -abdul replaced 04/14 -flomax initiated at that time -leave abdul in place past discharge and send to urology for management #DM with hyperglycemia - -Recent HgbA1c 8.1% -BSGs remain controlled -appreciate pharmacy glycemic team management -diabetic neuropathy? gabapentin 100mg HS initiated this admission #Lower extremity edema - -likely chronic venous insufficiency in the setting of prior DVTs b/l -IV lasix given 2x's this admission with improved sweling -now on PO lasix 20mg daily and tolerating such -legs look good today #Hyperlipidemia - -continue Atorvastatin #History of DVT/PE on Eliquis - -acute b/l LE DVTs noted in 12/2024 --- at that time was noncompliant with Eliquis thus not considered a treatment failure -Eliquis continued -Doppler RLE negative for acute findings this admission -Eliquis now back on at 2.5mg BID #Memory Impairment/Depression #Ovarian cyst - 4cm on right - -chronic, stable; was seen on imaging in 2023 as well -can f/u with vegetable farmer in outpatient setting to monitor it dispo - awaiting SNF auth Admission and Anticipated Discharge Date Admission Date: April 08, 2025 Subjective patient lying in bed comfortably awake/alert knows she is in the hospital, but otherwise doesn't offer much by way of history has mild pain of left ankle but none on right eating fair per staff abdul in place (failed voiding trial recently) had a stool earlier today Review of Systems Review of Systems: CV - no chest pain pulm - no dyspnea GI - no abd pain Physical Exam Physical Exam: gen - lying comfortably in bed; looks tired but NAD mouth - MMM neck - no JVD heart - RRR, s1 s2 lungs - CTA b/l abd - soft NT ND BS+ ext - pulses b/l feet 2+; <1+ edema left ankle and foot; trace edema right foot/ankle musculo - old ecchymoses of lateral left foot ankle; focal edema over left ankle/lateral malleolus; tender to palpation over the lateral malleolus; right ankle wnl Results & Data Results & Data Vital Signs (Past 12 Hours) Vital Signs Temp Pulse Resp BP Pulse Ox O2 Del Method 04/20/25 14:23 37.1 C 83 16 111/64 95 Room Air 04/20/25 09:18 Room Air Laboratory Results Laboratory Results - last 24 hr 04/20/25 04/20/25 04/20/25 07:24 11:30 16:32 POC Glucose 118 H 154 H 162 H Diagnostic Findings Lower Extremity CT 04/20/25 11:[address] WITHOUT CONTRAST CLINICAL HISTORY: lateral malleolar pain/swelling/trauma; fracture? COMPARISON STUDY: Left ankle radiographs April 10, 2025. TECHNIQUE: Axial images of the left ankle were obtained without IV contrast. Sagittal and coronal reformats were viewed. A dose lowering technique was utilized adhering to the principles of ALARA. FINDINGS: There is slight widening of the lateral ankle mortise. This may be positional. Alignment of the left ankle is otherwise anatomic. There is an acute nondisplaced fracture of the left fibular tip showing sagittal reformatted image 67 of 79. There is also a 6 mm age indeterminate avulsion fracture of the fibular tip. No additional fractures within the left ankle are identified. Distal left tibia is intact. Talar dome is intact. There is no acute calcaneal fracture. Irregularity of the anterior process of the calcaneus is likely chronic. Lateral ankle soft tissue swelling is present. There is no soft tissue gas. No areas of bony erosion are identified. IMPRESSION: 1. Acute nondisplaced fibular tip fracture. 2. Small 6 mm age indeterminate avulsion fracture of the fibular tip. 3. No acute distal left tibial fracture. 4. Slight widening of the lateral ankle mortise. This may be positional. 5. Lateral ankle soft tissue swelling. ACT 112: Negative or not required by law. Electronically signed by: Vincent Ivey M.D. 04/20/2025 2:32 PM PG Care Time/CCT Total # of Minutes Spent Total Time Spent with Patient: Total time spent is greater than 50% in coordination of care (as documented) at patient's floor/unit and/or counseling patient: Coding Level of Care Code 45759 SUB INP/OBS CARE 2/35MIN Diagnoses Fracture of distal fibula S82.839A Acute blood loss anemia D62 Hypotension I95.9 Nausea & vomiting R11.2 DANA (acute kidney injury) N17.9 Uncontrolled type 2 diabetes mellitus with hyperglycemia E11.65 Glycemic state: with hyperglycemia SIRS (systemic inflammatory response syndrome) R65.10 Urine retention R33.9 (6) Diabetes mellitus type 2, uncontrolled Glycemic state: with hyperglycemia Qualified Code(s): E11.65 - Type 2 diabetes mellitus with hyperglycemia
[2025-04-20 22:35] VITALS: PULSE 82
[2025-04-21 07:42] LABS: Hematocrit (blood only) 27.3 % (37.0-47.0); Hemoglobin 9.1 g/dL (12.0-16.0); Mean Corpuscular Hemoglobin 30.0 pg (25.0-34.0); Mean Corpuscular Volume 90.1 fL (80.0-100.0); Platelet Count 419 K/uL (130-400); RDW Standard Deviation 44.2 fL (36.4-46.3); Red Blood Count 3.03 M/uL (4.20-5.40); White Blood Count 8.14 K/ul (4.8-10.8)
--- NOTE | 2025-04-21 08:02 | Orthopedic Consultation ---
Date of Service April 21, 2025 Assessment & Plan (1) Closed fracture of distal end of left fibula: * Case/imaging reviewed and discussed with Dr Escobedo * Recommend closed management of left distal fibula avulsion fracture * CAM boot ordered * Weight bearing status: WBAT in boot * Daily treatment: Physical Therapy/ Occupational Therapy per protocol * Pain control * Disposition: TBD * Remainder care per primary team * Will follow peripherally, repeat x-rays in approximately 2 weeks in outpatient setting. History of Present Illness Reason for Consultation: L ankle pain Requesting Physician: . Attending Physician: Davi Mccall MD . Patient is a 75y/o female with left ankle pain. PMH including DVT/PE on Eliquis, T2DM w/ nephropathy CKD stage 3, HLD, Hypothyroidism, Vitamin D deficiency, Memory impairment, Depression, and Hx of breast CA who presented to the ED via EMS from her personal-fci with reports of nausea and dry heaving, increased swelling in her legs with pain in the ankles, elevated blood sugars in the 300s for the last week, suspected recurrent UTI, and dyspnea on exertion. The patient has cognitive impairment and is unable to give much of the history. Patient does report that she has some mild pain in the left ankle but does not recall specific injury or trauma. Current workup including x-ray left ankle without obvious fracture, CT left ankle 04/20 demonstrating small chip fracture of the distal fibula. Orthopedics consulted for management recommendations. At time of exam patient lying comfortably in bed, no acute distress. Endorses mild pain in the left ankle that increases with certain movements. Denies tingling numbness in left lower extremity. No assistive devices at baseline.. Allergies Allergy/AdvReac Type Severity Reaction Status Date / Time aloe Allergy Unknown RAISED RASH Verified 08/31/24 13:50 No Known Drug Allergies Allergy Verified 08/31/24 13:50 Home Medications Medication Instructions Recorded Confirmed Type aspirin 81 mg tablet,delayed 81 mg PO DAILY 05/30/22 04/08/25 History release acetaminophen 325 mg tablet 650 mg PO Q6H PRN Fever Or Pain 03/04/24 04/08/25 History (Tylenol) apixaban 5 mg tablet (Eliquis) 5 mg PO BID #60 tabs 03/05/24 04/08/25 Rx blood-glucose,investment specialist,cont #1 ea 03/05/24 12/12/24 Rx (Dexcom G7 It Service Delivery Manager) atorvastatin 80 mg tablet 80 mg PO QAM #90 tabs 04/15/24 04/08/25 Rx pen needle, diabetic 32 gauge x #100 ea 06/01/24 12/12/24 Rx 1/4" (Comfort EZ Pen [place]) blood-glucose sensor (Dexcom G7 #3 ea 10/06/24 12/12/24 Rx Sensor device) bisacodyl 10 mg rectal suppository 10 mg [place] DAILY PRN Constipation 03/10/25 04/08/25 History docusate sodium 100 mg capsule 100 mg PO DAILY PRN Constipation 03/10/25 04/08/25 History insulin glargine 100 unit/mL (3 10 unit subcut QAM 03/10/25 04/08/25 History mL) subcutaneous pen (Lantus Solostar U-100 Insulin) insulin glargine 100 unit/mL (3 35 unit subcut HS 03/10/25 04/08/25 History mL) subcutaneous pen (Lantus Solostar U-100 Insulin) polyethylene glycol 3350 17 17 g PO DAILY PRN Constipation 03/10/25 04/08/25 History gram/dose oral powder (Miralax) furosemide 20 mg tablet 40 mg (2 x 20 mg) PO DAILY #60 tabs 03/12/25 04/08/25 Rx Head And Shoulders 1 applic topical .FRI & Friday04/08/25 04/08/25 History menthol 0.44 %-zinc oxide 20.6 % 1 applic topical BID 04/08/25 04/08/25 History topical ointment (Calmoseptine) Past Med/Surg History Problem List (Updated 04/21/25 @ 08:21 by Huy Paniagua PA-C) Closed fracture of distal end of left fibula Fracture of distal fibula Urine retention Hypotension Acute blood loss anemia Hyperglycemia (Acute) Anemia (Acute) Leukocytosis (Acute) DANA (acute kidney injury) (Acute) Nausea & vomiting SIRS (systemic inflammatory response syndrome) Anemia DANA (acute kidney injury) Lower extremity edema Ambulatory dysfunction (Acute) Ovarian cyst, right Elevated LFTs (Acute) Hypomagnesemia (Acute) Weakness (Acute) Memory impairment Fall Thickened endometrium Hypoxia (Acute) Acute alteration in mental status (Acute) Pulmonary embolism with acute cor pulmonale (Acute) Malignant neoplasm of lower-outer quadrant of left breast of female, estrogen receptor positive (Chronic 08/02/21) 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 Elevated ADILENE level suspicious for pulmonary sarcoidosis. Biopsy could not be completed. DM was grossly uncontrolled so steroids were avoided. Seems she's been relatively asymptomatic since then. Dr. Chowdhury repeated CT scan 2013, which revealed borderline, similiar appearing hilar LNs. Adult situational stress disorder (Chronic) Diabetic nephropathy with proteinuria (Chronic) Solitary thyroid nodule (Chronic) s/p thyroidectomy 2011 Vitamin D deficiency (Chronic) Diabetes mellitus type 2, uncontrolled (Chronic) Hyperlipidemia (Chronic) Depression (Chronic) CKD (chronic kidney disease) stage 3, GFR 30-59 ml/min Medical History Pressure ulcer of sacral region, stage 3 Diabetes mellitus DVT (deep venous thrombosis) Noncompliance with medication regimen Hypertension Demand ischemia Acute respiratory failure with hypoxia High anion gap metabolic acidosis DKA (diabetic ketoacidosis) Encounter for pre-operative examination Breast cancer Dx 2021 surgical intervention planned Conjunctivitis Hypothyroidism Surgical History History of tubal ligation History of cholecystectomy History of section History of thyroidectomy (03/04/12) d/t suspicious nodule. 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 No carcinoma noted. History of colonoscopy Diverticulosis noted. No polyps/neoplasia. No biopsies. F/U 5-10 years recommended. Family History Mother Uterine cancer Leukemia Aunt Breast cancer Pancreatic cancer Father Heart disease (Reported Family History Of) Myocardial infarction Unknown Acute myocardial infarction Son Atrial fibrillation Myocardial infarction Denies family history of Ovarian cancer Prostate cancer Colorectal cancer Social History Smoking Status: Never smoker Second Hand Exposure: No; Do You Dip or Chew Tobacco: No; Hx Alcohol Use: Yes Alcohol type: hard liquor Alcohol Intake Frequency: Monthly or Less Hx Substance Use: No Preferred Language: Maori Communication Ability: Impaired Visual Impairment: Limited Hearing Ability: Normal Stope Miner Required: No Beliefs That Will Affect Care: None marital status: / Current Living Situation: Personal Care Facility Current Living Situation Comment: [facility] current occupational status: retired How many Children do You have: 2 Feels Safe at Home: Yes Safety Concerns: Feels Safe At This Time Childhood Exposure to Second-Hand Smoke: Yes Diet: regular caffeine: Yes (half caf coffee ) during the past year weight has: remained stable Dental Care, Regularly: No Physical Activity Frequency: Does not Exercise Seatbelt Use: always Sunscreen Use: Yes Assistive Devices: Walker and Wheelchair Review of Systems All systems reviewed & are unremarkable except as noted in HPI & below. Physical Exam . * General: Alert and oriented, no acute distress * Constitutional: well-developed, well-nourished. * Respiratory: Normal respiratory effort, no distress * Gastrointestinal: No tenderness to palpation, no rigidity or guarding. * Skin: No rash or lesion. * Neurologic: Grossly normal * Musculoskeletal: Left ankle with mild lateral soft tissue swelling. Otherwise no obvious deformity or overlying skin changes to the left lower extremity. TTP directly at the distal fibula, diffusely along the lateral joint line. Otherwise no tenderness of the medial malleolus, anterior ankle region, lower leg, dorsal foot. AROM ankle plantar/dorsiflexion with minimal pain. AROM knee flexion/extension intact. Sensation intact plantar/dorsal foot. Brisk capillary refill. Results & Data Results & Data Laboratory Results . Diagnostic Findings . Lower Extremity CT 04/20/25 11:[address] WITHOUT CONTRAST CLINICAL HISTORY: lateral malleolar pain/swelling/trauma; fracture? COMPARISON STUDY: Left ankle radiographs April 10, 2025. TECHNIQUE: Axial images of the left ankle were obtained without IV contrast. Sagittal and coronal reformats were viewed. A dose lowering technique was utilized adhering to the principles of ALARA. FINDINGS: There is slight widening of the lateral ankle mortise. This may be positional. Alignment of the left ankle is otherwise anatomic. There is an acute nondisplaced fracture of the left fibular tip showing sagittal reformatted image 67 of 79. There is also a 6 mm age indeterminate avulsion fracture of the fibular tip. No additional fractures within the left ankle are identified. Distal left tibia is intact. Talar dome is intact. There is no acute calcaneal fracture. Irregularity of the anterior process of the calcaneus is likely chronic. Lateral ankle soft tissue swelling is present. There is no soft tissue gas. No areas of bony erosion are identified. IMPRESSION: 1. Acute nondisplaced fibular tip fracture. 2. Small 6 mm age indeterminate avulsion fracture of the fibular tip. 3. No acute distal left tibial fracture. 4. Slight widening of the lateral ankle mortise. This may be positional. 5. Lateral ankle soft tissue swelling. ACT 112: Negative or not required by law. Electronically signed by: Vincent Ivey M.D. 04/20/2025 2:32 PM PG Care Time/CCT Total # of Minutes Spent Total Time Spent with Patient: Total time spent is greater than 50% in coordination of care (as documented) at patient's floor/unit and/or counseling patient: [place] [address] IN/OBS CONSULT LVL 3,45M Patient Type New History Problem Focused Exam Problem Focused Medical Decision Making Straight Forward Diagnoses Closed fracture of distal end of left fibula S82.832A
[2025-04-21 08:18] LABS: Anion Gap 5.0 (3-11); Blood Urea Nitrogen 28.0 mg/dl (6-23); Calcium 8.3 mg/dl (8.6-10.3); Carbon Dioxide 30.0 mmol/L (21-32); Chloride 104.0 mmol/L (98-107); Creatinine Clr Calc Pharmacy 63.5 ml/min; Glucose 114.0 mg/dl (70-99(Fasting)); Potassium 3.9 mmol/L (3.5-5.1); Sodium 139.0 mmol/L (136-145)
[2025-04-21] MEDS: ERGOCALCIFEROL 1250 MCG (50,000 UNITS) CAP PO SCH (10:47)
--- NOTE | 2025-04-21 11:49 | Pharmacy Report ---
Pharmacy Glycemic Short Note 2 - Date of Service April 21, 2025 - Glycemic Short BSG Results (Last 24 hours): 04/20/25 04/20/25 04/21/25 16:32 20:12 07:21 Glucose 114 H POC Glucose 162 H 155 H 04/21/25 04/21/25 07:25 11:21 Glucose POC Glucose 128 H 234 H OUTPATIENT ANTIDIABETIC REGIMEN: * Lantus 10 units SQ Q AM and 35 units Q PM HbA1c 8.1% on 03/11/25 ASSESSMENT: 04/21/25: * Blood sugars remain reasonably well-controlled with occasional excursions > 200 mg/dL at lunchtime * Do not anticipate any changes to glycemic regimen at this time 04/18 * BSGs [phone] mg/dL yesterday with 95 total units of insulin, 50 of which were basal * Fasting this AM 155 mg/uK-wxendaox-dmlufwwk 25 units BID of lantus * Carb ratio tightened yesterday with improvement in prandial BSGs, will continue same for now. 04/16 * Shari is 75 year old female who was admitted 04/08 with nausea and vomiting, DANA, and BSGs in the 300s x 1 week. Provider was managing insulin until last evening when pharmacy was consulted for glycemic management. * Over the last few days, BSGs have been ranging from 81-306mg/dL. AM Lantus was increased and bolus insulin regimen was tightened today by the provider. Will continue this regimen without change for now. PLAN FOR INPATIENT GLYCEMIC CONTROL: * Basal insulin * Lantus 25 units SC BID * Bolus insulin * NovoLog per scale ACHS or Q6hrs while NPO * Goal Range: Low 110 mg/dL - High 140 mg/dL * Correction Factor: 20 mg/dL/unit * Nutritional / Prandial insulin per carb ratio of 1 unit per 4 grams CHO consumed
[2025-04-21 14:51] VITALS: BP 115/71; RESP 16; TEMP 98.1; O2SAT 96
--- NOTE | 2025-04-21 15:00 | Hospitalist Progress Note ---
Date of Service April 21, 2025 Assessment & Plan (1) Fracture of distal fibula: (2) Acute blood loss anemia: (3) Hypotension: (4) Nausea & vomiting: (5) DANA (acute kidney injury): (6) Diabetes mellitus type 2, uncontrolled: (7) SIRS (systemic inflammatory response syndrome): (8) Urine retention: (9) Vitamin D deficiency: (10) Severe malnutrition: (11) Pressure-induced deep tissue damage of other site: Plan: Pressure-induced deep tissue damage of L ischial area region, NOT present on admission Plan 75yo female with h/o DVT/PE on Eliquis, T2DM w/ nephropathy, CKD stage 2, Hyperlipidemia, Hypothyroidism, Vitamin D deficiency, Memory impairment/dementia, Depression, and prior breast CA who presented from her [facility] with nausea/dry heaving, increased swelling in her legs with pain in the ankles, elevated blood sugars in the 300s, and dyspnea on exertion. At admission had leukocytosis of 18. Hemoglobin was down to 8.8 from 12 (one month prior). Also with evidence of DANA with creatinine of 1.9 - increase from baseline of 0.6. #left distal fibula fracture - -exam with focal swelling, ecchymoses, and pain over the lateral malleolus of left ankle -CT left ankle with distal fibula fracture. -consulted Dr Escobedo from [facility] -[facility] in a walking boot? will wait for their opinion -check 25-OH vit D level am -suspect she had had a fall in the days leading up to this admission (but details uncertain) #Acute blood loss anemia - -presumed GI bleeding but never had endoscopic eval -CTA a/p did not show any acute bleeding nor any retroperitoneal bleeding -lowest Hb was 6.6 ---> s/p 2 units PRBCs -stool surprisingly heme negative despite suspected GI source for her anemia -B12/folate wnl -Fe studies noted -no evidence of hemolysis at any time -recheck CBC tomorrow for stability -of note - earlier in the stay Eliquis & asa had been placed on hold due to concern the acute blood loss anemia was from GI losses -Eliquis resumed at 2.5mg BID on 04/18 and since then no signs of any bleeding #Nausea/vomiting with Leukocytosis at admission - -resolved -full infectious work-up was negative -respiratory BioFire, blood cx's, u/a, CT a/p - no source of any infection found #DANA on CKD stage 3 - -creatinine elevated at 1.9 on admission with baseline 0.6 -creatinine normalized with supportive care, stopping lasix, etc. -did have urinary retention earlier in the stay s/p abdul placement -abdul d/c and trial of void - 04/13 -required straight cath unfortunately -abdul replaced 04/14 -flomax initiated at that time -leave abdul in place past discharge and send to urology for management #DM with hyperglycemia - -Recent HgbA1c 8.1% -BSGs remain controlled -appreciate pharmacy glycemic team management -diabetic neuropathy? gabapentin 100mg HS initiated this admission #Lower extremity edema - -likely chronic venous insufficiency in the setting of prior DVTs b/l -IV lasix given 2x's this admission with improved sweling -now on PO lasix 20mg daily and tolerating such -legs look good today #Hyperlipidemia - -continue Atorvastatin #History of DVT/PE on Eliquis - -acute b/l LE DVTs noted in 12/2024 --- at that time was noncompliant with Eliquis thus not considered a treatment failure -Eliquis continued -Doppler RLE negative for acute findings this admission -Eliquis now back on at 2.5mg BID #Memory Impairment/Depression #Ovarian cyst - 4cm on right - -chronic, stable; was seen on imaging in 2023 as well -can f/u with hat marker in outpatient setting to monitor it #vitamin D def - -25 OH Vit D level 8 -start ergocalciferol 06339 units weekly x 8 weeks dispo - awaiting SNF auth Admission and Anticipated Discharge Date Admission Date: April 08, 2025 Physical Exam Physical Exam: gen - lying comfortably in bed; looks tired but NAD mouth - MMM neck - no JVD heart - RRR, s1 s2 lungs - CTA b/l abd - soft NT ND BS+ ext - pulses b/l feet 2+; <1+ edema left ankle and foot; trace edema right foot/ankle musculo - old ecchymoses of lateral left foot ankle; focal edema over left ankle/lateral malleolus; tender to palpation over the lateral malleolus; right ankle wnl Results & Data Results & Data Vital Signs (Past 12 Hours) Vital Signs Temp Pulse Resp BP Pulse Ox O2 Del Method 04/21/25 14:50 36.7 C 82 16 115/71 96 Room Air 04/21/25 08:47 Room Air 04/21/25 07:00 36.8 C 82 18 114/69 95 Room Air Laboratory Results Laboratory Results - last 24 hr 04/20/25 04/20/25 04/21/25 16:32 20:12 07:21 WBC 8.14 RBC 3.03 L Hgb 9.1 L Hct 27.3 L MCV 90.1 MCH 30.0 MCHC 33.3 RDW Std Deviation 44.2 RDW Coeff of Millicent 14.0 Plt Count 419 H MPV 8.6 L Sodium 139 Potassium 3.9 Chloride 104 Carbon Dioxide 30 Anion Gap 5 BUN 28 H Creatinine 0.83 Est Cr Clr Drug Dosing 63.5 eGFR 73.02 BUN/Creatinine Ratio 33.7 H Glucose 114 H POC Glucose 162 H 155 H Calcium 8.3 L 25-OH Vitamin D Total 8.7 L 04/21/25 04/21/25 07:25 11:21 WBC RBC Hgb Hct MCV MCH MCHC RDW Std Deviation RDW Coeff of Millicent Plt Count MPV Sodium Potassium Chloride Carbon Dioxide Anion Gap BUN Creatinine Est Cr Clr Drug Dosing eGFR BUN/Creatinine Ratio Glucose POC Glucose 128 H 234 H Calcium 25-OH Vitamin D Total PG Care Time/CCT Total # of Minutes Spent Total Time Spent with Patient: Total time spent is greater than 50% in coordination of care (as documented) at patient's floor/unit and/or counseling patient: Coding Diagnoses Fracture of distal fibula S82.839A Acute blood loss anemia D62 Hypotension I95.9 Nausea & vomiting R11.2 DANA (acute kidney injury) N17.9 Uncontrolled type 2 diabetes mellitus with hyperglycemia E11.65 Glycemic state: with hyperglycemia SIRS (systemic inflammatory response syndrome) R65.10 Urine retention R33.9 Vitamin D deficiency E55.9 Severe malnutrition E43 Pressure-induced deep tissue damage of other site L89.896 (6) Diabetes mellitus type 2, uncontrolled Glycemic state: with hyperglycemia Qualified Code(s): E11.65 - Type 2 diabetes mellitus with hyperglycemia
== END 2025-04-21 16:41 | DRG 391 ==
LOC: SUATTDRO → ED 16:24 → 2W 19:19 → SUATTDRO 19:19 → 2W 23:51 → 2S 04-09 10:41 → 3N 04-12 22:49